=== PATIENT | female | born 1955 | race Caucasian/White ===

== ENCOUNTER 2020-05-19 09:10 | Outpatient (REF) | payer MEDICARE, MEDICAID, SELFPAY ==
[2020-05-19 10:25] LABS: MANUAL DIFF FLAG NO
[2020-05-19 10:46] LABS: Basophils Percent Auto 0.7 % (0-2); Eosinophils Absolute Auto 0.2 X10*3/uL (0.0-0.4); Eosinophils Percent Auto 3.8 % (0-4); Hematocrit 39.5 % (37-47); Hemoglobin 12.9 g/dl (12.0-16.0); Imm Gran Abs Auto 0.02 X10*3/uL (0.00-0.03); Imm Gran Pct Auto 0.3 % (0.0-0.4); Lymphocytes Absolute Auto 1.8 X10*3/uL (1.2-4.9); Lymphocytes Percent Auto 31.8 % (20-40); Mean Corpuscular HGB Conc 32.7 g/dl (31.0-35.0); Mean Corpuscular Hemoglobin 29.9 pg (27.0-33.0); Mean Corpuscular Volume 91.4 fL (80-98); Mean Platelet Volume 9.3 fL (9.4-12.3); Monocytes Absolute Auto 0.3 X10*3/uL (0.1-1.2); Monocytes Percent Auto 4.3 % (2-11); Neutrophils Absolute Auto 3.4 X10*3/uL (2.0-8.3); Neutrophils Percent Auto 59.1 % (45-73); Platelet Count 319 X10*3/uL (160-400); Red Blood Count 4.32 X10*6/uL (4.20-5.50); Red Cell Distribution Width 12.5 % (11.0-16.0); White Blood Count 5.8 X10*3/uL (4.8-10.8)
[2020-05-19 11:02] LABS: Alanine Aminotransferase 25 U/L (0-31); Albumin Level 4.2 g/dL (3.5-5.0); Alkaline Phosphatase 119 U/L (39-117); Anion Gap 12 (12-20); Aspartate Amino Transferase 22 U/L (5-31); Bilirubin Total 0.3 mg/dL (0.0-1.0); Blood Urea Nitrogen 10 mg/dL (9-16); Calcium 9.2 mg/dL (8.4-10.2); Carbon Dioxide 30 mmol/L (22-29); Chloride 104 mmol/L (96-108); Cholesterol 190 mg/dL; Estimated Glomerular Filt Rate > 60; Gamma Glutamyl Transpeptidase 76 U/L (7-33); Glucose Fasting 80 mg/dL (60-99); HDL Cholesterol 41 mg/dL; LDL Cholesterol Calculated 117 mg/dl; Potassium 4.8 mmol/l (3.3-5.1); Sodium 141 mmol/L (135-145); Triglycerides 163 mg/dL
== END 2020-05-19 09:11 | disposition home or self-care (01) ==
LOC: HO.LAB 09:10
PROVIDERS: Visit Provider Internal Medicine Medical Oncology
DX: I25.10 Atherosclerotic heart disease of native coronary artery without angina pectoris (principal); I25.83 Coronary atherosclerosis due to lipid rich plaque; I10 Essential (primary) hypertension; E78.2 Mixed hyperlipidemia; R73.9 Hyperglycemia, unspecified
CPT/HCPCS: 36415; 80053; 80061; 82977; 85025

== ENCOUNTER → 2020-06-18 08:45 | Outpatient (BNVA) | payer MEDICARE, MEDICAID, SELFPAY | PROVIDERS: PCP Internal Medicine Medical Oncology; Referring Provider Internal Medicine Medical Oncology; Visit Provider Internal Medicine | DX: Z13.89 Encounter for screening for other disorder (principal) | CPT/HCPCS: Q3014 ==

== ENCOUNTER → 2020-10-08 10:08 | Outpatient (BNVA) | payer MEDICARE, MEDICAID, SELFPAY | PROVIDERS: PCP Internal Medicine Medical Oncology; Visit Provider Internal Medicine | CPT/HCPCS: Q3014 ==

== ENCOUNTER → 2020-12-03 08:00 | Outpatient (BNVA) | payer MEDICARE, MEDICAID, SELFPAY | PROVIDERS: PCP Internal Medicine Medical Oncology; Visit Provider Internal Medicine | CPT/HCPCS: Q3014 ==

== ENCOUNTER 2020-12-23 10:56 | Inpatient (IN) | payer MEDICARE, MEDICAID, SELFPAY ==
[2020-12-23] VITALS (8 sets, daily range): BP systolic 104–148; BP diastolic 51–75; PULSE 74–115; RESP 16–30; TEMP 37.5–38.3; O2SAT 93–98; BMI 27.5
--- NOTE | ~2020-12-23 | FL_ITS ---
EXAMINATION: XR FLUOROSCOPY WITH IMAGES CLINICAL INFORMATION: ERCP COMPARISON: CT abdomen and pelvis 12/23/2020. TECHNIQUE: Fluoroscopy performed by Dr. Anuj Winters,. Fluoroscopy time: 709.8 seconds DAP: 175 mGycm2 Images: 5 FINDINGS: There is at least 5 images obtained revealing multiple small filling defects in the common bile duct. The subsequent images reveal balloon catheter within the CBD. The last image reveals a common bile duct stent in place. FL/FL guidance in OR IMPRESSION: Dilated CBD with small filling defects likely radiolucent stones. Subsequent images reveals balloon insertion and removal of stones. Final image reveals a stent in place.
--- NOTE | ~2020-12-23 | CT_ITS ---
EXAMINATION: CT ABDOMEN AND PELVIS WITH CONTRAST CLINICAL INFORMATION: CBD obstruction. Now presents with jaundice. COMPARISON: CT abdomen and pelvis with IV contrast 07/13/2017 TECHNIQUE: Multidetector volumetric images were obtained from the superior aspect of the liver through the pubic symphysis following administration 85 mL of Omnipaque 350 intravenous contrast. Sagittal and coronal reformatted images were obtained on the technologist's workstation. Oral contrast: No This CT examination was performed using dose optimization techniques as appropriate, variously including the following: *Automated exposure control *Adjustment of mA and/or kV according to patient size (this includes techniques or standardized protocols for targeted exams where dose is matched to indication/reason for exam; i.e. extremities or head) *Use of iterative reconstruction technique DLP: 369 mGy-cm FINDINGS: LUNG BASES: Mild atelectatic changes left lung base. There is a small hiatal hernia. LIVER, GALLBLADDER, AND BILIARY TREE: The liver is normal in size, shape, and attenuation. There is left hepatic lobe pneumobilia with mild dilated intrahepatic ducts. Also visualized is a moderate CBD dilatation measuring 1.0 cm above the pancreatic head and approximately 1 cm at the pancreatic head. There is heterogeneous soft tissue density seen in the distal CBD on axial image 30/3, measuring 60 Hounsfield units. There are several radiopaque gallstones seen. A large 1.9 cm gallstone with a dilated gallbladder but normal wall thickening is noted. PANCREAS: Unremarkable. SPLEEN: Unremarkable. ADRENAL GLANDS: Unremarkable. KIDNEYS AND URETERS: The kidneys are normal in size, shape, and attenuation. No hydronephrosis, hydroureter, or calculi seen. No perinephric stranding. Probable small left renal cyst cysts and bilateral extrarenal kidney pelvis. BLADDER: Unremarkable. GASTROINTESTINAL TRACT: There is scattered stool, diverticuli seen throughout the colon without any significant distention. The small bowel loops are normal caliber. Appendix is normal caliber. There is no inflammatory process seen in the abdomen. ABDOMINAL WALL: No significant hernia is appreciated. LYMPH NODES: Normal. VASCULAR: Is atherosclerotic calcification of abdominal aorta and both common iliac arteries. No aneurysmal dilatation seen. PELVIC VISCERA: The uterus is midline. There is no adnexal mass seen. OSSEOUS STRUCTURES: No lytic or sclerotic process seen. CT/CT abdomen pelvis w con IMPRESSION: There is intrahepatic pneumobilia and mild dilated intrahepatic ducts with a moderately dilated CBD. There is a heterogeneous soft tissue density seen in the distal CBD question mass or debris. A stricture is not excluded. Patient probably had previous intervention with ERCP. Correlate with clinical history Cholelithiasis with a large gallstone measuring 1.8 cm. Scattered colonic diverticulosis without diverticulitis. Mild constipation.
[2020-12-23 13:04] LABS: MANUAL DIFF FLAG NO
[2020-12-23 13:07] LABS: Basophils Percent Auto 0.2 % (0-2); Hematocrit 45.3 % (37-47); Hemoglobin 14.9 g/dl (12.0-16.0); Imm Gran Pct Auto 1.2 % (0.0-0.4); Lymphocytes Absolute Auto 2.1 X10*3/uL (1.2-4.9); Lymphocytes Percent Auto 12.6 % (20-40); Mean Corpuscular HGB Conc 32.9 g/dl (31.0-35.0); Mean Corpuscular Volume 91.1 fL (80-98); Mean Platelet Volume 9.5 fL (9.4-12.3); Monocytes Absolute Auto 0.8 X10*3/uL (0.1-1.2); Monocytes Percent Auto 4.8 % (2-11); Neutrophils Absolute Auto 13.5 X10*3/uL (2.0-8.3); Neutrophils Percent Auto 81.2 % (45-73); Platelet Count 377 X10*3/uL (160-400); Red Blood Count 4.97 X10*6/uL (4.20-5.50); Red Cell Distribution Width 12.7 % (11.0-16.0); White Blood Count 16.6 X10*3/uL (4.8-10.8)
[2020-12-23 15:49] LABS: Glucose Urine UA NEG (NEG); Leukocyte Esterase Urine TRACE (NEG); Nitrite Urine POS (NEG); PH 5.5 (5.0-8.0); Specific Gravity - Urine 1.025 (1.005-1.025); UACC Culture Trigger YES; Urine Blood 3+ (NEG); Urine Ketones 15 MG/DL (NEG); Urine Protein 3+ MG/DL (NEG-TRACE)
[2020-12-23 15:50] LABS: Appearance Urine HAZY
[2020-12-23 15:52] LABS: Color Urine BROWN
--- NOTE | 2020-12-23 15:53 | ECG_ITS ---
Test Reason : WEAKNESS Blood Pressure : / mmHG Vent. Rate : 092 BPM Atrial Rate : 092 BPM P-R Int : 146 ms QRS Dur : 076 ms QT Int : 366 ms P-R-T Axes : 056 053 061 degrees QTc Int : 452 ms Normal sinus rhythm Normal ECG When compared with ECG of 10-JAN-2019 07:04, Vent. rate has increased BY 34 BPM Referred By: Jana Edmondson Electronically Signed By:SEB MURPHY MD
[2020-12-23 16:00] LABS: Bacteria Urine 1+ /LPF; Hyaline Casts Urine 0-2 /LPF; Mucus Urine 1+ /LPF; Squamous Epithelial Cell Urine 1+ /LPF; UACC CULT YES
[2020-12-23] MEDS: Acetaminophen 325 MG TABLET 650 MG PO (16:00)
[2020-12-23] MEDS: cefTRIAXone sodium 1 GM in 0.9 % Sodium Chloride 50 ML IV (16:05)
[2020-12-23] MEDS: SODIUM CHLORIDE 1497 ML IV (16:05)
[2020-12-23 16:15] LABS: Alanine Aminotransferase 277 U/L (0-31); Albumin Level 4.2 g/dL (3.5-5.0); Alkaline Phosphatase 343 U/L (39-117); Anion Gap 15 (12-20); Aspartate Amino Transferase 166 U/L (5-31); Bilirubin Direct 4.7 mg/dL (0.0-0.5); Bilirubin Total 6.6 mg/dL (0.0-1.0); Blood Urea Nitrogen 11 mg/dL (9-16); Calcium 9.1 mg/dL (8.4-10.2); Carbon Dioxide 22 mmol/L (22-29); Chloride 100 mmol/L (96-108); Creatinine Clr Calc Pharmacy 38.1; Estimated Glomerular Filt Rate > 60; Glucose Random 111 mg/dL (60-115); Potassium 3.9 mmol/L (3.3-5.1); Sodium 133 mmol/L (135-145); Total Protein 7.4 g/dL (6.5-8.0)
[2020-12-23 16:21] LABS: COVID-19 Test Negative (Negative); IDNOW Serial# 9DD0AD1C
--- NOTE | 2020-12-23 16:21 | PHA.MEDREC ---
Pharmacy Consult ? Medication Reconciliation Pharmacy has completed the medication reconciliation.
--- NOTE | 2020-12-23 16:23 | ED_ITS ---
HPI - Abdominal Pain General Chief Complaint: Abdominal Pain Stated Complaint: abd pain, possible gallbladder Time Seen by Provider: 12/23/20 15:45 Source: patient Mode of arrival: ambulatory Limitations: no limitations History of Present Illness HPI narrative: 65-year-old female with a past medical history of asthma, vitamin-D deficiency, osteoporosis, coronary artery disease with stent placement, calculous cholecystitis managed medically here with complaints of some abdominal discomfort yesterday but no abdominal pain today. Feeling feverish today. Urine has been dark in color. No nausea, vomiting, diarrhea or chills. Family noticed the patient has been jaundiced the last few days Related Data Home Medications Medication Instructions Recorded Confirmed amlodipine 5 mg tablet 5 mg PO DAILY 06/18/20 12/23/20 trazodone 100 mg tablet 100 mg PO BEDTIME 06/18/20 12/23/20 nitroglycerin 0.4 mg sublingual 0.4 mg SUBLINGUAL Q5M PRN tab 12/03/20 12/23/20 tablet albuterol sulfate [ProAir HFA] 2 puff INHALATION Q4H PRN 12/23/20 12/23/20 Previous Rx's Medication Instructions Recorded omeprazole 20 mg capsule,delayed 20 mg PO DAILY #90 cap 06/24/20 release Allergies Allergy/AdvReac Type Severity Reaction Status Date / Time No Known Allergies Allergy Verified 12/23/20 11:19 [No Known Allergies*] Review of Systems Review of Systems Yes all other systems are reviewed and are negative Constitutional: Reports no additional constitutional complaints, Denies body ache(s), Denies chills, Denies fever(s), Denies headache(s) and Denies weakness Eyes: Reports no additional eye complaints and Denies change in vision Reports system reviewed and no additional complaints, except as documented, Denies dizziness, Denies headache(s), Denies nasal congestion, Denies nasal discharge and Denies neck pain Cardiovascular: Reports no additional cardiovascular complaints, Denies chest pain, Denies leg edema and Denies dyspnea Respiratory: Reports no additional respiratory complaints, Denies cough and Denies dyspnea Gastrointestinal: Reports no additional gastrointestinal complaints, Reports abdominal pain, Denies diarrhea, Denies nausea and Denies vomiting Genitourinary: Reports no additional female genitourinary complaints and Denies urinary incontinence Musculoskeletal: Reports no additional musculoskeletal complaints, Denies back pain, Denies arthralgias, Denies joint swelling, Denies neck pain, Denies numbness and Denies tingling Skin/Breast: Reports system reviewed and no additional complaints, except as docu and Denies rash Reports system reviewed and no additional complaints, except as documented, Denies Abnormal speech present, Denies dizziness, Denies headache(s), Denies numbness, Denies tingling and Denies weakness Physical Exam Vital Signs: Vital Signs: Last Vital Signs Temp 99.5 F 12/23/20 16:42 Pulse 90 12/23/20 16:42 Resp 20 12/23/20 16:42 BP 109/51 L 12/23/20 16:42 Pulse Ox 98 12/23/20 16:42 Body Mass Index 27.5 Const: General: cooperative, healthy appearing, comfortable and no acute d istress Orientation/consciousness: patient oriented x3 Limitations: no limitations HENMT: Head: Yes normal to inspection Ears: hearing grossly normal bilaterally General nose exam: Normal external nose present Face and sinus: Yes normal facial exam Mouth: Normal oral and palatal mucosa present Throat: Yes posterior oropharynx normal Eyes: General: appearance normal, both eyes and all related structures Sclerae: scleral abnormal ( icteric ) Pupils: Equal, round and reactive pupils present Neck: Neck: Yes normal visual inspection Chest: Chest palpation & inspection: normal inspection of the chest Resp: Effort & Inspection: normal respiratory effort Auscultation: clear to auscultation bilaterally Cardio: Rate: regular rate Rhythm: regular rhythm Peripheral pulses: Peripheral pulses 2+ throughout GI: Inspection: Yes normal to inspection Palpation (GI): Soft to palpation and nontender Auscultation: normal bowel sounds Back/Spine/Pelvis: Thoracic/Lumbar Spine: thoracic and lumbar spine normal to inspection Skin: General skin exam: no rashes or lesions noted and jaundice Neuro: General: patient oriented x3, no focal motor deficits and normal sensation to monofilament Cranial nerves: Yes Equal, round and reactive pupils present Cognition (Neuro): normal cognition Speech: No Abnormal speech present Gait exam (Neuro): Normal gait present Motor exam (neuro): 5/5 motor strength present throughout Extrem: General: Yes normal to inspection, Yes no pedal edema and Yes no calf tenderness Course Course Course Narrative: 1545- 65-year-old female here with complaints of episode of abdominal pain yesterday but none today with concern from the family that today she has fever dawson jaundiced appearing. On my exam the patient is not complaining of any abdominal pain. She does have jaundice and scleral icterus. on arrival she has a fever of 100.9 and a heart rate of 110. at this time infection is suspected. Blood cultures and lactic acid ordered. Antibiotics, normal saline bolus and Tylenol ordered. Due to history of calculous cholecystitis managed medically will obtain imaging to r/o CBD obstruction. 1650-Sign out to [employer]NAGER pending above. MDM - Abdominal Pain MDM Narrative Medical decision making narrative: liver disease, CBD obstruction, cholecystitis, pancreatic Medical Records Attestation: I reviewed the patient's medical records. Lab Data Attestation: I reviewed the patient's lab results. Result diagrams: 12/23/20 12:53 12/23/20 15:36 Labs: Lab Results 12/23/20 12/23/20 12/23/20 Range/Units 12:53 15:36 15:36 WBC 16.6 H (4.8-10.8) X10*3/uL RBC 4.97 (4.20-5.50) X10*6/uL Hgb 14.9 (12.0-16.0) g/dl Hct 45.3 (37-47) % MCV 91.1 (80-98) fL MCH 30.0 (27.0-33.0) pg MCHC 32.9 (31.0-35.0) g/dl RDW 12.7 (11.0-16.0) % Plt Count 377 (160-400) X10*3/uL MPV 9.5 (9.4-12.3) fL Immature Gran % (Auto) 1.2 H (0.0-0.4) % Neut % (Auto) 81.2 H (45-73) % Lymph % (Auto) 12.6 L (20-40) % [place] % (Auto) 4.8 (2-11) % Eos % (Auto) 0.0 (0-4) % Baso % (Auto) 0.2 (0-2) % Lymph # (Auto) 2.1 (1.2-4.9) X10*3/uL [place] # (Auto) 0.8 (0.1-1.2) X10*3/uL Eos # (Auto) 0.0 (0.0-0.4) X10*3/uL Baso # (Auto) 0.0 (0.0-0.2) X10*3/uL Abs Immat Gran (auto) 0.20 H (0.00-0.03) X10*3/uL Absolute Neuts (auto) 13.5 H (2.0-8.3) X10*3/uL Absolute Nucleated RBC 0.000 (0.0-0.012) X10*3/uL Nucleated RBC % (auto) 0.0 (0.0-0.2) /100WBC Sodium 133 L (135-145) mmol/L Potassium 3.9 (3.3-5.1) mmol/L Chloride 100 (96-108) mmol/L Carbon Dioxide 22 (22-29) mmol/L Anion Gap 15 (12-20) BUN 11 (9-16) mg/dL Creatinine 0.85 (0.5-1.4) mg/dL Estim Creat Clear Calc 38.1 Estimated GFR > 60 Random Glucose 111 (60-115) mg/dL Lactic Acid (0.5-2.0) mmol/L Calcium 9.1 (8.4-10.2) mg/dL Total Bilirubin 6.6 H (0.0-1.0) mg/dL Direct Bilirubin 4.7 H (0.0-0.5) mg/dL AST 166 H (5-31) U/L ALT 277 H (0-31) U/L Alkaline Phosphatase 343 H D (39-117) U/L Total Protein 7.4 (6.5-8.0) g/dL Albumin 4.2 (3.5-5.0) g/dL Lipase 10 (8-78) U/L Urine Color BROWN Urine Appearance HAZY Urine pH 5.5 (5.0-8.0) Ur Specific [place] 1.025 (1.005-1.025) Urine Protein 3+ H (NEG-TRACE) MG/DL Urine Glucose (UA) NEG (NEG) MG/DL Urine Ketones 15 (NEG) MG/DL Urine Blood 3+ H (NEG) Urine Nitrite POS H (NEG) Ur Leukocyte Esterase TRACE H (NEG) Urine RBC 15-29 H (0) /HPF Urine WBC 1-4 (0-4) /HPF Ur Squamous Epith Cells 1+ /LPF Urine Bacteria 1+ /LPF Hyaline Casts 0-2 /LPF Urine Mucus 1+ /LPF COVID-19 ([facility]) (Negative) COVID-19 Clin Com 12/23/20 12/23/20 Range/Units 15:58 15:59 WBC (4.8-10.8) X10*3/uL RBC (4.20-5.50) X10*6/uL Hgb (12.0-16.0) g/dl Hct (37-47) % MCV (80-98) fL MCH (27.0-33.0) pg MCHC (31.0-35.0) g/dl RDW (11.0-16.0) % Plt Count (160-400) X10*3/uL MPV (9.4-12.3) fL Immature Gran % (Auto) (0.0-0.4) % Neut % (Auto) (45-73) % Lymph % (Auto) (20-40) % [place] % (Auto) (2-11) % Eos % (Auto) (0-4) % Baso % (Auto) (0-2) % Lymph # (Auto) (1.2-4.9) X10*3/uL [place] # (Auto) (0.1-1.2) X10*3/uL Eos # (Auto) (0.0-0.4) X10*3/uL Baso # (Auto) (0.0-0.2) X10*3/uL Abs Immat Gran (auto) (0.00-0.03) X10*3/uL Absolute Neuts (auto) (2.0-8.3) X10*3/uL Absolute Nucleated RBC (0.0-0.012) X10*3/uL Nucleated RBC % (auto) (0.0-0.2) /100WBC Sodium (135-145) mmol/L Potassium (3.3-5.1) mmol/L Chloride (96-108) mmol/L Carbon Dioxide (22-29) mmol/L Anion Gap (12-20) BUN (9-16) mg/dL Creatinine (0.5-1.4) mg/dL Estim Creat Clear Calc Estimated GFR Random Glucose (60-115) mg/dL Lactic Acid 0.9 (0.5-2.0) mmol/L Calcium (8.4-10.2) mg/dL Total Bilirubin (0.0-1.0) mg/dL Direct Bilirubin (0.0-0.5) mg/dL AST (5-31) U/L ALT (0-31) U/L Alkaline Phosphatase (39-117) U/L Total Protein (6.5-8.0) g/dL Albumin (3.5-5.0) g/dL Lipase (8-78) U/L Urine Color Urine Appearance Urine pH (5.0-8.0) Ur Specific [place] (1.005-1.025) Urine Protein (NEG-TRACE) MG/DL Urine Glucose (UA) (NEG) MG/DL Urine Ketones (NEG) MG/DL Urine Blood (NEG) Urine Nitrite (NEG) Ur Leukocyte Esterase (NEG) Urine RBC (0) /HPF Urine WBC (0-4) /HPF Ur Squamous Epith Cells /LPF Urine Bacteria /LPF Hyaline Casts /LPF Urine Mucus /LPF COVID-19 ([facility]) Negative (Negative) COVID-19 Clin Com See Note ECG Data Attestation: I personally reviewed and interpreted this ECG as follows: ECG interpretation date: 12/23/20 ECG interpretation time: 16:12 Interpretation: normal sinus rhythm with a rate of 92, normal WI, normal QRS, normal QT Discharge Plan Discharge Prescriptions: No Action omeprazole 20 mg capsule,delayed release(DR/EC) 20 mg PO DAILY Qty: 90 RF: 1 albuterol sulfate [ProAir HFA] 90 mcg/actuation HFA aerosol inhaler 2 puff inhalation Q4H PRN (Reason: Shortness Of Breath) RF: 0 trazodone 100 mg tablet 100 mg PO BEDTIME RF: 0 amlodipine 5 mg tablet 5 mg PO DAILY RF: 0 nitroglycerin 0.4 mg tablet, sublingual 0.4 mg sublingual Q5M PRN (Reason: Chest Pain) RF: 0 PMFSH Past Medical History Attestation statement: The following information was validated with the patient. Source: old records reviewed and nursing notes reviewed Medical History GERD (gastroesophageal reflux disease) Osteoporosis Vitamin D deficiency Surgical History H/O heart artery stent Hx of section Hx of tubal ligation Family History Family History Father Diabetes Social History Social History Alcohol intake: never Patient Tobacco Use Status: Former Tobacco user Smoked in Last 30 Days: No Use of substances other than those prescribed or required for medical reasons: No Advance Directives: No Advance Directives Information Provided: No
[2020-12-23 16:35] LABS: Lactic Acid 0.9 mmol/L (0.5-2.0)
[2020-12-23 16:47] LABS: Lipase 10 U/L (8-78)
[2020-12-23] MEDS: iohexoL 350 MG/ML 100 ML INFUS..BTL IV (17:23)
--- NOTE | 2020-12-23 19:00 | PC.NURSE ---
1L NS HUNG PER VERBAL ORDER.
[2020-12-23] MEDS: metroNIDAZOLE/NS 500 MG/100 ML PIGGYBACK 100 MG IV (21:51)
[2020-12-23] MEDS: 0.9 % Sodium Chloride 1,000 ML 100 ML IVCONT (21:53)
--- NOTE | 2020-12-23 22:22 | PM.IMHP ---
History of Present Illness Date of Service: 12/23/20 Chief Complaint: abd pain 65-year-old female with past medical history of coronary artery disease status post stent, GERD, depression, who presents the hospital with complaints of abdominal pain. Patient is Malay-speaking only, history is obtained with the help of her son at bedside and her daughter over the phone. According to the son patient started complaining of right upper quadrant abdominal pain about 2 days ago, the pain is intermittent, ranging from 7-10 out of 10, nonradiating, associated with nausea and 1 episode of vomiting, no fever or chills, she apparently had issues with her gallbladder few years ago but refused surgery. She denies any chest pain, no shortness of breath, no cough, no urinary symptoms even though I asked her multiple times about frequency urgency or dysuria she denied, no lower extremity edema. On arrival to the ED patient's vitals are significant for a temp of a 100.9?, heart rate of 104, respiratory rate of 16, blood pressure 125/68, satting 97% on room air Labs are significant WBC count of 16.6, sodium of 133, total bili of 6.6 when he was normal in the past, direct bili of 4.7, AST of 167, ALT of 277, alk-phos of 343, UA that is positive for nitrites, leukocyte Estrace a small amount of WBC. Abdominal CT shows intrahepatic pneumobilia and mild dilated intrahepatic ducts with a moderately dilated CBD. There is a heterogeneous soft tissue density seen in the distal CBD questions of mass versus degrees, has stricture is not excluded. Cholelithiasis with a large gallstone measuring 1.8 cm. Surgical consult was placed by ED, recommended admitted in to medical team with consult to GI for possible ERCP review of system negative otherwise, past medical history as below Review of Systems Review of Systems: Yes all other systems are reviewed and are negative [facility] Medical History (Updated 12/24/20 @ 05:32 by Angelina Cruz MD) Depression GERD (gastroesophageal reflux disease) History of coronary artery disease Osteoporosis Vitamin D deficiency Family History Father Diabetes Surgical History H/O heart artery stent Hx of section Hx of tubal ligation Social History Alcohol intake: never Patient Tobacco Use Status: Former Tobacco user Smoked in Last 30 Days: No Use of substances other than those prescribed or required for medical reasons: No Advance Directives: No Advance Directives Information Provided: No service: No Current occupational status: disabled Meds Allergies Allergy/AdvReac Type Severity Reaction Status Date / Time No Known Allergies Allergy Verified 12/23/20 11:19 [No Known Allergies*] Active Medications: Current Medications Generic Name Dose Route Start Last Admin Trade Name Freq PRN Reason Stop Dose Admin Acetaminophen 650 mg 12/23/20 20:55 Acetaminophen 325 Mg Tablet PO Q6H PRN Pain, Mild (Pain Scale 1-3) Albuterol Sulfate 2 puff 12/23/20 20:55 Albuterol Sulfate 90 Mcg 8 Gm Inhaler INHALE Q4H PRN Shortness Of Breath Amlodipine Besylate 5 mg 12/24/20 09:00 Amlodipine Besylate 5 Mg Tablet PO DAILY [facility] Protocol Docusate Sodium 100 mg 12/23/20 20:55 Docusate Sodium 100 Mg Capsule PO DAILY PRN Constipation Ceftriaxone Sodium 1 gm/ 50 mls @ 100 mls/hr 12/24/20 16:00 Sodium Chloride IV Q24H IRINA Metronidazole 500 mg in 100 mls @ 100 mls/hr 12/23/20 21:00 12/23/20 21:51 Flagyl IV 100 mls/hr Q8H IRINA Administration Sodium Chloride 1,000 mls @ 100 mls/hr 12/23/20 21:00 12/23/20 21:53 Ns IVCONT 100 mls/hr .Q10H IRINA Administration Nitroglycerin 0.4 mg 12/23/20 20:55 Nitroglycerin 0.4 Mg Tab.Subl SUBLINGUAL Q5M PRN Chest Pain Omeprazole 20 mg 12/24/20 06:30 Omeprazole 20 Mg Capsule.Dr PO DAILY@30 IRINA Ondansetron HCl 4 mg 12/23/20 20:55 Ondansetron Hcl 4 Mg/2 Ml Vial IVPUSH Q8H PRN Nausea and Vomiting Oxycodone HCl 5 mg 12/23/20 20:55 Oxycodone Hcl Immed Release 5 Mg Tablet PO Q6H PRN Pain, Severe (Pain Scale 7-10) Pharmacy Consult 1 each 12/23/20 15:53 Consult Rx Perform Med Rec MISCELLANE ONCE PRN Consult order Sodium Chloride 3 ml 12/24/20 00:00 0.9 % Sodium Chloride Flush 3 Ml Syringe IVFLUSH QSHIFT [facility] Trazodone HCl 100 mg 12/23/20 21:00 12/23/20 22:03 Trazodone Hcl 100 Mg Tablet PO Not Given BEDTIME [facility] Home Medications Medication Instructions Recorded Confirmed Last Taken Type amlodipine 5 mg tablet 5 mg PO DAILY 06/18/20 12/23/20 Unknown History trazodone 100 mg tablet 100 mg PO BEDTIME 06/18/20 12/23/20 Unknown History nitroglycerin 0.4 mg sublingual 0.4 mg SUBLINGUAL Q5M PRN tab 12/03/20 12/23/20 Unknown History tablet albuterol sulfate [ProAir HFA] 2 puff INHALATION Q4H PRN 12/23/20 12/23/20 Unknown History Physical Exam Vital Signs and Narrative: Vital Signs: Last Vital Signs Temp 99.5 F 12/23/20 16:42 Pulse 74 12/23/20 20:42 Resp 17 12/23/20 20:42 BP 134/59 L 12/23/20 20:42 Pulse Ox 97 12/23/20 20:42 Body Mass Index 27.5 Const: General: cooperative and no acute distress Orientation/consciousness: patient oriented x3 Eyes: General: appearance normal, both eyes and all related structures Resp: Effort & Inspection: normal respiratory effort and able to speak in complete sentences Cardio: Rate: regular rate Rhythm: regular rhythm GI: Other: right upper quadrant abdominal tenderness, no rebound, no guarding Palpation (GI): Soft to palpation Auscultation: normal bowel sounds Skin: General skin exam: no rashes or lesions noted Neuro: General: patient oriented x3 Cognition (Neuro): normal cognition Extrem: General: Yes normal to inspection and Yes no pedal edema Results Labs CBC and Chem 7: 12/23/20 12:53 12/23/20 15:36 Labs: Laboratory Results - last 24 hr 12/23/20 12/23/20 12/23/20 12:53 15:36 15:36 MCV 91.1 MCH 30.0 MCHC 32.9 RDW 12.7 Plt Count 377 MPV 9.5 Immature Gran % (Auto) 1.2 H Neut % (Auto) 81.2 H Lymph % (Auto) 12.6 L [place] % (Auto) 4.8 Eos % (Auto) 0.0 Baso % (Auto) 0.2 Lymph # (Auto) 2.1 [place] # (Auto) 0.8 Eos # (Auto) 0.0 Baso # (Auto) 0.0 Abs Immat Gran (auto) 0.20 H Absolute Neuts (auto) 13.5 H Absolute Nucleated RBC 0.000 Nucleated RBC % (auto) 0.0 Anion Gap 15 Estim Creat Clear Calc 38.1 Estimated GFR > 60 Random Glucose 111 Lactic Acid Calcium 9.1 Total Bilirubin 6.6 H Direct Bilirubin 4.7 H AST 166 H ALT 277 H Alkaline Phosphatase 343 H D Total Protein 7.4 Albumin 4.2 Lipase 10 Urine Color BROWN Urine Appearance HAZY Urine pH 5.5 Ur Specific [place] 1.025 Urine Protein 3+ H Urine Glucose (UA) NEG Urine Ketones 15 Urine Blood 3+ H Urine Nitrite POS H Ur Leukocyte Esterase TRACE H Urine RBC 15-29 H Urine WBC 1-4 Ur Squamous Epith Cells 1+ Urine Bacteria 1+ Hyaline Casts 0-2 Urine Mucus 1+ COVID-19 ([facility]) COVID-19 Clin Com 12/23/20 12/23/20 15:58 15:59 MCV MCH MCHC RDW Plt Count MPV Immature Gran % (Auto) Neut % (Auto) Lymph % (Auto) [place] % (Auto) Eos % (Auto) Baso % (Auto) Lymph # (Auto) [place] # (Auto) Eos # (Auto) Baso # (Auto) Abs Immat Gran (auto) Absolute Neuts (auto) Absolute Nucleated RBC Nucleated RBC % (auto) Anion Gap Estim Creat Clear Calc Estimated GFR Random Glucose Lactic Acid 0.9 Calcium Total Bilirubin Direct Bilirubin AST ALT Alkaline Phosphatase Total Protein Albumin Lipase Urine Color Urine Appearance Urine pH Ur Specific [place] Urine Protein Urine Glucose (UA) Urine Ketones Urine Blood Urine Nitrite Ur Leukocyte Esterase Urine RBC Urine WBC Ur Squamous Epith Cells Urine Bacteria Hyaline Casts Urine Mucus COVID-19 ([facility]) Negative COVID-19 Clin Com See Note Imaging Radiologist's Impressions: Impressions Abdomen/Pelvis CT 12/23/20 15:53 IMPRESSION: There is intrahepatic pneumobilia and mild dilated intrahepatic ducts with a moderately dilated CBD. There is a heterogeneous soft tissue density seen in the distal CBD question mass or debris. A stricture is not excluded. Patient probably had previous intervention with ERCP. Correlate with clinical history Cholelithiasis with a large gallstone measuring 1.8 cm. Scattered colonic diverticulosis without diverticulitis. Mild constipation. Assessment and Plan (1) Cholangitis: Status: Acute (2) Cholelithiasis: Qualifiers: Biliary obstruction: with biliary obstruction Cholecystitis acuity: acute and chronic Cholecystitis presence: with cholecystitis Cholelithiasis location: bile duct Qualified Code(s): K80.47 - Calculus of bile duct with acute and chronic cholecystitis with obstruction Status: Acute (3) Acute UTI: Status: Acute this is a 65-year-old female with past medical history of depression, GERD, CAD who presents to the hospital with abdominal pain found to have cholelithiasis # cholelithiasis with cholangitis - febrile, jaundice, abdominal pain - evidence of large 1.8 cm stone - has CBD dilatation - will start with IV antibiotics - GI consult - surgery team consulted - follow-up blood cultures # UTI - asymptomatic - patient will be on antibiotics for above reason - follow cultures # CAD - no chest pain - monitor # hypertension - continue amlodipine # GERD - continue omeprazole DVT prophylaxis: SCDs for potential surgical intervention Quality Stroke Does the patient have a stroke diagnosis?: No VTE Prior VTE?: No VTE Risk Level:: Medical - moderate - high VTE Device Contraindication: N/A - Device Ordered VTE Drug Contraindication: Treatment Not Indicated
--- NOTE | 2020-12-23 22:50 | MHC.CM.PN ---
CM met with pt using the medical delivery technician, Pt is Angolan speaking only. Reviewed IMM per protocol with help of flight test data acquisition technician 12/23/20@0415. Pt signed with X. Copy given and placed in chart. Pt lives alone. Has help from family. No HCP on file. Education provided, declined at this time. Contact is Ag Dorado-[phone]). Expect d/c home without services. May need VNA pending hospital course. Pt agreeable to home services if needed. Transportation home by son.
[2020-12-24] VITALS (12 sets, daily range): BP systolic 97–140; BP diastolic 46–60; PULSE 63–100; RESP 12–18; TEMP 35.8–37.8; O2SAT 94–100
--- NOTE | 2020-12-24 03:38 | PC.NURSE ---
REPORT FROM KENDALL OQUENDO AT 03:00
[2020-12-24] MEDS: metroNIDAZOLE/NS 500 MG/100 ML PIGGYBACK 100 MG IV ×3 (05:00→20:58)
[2020-12-24 06:13] LABS: MANUAL DIFF FLAG NO
[2020-12-24 06:18] LABS: Basophils Percent Auto 0.1 % (0-2); Hematocrit 31.7 % (37-47); Hemoglobin 10.4 g/dl (12.0-16.0); Imm Gran Pct Auto 1.2 % (0.0-0.4); Lymphocytes Absolute Auto 1.5 X10*3/uL (1.2-4.9); Mean Corpuscular HGB Conc 32.8 g/dl (31.0-35.0); Mean Corpuscular Hemoglobin 30.3 pg (27.0-33.0); Mean Corpuscular Volume 92.4 fL (80-98); Mean Platelet Volume 9.2 fL (9.4-12.3); Monocytes Absolute Auto 0.7 X10*3/uL (0.1-1.2); Monocytes Percent Auto 4.2 % (2-11); Neutrophils Percent Auto 85.5 % (45-73); Platelet Count 298 X10*3/uL (160-400); Red Blood Count 3.43 X10*6/uL (4.20-5.50); Red Cell Distribution Width 12.7 % (11.0-16.0); White Blood Count 16.4 X10*3/uL (4.8-10.8)
--- NOTE | 2020-12-24 06:19 | PC.NURSE ---
pt's 0.9 ns infusion not complete at 05:55. still had 300cc remaining.
[2020-12-24] MEDS: Omeprazole 20 MG CAPSULE.DR PO (06:41)
[2020-12-24 06:45] LABS: Anion Gap 11 (12-20); Blood Urea Nitrogen 8 mg/dL (9-16); Calcium 7.8 mg/dL (8.4-10.2); Carbon Dioxide 23 mmol/L (22-29); Chloride 111 mmol/L (96-108); Estimated Glomerular Filt Rate > 60; Glucose Random 88 mg/dL (60-115); Potassium 3.4 mmol/L (3.3-5.1); Sodium 142 mmol/L (135-145)
[2020-12-24] MEDS: 0.9 % Sodium Chloride 1,000 ML 100 ML IVCONT (08:45)
[2020-12-24] MEDS: amLODIPine Besylate 5 MG TABLET PO (08:45)
--- NOTE | 2020-12-24 10:54 | HO.PM.IMPN ---
Subjective Subjective Date of Service: 12/24/20 Interval History: Seen in f/ur for abdominal pain, cholecystitis, cholangitis. Presently no fever or no confusion, pain is controlled. Review of Systems Gen: no fever Resp: no sob, no cough CV: no chest, no GREEN, no leg edema GI: abdominal pain Neuro: No confusion Physical Exam Vital Signs: Vital Signs: Last Vital Signs Temp 99.0 F 12/24/20 07:02 Pulse 82 12/24/20 08:45 Resp 14 12/24/20 07:02 BP 131/60 12/24/20 08:45 Pulse Ox 97 12/24/20 07:02 Body Mass Index 27.5 Const: Other: General: AO X 3, no acute distress Resp: CTA bilateral CVS: S1,S2,RRR GI: +BS, NT, no distention Skin: No rash Neuro: motor grossly intact Psych: appropriate affect Objective Data Current Medications Generic Name Dose Route Start Last Admin Trade Name Freq PRN Reason Stop Dose Admin Acetaminophen 650 mg 12/23/20 20:55 Acetaminophen 325 Mg Tablet PO Q6H PRN Pain, Mild (Pain Scale 1-3) Albuterol Sulfate 2 puff 12/23/20 20:55 Albuterol Sulfate 90 Mcg 8 Gm Inhaler INHALE Q4H PRN Shortness Of Breath Amlodipine Besylate 5 mg 12/24/20 09:00 12/24/20 08:45 Amlodipine Besylate 5 Mg Tablet PO 5 mg DAILY IRINA Administration Protocol Docusate Sodium 100 mg 12/23/20 20:55 Docusate Sodium 100 Mg Capsule PO DAILY PRN Constipation Ceftriaxone Sodium 1 gm/ 50 mls @ 100 mls/hr 12/24/20 16:00 Sodium Chloride IV Q24H IRINA Metronidazole 500 mg in 100 mls @ 100 mls/hr 12/23/20 21:00 12/24/20 05:55 Flagyl IV Infused Q8H IRINA Infusion Sodium Chloride 1,000 mls @ 100 mls/hr 12/23/20 21:00 12/24/20 08:45 Ns IVCONT 100 mls/hr .Q10H IRINA Administration Nitroglycerin 0.4 mg 12/23/20 20:55 Nitroglycerin 0.4 Mg Tab.Subl SUBLINGUAL Q5M PRN Chest Pain Omeprazole 20 mg 12/24/20 06:30 12/24/20 06:41 Omeprazole 20 Mg Capsule. PO 20 mg DAILY@0630 [facility] Administration Ondansetron HCl 4 mg 12/23/20 20:55 Ondansetron Hcl 4 Mg/2 Ml Vial IVPUSH Q8H PRN Nausea and Vomiting Oxycodone HCl 5 mg 12/23/20 20:55 Oxycodone Hcl Immed Release 5 Mg Tablet PO Q6H PRN Pain, Severe (Pain Scale 7-10) Pharmacy Consult 1 each 12/23/20 15:53 Consult Rx Perform Med Rec MISCELLANE ONCE PRN Consult order Sodium Chloride 3 ml 12/24/20 00:00 12/24/20 07:02 0.9 % Sodium Chloride Flush 3 Ml Syringe IVFLUSH Not Given QSHIFT [facility] Trazodone HCl 100 mg 12/23/20 21:00 12/23/20 22:03 Trazodone Hcl 100 Mg Tablet PO Not Given BEDTIME [facility] Labs CBC & Chem 7: 12/24/20 06:07 12/24/20 06:07 Labs: Laboratory Results - last 24 hr 12/23/20 12/23/20 12/23/20 12:53 15:36 15:36 WBC 16.6 H RBC 4.97 Hgb 14.9 Hct 45.3 MCV 91.1 MCH 30.0 MCHC 32.9 RDW 12.7 Plt Count 377 MPV 9.5 Immature Gran % (Auto) 1.2 H Neut % (Auto) 81.2 H Lymph % (Auto) 12.6 L [place] % (Auto) 4.8 Eos % (Auto) 0.0 Baso % (Auto) 0.2 Lymph # (Auto) 2.1 [place] # (Auto) 0.8 Eos # (Auto) 0.0 Baso # (Auto) 0.0 Abs Immat Gran (auto) 0.20 H Absolute Neuts (auto) 13.5 H Absolute Nucleated RBC 0.000 Nucleated RBC % (auto) 0.0 Sodium 133 L Potassium 3.9 Chloride 100 Carbon Dioxide 22 Anion Gap 15 BUN 11 Creatinine 0.85 Estim Creat Clear Calc 38.1 Estimated GFR > 60 Random Glucose 111 Lactic Acid Calcium 9.1 Total Bilirubin 6.6 H Direct Bilirubin 4.7 H AST 166 H ALT 277 H Alkaline Phosphatase 343 H D Total Protein 7.4 Albumin 4.2 Lipase 10 Urine Color BROWN Urine Appearance HAZY Urine pH 5.5 Ur Specific [place] 1.025 Urine Protein 3+ H Urine Glucose (UA) NEG Urine Ketones 15 Urine Blood 3+ H Urine Nitrite POS H Ur Leukocyte Esterase TRACE H Urine RBC 15-29 H Urine WBC 1-4 Ur Squamous Epith Cells 1+ Urine Bacteria 1+ Hyaline Casts 0-2 Urine Mucus 1+ COVID-19 (ADINA) COVID-19 Clin Com 12/23/20 12/23/20 12/24/20 15:58 15:59 06:07 WBC 16.4 H RBC 3.43 L D Hgb 10.4 L D Hct 31.7 L D MCV 92.4 MCH 30.3 MCHC 32.8 RDW 12.7 Plt Count 298 MPV 9.2 L Immature Gran % (Auto) 1.2 H Neut % (Auto) 85.5 H Lymph % (Auto) 9.0 L [place] % (Auto) 4.2 Eos % (Auto) 0.0 Baso % (Auto) 0.1 Lymph # (Auto) 1.5 [place] # (Auto) 0.7 Eos # (Auto) 0.0 Baso # (Auto) 0.0 Abs Immat Gran (auto) 0.20 H Absolute Neuts (auto) 14.0 H Absolute Nucleated RBC 0.000 Nucleated RBC % (auto) 0.0 Sodium Potassium Chloride Carbon Dioxide Anion Gap BUN Creatinine Estim Creat Clear Calc Estimated GFR Random Glucose Lactic Acid 0.9 Calcium Total Bilirubin Direct Bilirubin AST ALT Alkaline Phosphatase Total Protein Albumin Lipase Urine Color Urine Appearance Urine pH Ur Specific [place] Urine Protein Urine Glucose (UA) Urine Ketones Urine Blood Urine Nitrite Ur Leukocyte Esterase Urine RBC Urine WBC Ur Squamous Epith Cells Urine Bacteria Hyaline Casts Urine Mucus COVID-19 ([facility]) Negative COVID-19 Clin Com See Note 12/24/20 06:07 WBC RBC Hgb Hct MCV MCH MCHC RDW Plt Count MPV Immature Gran % (Auto) Neut % (Auto) Lymph % (Auto) [place] % (Auto) Eos % (Auto) Baso % (Auto) Lymph # (Auto) [place] # (Auto) Eos # (Auto) Baso # (Auto) Abs Immat Gran (auto) Absolute Neuts (auto) Absolute Nucleated RBC Nucleated RBC % (auto) Sodium 142 Potassium 3.4 Chloride 111 H Carbon Dioxide 23 Anion Gap 11 L BUN 8 L Creatinine 0.66 Estim Creat Clear Calc 49.0 Estimated GFR > 60 Random Glucose 88 Lactic Acid Calcium 7.8 L D Total Bilirubin Direct Bilirubin AST ALT Alkaline Phosphatase Total Protein Albumin Lipase Urine Color Urine Appearance Urine pH Ur Specific [place] Urine Protein Urine Glucose (UA) Urine Ketones Urine Blood Urine Nitrite Ur Leukocyte Esterase Urine RBC Urine WBC Ur Squamous Epith Cells Urine Bacteria Hyaline Casts Urine Mucus COVID-19 ([facility]) COVID-19 Clin Com Microbiology Microbiology Results: Microbiology 12/23/20 15:59 Blood Culture - Preliminary Blood - Venous 12/23/20 15:35 Urine Culture - Final Urine clean catch - Clean Catch Midstream No growth. 12/23/20 15:58 Blood Culture - Preliminary Blood - Venous Quality Stroke Does the patient have a stroke diagnosis?: No VTE Prior VTE?: No VTE Risk Level:: Medical - moderate - high VTE Device Contraindication: N/A - Device Ordered VTE Drug Contraindication: Treatment Not Indicated Assessment and Plan (1) Cholangitis: Status: Acute (2) Cholelithiasis: Status: Acute (3) Acute UTI: Status: Acute Assessment and Plan: 65-year-old female with past medical history of depression, GERD, CAD who presents to the hospital with abdominal pain found to have cholelithiasis # cholelithiasis with cholangitis - febrile, jaundice, abdominal pain - evidence of large 1.8 cm stone - has CBD dilatation - will start with IV antibiotics -I have communicated directly with surgery and GI (Dr. Shankar and Anuj) and will make sure someone will see her - follow-up blood cultures -Continue IV Ceftriaxone and Flagyl -recheck LFTs # UTI - asymptomatic - patient will be on antibiotics for above reason - follow cultures # CAD - no chest pain - monitor # hypertension - continue amlodipine # GERD - continue omeprazole DVT prophylaxis: SCDs for potential surgical intervention
--- NOTE | 2020-12-24 11:31 | PC.NURSE ---
CONSULT TO GI/SURGERY CALLED @ [id number]
--- NOTE | 2020-12-24 12:35 | PM.EVENT ---
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 Imp: Recurrent choledocholithiasis with component of cholangitis. Presently stable. She is s/p previous ERCP in 2018, but then never had her CCY. Rec: ERCP with me or Dr. Leslie. Full consent obtained from the patient and her daughter, Shannan([phone]) including risks of bleeding, perforation, cholangitis, and pancreatitis. Continue NPO and IV antibiotics. Check PT/INR. Surgery consult to arrange for CCY. They were comfortable with this plan. Thanks
[2020-12-24 13:05] LABS: INTERNATIONAL NORM RATIO 1.3 (0.9-1.1); Prothrombin Time 15.6 SEC (10.8-13.0)
[2020-12-24 13:23] LABS: Alanine Aminotransferase 166 U/L (0-31); Albumin Level 3.2 g/dL (3.5-5.0); Alkaline Phosphatase 224 U/L (39-117); Aspartate Amino Transferase 75 U/L (5-31); Bilirubin Direct 1.8 mg/dL (0.0-0.5); Bilirubin Total 2.3 mg/dL (0.0-1.0); Total Protein 5.4 g/dL (6.5-8.0)
--- NOTE | 2020-12-24 13:36 | P.CONGS_ITS ---
History of Present Illness Consult details Consult date: 12/24/20 Reason for consult: gallstones Requesting physician: Daniel Barron Narrative: This is a 65-year-old female who was feeling well until about 10:00 o'clock yesterday morning when she had acute onset of moderately severe right upper quadrant pain associated with fever and chills. She did not have nausea, vomiting or diarrhea. She noticed that her urine appeared darker. She presented to the emergency room for further evaluation. She has a known history of gallstones and of choledocholithiasis. She presented with similar symptoms in June 2017. At that time, she was recently status post placement of a drug-eluting coronary stent and was on Brilinta. She underwent ERCP with sphincterotomy and extraction of common duct stone. She was noted to have a stricture. Brushings were done and were benign. She was asymptomatic following ERCP. Because of the recent stent placement and resolution of her acute symptoms, cholecystectomy was deferred. She returned with plans to undergo cholecystectomy electively in December of 2018, but had an episode of chest pain the night prior to surgery. Cardiac workup was recommended and surgery again was deferred. She reports that she has been asymptomatic since that time. In the emergency department, white blood count was found to be elevated at 16.6. Liver function studies were elevated, total bilirubin 6.6, AST 166, ALT 277, alkaline phosphatase 343. CT scan of the abdomen and pelvis was done and demonstrated: IMPRESSION: There is intrahepatic pneumobilia and mild dilated intrahepatic ducts with a moderately dilated CBD. There is a heterogeneous soft tissue density seen in the distal CBD question mass or debris. A stricture is not excluded. Patient probably had previous intervention with ERCP. Correlate with clinical history Cholelithiasis with a large gallstone measuring 1.8 cm. Scattered colonic diverticulosis without diverticulitis. Mild constipation. Dictated By:RADHA EDWARDS MDSigned By:<Electronically signed by RADHA EDWARDS MD in OV>12/23/20 2928 Currently, she has no complaints of abdominal pain. She has been evaluated by Dr. Wray and plans for ERCP are in progress. Review of Systems Constitutional: Constitutional: Denies body ache(s), Reports chills and Reports fever(s) Eyes: Eyes: Reports requires corrective lenses ( for distance) ENT: Denies dizziness Cardiovascular: Cardiovascular: Denies chest pain, Denies irregular heart rhythm and Denies dyspnea Respiratory: Respiratory: Denies cough and Denies dyspnea Gastrointestinal: Gastrointestinal: Reports as per HPI Genitourinary: Genitourinary: Denies hematuria and Denies dysuria Comments: dark yellow color Musculoskeletal: Musculoskeletal: Reports no additional musculoskeletal comp laints Neurologic: Denies dizziness Hematologic/Lymphatic: Hematologic/Lymphatic: Reports no additional hematologic/lymphatic complaints [facility] Past Medical History Medical History (Updated 12/24/20 @ 13:51 by Jennifer Shankar MD) Asthma Depression GERD (gastroesophageal reflux disease) History of coronary artery disease Osteoporosis Vitamin D deficiency Family History Family History Father Diabetes Surgical History Surgical History (Updated 12/24/20 @ 13:50 by Jennifer Shankar MD) H/O heart artery stent History of ERCP Hx of section Hx of tubal ligation Social History Social History Alcohol intake: never Patient Tobacco Use Status: Former Tobacco user Smoked in Last 30 Days: No Use of substances other than those prescribed or required for medical reasons: No Advance Directives: No Advance Directives Information Provided: No service: No Current occupational status: disabled Meds Allergies Allergy/AdvReac Type Severity Reaction Status Date / Time No Known Allergies Allergy Verified 12/23/20 11:19 [No Known Allergies*] Active Medications: Current Medications Generic Name Dose Route Start Last Admin Trade Name Freq PRN Reason Stop Dose Admin Acetaminophen 650 mg 12/23/20 20:55 Acetaminophen 325 Mg Tablet PO Q6H PRN Pain, Mild (Pain Scale 1-3) Albuterol Sulfate 2 puff 12/23/20 20:55 Albuterol Sulfate 90 Mcg 8 Gm Inhaler INHALE Q4H PRN Shortness Of Breath Amlodipine Besylate 5 mg 12/24/20 09:00 12/24/20 08:45 Amlodipine Besylate 5 Mg Tablet PO 5 mg DAILY IRINA Administration Protocol Docusate Sodium 100 mg 12/23/20 20:55 Docusate Sodium 100 Mg Capsule PO DAILY PRN Constipation Ceftriaxone Sodium 1 gm/ 50 mls @ 100 mls/hr 12/24/20 16:00 Sodium Chloride IV Q24H IRINA Metronidazole 500 mg in 100 mls @ 100 mls/hr 12/23/20 21:00 12/24/20 12:31 Flagyl IV 100 mls/hr Q8H IRINA Administration Sodium Chloride 1,000 mls @ 100 mls/hr 12/23/20 21:00 12/24/20 08:45 Ns IVCONT 100 mls/hr .Q10H IRINA Administration Nitroglycerin 0.4 mg 12/23/20 20:55 Nitroglycerin 0.4 Mg Tab.Subl SUBLINGUAL Q5M PRN Chest Pain Omeprazole 20 mg 12/24/20 06:30 12/24/20 06:41 Omeprazole 20 Mg Capsule. PO 20 mg DAILY@0630 IRINA Administration Ondansetron HCl 4 mg 12/23/20 20:55 Ondansetron Hcl 4 Mg/2 Ml Vial IVPUSH Q8H PRN Nausea and Vomiting Oxycodone HCl 5 mg 12/23/20 20:55 Oxycodone Hcl Immed Release 5 Mg Tablet PO Q6H PRN Pain, Severe (Pain Scale 7-10) Pharmacy Consult 1 each 12/23/20 15:53 Consult Rx Perform Med Rec MISCELLANE ONCE PRN Consult order Sodium Chloride 3 ml 12/24/20 00:00 12/24/20 07:02 0.9 % Sodium Chloride Flush 3 Ml Syringe IVFLUSH Not Given QSHIFT [facility] Trazodone HCl 100 mg 12/23/20 21:00 12/23/20 22:03 Trazodone Hcl 100 Mg Tablet PO Not Given BEDTIME [facility] Home Medications Medication Instructions Recorded Confirmed Last Taken Type amlodipine 5 mg tablet 5 mg PO DAILY 06/18/20 12/23/20 Unknown History trazodone 100 mg tablet 100 mg PO BEDTIME 06/18/20 12/23/20 Unknown History nitroglycerin 0.4 mg sublingual 0.4 mg SUBLINGUAL Q5M PRN tab 12/03/20 12/23/20 Unknown History tablet albuterol sulfate [ProAir HFA] 2 puff INHALATION Q4H PRN 12/23/20 12/23/20 Unknown History Physical Exam Vital Signs: Vital Signs: Last Vital Signs Temp 99.0 F 12/24/20 07:02 Pulse 82 12/24/20 08:45 Resp 14 12/24/20 07:02 BP 131/60 12/24/20 08:45 Pulse Ox 97 12/24/20 07:02 Body Mass Index 27.5 Const: General: cooperative, no acute distress and alert HENMT: Head: Yes normocephalic and Yes atraumatic Neck: Neck: Yes trachea midline and Yes supple Resp: Effort & Inspection: normal respiratory effort Auscultation: clear to auscultation bilaterally Cardio: Rate: regular rate Rhythm: regular rhythm GI: Other: round, soft, nontender, no palpable masses or organomegaly Rectal Exam - Female: deferred Skin: Other: warm, dry General skin exam: no rashes or lesions noted Extrem: General: Yes normal to inspection Psych: Mental Status: mental status grossly normal Affect: normal affect Results Labs Result diagrams: 12/24/20 06:07 12/24/20 06:07 Labs: Abnormal lab results 12/23/20 12/23/20 12/24/20 Range/Units 15:36 15:36 06:07 WBC 16.4 H (4.8-10.8) X10*3/uL RBC 3.43 L D (4.20-5.50) X10*6/uL Hgb 10.4 L D (12.0-16.0) g/dl Hct 31.7 L D (37-47) % MPV 9.2 L (9.4-12.3) fL Immature Gran % (Auto) 1.2 H (0.0-0.4) % Neut % (Auto) 85.5 H (45-73) % Lymph % (Auto) 9.0 L (20-40) % Abs Immat Gran (auto) 0.20 H (0.00-0.03) X10*3/uL Absolute Neuts (auto) 14.0 H (2.0-8.3) X10*3/uL PT (10.8-13.0) SEC INR (0.9-1.1) Sodium 133 L (135-145) mmol/L Chloride (96-108) mmol/L Anion Gap (12-20) BUN (9-16) mg/dL Calcium (8.4-10.2) mg/dL Total Bilirubin 6.6 H (0.0-1.0) mg/dL Direct Bilirubin 4.7 H (0.0-0.5) mg/dL AST 166 H (5-31) U/L ALT 277 H (0-31) U/L Alkaline Phosphatase 343 H D (39-117) U/L Total Protein (6.5-8.0) g/dL Albumin (3.5-5.0) g/dL Urine Protein 3+ H (NEG-TRACE) MG/DL Urine Blood 3+ H (NEG) Urine Nitrite POS H (NEG) Ur Leukocyte Esterase TRACE H (NEG) Urine RBC 15-29 H (0) /HPF 12/24/20 12/24/20 Range/Units 06:07 12:46 WBC (4.8-10.8) X10*3/uL RBC (4.20-5.50) X10*6/uL Hgb (12.0-16.0) g/dl Hct (37-47) % MPV (9.4-12.3) fL Immature Gran % (Auto) (0.0-0.4) % Neut % (Auto) (45-73) % Lymph % (Auto) (20-40) % Abs Immat Gran (auto) (0.00-0.03) X10*3/uL Absolute Neuts (auto) (2.0-8.3) X10*3/uL PT 15.6 H (10.8-13.0) SEC INR 1.3 H (0.9-1.1) Sodium (135-145) mmol/L Chloride 111 H (96-108) mmol/L Anion Gap 11 L (12-20) BUN 8 L (9-16) mg/dL Calcium 7.8 L D (8.4-10.2) mg/dL Total Bilirubin 2.3 H (0.0-1.0) mg/dL Direct Bilirubin 1.8 H (0.0-0.5) mg/dL AST 75 H (5-31) U/L ALT 166 H (0-31) U/L Alkaline Phosphatase 224 H D (39-117) U/L Total Protein 5.4 L D (6.5-8.0) g/dL Albumin 3.2 L D (3.5-5.0) g/dL Urine Protein (NEG-TRACE) MG/DL Urine Blood (NEG) Urine Nitrite (NEG) Ur Leukocyte Esterase (NEG) Urine RBC (0) /HPF Short CBC 12/24/20 Range/Units 06:07 WBC 16.4 H (4.8-10.8) X10*3/uL Hgb 10.4 L D (12.0-16.0) g/dl Hct 31.7 L D (37-47) % Plt Count 298 (160-400) X10*3/uL BMP 12/23/20 12/24/20 15:36 06:07 Sodium 133 L 142 Potassium 3.9 3.4 Chloride 100 111 H Carbon Dioxide 22 23 BUN 11 8 L Creatinine 0.85 0.66 Calcium 9.1 7.8 L D Liver Function 12/23/20 12/24/20 Range/Units 15:36 06:07 Total Bilirubin 6.6 H 2.3 H (0.0-1.0) mg/dL Direct Bilirubin 4.7 H 1.8 H (0.0-0.5) mg/dL AST 166 H 75 H (5-31) U/L ALT 277 H 166 H (0-31) U/L Alkaline Phosphatase 343 H D 224 H D (39-117) U/L Albumin 4.2 3.2 L D (3.5-5.0) g/dL Urine 12/23/20 Range/Units 15:36 Urine Color BROWN Urine Appearance HAZY Urine pH 5.5 (5.0-8.0) Ur Specific [place] 1.025 (1.005-1.025) Urine Protein 3+ H (NEG-TRACE) MG/DL Urine Glucose (UA) NEG (NEG) MG/DL All other labs normal. Assessment and Plan (1) Cholangitis: Status: Acute (2) Cholelithiasis: Qualifiers: Biliary obstruction: with biliary obstruction Cholecystitis acuity: acute and chronic Cholecystitis presence: with cholecystitis Cholelithiasis location: bile duct Qualified Code(s): K80.47 - Calculus of bile duct with acute and chronic cholecystitis with obstruction Status: Acute (3) Jaundice: Status: Acute 65-year-old female with cholelithiasis, dilated bile ducts with probable choledocholithiasis, history of bile duct stricture, elevated white blood count, fever and elevated liver function studies - picture consistent with cholangitis. She has been seen by Dr. Wray and will be scheduled for ERCP. We discussed proceeding with cholecystectomy once the current episode of cholangitis has resolved. Cholecystectomy can be performed later during this admission or in the future depending upon her recovery and findings at the time of ERCP and on patient preference. General surgery will follow along. Procedures Date of Service Date of Service: 12/24/20
--- NOTE | 2020-12-24 14:57 | HO.ANESPROP2 ---
HPI - Anesthesia Eval Consult details Narrative: Abdominal Pain PMFSH Active Problems Active Problems: All Active Problems (Updated 12/24/20 @ 13:51 by Jennifer Shankar MD) Cholangitis (Acute) Cholelithiasis (Acute) Acute UTI (Acute) Jaundice (Acute) Vitamin D deficiency (Acute) Osteoporosis (Acute) Past Medical History Medical History (Updated 12/24/20 @ 13:51 by Jennifer Shankar MD) Asthma Depression GERD (gastroesophageal reflux disease) History of coronary artery disease Osteoporosis Vitamin D deficiency Family History Family History Father Diabetes Surgical History Surgical History (Updated 12/24/20 @ 13:50 by Jennifer Shankar MD) H/O heart artery stent History of ERCP Hx of section Hx of tubal ligation Social History Social History Alcohol intake: never Patient Tobacco Use Status: Former Tobacco user service: No Current occupational status: disabled [employer] Allergies Allergy/AdvReac Type Severity Reaction Status Date / Time No Known Allergies Allergy Verified 12/23/20 11:19 [No Known Allergies*] Active Medications: Current Medications Generic Name Dose Route Start Last Admin Trade Name Freq PRN Reason Stop Dose Admin Acetaminophen 650 mg 12/23/20 20:55 Acetaminophen 325 Mg Tablet PO Q6H PRN Pain, Mild (Pain Scale 1-3) Albuterol Sulfate 2 puff 12/23/20 20:55 Albuterol Sulfate 90 Mcg 8 Gm Inhaler INHALE Q4H PRN Shortness Of Breath Amlodipine Besylate 5 mg 12/24/20 09:00 12/24/20 08:45 Amlodipine Besylate 5 Mg Tablet PO 5 mg DAILY IRINA Administration Protocol Docusate Sodium 100 mg 12/23/20 20:55 Docusate Sodium 100 Mg Capsule PO DAILY PRN Constipation Ceftriaxone Sodium 1 gm/ 50 mls @ 100 mls/hr 12/24/20 16:00 Sodium Chloride IV Q24H IRINA Metronidazole 500 mg in 100 mls @ 100 mls/hr 12/23/20 21:00 12/24/20 13:39 Flagyl IV Infused Q8H IRINA Infusion Sodium Chloride 1,000 mls @ 100 mls/hr 12/23/20 21:00 12/24/20 08:45 Ns IVCONT 100 mls/hr .Q10H IRINA Administration Lactated Ringer's 1,000 mls @ 50 mls/hr 12/24/20 15:00 Lr IVCONT .Q20H IRINA Nitroglycerin 0.4 mg 12/23/20 20:55 Nitroglycerin 0.4 Mg Tab.Subl SUBLINGUAL Q5M PRN Chest Pain Omeprazole 20 mg 12/24/20 06:30 12/24/20 06:41 Omeprazole 20 Mg Capsule.Dr PO 20 mg DAILY@0630 IRINA Administration Ondansetron HCl 4 mg 12/23/20 20:55 Ondansetron Hcl 4 Mg/2 Ml Vial IVPUSH Q8H PRN Nausea and Vomiting Oxycodone HCl 5 mg 12/23/20 20:55 Oxycodone Hcl Immed Release 5 Mg Tablet PO Q6H PRN Pain, Severe (Pain Scale 7-10) Pharmacy Consult 1 each 12/23/20 15:53 Consult Rx Perform Med Rec MISCELLANE ONCE PRN Consult order Sodium Chloride 3 ml 12/24/20 00:00 12/24/20 07:02 0.9 % Sodium Chloride Flush 3 Ml Syringe IVFLUSH Not Given QSHIFT [facility] Trazodone HCl 100 mg 12/23/20 21:00 12/23/20 22:03 Trazodone Hcl 100 Mg Tablet PO Not Given BEDTIME [facility] Home Medications Medication Instructions Recorded Confirmed Last Taken Type amlodipine 5 mg tablet 5 mg PO DAILY 06/18/20 12/23/20 Unknown History trazodone 100 mg tablet 100 mg PO BEDTIME 06/18/20 12/23/20 Unknown History nitroglycerin 0.4 mg sublingual 0.4 mg SUBLINGUAL Q5M PRN tab 12/03/20 12/23/20 Unknown History tablet albuterol sulfate [ProAir HFA] 2 puff INHALATION Q4H PRN 12/23/20 12/23/20 Unknown History Exam Exam Date and Time: December 24, 2020 1457 Height,Weight and Vital Signs: Height 4 ft 5 in Weight 49.9 kg Last Vital Signs Temp 100.1 F 12/24/20 14:48 Pulse 95 12/24/20 14:48 Resp 18 12/24/20 14:48 BP 140/60 H 12/24/20 14:48 Pulse Ox 96 12/24/20 14:48 Pertinent Lab Results Pertinent Lab Results: Laboratory Tests 12/23/20 12/23/20 12/23/20 12:53 15:36 15:36 WBC 16.6 H RBC 4.97 Hgb 14.9 Hct 45.3 MCV 91.1 MCH 30.0 MCHC 32.9 RDW 12.7 Plt Count 377 MPV 9.5 Immature Gran % (Auto) 1.2 H Neut % (Auto) 81.2 H Lymph % (Auto) 12.6 L [place] % (Auto) 4.8 Eos % (Auto) 0.0 Baso % (Auto) 0.2 Lymph # (Auto) 2.1 [place] # (Auto) 0.8 Eos # (Auto) 0.0 Baso # (Auto) 0.0 Abs Immat Gran (auto) 0.20 H Absolute Neuts (auto) 13.5 H Absolute Nucleated RBC 0.000 Nucleated RBC % (auto) 0.0 PT INR Sodium 133 L Potassium 3.9 Chloride 100 Carbon Dioxide 22 Anion Gap 15 BUN 11 Creatinine 0.85 Estim Creat Clear Calc 38.1 Estimated GFR > 60 Random Glucose 111 Lactic Acid Calcium 9.1 Total Bilirubin 6.6 H Direct Bilirubin 4.7 H AST 166 H ALT 277 H Alkaline Phosphatase 343 H D Total Protein 7.4 Albumin 4.2 Lipase 10 Urine Color BROWN Urine Appearance HAZY Urine pH 5.5 Ur Specific [place] 1.025 Urine Protein 3+ H Urine Glucose (UA) NEG Urine Ketones 15 Urine Blood 3+ H Urine Nitrite POS H Ur Leukocyte Esterase TRACE H Urine RBC 15-29 H Urine WBC 1-4 Ur Squamous Epith Cells 1+ Urine Bacteria 1+ Hyaline Casts 0-2 Urine Mucus 1+ COVID-19 ([facility]) COVID-19 Clin Com 12/23/20 12/23/20 12/24/20 15:58 15:59 06:07 WBC 16.4 H RBC 3.43 L D Hgb 10.4 L D Hct 31.7 L D MCV 92.4 MCH 30.3 MCHC 32.8 RDW 12.7 Plt Count 298 MPV 9.2 L Immature Gran % (Auto) 1.2 H Neut % (Auto) 85.5 H Lymph % (Auto) 9.0 L [place] % (Auto) 4.2 Eos % (Auto) 0.0 Baso % (Auto) 0.1 Lymph # (Auto) 1.5 [place] # (Auto) 0.7 Eos # (Auto) 0.0 Baso # (Auto) 0.0 Abs Immat Gran (auto) 0.20 H Absolute Neuts (auto) 14.0 H Absolute Nucleated RBC 0.000 Nucleated RBC % (auto) 0.0 PT INR Sodium Potassium Chloride Carbon Dioxide Anion Gap BUN Creatinine Estim Creat Clear Calc Estimated GFR Random Glucose Lactic Acid 0.9 Calcium Total Bilirubin Direct Bilirubin AST ALT Alkaline Phosphatase Total Protein Albumin Lipase Urine Color Urine Appearance Urine pH Ur Specific [place] Urine Protein Urine Glucose (UA) Urine Ketones Urine Blood Urine Nitrite Ur Leukocyte Esterase Urine RBC Urine WBC Ur Squamous Epith Cells Urine Bacteria Hyaline Casts Urine Mucus COVID-19 ([facility]) Negative COVID-19 Clin Com See Note 12/24/20 12/24/20 06:07 12:46 WBC RBC Hgb Hct MCV MCH MCHC RDW Plt Count MPV Immature Gran % (Auto) Neut % (Auto) Lymph % (Auto) [place] % (Auto) Eos % (Auto) Baso % (Auto) Lymph # (Auto) [place] # (Auto) Eos # (Auto) Baso # (Auto) Abs Immat Gran (auto) Absolute Neuts (auto) Absolute Nucleated RBC Nucleated RBC % (auto) PT 15.6 H INR 1.3 H Sodium 142 Potassium 3.4 Chloride 111 H Carbon Dioxide 23 Anion Gap 11 L BUN 8 L Creatinine 0.66 Estim Creat Clear Calc 49.0 Estimated GFR > 60 Random Glucose 88 Lactic Acid Calcium 7.8 L D Total Bilirubin 2.3 H Direct Bilirubin 1.8 H AST 75 H ALT 166 H Alkaline Phosphatase 224 H D Total Protein 5.4 L D Albumin 3.2 L D Lipase Urine Color Urine Appearance Urine pH Ur Specific [place] Urine Protein Urine Glucose (UA) Urine Ketones Urine Blood Urine Nitrite Ur Leukocyte Esterase Urine RBC Urine WBC Ur Squamous Epith Cells Urine Bacteria Hyaline Casts Urine Mucus COVID-19 ([facility]) COVID-19 Clin Com Airway Mallampati Class: II TM Dist: >3cm Neck ROM: Full Denture: Upper and Lower Heart: [id number] Lungs: cta b/l Assessment and Plan Assessment Anesthesia Assessment: Anesthesia Plan Discussed, PAT Visit and Chart Reviewed Final Anesthetic Review NPO: Yes ASA Class: III Final Preanesthetic Review: No Changes in Pt Med Stat, Meds/Allgs Chart Reviewed, Consent Obtained/Reviewed and Anes Risks/Benef Reviewed Patient Risk: Intermediate Procedure Risk: Low Assessment/Block/Sedation in SS: Assess/Block/Sedation-SS Anesthetic Plan Anesthetic Plan: GA and Agree w/ Assess. and Plan Disposition: Standard PACU
--- NOTE | 2020-12-24 15:10 | MHC.SHP ---
Pre-Procedural Eval Section A Date of Service: 12/24/20 The patient is an INPATIENT: Yes Changes since office visit: No Cold of Flu in the past 2 weeks, No New Medical Problems, No Changes in Medication and No Patient answered all questions The History & Physical has been completed within 30 days and I have reviewed it.: Yes Section B Chief Complaint: abd pain, possible gallbladder Allergies: Allergies Allergy/AdvReac Type Severity Reaction Status Date / Time No Known Allergies Allergy Verified 12/23/20 11:19 [No Known Allergies*] Plan I have reviewed the history and physical and performed a pertinent physical examination on my patient. No changes have occurred unless specified.
--- NOTE | 2020-12-24 17:42 | P.BOP_ITS ---
Brief Operative Note Date of Service: 12/24/20 Pre-op diagnosis: cbd stone Procedure: ERCP Surgeon: Singh Leslie Anesthesia: GETA Was an Continuous Wave Operator used for this Procedure?: No Estimated blood loss (mL): 5 Pathology: none sent Condition: stable Disposition: PACU
--- NOTE | 2020-12-24 17:43 | PM.EVENT ---
Event Note Date of Service: 12/24/20 Event Note: ERCP note dictated removed multiple pieces of sludge/stone fragments but unable to completely clear last stone with baskets and balloons. 10F 5 cm plastic biliary stent placed with good drainage of clear yellow bile rec advance diet, cont abx, follow lfts cholecystectomy per gen surg discretion my office will make referral for eventual outpatient stone extraction with possible electrohydraulic lithotripsy
[2020-12-24] MEDS: ondansetron HCL 4 MG/2 ML VIAL IVPUSH (17:56)
[2020-12-24] MEDS: cefTRIAXone sodium 1 GM in 0.9 % Sodium Chloride 50 ML IV (18:53)
[2020-12-24] MEDS: 0.9 % Sodium Chloride Flush 3 ML SYRINGE IVFLUSH (18:54)
[2020-12-24] MEDS: Lactated Ringers 1,000 ML 50 ML IVCONT (19:46)
--- NOTE | 2020-12-24 20:35 | CONS_ITS ---
DATE OF SERVICE: 12/24/2020 REASON FOR CONSULTATION: Obstructive jaundice, choledocholithiasis, and cholangitis. HISTORY OF PRESENT ILLNESS: This has been obtained from the patient with a medical territory manager, as well as from her daughter, and the medical record. The patient is a 65-year-old female who presents with approximately 24 hours of right upper quadrant pain and feeling feverish. She had a similar episode about 2 weeks ago, but that spontaneously resolved. When the pain started yesterday, she did have some nausea but no vomiting. She did not notice any definite jaundice. The pain was localized to the right upper quadrant without any real radiation. She did not notice any melena nor hematochezia. She came to the ER for evaluation. Overnight and today, she has been feeling better while still in the ER. She denies any ongoing abdominal pain and feels well. Her past history is notable for choledocholithiasis, removed via ERCP and sphincterotomy in 2018. She was to have had a cholecystectomy for gallstones after that, but the procedure was canceled due to her having some chest pain and was then never rescheduled. MEDICATIONS: At home include albuterol, amlodipine, omeprazole, and trazodone. Medications here in the hospital include IV Flagyl, IV ceftriaxone, albuterol inhaler p.r.n., amlodipine, omeprazole, Zofran p.r.n., oxycodone p.r.n., trazodone. PAST MEDICAL HISTORY: Choledocholithiasis as above. section. COPD. Hypertension. Coronary artery disease with previous stent placement. She denies a history of diabetes or stroke. SOCIAL HISTORY: She denies tobacco nor alcohol. PHYSICAL EXAMINATION: GENERAL: The patient is a pleasant, alert, comfortable-appearing female, in no distress. SKIN: Warm and dry. HEENT: Anicteric sclerae. NECK: Supple. CHEST: Clear. CARDIAC: Normal S1 and S2. ABDOMEN: Soft, nondistended. Normal bowel sounds. Nontender without palpable mass. EXTREMITIES: Without edema. LABORATORY DATA: White blood cell count 16.6, hemoglobin 14.9, and repeat white blood cell count today of 16.4. Differential shows a left shift on the white blood cell count. Normal electrolytes. BUN 8, creatinine 0.7. Total bilirubin was 6.6 yesterday on admission and was 2.3 today. Direct bilirubin 1.8 today. AST 166 yesterday and 75 today. ALT 277 yesterday and 166 today. Alkaline phosphatase 343 yesterday and 224 today. Albumin 3.2. Lipase 10. She had a CAT scan of the abdomen and pelvis yesterday describing evidence of probable choledocholithiasis with a dilated bile duct and pneumobilia. Gallstones were noted as well in the gallbladder. There is no cholecystitis. The pancreas appeared unremarkable. IMPRESSION: Given the patient's presentation and workup, this seems quite consistent with recurrent choledocholithiasis and a component of cholangitis. However, at the present time, she appears very stable and asymptomatic. Given these findings, I would recommend endoscopic retrograde cholangiopancreatography for further diagnosis and treatment. We did review that procedure in detail with the medical territory manager, including risks of bleeding, perforation, cholangitis, and pancreatitis. Consent has been obtained from the patient and her daughter. I advised them this would be done either by myself or Dr. Leslie. In the meantime, I would recommend continuing her antibiotics, checking a PT with INR, and continuing her to be n.p.o. I would also recommend surgical consultation to arrange for cholecystectomy once we have cleared the common bile duct. This has all been discussed with the patient and her daughter in detail, and they are both comfortable with this plan. Thank you for this consultation. MD JOSE Bolivar/YOLANDE / [phone]
[2020-12-24] MEDS: traZODone HCL 100 MG TABLET PO (20:58)
--- NOTE | 2020-12-24 23:20 | OP_ITS ---
SURGEON: Singh Leslie MD INDICATIONS: Cholangitis and common duct stones on CT imaging. PROCEDURE PERFORMED: ERCP with stone extraction and stent placement. MEDICATIONS: General anesthesia. DESCRIPTION OF PROCEDURE: History and physical performed. The risks and benefits of the procedure were explained to the patient. Informed consent was obtained. The patient was placed in the prone position with a wedge under the right shoulder. A duodenoscope was introduced into the esophagus, stomach, and duodenum. See details of the procedure below. Examination was performed and the scope was removed. She tolerated the procedure well and was taken to recovery area in stable condition. FINDINGS: ENDOSCOPY: Limited examination of the esophagus, stomach, and duodenum were within normal limits. The major papilla appeared normal. Sphincterotomy had been previously performed and there was clear yellow bile draining into the duodenum. Cholangiography with a guidewire and sphincterotome showed multiple filling defects in the distal common bile duct consistent with the imaging findings. The sphincterotomy easily allowed withdrawal of a 12 mm balloon and fully curled sphincter tome, so it was not extended. Multiple fragments of stone and sludge were removed using a 12 mm balloon; however, there appeared to be a filling defect that could not be removed with the balloon. A basket was used to remove some pieces, but the stone could not be completely cleared. There are also technical problems with the initial scope that was used and this required removal and reinsertion of the endoscope several times. Stent placement was attempted with the original scope, but could not be successfully done. Finally, 10-Vincentian 5 cm plastic biliary stent was placed. Using the [employer] disposable scope, the stent was in good position, draining clear yellow bile at the termination of the procedure. No pancreatogram was attempted or obtained. IMPRESSION: 1. Common bile duct stones. 2. Biliary stent placement. RECOMMENDATIONS: 1. The patient will be observed. Diet will be advanced. She will be referred for stone removal with electrohydraulic lithotripsy if necessary. 2. Proceed with elective cholecystectomy at the patient's convenience. MD PATRICIA Núñez/YOLANDE / [id number] [facility]
[2020-12-25 03:45] VITALS: BP 104/56; PULSE 58; RESP 18; TEMP 36.9; O2SAT 94
[2020-12-25] MEDS: Omeprazole 20 MG CAPSULE.DR PO (05:39)
[2020-12-25] MEDS: metroNIDAZOLE/NS 500 MG/100 ML PIGGYBACK 100 MG IV (05:39)
[2020-12-25 07:05] LABS: Hematocrit 32.7 % (37-47); Hemoglobin 10.7 g/dl (12.0-16.0); Mean Corpuscular HGB Conc 32.7 g/dl (31.0-35.0); Mean Corpuscular Hemoglobin 29.8 pg (27.0-33.0); Mean Corpuscular Volume 91.1 fL (80-98); Mean Platelet Volume 9.5 fL (9.4-12.3); Platelet Count 316 X10*3/uL (160-400); Red Blood Count 3.59 X10*6/uL (4.20-5.50); Red Cell Distribution Width 12.7 % (11.0-16.0); White Blood Count 8.9 X10*3/uL (4.8-10.8)
--- NOTE | 2020-12-25 07:15 | PM.PNGS ---
Subjective Subjective Date of Service: 12/25/20 Interval history: Patient denies abdominal pain this morning; denies nausea or vomiting. Physical Exam Vital Signs: Vital Signs: Last Vital Signs Temp 98.4 F 12/25/20 03:45 Pulse 58 12/25/20 03:45 Resp 18 12/25/20 03:45 BP 104/56 L 12/25/20 03:45 Pulse Ox 94 12/25/20 03:45 Body Mass Index 27.5 Const: General: comfortable and no acute distress Nutritional Appearance: well nourished Resp: Effort & Inspection: normal respiratory effort, no audible wheezes, no cough and not labored GI: Palpation (GI): Soft to palpation, nontender, no guarding, not rigid, No hepatosplenomegaly present and No Rebound tenderness present Skin: General skin exam: no rashes or lesions noted Extrem: General: Yes no pedal edema Progress Note: A&P Assessment and plan (1) Cholangitis: Status: Acute Assessment and Plan: s/p ERCP with stone extraction and stent placement. Residual stone unable to be removed; plan for elective lithotripsy at [facility]. Patient feels much improved today with no abdominal pain. WBC is normal; LFT's pending. Patient started on diet yesterday; can be followed up as an outpatient in the office and arrangements made for an elective laparoscopic cholecystectomy. (2) Cholelithiasis: Status: Acute (3) Jaundice: Status: Acute Assessment and Plan: LFTs pending Fall Risk Details Current Medications: Current Medications Generic Name Dose Route Start Last Admin Trade Name Freq PRN Reason Stop Dose Admin Acetaminophen 650 mg 12/23/20 20:55 Acetaminophen 325 Mg Tablet PO Q6H PRN Pain, Mild (Pain Scale 1-3) Albuterol Sulfate 2 puff 12/23/20 20:55 Albuterol Sulfate 90 Mcg 8 Gm Inhaler INHALE Q4H PRN Shortness Of Breath Amlodipine Besylate 5 mg 12/24/20 09:00 12/24/20 08:45 Amlodipine Besylate 5 Mg Tablet PO 5 mg DAILY IRINA Administration Protocol Docusate Sodium 100 mg 12/23/20 20:55 Docusate Sodium 100 Mg Capsule PO DAILY PRN Constipation Fentanyl 50 mcg 12/24/20 14:55 Fentanyl Citrate/Pf 100 Mcg/2 Ml Vial IVPUSH Q5M PRN Pain, Moderate (Pain Scale 4-6 Hydromorphone HCl 0.5 mg 12/24/20 14:55 Hydromorphone Hcl 0.5 Mg/0.5 Ml Syringe IVPUSH Q5M PRN Pain, Severe (Pain Scale 7-10) Ceftriaxone Sodium 1 gm/ 50 mls @ 100 mls/hr 12/24/20 16:00 12/24/20 19:27 Sodium Chloride IV Infused Q24H IRINA Infusion Metronidazole 500 mg in 100 mls @ 100 mls/hr 12/23/20 21:00 12/25/20 06:39 Flagyl IV Infused Q8H IRINA Infusion Lactated Ringer's 1,000 mls @ 50 mls/hr 12/24/20 15:00 12/24/20 19:46 Lr IVCONT 50 mls/hr .Q20H IRINA Administration Promethazine HCl 12.5 mg/ 50.5 mls @ 202 mls/hr 12/24/20 14:55 Sodium Chloride IV ONCE PRN Nausea and Vomiting Nitroglycerin 0.4 mg 12/23/20 20:55 Nitroglycerin 0.4 Mg Tab.Subl SUBLINGUAL Q5M PRN Chest Pain Omeprazole 20 mg 12/24/20 06:30 12/25/20 05:39 Omeprazole 20 Mg Capsule.Dr PO 20 mg DAILY@0630 IRINA Administration Ondansetron HCl 4 mg 12/23/20 20:55 Ondansetron Hcl 4 Mg/2 Ml Vial IVPUSH Q8H PRN Nausea and Vomiting Ondansetron HCl 4 mg 12/24/20 14:55 12/24/20 17:56 Ondansetron Hcl 4 Mg/2 Ml Vial IVPUSH 4 mg ONCE PRN Administration Nausea and Vomiting Oxycodone HCl 5 mg 12/23/20 20:55 Oxycodone Hcl Immed Release 5 Mg Tablet PO Q6H PRN Pain, Severe (Pain Scale 7-10) Oxycodone HCl 10 mg 12/24/20 14:55 Oxycodone Hcl Immed Release 5 Mg Tablet PO ONCE PRN Pain, Severe (Pain Scale 7-10) Pharmacy Consult 1 each 12/23/20 15:53 Consult Rx Perform Med Rec MISCELLANE ONCE PRN Consult order Sodium Chloride 3 ml 12/24/20 00:00 07/01/21 00:16 0.9 % Sodium Chloride Flush 3 Ml Syringe IVFLUSH Not Given QSHIFT IRINA Trazodone HCl 100 mg 12/23/20 21:00 12/24/20 20:58 Trazodone Hcl 100 Mg Tablet PO 100 mg BEDTIME IRINA Administration Time Spent With Patient Time: Total time spent is greater than 50% in coordination of care (as documented) at patient's floor/unit and/or counseling patient: Time with patient: 15 - 24 minutes Procedures Date of Service Date of Service: 12/25/20 Quality Stroke Does the patient have a stroke diagnosis?: No VTE Prior VTE?: No VTE Risk Level:: Medical - moderate - high VTE Device Contraindication: N/A - Device Ordered VTE Drug Contraindication: Treatment Not Indicated
[2020-12-25 07:42] VITALS: BP 120/55; PULSE 62; RESP 18; TEMP 36; O2SAT 96
[2020-12-25 07:55] LABS: Alanine Aminotransferase 121 U/L (0-31); Albumin Level 3.3 g/dL (3.5-5.0); Alkaline Phosphatase 201 U/L (39-117); Aspartate Amino Transferase 38 U/L (5-31); Bilirubin Direct 0.8 mg/dL (0.0-0.5); Bilirubin Total 1.1 mg/dL (0.0-1.0); Total Protein 5.8 g/dL (6.5-8.0)
[2020-12-25 11:20] VITALS: BP 101/44; PULSE 63; RESP 18; TEMP 36.1; O2SAT 97
--- NOTE | 2020-12-25 12:07 | MHC.CM.PN ---
MECHANICAL PRODUCT ENGINEER NOTE ELECTRONIC MEDICAL RECORD REVIEWED ALONG WITH CASE DISCUSSED WITH STAFF NURSE AND ON MULTIPLE DISCIPLINARY ROUNDS PER DOCUMENTATION PATIENT WITH DIAGNOSIS OF CHOLANGITIS, JAUNDICE S/P ERCP WITH STONE EXTRACTIOMN AND STENT PLACEMENT. RESIDUALMET WITH PATIENT ARE OF POSSIBLE DISCHARGE TODAY DISCHARGE PLAN HOME NO SERVICES PCP DR GUAJARDO PATIENT TO CALL FOR APPOINTMENT TO BE SEEN POST HOSPITAL DISCHARGE .
--- NOTE | 2020-12-25 12:54 | HO.POSTANES ---
Post Anesthesia Evaluation Post Anesthesia Evaluation Vital Signs: Vital Signs Temp Pulse Resp BP Pulse Ox 12/25/20 11:20 96.9 F 63 18 101/44 L 97 12/25/20 07:42 96.8 F 62 18 120/55 L 96 12/25/20 03:45 98.4 F 58 18 104/56 L 94 Anesthesia: General Endotracheal-GETA Mental Status: Awake Pain Control: Satisfactory Nausea/Vomiting: None Hydration: Adequate Anesthesia-Related Issues: No Anes. Related Issues
[2020-12-25] MEDS: metroNIDAZOLE 500 MG TABLET PO (14:00)
[2020-12-25] MEDS: cefTRIAXone sodium 1 GM in 0.9 % Sodium Chloride 50 ML IV (14:39)
--- NOTE | 2020-12-25 15:31 | P.PNIM_ITS ---
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 General no headache, no dizziness, no fever chills. CVS no chest pain, no palpitation. Respiratory no cough, no sob. Gastrointestinal no nausea no vomiting, no abdominal pain Physical Exam Vital Signs: Vital Signs: Last Vital Signs Temp 96.9 F 12/25/20 11:20 Pulse 63 12/25/20 11:20 Resp 18 12/25/20 11:20 BP 101/44 L 12/25/20 11:20 Pulse Ox 97 12/25/20 11:20 Body Mass Index 27.5 General: AO X 3, no acute distress Anicteric sclera Neck is supple, no JVD Resp: CTA bilateral CVS: S1,S2,RRR GI: +BS, No right upper quadrant tenderness, no distention Skin: No rash, warm and dry, no jaundice Neuro: motor grossly intact Psych: appropriate affect Objective Data Current Medications Generic Name Dose Route Start Last Admin Trade Name Gilbertoq PRN Reason Stop Dose Admin Acetaminophen 650 mg 12/23/20 20:55 Acetaminophen 325 Mg Tablet PO Q6H PRN Pain, Mild (Pain Scale 1-3) Albuterol Sulfate 2 puff 12/23/20 20:55 Albuterol Sulfate 90 Mcg 8 Gm Inhaler INHALE Q4H PRN Shortness Of Breath Docusate Sodium 100 mg 12/23/20 20:55 Docusate Sodium 100 Mg Capsule PO DAILY PRN Constipation Fentanyl 50 mcg 12/24/20 14:55 Fentanyl Citrate/Pf 100 Mcg/2 Ml Vial IVPUSH Q5M PRN Pain, Moderate (Pain Scale 4-6 Promethazine HCl 12.5 mg/ 50.5 mls @ 202 mls/hr 12/24/20 14:55 Sodium Chloride IV ONCE PRN Nausea and Vomiting Ceftriaxone Sodium 1 gm/ 50 mls @ 100 mls/hr 12/25/20 14:00 12/25/20 15:10 Sodium Chloride IV Infused Q24H IRINA Infusion Metronidazole 500 mg 12/25/20 13:00 12/25/20 14:00 Metronidazole 500 Mg Tablet PO 500 mg Q12H IRINA Administration Nitroglycerin 0.4 mg 12/23/20 20:55 Nitroglycerin 0.4 Mg Tab.Subl SUBLINGUAL Q5M PRN Chest Pain Omeprazole 20 mg 12/24/20 06:30 12/25/20 05:39 Omeprazole 20 Mg Capsule.Dr PO 20 mg DAILY@0630 IRINA Administration Ondansetron HCl 4 mg 12/23/20 20:55 Ondansetron Hcl 4 Mg/2 Ml Vial IVPUSH Q8H PRN Nausea and Vomiting Ondansetron HCl 4 mg 12/24/20 14:55 12/24/20 17:56 Ondansetron Hcl 4 Mg/2 Ml Vial IVPUSH 4 mg ONCE PRN Administration Nausea and Vomiting Oxycodone HCl 5 mg 12/23/20 20:55 Oxycodone Hcl Immed Release 5 Mg Tablet PO Q6H PRN Pain, Severe (Pain Scale 7-10) Oxycodone HCl 10 mg 12/24/20 14:55 Oxycodone Hcl Immed Release 5 Mg Tablet PO ONCE PRN Pain, Severe (Pain Scale 7-10) Pharmacy Consult 1 each 12/23/20 15:53 Consult Rx Perform Med Rec MISCELLANE ONCE PRN Consult order Sodium Chloride 3 ml 12/24/20 00:00 12/25/20 15:10 0.9 % Sodium Chloride Flush 3 Ml Syringe IVFLUSH Not Given QSHIFT [facility] Trazodone HCl 100 mg 12/23/20 21:00 12/24/20 20:58 Trazodone Hcl 100 Mg Tablet PO 100 mg BEDTIME IRINA Administration Labs CBC & Chem 7: 12/25/20 06:06 12/24/20 06:07 Labs: Laboratory Results - last 24 hr 12/25/20 12/25/20 06:06 06:06 WBC 8.9 RBC 3.59 L Hgb 10.7 L Hct 32.7 L MCV 91.1 MCH 29.8 MCHC 32.7 RDW 12.7 Plt Count 316 MPV 9.5 Absolute Nucleated RBC 0.000 Nucleated RBC % (auto) 0.0 Total Bilirubin 1.1 H Direct Bilirubin 0.8 H AST 38 H D ALT 121 H Alkaline Phosphatase 201 H Total Protein 5.8 L Albumin 3.3 L Microbiology Microbiology Results: Microbiology 12/23/20 15:58 Blood Culture - Preliminary Blood - Venous Gram negative zayra 12/23/20 15:59 Blood Culture - Preliminary Blood - Venous Gram negative zayra Quality Stroke Does the patient have a stroke diagnosis?: No VTE Prior VTE?: No VTE Risk Level:: Medical - moderate - high VTE Device Contraindication: N/A - Device Ordered VTE Drug Contraindication: Treatment Not Indicated Assessment and Plan (1) Cholangitis: Status: Acute (2) Cholelithiasis: Status: Acute (3) Vitamin D deficiency: Status: Acute (4) Jaundice: Status: Acute (5) Acute UTI: Status: Acute Assessment and Plan: 65-year-old female with past medical history of depression, GERD, CAD who pr esents to the hospital with abdominal pain found to have cholelithiasis # acute cholangitis and colelithiasis all symptoms of fever abdominal pain resolved, underwent ERCP on 12/[address] Leslie multiple pieces of sludge/stone fragments were removed but last stone was not completely removed with baskets and balloons,10F 5 cm plastic biliary stent placed with good drainage of clear yellow bile, GI will made referral for eventual outpatient stone extraction with possible electrohydraulic lithotripsy patient seen by Dr. Sims he recommend outpatient laparoscopic cholecyste ctomy since patient is tolerating diet, LFTs trending down, will DC IV fluid, transition to by mouth antibiotic ceftriaxone and Flagyl follow blood cultures currently growing Gram-negative rods # UTI initially felt to have UTI due to positive urinalysis, patient asymptomatic, urine culture showed no growth # CAD no chest pain # hypertension soft BP hold amlodipine # GERD continue omeprazole DVT prophylaxis: SCDs / encourage ambulation
[2020-12-25 15:51] VITALS: BP 107/54; PULSE 68; RESP 16; TEMP 36.8; O2SAT 97
[2020-12-25 19:07] VITALS: BP 105/53; PULSE 70; RESP 16; TEMP 36.6; O2SAT 99
[2020-12-25] MEDS: traZODone HCL 100 MG TABLET PO (21:17)
[2020-12-25] MEDS: Acetaminophen 325 MG TABLET 650 MG PO (21:19)
[2020-12-25] MEDS: 0.9 % Sodium Chloride Flush 3 ML SYRINGE IVFLUSH (21:20)
[2020-12-25 23:19] VITALS: BP 102/53; PULSE 63; RESP 14; TEMP 36; O2SAT 95
[2020-12-26] MEDS: metroNIDAZOLE 500 MG TABLET PO ×2 (00:33→13:44)
[2020-12-26 03:58] VITALS: BP 108/52; PULSE 64; RESP 14; TEMP 36.2; O2SAT 96
[2020-12-26] MEDS: Omeprazole 20 MG CAPSULE.DR PO (05:35)
[2020-12-26 08:00] VITALS: BP 131/55; PULSE 80; RESP 18; TEMP 36.1; O2SAT 96
[2020-12-26] MEDS: 0.9 % Sodium Chloride Flush 3 ML SYRINGE IVFLUSH ×2 (08:16→17:33)
[2020-12-26] MEDS: Acetaminophen 325 MG TABLET 650 MG PO (09:01)
[2020-12-26 11:36] VITALS: BP 128/54; PULSE 87; RESP 18; TEMP 36.1; O2SAT 96
--- NOTE | 2020-12-26 11:53 | HO.PM.IMPN ---
Subjective Subjective Date of Service: 12/26/20 Interval History: patient complaining of mild abdominal discomfort today, tolerating diet with no worsening pain after eating, no fever chills, no nausea vomiting. ROS General no headache, no dizziness, no fever chills. CVS no chest pain, no palpitation. Respiratory no cough, no sob. Gastrointestinal no nausea, no vomiting, abdominal pain. Physical Exam Vital Signs: Vital Signs: Last Vital Signs Temp 97.0 F 12/26/20 11:36 Pulse 87 12/26/20 11:36 Resp 18 12/26/20 11:36 BP 128/54 L 12/26/20 11:36 Pulse Ox 96 12/26/20 11:36 Body Mass Index 27.5 General: Ax O X 3, no acute distress Anicteric sclera Neck is supple, no JVD Resp: CTA bilateral CVS: S1,S2,RRR GI: +BS, No right upper quadrant tenderness, no distention Skin: No rash, warm and dry, no jaundice Neuro: motor grossly intact Psych: appropriate affect Objective Data Current Medications Generic Name Dose Route Start Last Admin Trade Name Freq PRN Reason Stop Dose Admin Acetaminophen 650 mg 12/23/20 20:55 12/26/20 09:01 Acetaminophen 325 Mg Tablet PO 650 mg Q6H PRN Administration Pain, Mild (Pain Scale 1-3) Albuterol Sulfate 2 puff 12/23/20 20:55 Albuterol Sulfate 90 Mcg 8 Gm Inhaler INHALE Q4H PRN Shortness Of Breath Docusate Sodium 100 mg 12/23/20 20:55 Docusate Sodium 100 Mg Capsule PO DAILY PRN Constipation Fentanyl 50 mcg 12/24/20 14:55 Fentanyl Citrate/Pf 100 Mcg/2 Ml Vial IVPUSH Q5M PRN Pain, Moderate (Pain Scale 4-6 Promethazine HCl 12.5 mg/ 50.5 mls @ 202 mls/hr 12/24/20 14:55 Sodium Chloride IV ONCE PRN Nausea and Vomiting Ceftriaxone Sodium 1 gm/ 50 mls @ 100 mls/hr 12/25/20 14:00 12/25/20 15:10 Sodium Chloride IV Infused Q24H IRINA Infusion Metronidazole 500 mg 12/25/20 13:00 12/26/20 00:33 Metronidazole 500 Mg Tablet PO 500 mg Q12H IRINA Administration Nitroglycerin 0.4 mg 12/23/20 20:55 Nitroglycerin 0.4 Mg Tab.Subl SUBLINGUAL Q5M PRN Chest Pain Omeprazole 20 mg 12/24/20 06:30 12/26/20 05:35 Omeprazole 20 Mg Capsule.Dr PO 20 mg DAILY@0630 IRINA Administration Ondansetron HCl 4 mg 12/23/20 20:55 Ondansetron Hcl 4 Mg/2 Ml Vial IVPUSH Q8H PRN Nausea and Vomiting Ondansetron HCl 4 mg 12/24/20 14:55 12/24/20 17:56 Ondansetron Hcl 4 Mg/2 Ml Vial IVPUSH 4 mg ONCE PRN Administration Nausea and Vomiting Oxycodone HCl 5 mg 12/23/20 20:55 Oxycodone Hcl Immed Release 5 Mg Tablet PO Q6H PRN Pain, Severe (Pain Scale 7-10) Oxycodone HCl 10 mg 12/24/20 14:55 Oxycodone Hcl Immed Release 5 Mg Tablet PO ONCE PRN Pain, Severe (Pain Scale 7-10) Pharmacy Consult 1 each 12/23/20 15:53 Consult Rx Perform Med Rec MISCELLANE ONCE PRN Consult order Sodium Chloride 3 ml 12/24/20 00:00 12/26/20 08:16 0.9 % Sodium Chloride Flush 3 Ml Syringe IVFLUSH 3 ml QSHIFT IRINA Administration Trazodone HCl 100 mg 12/23/20 21:00 12/25/20 21:17 Trazodone Hcl 100 Mg Tablet PO 100 mg BEDTIME IRINA Administration Labs CBC & Chem 7: 12/25/20 06:06 12/24/20 06:07 Microbiology Microbiology Results: Microbiology 12/23/20 15:58 Blood Culture - Preliminary Blood - Venous Gram negative zayra Gram negative zayra#2 12/23/20 15:59 Blood Culture - Preliminary Blood - Venous Escherichia coli Gram negative zayra Quality Stroke Does the patient have a stroke diagnosis?: No VTE Prior VTE?: No VTE Risk Level:: Medical - moderate - high VTE Device Contraindication: N/A - Device Ordered VTE Drug Contraindication: Treatment Not Indicated Assessment and Plan (1) Cholangitis: Status: Acute (2) Cholelithiasis: Status: Acute (3) Acute UTI: Status: Acute (4) Jaundice: Status: Acute (5) Vitamin D deficiency: Status: Acute (6) Osteoporosis: Status: Acute Assessment and Plan: 65-year-old female with past medical history of depression, GERD, CAD who presents to the hospital with abdominal pain found to have cholelithiasis # acute cholangitis and colelithiasis no nausea no vomiting, no fever, complaining of mild abdominal pain this a.m. not worse after eating underwent ERCP on 12/[address] Leslie multiple pieces of sludge/stone fragments were removed but last stone was not completely removed with baskets and balloons,10F 5 cm plastic biliary stent placed with good drainage of clear yellow bile, GI will made referral for eventual outpatient stone extraction with possible electrohydraulic lithotripsy patient seen by Dr. Sims he recommend outpatient laparoscopic cholecystectomy since patient is tolerating diet, and LFTs trending down, Will change diet to low-fat , DC IV fluid, blood cultures x2 remain pending, to gram-negative rods growing 1 is E coli, continue iv ceftriaxone and Flagyl follow blood cultures report # UTI initially felt to have UTI due to positive urinalysis, patient asymptomatic, urine culture showed no growth. # CAD no chest pain # hypertension soft BP hold amlodipine # GERD continue omeprazole DVT prophylaxis: SCDs / encourage ambulation
[2020-12-26] MEDS: cefTRIAXone sodium 1 GM in 0.9 % Sodium Chloride 50 ML IV (13:44)
--- NOTE | 2020-12-26 15:18 | MHC.CM.PN ---
NURSE PER DIEM NOTE ELECTRONIC MEDICAL RECORD REVIEWED ALONG WITH CASE DISCUSSED WITH STAFF NURSE, PER DOCUMENTATION PATIENT WAS ADMITTED WITH ACUTE CHOLANGITIS AND CHOLELITHIASIS UNDERWENT ERCP ON 12/[address] CASTILLO ONE STONE REMAINED WAS NOT ABLE TO COMPLETELY REMOVE WITH BASKET AND BALLOONS A STENT WAS PLACED WITH GOOD DRAINAGE PATIENT TO HAVE FOLLOW UP WITH GI OUTPATIENT. DISCHARGE PLAN- LIVES ALONE AND IS INDEPENDENT NO SERVICES PCP DR ALVA GUAJARDO -PATIENT TO CALL FOR POST HOSPITAL DISCHARGE FOLLOW UP TRANSPORTATION-FAMILY
[2020-12-26 15:22] VITALS: BP 128/65; PULSE 65; RESP 14; TEMP 36.2; O2SAT 96
[2020-12-26 19:41] VITALS: BP 148/61; PULSE 62; RESP 15; TEMP 36.4; O2SAT 97
[2020-12-26] MEDS: traZODone HCL 100 MG TABLET PO (20:49)
[2020-12-26 23:29] VITALS: BP 145/65; PULSE 77; RESP 16; TEMP 36.8; O2SAT 97
[2020-12-27] MEDS: metroNIDAZOLE 500 MG TABLET PO (00:43)
[2020-12-27] MEDS: 0.9 % Sodium Chloride Flush 3 ML SYRINGE IVFLUSH ×2 (00:43→09:30)
[2020-12-27 03:51] VITALS: BP 149/74; PULSE 72; RESP 18; O2SAT 96
[2020-12-27] MEDS: Omeprazole 20 MG CAPSULE.DR PO (06:26)
[2020-12-27 07:20] LABS: Alanine Aminotransferase 72 U/L (0-31); Albumin Level 3.2 g/dL (3.5-5.0); Alkaline Phosphatase 157 U/L (39-117); Aspartate Amino Transferase 33 U/L (5-31); Bilirubin Direct 0.6 mg/dL (0.0-0.5); Bilirubin Total 0.7 mg/dL (0.0-1.0); Total Protein 5.7 g/dL (6.5-8.0)
[2020-12-27 07:27] VITALS: BP 149/75; PULSE 68; RESP 18; TEMP 35.8; O2SAT 97
--- NOTE | 2020-12-27 09:19 | P.DS_ITS ---
DS: Providers Provider Date of Service: 12/27/20 Date of admission: 12/23/20 20:43 Primary care physician: Sai Holguin MD Consults: 12/23/20 20:55 Consult to Gastroenterology Routine Consulting Provider: Mat Swain Reason for consultation: obstructing bile stone Has provider been notified: No 12/24/20 05:33 Consult to General Surgery Routine Consulting Provider: Singh Leslie Reason for consultation: cholelithiasis Has provider been notified: Yes 12/24/20 10:53 Consult to General Surgery Routine Consulting Provider: Jennifer Shankar Reason for consultation: cholelethiasis 12/24/20 12:41 Consult to General Surgery Routine Consulting Provider: Ronal Ansari Reason for consultation: Gallstones, CBD stone, cholangitis Has provider been notified: No 12/27/20 09:11 Consult to Infectious Diseases Routine Consulting Provider: Jazmin Cartagena Reason for consultation: bacteremia DS: Diagnosis Discharge Diagnosis (1) Cholangitis: Status: Acute (2) Cholelithiasis: Status: Acute (3) Acute UTI: Status: Acute (4) Jaundice: Status: Acute (5) Vitamin D deficiency: Status: Acute (6) Osteoporosis: Status: Acute DS: Medications Discharge Medications Home Medications: Home Medications Medication Instructions Recorded Confirmed amlodipine 5 mg tablet 5 mg PO DAILY 06/18/20 12/23/20 trazodone 100 mg tablet 100 mg PO BEDTIME 06/18/20 12/23/20 nitroglycerin 0.4 mg sublingual 0.4 mg SUBLINGUAL Q5M PRN tab 12/03/20 12/23/20 tablet albuterol sulfate [ProAir HFA] 2 puff INHALATION Q4H PRN 12/23/20 12/23/20 Previous Rx's Medication Instructions Recorded omeprazole 20 mg capsule,delayed 20 mg PO DAILY #90 cap 06/24/20 release DS: Summary Hospital Course Hospital Course: Chief Complaint: abd pain 65-year-old female with past medical history of coronary artery disease status post stent, GERD, depression, who presents the hospital with complaints of abdominal pain. Patient is Icelandic-speaking only, history is obtained with the help of her son at bedside and her daughter over the phone. According to the son patient started complaining of right upper quadrant abdominal pain about 2 days ago, the pain is intermittent, ranging from 7-10 out of 10, nonradiating, associated with nausea and 1 episode of vomiting, no fever or chills, she apparently had issues with her gallbladder few years ago but refused surgery. She denies any chest pain, no shortness of breath, no cough, n o urinary symptoms even though I asked her multiple times about frequency urgency or dysuria she denied, no lower extremity edema. On arrival to the ED patient's vitals are significant for a temp of a 100.9?, heart rate of 104, respiratory rate of 16, blood pressure 125/68, satting 97% on room air Labs are significant WBC count of 16.6, sodium of 133, total bili of 6.6 when he was normal in the past, direct bili of 4.7, AST of 167, ALT of 277, alk-phos of 343, UA that is positive for nitrites, leukocyte Estrace a small amount of WBC. Abdominal CT shows intrahepatic pneumobilia and mild dilated intrahepatic ducts with a moderately dilated CBD. There is a heterogeneous soft tissue density seen in the distal CBD questions of mass versus degrees, has stricture is not excluded. Cholelithiasis with a large gallstone measuring 1.8 cm. Surgical consult was placed by ED, recommended admitted in to medical team with consult to GI for possible ERCP Hospital course: This patient with known history of gallstones presented with RUQ pain, fever and and found have acute cholangitis on CT of abdomen and pelvis. She was seen by Gastrointerlogitst Dr. Wray and ultimatey underwent ERCP on 12/[address] Leslie and noted to have multiple pieces of sludge/stone fragments were removed but last stone was not completely removed with baskets and balloons,10F 5 cm plastic biliary stent placed with good drainage of clear yellow bile, GI will made referral for eventual outpatient stone extraction with possible electrohydraulic lithotripsy. Surgeon Dr. Sims evaluated and recommends outpatient laparoscopic cholecystectomy. Patient was treated with Ceftriaxone and Flagyl for sepsis with resolution of fever and leukocytosis. Blood grew Klebsiela and E.coli both sensitive to Levequin and presumably Ceftrixone. She is currently afebrile and WBC have normalized. She has no abdominal pain and tolerating regular diet. Antibiotics will be changed to oral Ceftin and Flagyl for 10 days per ID recommendation. # UTI--culture negative, treated with above antibiotics. # CAD no chest pain # hypertension--Blood pressure is controlled and is to continue Norvasc. soft BP hold amlodipine # GERD--continue Omeprazole Final Diagnosis: Sepsis due to acute cholangitis Acute cholangitis Choledocholithiasis UTI Secondary diagnosis: HTN GERD Time Spent with Patient Time attestation: Total time spent providing and/or coordinating discharge services: Discharge coordination time: Greater than 30 minutes Quality: Stroke Does the patient have a stroke diagnosis?: No Physical Exam Vital Signs: Vital Signs: Last Vital Signs Temp 96.5 F L 12/27/20 07:27 Pulse 68 12/27/20 07:27 Resp 18 12/27/20 07:27 BP 149/75 H 12/27/20 07:27 Pulse Ox 97 12/27/20 07:27 Body Mass Index 27.5 DS: Data Data Completed and Pending Labs on day of discharge: Laboratory Results - last 24 hr 12/27/20 06:03 Total Bilirubin 0.7 Direct Bilirubin 0.6 H AST 33 H ALT 72 H Alkaline Phosphatase 157 H D Total Protein 5.7 L Albumin 3.2 L Discharge Plan Discharge Anticipated Discharge Date/Time: 12/27/20 13:40 Patient Disposition: Home, Self-Care Discharge Diagnosis: acute cholangitis choledocholithiasis UTI Referrals: Singh Leslie [Physician] - 1 Week Ronal Ansari MD [Physician] - 1 Week Sai Holguin MD [Primary Care Provider] - 1 Week Discharge Medications: New metronidazole 500 mg Tablet 500 mg PO Q12H Qty: 24 RF: 0 cefuroxime axetil 500 mg tablet 500 mg PO Q12H Qty: 24 RF: 0 cefuroxime axetil 500 mg tablet 500 mg PO BID 10 Days Qty: 20 RF: 0 metronidazole [Flagyl] 500 mg tablet 500 mg PO Q12H 10 Days Qty: 20 RF: 0 Continued omeprazole 20 mg capsule,delayed release(DR/EC) 20 mg PO DAILY Qty: 90 RF: 1 albuterol sulfate [ProAir HFA] 90 mcg/actuation HFA aerosol inhaler 2 puff inhalation Q4H PRN (Reason: Shortness Of Breath) RF: 0 trazodone 100 mg tablet 100 mg PO BEDTIME Qty: 10 RF: 0 nitroglycerin 0.4 mg tablet, sublingual 0.4 mg sublingual Q5M PRN (Reason: Chest Pain) RF: 0 Discontinued amlodipine 5 mg tablet 5 mg PO DAILY RF: 0 Discharge Orders: Discharge Order (Routine); Ordered 12/27/20 Ordered By: Daniel Barron Diet: advance to usual diet Activity on Discharge: As tolerated Stand Alone Forms: Patient Portal Discharge page Care Plan Goals: Ultimately outpatient gallstone removal and gallbladder removal Health Concerns: Gallstones and bacteremia Plan of Treatment: Take Ceftin and Flagyl as recommended and follow up with your Doctor in a week, follow up with Dr. Wray and Dr. Dunlap Assessment: As above Discharge Date/Time: 12/27/20 14:30
[2020-12-27] MEDS: levoFLOXacin 500 MG TABLET PO (09:30)
--- NOTE | 2020-12-27 09:36 | P.PNIM_ITS ---
Subjective Subjective Date of Service: 12/27/20 Interval History: Seen in f/ur for abdominal pain, cholecystitis, cholangitis. Presently no fever or no confusion, pain is controlled. Review of Systems Gen: no fever Resp: no sob, no cough CV: no chest, no GREEN, no leg edema GI: abdominal pain Neuro: No confusion Physical Exam Vital Signs: Vital Signs: Last Vital Signs Temp 96.5 F L 12/27/20 07:27 Pulse 68 12/27/20 07:27 Resp 18 12/27/20 07:27 BP 149/75 H 12/27/20 07:27 Pulse Ox 97 12/27/20 07:27 Body Mass Index 27.5 Const: Other: General: AO X 3, no acute distress Resp: CTA bilateral CVS: S1,S2,RRR GI: +BS, NT, no distention Skin: No rash Neuro: motor grossly intact Psych: appropriate affect Objective Data Current Medications Generic Name Dose Route Start Last Admin Trade Name Freq PRN Reason Stop Dose Admin Acetaminophen 650 mg 12/23/20 20:55 12/26/20 09:01 Acetaminophen 325 Mg Tablet PO 650 mg Q6H PRN Administration Pain, Mild (Pain Scale 1-3) Albuterol Sulfate 2 puff 12/23/20 20:55 Albuterol Sulfate 90 Mcg 8 Gm Inhaler INHALE Q4H PRN Shortness Of Breath Docusate Sodium 100 mg 12/23/20 20:55 Docusate Sodium 100 Mg Capsule PO DAILY PRN Constipation Fentanyl 50 mcg 12/24/20 14:55 Fentanyl Citrate/Pf 100 Mcg/2 Ml Vial IVPUSH Q5M PRN Pain, Moderate (Pain Scale 4-6 Promethazine HCl 12.5 mg/ 50.5 mls @ 202 mls/hr 12/24/20 14:55 Sodium Chloride IV ONCE PRN Nausea and Vomiting Levofloxacin 500 mg 12/27/20 10:00 12/27/20 09:30 Levofloxacin 500 Mg Tablet PO 500 mg Q24H IRINA Administration Nitroglycerin 0.4 mg 12/23/20 20:55 Nitroglycerin 0.4 Mg Tab.Subl SUBLINGUAL Q5M PRN Chest Pain Omeprazole 20 mg 12/24/20 06:30 12/27/20 06:26 Omeprazole 20 Mg Capsule.Dr PO 20 mg DAILY@0630 IRINA Administration Ondansetron HCl 4 mg 12/23/20 20:55 Ondansetron Hcl 4 Mg/2 Ml Vial IVPUSH Q8H PRN Nausea and Vomiting Ondansetron HCl 4 mg 12/24/20 14:55 12/24/20 17:56 Ondansetron Hcl 4 Mg/2 Ml Vial IVPUSH 4 mg ONCE PRN Administration Nausea and Vomiting Oxycodone HCl 5 mg 12/23/20 20:55 Oxycodone Hcl Immed Release 5 Mg Tablet PO Q6H PRN Pain, Severe (Pain Scale 7-10) Oxycodone HCl 10 mg 12/24/20 14:55 Oxycodone Hcl Immed Release 5 Mg Tablet PO ONCE PRN Pain, Severe (Pain Scale 7-10) Pharmacy Consult 1 each 12/23/20 15:53 Consult Rx Perform Med Rec MISCELLANE ONCE PRN Consult order Sodium Chloride 3 ml 12/24/20 00:00 12/27/20 09:30 0.9 % Sodium Chloride Flush 3 Ml Syringe IVFLUSH 3 ml QSHIFT IRINA Administration Trazodone HCl 100 mg 12/23/20 21:00 12/26/20 20:49 Trazodone Hcl 100 Mg Tablet PO 100 mg BEDTIME IRINA Administration Labs CBC & Chem 7: 12/25/20 06:06 12/24/20 06:07 Labs: Laboratory Results - last 24 hr 12/27/20 06:03 Total Bilirubin 0.7 Direct Bilirubin 0.6 H AST 33 H ALT 72 H Alkaline Phosphatase 157 H D Total Protein 5.7 L Albumin 3.2 L Microbiology Microbiology Results: Microbiology 12/23/20 15:58 Blood Culture - Final Blood - Venous Escherichia coli Klebsiella pneumoniae 12/23/20 15:59 Blood Culture - Final Blood - Venous Escherichia coli Klebsiella pneumoniae Quality Stroke Does the patient have a stroke diagnosis?: No VTE Prior VTE?: No VTE Risk Level:: Medical - moderate - high VTE Device Contraindication: N/A - Device Ordered VTE Drug Contraindication: Treatment Not Indicated Assessment and Plan (1) Sepsis: Status: Acute (2) Cholangitis: Status: Acute (3) Acute UTI: Status: Acute Assessment and Plan: This patient with known history of gallstones presented with RUQ pain, fever and and found have acute cholangitis on CT of abdomen and pelvis. She was seen by Gastrointerlogitst Dr. Wray and ultimatey underwent ERCP on 12/[address] Leslie and noted to have multiple pieces of sludge/stone fragments were removed but last stone was not completely removed with baskets and balloons,10F 5 cm plastic biliary stent placed with good drainage of clear yellow bile, GI will made referral for eventual outpatient stone extraction with possible el ectrohydraulic lithotripsy. Surgeon Dr. Sims evaluated and recommends outpatient laparoscopic cholecystectomy. Patient was treated with Ceftriaxone and Flagyl for sepsis with resolution of fever and leukocytosis. Blood grew Klebsiela and E.coli both sensitive to Levequin and presumably Ceftrixone. She is currently afebrile and WBC have normalized. She has no abdominal pain and tolerating regular diet. Antibiotics will be changed to oral Levaquin and will get ID consultation for duration of therapy. Repeat blood cultures today # UTI--culture negative, treated with above antibiotics. # CAD no chest pain # hypertension--Blood pressure is controlled and is to continue Norvasc. soft BP hold amlodipine # GERD--continue Omeprazole Probably home later today with oral Abx
[2020-12-27 12:00] VITALS: BP 133/68; PULSE 73; RESP 18; TEMP 36; O2SAT 97
--- NOTE | 2020-12-27 14:00 | MHC.CM.PN ---
IMM 12/27/20 Female 65 DX AB Pain S/P ERCP. Patient is discharged home today will family support and transportation. No home care services ordered or needed.
--- NOTE | 2020-12-27 14:10 | W.PM.IDCN ---
History of Present Illness Data of Consult Service Date: 12/27/20 Requesting physician: Daniel Barron Primary Care Provider: Sai Holguin MD HPI Reason for consult: bacteremia,jaundice She was brought in by family for jaundice for 3-5 days and abdominal discomfort,generalized last day She has no nausea or vomiting or diarrhea No one else was ill She had known cholecystitis and was supposed to get cholecystectomy 2018 but had ACS and was not done She has been well in between Review of Systems Review of Systems: Yes all other systems are reviewed and are negative [facility] Past Medical History Medical History Asthma Depression GERD (gastroesophageal reflux disease) History of coronary artery disease Osteoporosis Vitamin D deficiency Family History Family History Father Diabetes Family history: reviewed and not pertinent Surgical History Surgical History H/O heart artery stent History of ERCP Hx of section Hx of tubal ligation Social History Social History Household Members: None Housing: Apartment Do you presently have visiting nurse or other home services: No Alcohol intake: never Patient Tobacco Use Status: Former Tobacco user service: No Current occupational status: disabled Meds Allergies Allergy/AdvReac Type Severity Reaction Status Date / Time No Known Allergies Allergy Verified 12/23/20 11:19 [No Known Allergies*] Active Medications: Current Medications Generic Name Dose Route Start Last Admin Trade Name Freq PRN Reason Stop Dose Admin Acetaminophen 650 mg 12/23/20 20:55 12/26/20 09:01 Acetaminophen 325 Mg Tablet PO 650 mg Q6H PRN Administration Pain, Mild (Pain Scale 1-3) Albuterol Sulfate 2 puff 12/23/20 20:55 Albuterol Sulfate 90 Mcg 8 Gm Inhaler INHALE Q4H PRN Shortness Of Breath Docusate Sodium 100 mg 12/23/20 20:55 Docusate Sodium 100 Mg Capsule PO DAILY PRN Constipation Fentanyl 50 mcg 12/24/20 14:55 Fentanyl Citrate/Pf 100 Mcg/2 Ml Vial IVPUSH Q5M PRN Pain, Moderate (Pain Scale 4-6 Promethazine HCl 12.5 mg/ 50.5 mls @ 202 mls/hr 12/24/20 14:55 Sodium Chloride IV ONCE PRN Nausea and Vomiting Levofloxacin 500 mg 12/27/20 10:00 12/27/20 09:30 Levofloxacin 500 Mg Tablet PO 500 mg Q24H IRINA Administration Nitroglycerin 0.4 mg 12/23/20 20:55 Nitroglycerin 0.4 Mg Tab.Subl SUBLINGUAL Q5M PRN Chest Pain Omeprazole 20 mg 12/24/20 06:30 12/27/20 06:26 Omeprazole 20 Mg Capsule.Dr PO 20 mg DAILY@0630 IRINA Administration Ondansetron HCl 4 mg 12/23/20 20:55 Ondansetron Hcl 4 Mg/2 Ml Vial IVPUSH Q8H PRN Nausea and Vomiting Ondansetron HCl 4 mg 12/24/20 14:55 12/24/20 17:56 Ondansetron Hcl 4 Mg/2 Ml Vial IVPUSH 4 mg ONCE PRN Administration Nausea and Vomiting Oxycodone HCl 5 mg 12/23/20 20:55 Oxycodone Hcl Immed Release 5 Mg Tablet PO Q6H PRN Pain, Severe (Pain Scale 7-10) Oxycodone HCl 10 mg 12/24/20 14:55 Oxycodone Hcl Immed Release 5 Mg Tablet PO ONCE PRN Pain, Severe (Pain Scale 7-10) Pharmacy Consult 1 each 12/23/20 15:53 Consult Rx Perform Med Rec MISCELLANE ONCE PRN Consult order Sodium Chloride 3 ml 12/24/20 00:00 12/27/20 09:30 0.9 % Sodium Chloride Flush 3 Ml Syringe IVFLUSH 3 ml QSHIFT IRINA Administration Trazodone HCl 100 mg 12/23/20 21:00 12/26/20 20:49 Trazodone Hcl 100 Mg Tablet PO 100 mg BEDTIME IRINA Administration Home Medications Medication Instructions Recorded Confirmed Last Taken Type trazodone 100 mg tablet 100 mg PO BEDTIME 06/18/20 12/23/20 Unknown History nitroglycerin 0.4 mg sublingual 0.4 mg SUBLINGUAL Q5M PRN tab 12/03/20 12/23/20 Unknown History tablet albuterol sulfate [ProAir HFA] 2 puff INHALATION Q4H PRN 12/23/20 12/23/20 Unknown History Physical Exam Vital Signs: Vital Signs: Last Vital Signs Temp 96.8 F 12/27/20 12:00 Pulse 73 12/27/20 12:00 Resp 18 12/27/20 12:00 BP 133/68 12/27/20 12:00 Pulse Ox 97 12/27/20 12:00 Body Mass Index 27.5 Const: General: cooperative Orientation/consciousness: patient oriented x3 HENMT: Ears: hearing grossly normal bilaterally Mouth: Normal oral and palatal mucosa present Eyes: General: appearance normal, both eyes and all related structures Sclerae: sclerae normal Resp: Effort & Inspection: normal respiratory effort Cardio: Rate: regular rate Rhythm: regular rhythm GI: Palpation (GI): Soft to palpation and nontender Skin: General skin exam: no rashes or lesions noted Neuro: General: patient oriented x3 and moves all extremities Extrem: General: Yes normal to inspection Results Labs CBC & Chem 7: 12/25/20 06:06 12/24/20 06:07 Labs: Liver Function 12/27/20 Range/Units 06:03 Total Bilirubin 0.7 (0.0-1.0) mg/dL Direct Bilirubin 0.6 H (0.0-0.5) mg/dL AST 33 H (5-31) U/L ALT 72 H (0-31) U/L Alkaline Phosphatase 157 H D (39-117) U/L Albumin 3.2 L (3.5-5.0) g/dL Microbiology Microbiology Results: Microbiology 12/23/20 15:58 Blood - Venous Blood Culture - Final Escherichia coli Klebsiella pneumoniae 12/23/20 15:59 Blood - Venous Blood Culture - Final Escherichia coli Klebsiella pneumoniae 12/23/20 15:35 Urine clean catch - Clean Catch Midstream Urine Culture - Final No growth. Assessment and Plan (1) Sepsis: Status: Acute She has E coli,Klebsiella There is gallbladder source She has impacted stone and is going to have removed [facility] Suggest Ceftin and Flagyl (has somewhat long QT interval and is on trazodone so no Levaquin) for 10 days Follow GI and Surgery (2) Cholangitis: Status: Acute
== END 2020-12-27 14:30 | disposition home or self-care (01) | DRG 872 ==
LOC: HO.ED 15:58 → HO.EDOVER 21:46 → HO.S3 12-24 13:38
PROVIDERS: Hospitalist; Internal Medicine; Internal Medicine Gastroenterology; Nurse Practitioner Family; Admitting Provider Internal Medicine; Emergency Provider Emergency Medicine Emergency Medical Services; PCP Internal Medicine Medical Oncology; Visit Provider Internal Medicine
PROC: 0F798DZ Dilation of Common Bile Duct with Intraluminal Device, Via Natural or Artificial Opening Endoscopic (ICD-10-PCS; CPT 43260; principal; 2020-12-24 15:30)
DX: A41.51 Sepsis due to Escherichia coli [E. coli] (principal); K80.30 Calculus of bile duct with cholangitis, unspecified, without obstruction; N39.0 Urinary tract infection, site not specified; A41.4 Sepsis due to anaerobes; I25.10 Atherosclerotic heart disease of native coronary artery without angina pectoris; I10 Essential (primary) hypertension; J45.909 Unspecified asthma, uncomplicated; E55.9 Vitamin D deficiency, unspecified; M10.9 Gout, unspecified; K21.9 Gastro-esophageal reflux disease without esophagitis; F32.9 Major depressive disorder, single episode, unspecified; Z20.822 Contact with and (suspected) exposure to COVID-19; Z87.891 Personal history of nicotine dependence; Z79.899 Other long term (current) drug therapy
CPT/HCPCS: 36415; 74177; 80048; 80076; 81001; 83605; 83690; 85025; 85027; 85610; 87040; 87077; 87086; 87186; 87205; 87635; 93005; 99285; C1769; C2617; J0330; J0696; J1100; J1610; J2405; J3010; Q9967

== ENCOUNTER 2021-01-20 07:46 | Outpatient (REF) | payer MEDICARE, MEDICAID, SELFPAY ==
[2021-01-20 08:12] LABS: MANUAL DIFF FLAG NO
[2021-01-20 08:17] LABS: Basophils Percent Auto 0.7 % (0-2); Eosinophils Absolute Auto 0.3 X10*3/uL (0.0-0.4); Eosinophils Percent Auto 4.2 % (0-4); Hematocrit 38.5 % (37-47); Hemoglobin 12.5 g/dl (12.0-16.0); Imm Gran Abs Auto 0.01 X10*3/uL (0.00-0.03); Imm Gran Pct Auto 0.2 % (0.0-0.4); Lymphocytes Absolute Auto 2.4 X10*3/uL (1.2-4.9); Lymphocytes Percent Auto 39.6 % (20-40); Mean Corpuscular HGB Conc 32.5 g/dl (31.0-35.0); Mean Corpuscular Hemoglobin 29.9 pg (27.0-33.0); Mean Corpuscular Volume 92.1 fL (80-98); Mean Platelet Volume 8.8 fL (9.4-12.3); Monocytes Absolute Auto 0.4 X10*3/uL (0.1-1.2); Monocytes Percent Auto 6.6 % (2-11); Neutrophils Absolute Auto 2.9 X10*3/uL (2.0-8.3); Neutrophils Percent Auto 48.7 % (45-73); Platelet Count 280 X10*3/uL (160-400); Red Blood Count 4.18 X10*6/uL (4.20-5.50); White Blood Count 5.9 X10*3/uL (4.8-10.8)
[2021-01-20 08:25] LABS: Estimated Average Glucose 100 mg/dL; Hemoglobin A1c % 5.1 %
[2021-01-20 08:36] LABS: Alanine Aminotransferase 22 U/L (0-31); Albumin Level 4.3 g/dL (3.5-5.0); Alkaline Phosphatase 122 U/L (39-117); Anion Gap 12 (12-20); Aspartate Amino Transferase 21 U/L (5-31); Bilirubin Total 0.2 mg/dL (0.0-1.0); Blood Urea Nitrogen 12 mg/dL (9-16); Calcium 9.7 mg/dL (8.4-10.2); Carbon Dioxide 28 mmol/L (22-29); Chloride 107 mmol/L (96-108); Cholesterol 197 mg/dL; Estimated Glomerular Filt Rate > 60; Glucose Fasting 95 mg/dL (60-99); HDL Cholesterol 45 mg/dL; LDL Cholesterol Calculated 116 mg/dl; Potassium 4.5 mmol/L (3.3-5.1); Sodium 142 mmol/L (135-145); Total Protein 7.2 g/dL (6.5-8.0); Triglycerides 184 mg/dL
== END 2021-01-20 07:47 | disposition home or self-care (01) ==
LOC: HO.LAB 07:46
PROVIDERS: Referring Provider Internal Medicine Medical Oncology; Visit Provider Internal Medicine
DX: I10 Essential (primary) hypertension (principal); E78.2 Mixed hyperlipidemia; R73.9 Hyperglycemia, unspecified
CPT/HCPCS: 36415; 80053; 80061; 83036; 85025

== ENCOUNTER → 2021-01-27 15:00 | Outpatient (BNVA) | payer MEDICARE, MEDICAID, SELFPAY | PROVIDERS: PCP Internal Medicine Medical Oncology; Visit Provider Surgery | DX: K80.47 Calculus of bile duct with acute and chronic cholecystitis with obstruction (principal); K83.09 Other cholangitis; R17 Unspecified jaundice | CPT/HCPCS: 99212 ==

== ENCOUNTER → 2021-02-11 12:32 | Outpatient (BNVA) | payer MEDICARE, MEDICAID, SELFPAY | PROVIDERS: PCP Internal Medicine Medical Oncology; Visit Provider Internal Medicine | DX: Z01.810 Encounter for preprocedural cardiovascular examination (principal); I25.10 Atherosclerotic heart disease of native coronary artery without angina pectoris | CPT/HCPCS: 93005; 99212 ==

== ENCOUNTER → 2021-02-12 08:17 | Outpatient (REF) | payer MEDICARE, MEDICAID, SELFPAY ==
--- NOTE | ~2021-02-12 | NM_ITS ---
Myocardial perfusion study Indication: Preoperative cardiovascular examination Technique: The patient was brought in for a Lexiscan perfusion study on 02/13/2021. Patient performed low-level exercise and was injected 0.4 mg of Lexiscan intravenously. Within a minute of injection, 25 mCi of sestamibi was given intravenously. Images were obtained using the SPECT gamma camera interlaced with the gating device. Images were obtained in supine position. Resting perfusion study was performed on 02/12/2021. Patient was administered 25 mCi of sestamibi intravenously at rest. Images were then obtained in supine position. Images obtained with and without CT attenuation. Total DLP 71 mGy-cm. Images were processed with the software and compared side to side in short axis, horizontal long axis and vertical long axis views. Findings: The stress perfusion study showed nonattenuated images show minimal thinning in the distal anterior wall of the LV myocardium. Attenuation corrected images show mildly reduced uptake in the septum, moderately reduced uptake in the distal anterior and apex of the LV myocardium.. The gated study shows normal LV systolic function with calculated LVEF of 69%. LV cavity is normal in size. The gated study shows normal systolic wall thickening and contraction of segments. Resting study shows nonattenuated images show no change in perfusion pattern compared to stress perfusion study. Attenuation corrected images show mildly reduced uptake in the distal anterior and apex of the LV myocardium.. Gating at rest reveals normal systolic wall motion with ejection fraction at 64%. The findings are consistent with likely normal myocardial perfusion. NM/NM cardiolite stress test Impression: 1. Myocardial perfusion imaging study shows normal myocardial perfusion 2. Gated LVEF is 69% 3. Transient ischemic dilatation not present EKG is nondiagnostic for ischemia
--- NOTE | 2021-02-12 08:25 | CA_ITS ---
Transthoracic Echocardiogram Patient (Last, First, Middle): Shannan Navarro M Gender: Female Date of : 1955 Age: 66 Procedure Date: 02/12/2021 Procedure Type: Transthoracic Echocardiogram Location: OP Height: 149.86 cm Weight: 50.35 kg BSA: 1.44 m2 Heart Rate: bpm BP: 115 / 60 mmHg Hospital Security Officer: STACEY Altamirano MD: Manuel Morrell MD Chemical Dependency Therapist: Kiran Garzon MD Symptoms: Z01.810 - Encounter for preprocedural cardiovascular exam... Study Quality: Fair ECG Rhythm: Sinus Conclusions: - 1. Normal LV systolic function with grade 1 diastolic dysfunction 2. Normal cardiac valvular Doppler 3. No gross pericardial effusion Findings Left Ventricle Normal left ventricular size, thickness, and systolic function. The visually estimated ejection fraction is between 60-65%. Spectral Doppler is indicative of an impaired relaxation filling pattern. E/E prime ratio is <8, consistent with normal filling pressures. Evidence suggests grade I (mild) diastolic dysfunction. Right Ventricle Normal right ventricular cavity size and systolic function. Atria Both atria are normal in size. There is no evidence of interatrial shunt. Aortic Valve Normal aortic valve structure and function. There is no aortic valve stenosis. There is no aortic valve regurgitation. Mitral Valve Normal mitral valve structure and function. There is trace mitral valve regurgitation. There is no mitral valve stenosis. Pulmonic Valve The pulmonic valve was not well visualized. Tricuspid Valve Normal tricuspid valve structure. Tricuspid regurgitation envelope is inadequate for calculation of right ventricular systolic pressure. Great Vessels All visible segments of the aorta are normal in size. The pulmonary artery was not well visualized. Venous The inferior vena cava is normal in size. Pericardium/Pleural There is no evidence of pericardial effusion. Prior Study Comparison No significant change compared to prior study dated: 05/04/2017. Measurements 2D Linear Measurements IVSd: 0.70 0.6-0.9/0.6-1.0 cm LVIDd: 3.45 3.9-5.3/4.2-5.9 cm LVIDd Index: 2.40 2.4-3.2/2.2-3.1 cm/m2 LVIDs: 2.15 2.0-3.6 cm LVPWd: 0.63 0.7-1.1 cm Ao Root: 2.80 2.1-3.5 cm LA Diam: 2.60 2.7-3.8/3.0-4.0 cm LAIDs Index: 1.81 1.5-2.3 cm/m2 LV Mass: 70.74 67-162/88-224 g LV Mass Index: 49.12 43-95/49-115 g/m2 LVOT Diam: 2.00 3.0+(-)1.3 cm 2D Systolic Function EF 4C: 60.90 >55% EF 2C: 58.60 >55% EF BiP: 59.40 >55% Mitral Valve MV Pk E: 0.73 MV PK A: 1.03 MV Decel Time: 199.00 E/A: 0.70 E'Lateral: 9.46 E'Medial: 6.96 E/E' Med: 10.50 E/E' Lat: 7.70 PHT: 58.00 MVA PHT: 3.79 Decel [place]: 3.66 Aortic Valve AoV Pk Ankush: 1.35 AoV Mn Ankush: 0.86 AoV VTI: 0.26 AoV Pk Grad: 7.00 Aov Mn Grad: 3.00 JOHN Cont.VTI: 2.11 LVOT LVOT Pk Ankush: 0.88 LVOT Mn Ankush: 0.50 LVOT VTI: 0.18 LVOT Pk Grad: 3.00 LVOT Mn Grad: 1.00 LVOT Diam: 2.00 LVOT Area: 3.14 Diastolic Function MV Pk E: 0.73 MV Pk A: 1.03 E/A: 0.70 E'Medial: 6.96 E/E' Med: 10.50 E' Laterial: 9.46 E/E' Lat: 7.70 Right Ventricle TAPSE (mm): 1.75 TVS' Ankush: 10.20 Great Vessels Aorta Ao Root-2D: 2.80 2.0-3.7 cm Ao Asc: 3.00 2.1-3.4 cm Ao Arch: 2.30 Updated in Other Vendor System with Status of Final Kiran Garzon MD electronically signed on 02/13/2021 3:42:57 PM with status of Final
--- NOTE | 2021-02-13 11:00 | CA_ITS ---
Acquisition Time: 2021-02-13 08:34:22 Total Exercise Time: 00:02:00 Test Indications: PREOP Medications: SEE CHART Protocol: LEXISCAN Max HR: 110 BPM 72% of Pred: 152 BPM Max BP: 118/008 mmHG Max Work Load: 1.0 METS Pharmacological stress test using Lexiscan while sitting and kicking her feet. Pt tolerated well, denies any anginal sx. Normotensive response to test. Nuclear images pending. EKG without any arrhythmias, non-diagnostic for ischemia. Test reviewed with Dr. Garzon. Referred By: Manuel Morrell Overread By: Ruby Thomas NP
== END ==
LOC: HO.CARD 08:17
PROVIDERS: PCP Internal Medicine Medical Oncology; Visit Provider Internal Medicine
DX: Z01.810 Encounter for preprocedural cardiovascular examination (principal)
CPT/HCPCS: 78452; 93017; 93306; A9500

== ENCOUNTER 2021-02-18 08:52 | Day surgery (SDC) | payer MEDICARE, MEDICAID, SELFPAY ==
[2021-02-11 10:47] VITALS: BP 115/58; PULSE 78; RESP 20; O2SAT 99; BMI 22.5
--- NOTE | 2021-02-11 11:05 | HO.ANESPROP2 ---
Documented by User: Lilian Spivey NP 02/16/21 10:21 HPI - Anesthesia Eval Consult details Narrative: 66yo F for Cholecystectomy Laparoscopic, Poss Open s/p ERCP 12/24/20 with GA-ETT 7.5 Cardiac cleared @ low to intermed PMFSH Active Problems Active Problems: All Active Problems (Updated 02/11/21 @ 11:03 by Nydia Lou RN) Cholelithiasis (Acute) Jaundice (Acute) Past Medical History Medical History (Updated 02/11/21 @ 13:20 by Manuel Morrell MD) Asthma Chest pain COVID-19 vaccine series completed Depression GERD (gastroesophageal reflux disease) History of coronary artery disease Osteoporosis Vitamin D deficiency Family History Family History Father Diabetes Family history of problems with anesthesia: No Surgical History Surgical History H/O colonoscopy H/O heart artery stent History of ERCP History of esophagogastroduodenoscopy (EGD) Hx of section Hx of tubal ligation History of Problems with Anesthesia: No Social History Social History Household Members: None Housing: Apartment Are you a primary nurse healthcare manager to a significant other at home: No Do you presently have visiting nurse or other home services: No Alcohol intake: never Patient Tobacco Use Status: Former Tobacco user Quit Date: 2014 Tobacco use type: Cigarette Years Smoked: 44 Use of substances other than those prescribed or required for medical reasons: No Have you been hit, kicked, punched, or otherwise hurt by someone within the past year? If so, by whom?: No Are you DNR?: No Advance Directives Information Provided: Yes Advance Directives on File: No Recently lost weight without trying: No Eating poorly because of decreased appetite: No Nutrition Risks: No Nutritional Risk Poor oral hygiene: No (upper full denture/does not wear lower denture) service: No Current occupational status: disabled Narrative Narrative: No recent illness Stable angina - last used NGT 02/10/21 with resolution of CP No SOB Able to do housework. Limited by fatigue. Meds Allergies Allergy/AdvReac Type Severity Reaction Status Date / Time No Known Allergies Allergy Verified 02/11/21 12:41 [No Known Allergies*] Home Medications Medication Instructions Recorded Confirmed Last Taken Type nitroglycerin 0.4 mg sublingual 0.4 mg SUBLINGUAL Q5M PRN tab 12/03/20 02/11/21 Unknown History tablet albuterol sulfate 90 mcg/actuation 2 puff INHALATION Q4H PRN 12/23/20 02/11/21 Unknown History aerosol inhaler (ProAir HFA) amlodipine 5 mg tablet 1 tab PO DAILY 02/11/21 02/11/21 02/18/21 History aspirin 81 mg tablet,delayed 81 mg PO DAILY 02/11/21 02/11/21 Unknown History release atorvastatin 80 mg tablet 80 mg PO BEDTIME 02/11/21 02/11/21 Unknown History calcium carbonate 600 mg (1,500 1 tab PO DAILY 02/11/21 02/11/21 Unknown History mg)-vitamin D3 200 unit tablet metoprolol succinate 25 mg 1 tab PO DAILY 02/11/21 02/11/21 02/18/21 History tablet,extended release 24 hr Exam Exam Date and Time: February 11, 2021 1105 Pertinent Lab Results Pertinent Lab Results: Laboratory Tests 01/20/21 01/20/21 08:00 08:00 WBC 5.9 Hgb 12.5 Hct 38.5 Plt Count 280 Sodium 142 Potassium 4.5 D Chloride 107 Carbon Dioxide 28 BUN 12 Creatinine 0.73 Narrative Narrative: EKG 11/2020 Vent. Rate : 092 BPM ? ? Atrial Rate : 092 BPM ?? P-R Int : 146 ms? QRS Dur : 076 ms ? ? QT Int : 366 ms ? ? ? P-R-T Axes : 056 053 061 degrees ?? QTc Int : 452 ms ? Normal sinus rhythm Normal ECG When compared with ECG of 10-JAN-2019 07:04, Vent. rate has increased BY? 34 BPM ECHO 01/2021 Conclusions: - 1. Normal LV systolic function with grade 1 diastolic? dysfunction? 2. Normal cardiac valvular Doppler ? 3. No gross pericardial effusion ?? NM cardiolite stress test 01/2021 Impression: ? 1.? Myocardial perfusion imaging study shows normal myocardial perfusion 2.? Gated LVEF is 69% 3. Transient ischemic dilatation not present ? EKG is nondiagnostic for ischemia Airway Mallampati Class: II TM Dist: >3cm Neck ROM: Full Denture: Upper and Lower (Doesn't wear d/t poor fit) Heart: RRR Lungs: CTAB Assessment and Plan Assessment Anesthesia Assessment: Anesthesia Plan Discussed and PAT Visit Final Anesthetic Review Family History of Problems with Anesthesia: No History of Problems with Anesthesia: No Documented by User: Venu Bentley MD 02/18/21 12:29 PMFSH Past Medical History Medical History (Updated 02/11/21 @ 13:20 by Manuel Morrell MD) Asthma Chest pain COVID-19 vaccine series completed Depression GERD (gastroesophageal reflux disease) History of coronary artery disease Osteoporosis Vitamin D deficiency Family History Family History Father Diabetes Surgical History Surgical History H/O colonoscopy H/O heart artery stent History of ERCP History of esophagogastroduodenoscopy (EGD) Hx of section Hx of tubal ligation Social History Social History Household Members: None Housing: Apartment Are you a primary nurse healthcare manager to a significant other at home: No Do you presently have visiting nurse or other home services: No Alcohol intake: never Patient Tobacco Use Status: Former Tobacco user Quit Date: 2014 Tobacco use type: Cigarette Years Smoked: 44 Use of substances other than those prescribed or required for medical reasons: No Have you been hit, kicked, punched, or otherwise hurt by someone within the past year? If so, by whom?: No Are you DNR?: No Advance Directives Information Provided: Yes Advance Directives on File: No Recently lost weight without trying: No Eating poorly because of decreased appetite: No Nutrition Risks: No Nutritional Risk Poor oral hygiene: No (upper full denture/does not wear lower denture) service: No Current occupational status: disabled Meds Allergies Allergy/AdvReac Type Severity Reaction Status Date / Time No Known Allergies Allergy Verified 02/11/21 12:41 [No Known Allergies*] Home Medications Medication Instructions Recorded Confirmed Last Taken Type nitroglycerin 0.4 mg sublingual 0.4 mg SUBLINGUAL Q5M PRN tab 12/03/20 02/11/21 Unknown History tablet albuterol sulfate 90 mcg/actuation 2 puff INHALATION Q4H PRN 12/23/20 02/11/21 Unknown History aerosol inhaler (ProAir HFA) amlodipine 5 mg tablet 1 tab PO DAILY 02/11/21 02/11/21 02/18/21 History aspirin 81 mg tablet,delayed 81 mg PO DAILY 02/11/21 02/11/21 Unknown History release atorvastatin 80 mg tablet 80 mg PO BEDTIME 02/11/21 02/11/21 Unknown History calcium carbonate 600 mg (1,500 1 tab PO DAILY 02/11/21 02/11/21 Unknown History mg)-vitamin D3 200 unit tablet metoprolol succinate 25 mg 1 tab PO DAILY 02/11/21 02/11/21 02/18/21 History tablet,extended release 24 hr Assessment and Plan Final Anesthetic Review NPO: Yes ASA Class: IV Final Preanesthetic Review: No Changes in Pt Med Stat, Meds/Allgs Chart Reviewed, Consent Obtained/Reviewed and Anes Risks/Benef Reviewed Patient Risk: High Procedure Risk: Intermediate Anesthetic Plan Anesthetic Plan: GA and Agree w/ Assess. and Plan Disposition: Standard PACU
[2021-02-18] VITALS (9 sets, daily range): BP systolic 128–148; BP diastolic 50–66; PULSE 62–77; RESP 16–18; TEMP 36.1–36.7; O2SAT 92–97
[2021-02-18] MEDS: Lactated Ringers 1,000 ML 100 ML IVCONT (09:25)
[2021-02-18] MEDS: ondansetron HCL 4 MG/2 ML VIAL IVPUSH (14:12)
[2021-02-18] MEDS: oxyCODONE HCl Immed Release 5 MG TABLET PO (14:17)
--- NOTE | 2021-02-18 14:17 | P.OP_ITS ---
Operative Note Operative Note Date of Service: 02/18/21 Narrative: Preoperative diagnosis: Choleducholithiasis, cholelithiasis Postoperative diagnosis: Same Procedure: Laparoscopic cholecystectomy Surgeon: Anil Sims MD Nursing Secretary: ROSITA Colvin Anesthesia: General endotracheal Indications for procedure:66 year old female patient with a prior history of choleducholithiasis and previous ERCP with stent placement, now presenting for laparoscopic cholecystectomy Operative findings: Multiple gallstones within the gallbladder Specimen:gallbladder Estimated blood loss:5 ml Complications: none Procedure details: Patient was brought to the OR and placed in a supine position. After administering general anesthesia the patient's abdomen was prepped with ChloraPrep and draped in a sterile fashion. Local anesthesia consisting of 0.25% Sensorcaine with epinephrine was infiltrated in a periumbilical region. A 5 mm incision was made above the umbilicus in a transverse fashion. The Veress needle was then inserted while elevating abdominal cavity with towel clips. After positive drop test the abdomen was insufflated to a pressure of 15 mm of mercury. The Veress needle was then removed and a 5 mm trocar inserted. The camera was inserted in the abdomen explored. A 12 mm trocar was then placed in the epigastrium and two 5 mm trocars placed in the right upper quadrant. The patient was placed in reverse Trendelenburg positioning and rotated to the left. The gallbladder was grasped with the fundus and retracted cephalad. The infundibulum was then grasped and retracted away from the liver bed. The Dolphin dissected was then used to dissect the peritoneum off the infundibulum to reveal the junction with the cystic duct. Cystic artery was noted slightly medial and posterior to the cystic duct. After obtaining a critical view the cystic duct was doubly clipped and divided. The cystic artery was then doubly clipped and divided. The gallbladder was then dissected off the liver bed using electrocautery with an L hook. Hemostasis was assured all times using the electrocautery. When the gallbladder is completely dissected off the liver bed was placed in an Endo-Catch bag and brought out through the epigastric incision. The gallbladder was sent to pathology for further examination. The abdomen was then re-examined. The liver bed was irrigated and suctioned dry. No bleeding or bile leak could be identified. CO2 was then evacuated and all trocars removed. Fascia was closed at the epigastric incision using a [id number] 0 Polysorb suture. Skin was closed in all incisions using a subcuticular 4 0 Polysorb suture. Sterile dressings consisting of Steri-Strips, 2 x 2 gauze, and Tegaderm were then applied. The patient tolerated the procedure well. Sponge instrument and needle counts reported as correct. The patient was transferred to PACU in stable condition.
[2021-02-18] MEDS: fentaNYL citrate/PF 100 MCG/2 ML VIAL 25 MCG IVPUSH ×2 (14:31→14:37)
== END 2021-02-18 15:30 | disposition home or self-care (01) ==
PROVIDERS: PCP Internal Medicine Medical Oncology; Visit Provider Surgery
PROC: 0FT44ZZ Resection of Gallbladder, Percutaneous Endoscopic Approach (ICD-10-PCS; CPT 47562; principal; 2021-02-18 11:20)
DX: K80.12 Calculus of gallbladder with acute and chronic cholecystitis without obstruction (principal); K21.9 Gastro-esophageal reflux disease without esophagitis; J45.909 Unspecified asthma, uncomplicated; I25.10 Atherosclerotic heart disease of native coronary artery without angina pectoris; Z98.61 Coronary angioplasty status; E78.2 Mixed hyperlipidemia; I10 Essential (primary) hypertension; Z90.49 Acquired absence of other specified parts of digestive tract; Z79.82 Long term (current) use of aspirin; Z79.899 Other long term (current) drug therapy; Z87.891 Personal history of nicotine dependence
CPT/HCPCS: 47562; 88304; J0131; J2250; J2405; J3010

== ENCOUNTER → 2021-02-26 14:01 | Outpatient (BNVA) | payer MEDICARE, MEDICAID, SELFPAY | PROVIDERS: PCP Internal Medicine Medical Oncology; Visit Provider Surgery | DX: Z48.815 Encounter for surgical aftercare following surgery on the digestive system (principal); Z87.19 Personal history of other diseases of the digestive system | CPT/HCPCS: 99212 ==

== ENCOUNTER → 2021-03-04 09:34 | Outpatient (BNVA) | payer MEDICARE, MEDICAID, SELFPAY | PROVIDERS: PCP Internal Medicine Medical Oncology; Visit Provider Internal Medicine | DX: Z13.89 Encounter for screening for other disorder (principal) | CPT/HCPCS: Q3014 ==

== ENCOUNTER → 2021-03-13 11:44 | Outpatient (BNVA) | payer MEDICARE, MEDICAID, SELFPAY | PROVIDERS: PCP Internal Medicine Medical Oncology; Visit Provider Surgery | DX: Z48.815 Encounter for surgical aftercare following surgery on the digestive system (principal); Z87.19 Personal history of other diseases of the digestive system | CPT/HCPCS: 99212 ==

== ENCOUNTER 2021-04-09 08:36 | Outpatient (REF) | payer MEDICARE, MEDICAID, SELFPAY ==
--- NOTE | ~2021-04-09 | MM_ITS ---
EXAMINATION: MM SCREENING DIGITAL BREAST TOMOSYNTHESIS, BILATERAL CLINICAL INFORMATION: Screening. Asymptomatic. The lifetime risk of breast cancer based on the Tyrer-Cuzick Model is 3%. COMPARISON: Mammography: 03/10/2020, 03/07/2019, 03/01/2018 TECHNIQUE: Digital breast tomosynthesis is performed in both the craniocaudal and mediolateral oblique views along with computer-aided detection (CAD). Synthesized 2D images are generated from the tomosynthesis. FINDINGS: There are scattered areas of fibroglandular density (ACR BI-RADS breast composition Category b). There are no significant masses, abnormal calcifications, or other abnormalities. Parenchymal pattern is similar to prior studies. There is biopsy clip marker mid 9:00 left breast again noted. MM/MM tomosynthesis screening BI IMPRESSION: No mammographic evidence of malignancy. ASSESSMENT: BI-RADS 1: Negative RECOMMENDATION: Routine annual mammography screening. This patient's information was entered into a reminder system with a target due date for their next mammogram.
== END 2021-04-09 08:37 | disposition home or self-care (01) ==
LOC: HO.MAMMO 08:36
PROVIDERS: Visit Provider Internal Medicine Medical Oncology
DX: Z12.31 Encounter for screening mammogram for malignant neoplasm of breast (principal)
CPT/HCPCS: 77063; 77067

== ENCOUNTER 2021-04-17 18:37 | Emergency (ER) | payer MEDICARE, MEDICAID, SELFPAY ==
--- NOTE | ~2021-04-17 | XR_ITS ---
EXAMINATION: XR CHEST CLINICAL INFORMATION: Fever COMPARISON: Chest x-ray on 08/13/2017 TECHNIQUE: Frontal view of the chest was obtained. FINDINGS: No significant abnormality is noted involving the heart, lungs, mediastinum, bony thorax or soft tissues. XR/XR chest 1V IMPRESSION: Unremarkable examination.
--- NOTE | ~2021-04-17 | CT_ITS ---
EXAMINATION: CT CHEST, ABDOMEN AND PELVIS WITH CONTRAST CLINICAL INFORMATION: Fever. Cholangitis. Elevated LFTs. COMPARISON: CTA chest dated 12/16/2016. Chest radiograph done earlier the same day. CT abdomen/pelvis dated 12/23/2020. TECHNIQUE: Contiguous axial thin section helical images of the chest, abdomen and pelvis were performed following the administration of oral contrast and 85 mL of intravenous Omnipaque 350. The data set was reformatted in the coronal and sagittal planes and reviewed on an independent workstation. This CT examination was performed using dose optimization techniques as appropriate, variously including the following: *Automated exposure control *Adjustment of mA and/or kV according to patient size (this includes techniques or standardized protocols for targeted exams where dose is matched to indication/reason for exam; i.e. extremities or head) *Use of iterative reconstruction technique DLP: 504 mGy-cm. FINDINGS: LUNGS: Mild chronic interstitial prominence, unchanged. Bilateral dependent atelectasis. Stable 0.4 cm subpleural nodule along the right minor fissure, unchanged when compared to the CT from 2017. No new pulmonary nodule, mass, or airspace consolidation. PLEURA: No pleural effusion or pneumothorax. No pleural mass or thickening. MEDIASTINUM: No cardiomegaly. No significant pericardial effusion. No thoracic aortic dilatation or dissection. No significant mediastinal or hilar lymphadenopathy. CHEST WALL/AXILLA: No lymphadenopathy. THYROID: Partially visualized and unremarkable. LIVER, GALLBLADDER, AND BILIARY TREE: Normal hepatic size, shape, and contour. No focal hepatic parenchymal lesion. Mild prominence of the central hepatic biliary ducts with pneumobilia. Status post cholecystectomy. Pneumobilia can be seen following cholecystectomy. PANCREAS: Unremarkable. SPLEEN: Unremarkable. ADRENAL GLANDS: Unremarkable. KIDNEYS AND URETERS: Normal size, shape, and attenuation. No hydronephrosis, hydroureter, or calculi. No perinephric stranding. BLADDER: Unremarkable. GASTROINTESTINAL TRACT: Small, sliding hiatal hernia. Circumferential wall thickening of the rectum, which may be due to underdistention. No associated inflammatory change. There are a few scattered diverticula without evidence of acute diverticulitis. No small or large bowel obstruction. Unremarkable appendix. PERITONEAL CAVITY: No intra-abdominal free air or free fluid. No intra-abdominal mass or organized fluid collection/abscess formation. ABDOMINAL WALL: No significant abdominal wall hernia. LYMPH NODES: No significant lymphadenopathy. VASCULAR: Contrast opacifies the abdominal aorta and its branch vessels. No abdominal aortic dilatation or dissection. Scattered atherosclerotic calcifications. The IVC is unremarkable. PELVIC VISCERA: Unremarkable OSSEOUS STRUCTURES: No acute osseous abnormality. No lytic or blastic osseous lesion. CT/CT abdomen pelvis w con IMPRESSION: 1. Small, sliding hiatal hernia. Circumferential wall thickening of the rectum, which may be due to underdistention. Very early colitis could be considered in the appropriate clinical setting. No associated inflammatory change. Diverticulosis without evidence of acute diverticulitis. No small or large bowel obstruction. Unremarkable appendix. 2. No intra-abdominal mass, lymphadenopathy, or ascites. 3. Status post cholecystectomy with mild central hepatic biliary ductal dilatation and pneumobilia, which can be seen following cholecystectomy. 4. Chronic interstitial prominence within the lungs with bilateral dependent atelectasis. No new pulmonary nodule, mass, or airspace consolidation.
--- NOTE | 2021-04-17 18:52 | ECG_ITS ---
Test Reason : SEPSIS Blood Pressure : / mmHG Vent. Rate : 110 BPM Atrial Rate : 110 BPM P-R Int : 118 ms QRS Dur : 074 ms QT Int : 314 ms P-R-T Axes : -19 044 041 degrees QTc Int : 424 ms Sinus tachycardia Otherwise normal ECG When compared with ECG of 23-DEC-2020 16:12, No significant change was found Heart rate has increased Referred By: Marta Rush Electronically Signed By:CEDRICK AGUILERA MD
--- NOTE | 2021-04-17 18:54 | ED.FEVER ---
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 Mode of arrival: EMS Limitations: no limitations History of Present Illness MD elicited complaint: fever Onset (ago): day(s) (2) Context: other (hx of UTI and kleb pneumonia bacteremia in the past this December) Exacerbating factors: nothing Relieving factors: acetaminophen Associated symptoms: denies other symptoms Treatments prior to arrival fever: acetaminophen (sometime earlier this afternoon) Related Data Home Medications Medication Instructions Recorded Confirmed nitroglycerin 0.4 mg sublingual 0.4 mg SUBLINGUAL Q5M PRN tab 12/03/20 04/17/21 tablet albuterol sulfate 90 mcg/actuation 2 puff INHALATION Q4H PRN 12/23/20 04/17/21 aerosol inhaler (ProAir HFA) amlodipine 5 mg tablet 1 tab PO DAILY 02/11/21 04/17/21 aspirin 81 mg tablet,delayed 81 mg PO DAILY 02/11/21 04/17/21 release calcium carbonate 600 mg (1,500 1 tab PO DAILY 02/11/21 04/17/21 mg)-vitamin D3 200 unit tablet Previous Rx's Medication Instructions Recorded omeprazole 20 mg capsule,delayed 20 mg PO DAILY #90 cap 06/24/20 release trazodone 100 mg tablet 100 mg PO BEDTIME #10 tab 12/27/20 cefuroxime axetil 500 mg tablet 500 mg PO BID 7 Days #14 tab 04/17/21 Allergies Allergy/AdvReac Type Severity Reaction Status Date / Time No Known Allergies Allergy Verified 03/13/21 11:47 [No Known Allergies*] Review of Systems Review of Systems: Constitutional : No Weight loss, pos Fever, No Chills, No Fatigue, No Malaise ENT/Mouth : No sore throat, No Rhinorrhea Eyes: No Eye Pain, No Swelling, No Redness Cardiovascular : No Chest Pain, No SOB, No Dyspnea on Exertion, No Orthopnea, No Edema, No Palpitations Respiratory : No Cough, No Sputum, No Wheezing Gastrointestinal : No Nausea, No Vomiting, No Diarrhea, No Constipation, No abdominal Pain, No Hematochezia, No Melena Genitourinary : No Dysuria, No Urinary Frequency, No Hematuria, Musculoskeletal : No joint pain, No Myalgias, No Joint Swelling Skin : No Skin Lesions, No rash Neuro : No Weakness, No Numbness, No Dizziness, No Headache Psych : No Anxiety/Panic, No Depression Heme/Lymph: No Bruising, No Bleeding,No Lymphadenopathy All other systems reviewed and are negative [facility] [place] Past Medical History Attestation statement: The following information was validated with the patient. Medical History Asthma Chest pain COVID-19 vaccine series completed Depression GERD (gastroesophageal reflux disease) History of coronary artery disease Osteoporosis Vitamin D deficiency Surgical History H/O colonoscopy H/O heart artery stent History of ERCP History of esophagogastroduodenoscopy (EGD) Hx of section Hx of lithotripsy Hx of tubal ligation Family History Family History Father Diabetes Mother Healthy adult Social History Social History Household Members: None Housing: Apartment Are you a primary child care centre manager to a significant other at home: No Do you presently have visiting nurse or other home services: No Alcohol intake: never Patient Tobacco Use Status: Former Tobacco user Quit Date: 2014 Tobacco use type: Cigarette Years Smoked: 44 Advance Directives: No Advance Directives Information Provided: No service: No Current occupational status: disabled Physical Exam Vital Signs: Vital Signs: Last Vital Signs Temp 103.8 F H 04/17/21 18:55 Pulse 90 04/17/21 20:16 Resp 16 04/17/21 20:16 BP 117/47 L 04/17/21 20:16 Pulse Ox 96 04/17/21 20:16 Body Mass Index 22.0 Appearance: Alert. Oriented X3. No acute distress. Eyes: Pupils equal, round and reactive to light. ENT: Pharynx normal. Neck: Normal inspection. Neck supple. no meningeal signs CVS: tachycardic heart rate and rhythm. Pulses normal. Respiratory: No respiratory distress. Breath sounds normal. Abdomen: Soft and non-tender. Skin: Skin warm and dry. Normal skin color. Normal skin turgor. Extremities: No lower extremity edema. No calf ttp Neuro: Oriented X 3. No motor deficit. No sensory deficit. Course Course Course Narrative: no source of fever at this time given her history CT scan of chest and abdomen to look for infection ordered no source at this time UA, CT scans negative, neg lactic acid, WBC only 11.7 - given her hx will DC home with ceftin MDM - Fever MDM Narrative Medical decision making narrative: 66 yo female hx of UTI, CAD, asthma hx of kleb pneumonia UTI causing bacteremia S to cephalosporins. Also underwent lap justin a couple of months ago had been treated for cholangitis over the summer. She comes in today with c/o fevers but no other symptoms with /GI/URI. She has had both COVID vaccines. She has no abdominal pain, no signs of meningitis. Will obtain basic labs, UA, cultures, lactic acid, IVF, empiric Cefepime. Dispo per results and findings. Lab Data Result diagrams: 04/17/21 19:09 04/17/21 19:09 Labs: Lab Results 04/17/21 04/17/21 04/17/21 Range/Units 19:09 19:09 19:09 WBC 11.7 H (4.8-10.8) X10*3/uL RBC 3.85 L (4.20-5.50) X10*6/uL Hgb 11.8 L (12.0-16.0) g/dl Hct 34.1 L (37-47) % MCV 88.6 (80-98) fL MCH 30.6 (27.0-33.0) pg MCHC 34.6 (31.0-35.0) g/dl RDW 12.4 (11.0-16.0) % Plt Count 155 L D (160-400) X10*3/uL MPV 8.8 L (9.4-12.3) fL Immature Gran % (Auto) 0.5 H (0.0-0.4) % Neut % (Auto) 89.4 H (45-73) % Lymph % (Auto) 6.2 L (20-40) % Grainger % (Auto) 3.7 (2-11) % Eos % (Auto) 0.0 (0-4) % Baso % (Auto) 0.2 (0-2) % Lymph # (Auto) 0.7 L (1.2-4.9) X10*3/uL Grainger # (Auto) 0.4 (0.1-1.2) X10*3/uL Eos # (Auto) 0.0 (0.0-0.4) X10*3/uL Baso # (Auto) 0.0 (0.0-0.2) X10*3/uL Abs Immat Gran (auto) 0.06 H (0.00-0.03) X10*3/uL Absolute Neuts (auto) 10.5 H (2.0-8.3) X10*3/uL Absolute Nucleated RBC 0.000 (0.0-0.012) X10*3/uL Nucleated RBC % (auto) 0.0 (0.0-0.2) /100WBC Sodium 134 L (135-145) mmol/L Potassium 3.2 L D (3.3-5.1) mmol/L Chloride 101 (96-108) mmol/L Carbon Dioxide 23 (22-29) mmol/L Anion Gap 13 (12-20) BUN 13 (9-16) mg/dL Creatinine 0.77 (0.5-1.4) mg/dL Estim Creat Clear Calc 50.2 Estimated GFR > 60 Random Glucose 106 (60-115) mg/dL Lactic Acid 0.9 (0.5-2.0) mmol/L Calcium 8.3 L D (8.4-10.2) mg/dL Magnesium 1.6 (1.6-2.6) mg/dL Total Bilirubin 1.8 H (0.0-1.0) mg/dL Direct Bilirubin 1.0 H (0.0-0.5) mg/dL AST 60 H (5-31) U/L ALT 104 H (0-31) U/L Alkaline Phosphatase 167 H D (39-117) U/L Total Protein 6.4 L (6.5-8.0) g/dL Albumin 3.7 (3.5-5.0) g/dL Lipase 11 (8-78) U/L Urine Color Urine Appearance Urine pH (5.0-8.0) Ur Specific Barton (1.005-1.025) Urine Protein (NEG-TRACE) MG/DL Urine Glucose (UA) (NEG) MG/DL Urine Ketones (NEG) MG/DL Urine Blood (NEG) Urine Nitrite (NEG) Ur Leukocyte Esterase (NEG) Urine RBC (0) /HPF Urine WBC (0-4) /HPF Ur Squamous Epith Cells /LPF Amorphous Sediment /LPF Urine Bacteria /LPF Urine Mucus /LPF Coronavirus (PCR) (Negative) Influenza Type A (PCR) (Negative) Influenza Type B (PCR) (Negative) RSV RNA Qual (PCR) (Negative) 04/17/21 04/17/21 Range/Units 19:09 20:14 WBC (4.8-10.8) X10*3/uL RBC (4.20-5.50) X10*6/uL Hgb (12.0-16.0) g/dl Hct (37-47) % MCV (80-98) fL MCH (27.0-33.0) pg MCHC (31.0-35.0) g/dl RDW (11.0-16.0) % Plt Count (160-400) X10*3/uL MPV (9.4-12.3) fL Immature Gran % (Auto) (0.0-0.4) % Neut % (Auto) (45-73) % Lymph % (Auto) (20-40) % Grainger % (Auto) (2-11) % Eos % (Auto) (0-4) % Baso % (Auto) (0-2) % Lymph # (Auto) (1.2-4.9) X10*3/uL Grainger # (Auto) (0.1-1.2) X10*3/uL Eos # (Auto) (0.0-0.4) X10*3/uL Baso # (Auto) (0.0-0.2) X10*3/uL Abs Immat Gran (auto) (0.00-0.03) X10*3/uL Absolute Neuts (auto) (2.0-8.3) X10*3/uL Absolute Nucleated RBC (0.0-0.012) X10*3/uL Nucleated RBC % (auto) (0.0-0.2) /100WBC Sodium (135-145) mmol/L Potassium (3.3-5.1) mmol/L Chloride (96-108) mmol/L Carbon Dioxide (22-29) mmol/L Anion Gap (12-20) BUN (9-16) mg/dL Creatinine (0.5-1.4) mg/dL Estim Creat Clear Calc Estimated GFR Random Glucose (60-115) mg/dL Lactic Acid (0.5-2.0) mmol/L Calcium (8.4-10.2) mg/dL Magnesium (1.6-2.6) mg/dL Total Bilirubin (0.0-1.0) mg/dL Direct Bilirubin (0.0-0.5) mg/dL AST (5-31) U/L ALT (0-31) U/L Alkaline Phosphatase (39-117) U/L Total Protein (6.5-8.0) g/dL Albumin (3.5-5.0) g/dL Lipase (8-78) U/L Urine Color DK YELLOW Urine Appearance CLEAR Urine pH 6.0 (5.0-8.0) Ur Specific Barton 1.025 (1.005-1.025) Urine Protein 2+ H (NEG-TRACE) MG/DL Urine Glucose (UA) NEG (NEG) MG/DL Urine Ketones 40 (NEG) MG/DL Urine Blood 3+ H (NEG) Urine Nitrite NEG (NEG) Ur Leukocyte Esterase NEG (NEG) Urine RBC 5-9 H (0) /HPF Urine WBC 1-4 (0-4) /HPF Ur Squamous Epith Cells 2+ /LPF Amorphous Sediment TRACE /LPF Urine Bacteria TRACE /LPF Urine Mucus TRACE /LPF Coronavirus (PCR) NEGATIVE (Negative) Influenza Type A (PCR) NEGATIVE (Negative) Influenza Type B (PCR) NEGATIVE (Negative) RSV RNA Qual (PCR) NEGATIVE (Negative) ECG Data ECG #1: Attestation: I personally reviewed and interpreted this ECG as follows: ECG interpretation date: 04/17/21 ECG interpretation time: 18:55 Interpretation: Rate: 110 Rhythm: sinus tachycardia [place]: normal Normal P waves. Normal LEIGHANN. Normal QRS complex. ST T wave : normal no NILA qTC: normal prior studies: no acute ischemia The study has been interpreted contemporaneously by me. . Discharge Plan Discharge Clinical Impression: Fever Qualifiers: Fever type: unspecified Qualified Code(s): R50.9 - Fever, unspecified Patient Disposition: Home, Self-Care Instructions: Fever in Adults (ED) Additional Instructions: return to ED for any worsening symptoms or concerns urine negative, CT scans of chest and abdomen negative for infection given history will start on antibiotics, blood cultures pending Prescriptions: New cefuroxime axetil 500 mg tablet 500 mg PO BID 7 Days Qty: 14 RF: 0 No Action omeprazole 20 mg capsule,delayed release(DR/EC) 20 mg PO DAILY Qty: 90 RF: 1 albuterol sulfate [ProAir HFA] 90 mcg/actuation HFA aerosol inhaler 2 puff inhalation Q4H PRN (Reason: Shortness Of Breath) RF: 0 trazodone 100 mg tablet 100 mg PO BEDTIME Qty: 10 RF: 0 amlodipine 5 mg tablet 1 tab PO DAILY RF: 0 calcium carbonate-vitamin D3 600 mg(1,500mg) -200 unit Tablet 1 tab PO DAILY RF: 0 aspirin 81 mg Tablet,Delayed Release (Dr/Ec) 81 mg PO DAILY RF: 0 nitroglycerin 0.4 mg tablet, sublingual 0.4 mg sublingual Q5M PRN (Reason: Chest Pain) RF: 0 Referrals: Physician,Unknown J [Primary Care Provider] - 3 days (if not better)
[2021-04-17 18:55] VITALS: BP 144/70; PULSE 111; RESP 18; TEMP 39.9; O2SAT 94; BMI 22.0
--- NOTE | 2021-04-17 19:05 | PC.NURSE ---
PT TO ROOM VIA EMS WITH C/O FEVERISH AND POSSIBLE SEPSIS SINCE PROCEDURE ON . PT ARRIVES WITH #18G TO LEFT WRIST. LABS DRAWN TO LAB, PT MEDICATED PER EMAR. NS UP AND RUNNING W/O PER PROTOCOL. DAUGHTER AT BEDSIDE WITH PT. PT ALERT AND WELSH SPEAKING, RESPIRATIONS EASY, N/L. DENIES PAIN AT THIS TIME. SKIN W/D. VITAL SIGNS OBTAINED. PT AWAITING FOR FURTHER ORDERS.
[2021-04-17] MEDS: 0.9 % Sodium Chloride 1,000 ML 999 ML IVCONT (19:15)
[2021-04-17] MEDS: Acetaminophen 325 MG TABLET 650 MG PO (19:17)
[2021-04-17] MEDS: cefEPime HCl 2 GM in 0.9 % Sodium Chloride 50 ML IV (19:17)
[2021-04-17 19:18] LABS: MANUAL DIFF FLAG NO
[2021-04-17 19:20] LABS: Basophils Percent Auto 0.2 % (0-2); Hematocrit 34.1 % (37-47); Hemoglobin 11.8 g/dl (12.0-16.0); Imm Gran Abs Auto 0.06 X10*3/uL (0.00-0.03); Imm Gran Pct Auto 0.5 % (0.0-0.4); Lymphocytes Absolute Auto 0.7 X10*3/uL (1.2-4.9); Lymphocytes Percent Auto 6.2 % (20-40); Mean Corpuscular HGB Conc 34.6 g/dl (31.0-35.0); Mean Corpuscular Hemoglobin 30.6 pg (27.0-33.0); Mean Corpuscular Volume 88.6 fL (80-98); Mean Platelet Volume 8.8 fL (9.4-12.3); Monocytes Absolute Auto 0.4 X10*3/uL (0.1-1.2); Monocytes Percent Auto 3.7 % (2-11); Neutrophils Absolute Auto 10.5 X10*3/uL (2.0-8.3); Neutrophils Percent Auto 89.4 % (45-73); Platelet Count 155 X10*3/uL (160-400); Red Blood Count 3.85 X10*6/uL (4.20-5.50); Red Cell Distribution Width 12.4 % (11.0-16.0); White Blood Count 11.7 X10*3/uL (4.8-10.8)
--- NOTE | 2021-04-17 19:27 | PHA.MEDREC ---
Pharmacy Consult ? Medication Reconciliation Pharmacy has completed the medication reconciliation. Spoke to the patients daughter who stated her mother hadn't taken any medications on 04/17/21 because she wasn't feeling well. She also states that her mother had been off aspirin for a few days due to having a recent procedure. Patient is compliant otherwise due to having blister packs from [facility]. Mirian Helms, PharmD [phone]
[2021-04-17 19:32] LABS: Lactic Acid 0.9 mmol/L (0.5-2.0)
[2021-04-17 19:38] LABS: Alanine Aminotransferase 104 U/L (0-31); Albumin Level 3.7 g/dL (3.5-5.0); Alkaline Phosphatase 167 U/L (39-117); Anion Gap 13 (12-20); Aspartate Amino Transferase 60 U/L (5-31); Bilirubin Total 1.8 mg/dL (0.0-1.0); Blood Urea Nitrogen 13 mg/dL (9-16); Calcium 8.3 mg/dL (8.4-10.2); Carbon Dioxide 23 mmol/L (22-29); Chloride 101 mmol/L (96-108); Creatinine Clr Calc Pharmacy 50.2; Estimated Glomerular Filt Rate > 60; Glucose Random 106 mg/dL (60-115); Lipase 11 U/L (8-78); Magnesium 1.6 mg/dL (1.6-2.6); Potassium 3.2 mmol/L (3.3-5.1); Sodium 134 mmol/L (135-145); Total Protein 6.4 g/dL (6.5-8.0)
[2021-04-17 19:57] LABS: Influenza A PCR NEGATIVE (Negative); Influenza B PCR NEGATIVE (Negative); Resp Syncy Virus RNA Qual PCR NEGATIVE (Negative); SARS COV2 PCR INHOUSE NEGATIVE (Negative)
[2021-04-17 20:02] VITALS: BP 116/50; PULSE 95; RESP 18; O2SAT 96
[2021-04-17 20:16] VITALS: BP 117/47; PULSE 90; RESP 16; O2SAT 96
[2021-04-17 20:24] LABS: Appearance Urine CLEAR; Color Urine DK YELLOW; Glucose Urine UA NEG (NEG); Leukocyte Esterase Urine NEG (NEG); Nitrite Urine NEG (NEG); Specific Gravity - Urine 1.025 (1.005-1.025); UACC Culture Trigger NO; Urine Blood 3+ (NEG); Urine Ketones 40 MG/DL (NEG); Urine Protein 2+ MG/DL (NEG-TRACE)
[2021-04-17 20:39] LABS: Amorphous Sediment Urine TRACE /LPF; Bacteria Urine TRACE /LPF; Mucus Urine TRACE /LPF; Squamous Epithelial Cell Urine 2+ /LPF
--- NOTE | 2021-04-17 21:06 | PC.NURSE ---
pt to ct in stretcher.
[2021-04-17] MEDS: iohexoL 350 MG/ML 100 ML INFUS..BTL IV (21:27)
== END 2021-04-17 23:00 | disposition home or self-care (01) ==
PROVIDERS: Emergency Provider Emergency Medicine
DX: R50.9 Fever, unspecified (principal); Z20.822 Contact with and (suspected) exposure to COVID-19; Z79.899 Other long term (current) drug therapy
CPT/HCPCS: 0241U; 36415; 71045; 71260; 74177; 80048; 80076; 81001; 83605; 83690; 83735; 85025; 87040; 87077; 87186; 87205; 93005; 96361; 96374; 99283; 99284; J0692; Q9967

== ENCOUNTER 2021-04-19 09:52 | Inpatient (IN) | payer MEDICARE, MEDICAID, SELFPAY ==
[2021-04-19 09:59] VITALS: BP 116/62; PULSE 88; RESP 16; TEMP 37.2; O2SAT 98; BMI 21.8
--- NOTE | 2021-04-19 10:14 | ED_ITS ---
HPI - Recheck/Abnormal Lab/Rx General Chief Complaint: Recheck/Abnormal Lab/Rx Stated Complaint: abnormal labs Time Seen by Provider: 04/19/21 10:06 Source: patient Mode of arrival: ambulatory Limitations: no limitations History of Present Illness HPI narrative: Patient was seen in the emergency 2 days ago April 17 because of fever as high as 105 he underwent an extensive workup which included a UA CT chest abdomen workup was negative she was discharged home on p.o. antibiotic after receiving 1 dose of IV cefepime. To be noted that she had a in ERCP 2 days prior to that on April 15 [facility]. Patient blood culture returned positive for Gram-negative rods, therefore she was colder to return to the emergency department. She reports no fever no chills she states that she feels good she is taking the cefuroxime a that was prescribed to her on the . Patient is here with the daughter. Initial visit (ago): day(s) (Two days ago) Returns today for: called because of abnormal lab/test Symptoms since prior visit: improved Context: called for positive culture result Associated symptoms: none Treatments prior to arrival: given antibiotics on (04/17) Related Data Home Medications Medication Instructions Recorded Confirmed nitroglycerin 0.4 mg sublingual 0.4 mg SUBLINGUAL Q5M PRN tab 12/03/20 04/19/21 tablet albuterol sulfate 90 mcg/actuation 2 puff INHALATION Q4H PRN 12/23/20 04/19/21 aerosol inhaler (ProAir HFA) amlodipine 5 mg tablet 1 tab PO DAILY 02/11/21 04/19/21 aspirin 81 mg tablet,delayed 81 mg PO DAILY 02/11/21 04/19/21 release calcium carbonate 600 mg (1,500 1 tab PO DAILY 02/11/21 04/19/21 mg)-vitamin D3 200 unit tablet Previous Rx's Medication Instructions Recorded omeprazole 20 mg capsule,delayed 20 mg PO DAILY #90 cap 06/24/20 release trazodone 100 mg tablet 100 mg PO BEDTIME #10 tab 12/27/20 Allergies Allergy/AdvReac Type Severity Reaction Status Date / Time No Known Allergies Allergy Verified 03/13/21 11:47 [No Known Allergies*] Review of Systems Review of Systems: Yes all other systems are reviewed and are negative Constitutional: Constitutional: Denies anorexia, Denies body ache(s), Denies chills, Denies excessive sweating, Denies fatigue, Denies fever(s) and Denies weakness ENT: Reports system reviewed and no additional complaints, except as documented and Denies dizziness Cardiovascular: Cardiovascular: Reports no additional cardiovascular complaints Respiratory: Respiratory: Reports no additional respiratory complaints Neurologic: Denies confusion, Denies dizziness and Denies weakness Psychiatric: Psychiatric: Denies confusion Endocrine: Endocrine: Denies excessive sweating and Denies fatigue [facility] Past Medical History Attestation statement: The following information was validated with the patient. Medical History (Updated 04/19/21 @ 12:37 by DMITRI Low) Asthma Atherosclerotic cardiovascular disease Chest pain Cholangitis Choledocholithiasis Cholelithiasis COVID-19 vaccine series completed Depression GERD (gastroesophageal reflux disease) History of coronary artery disease Osteoporosis Vitamin D deficiency Surgical History H/O colonoscopy H/O heart artery stent History of ERCP History of esophagogastroduodenoscopy (EGD) Hx of section Hx of cholecystectomy Hx of lithotripsy Hx of tubal ligation Family History Family History Father Diabetes Mother Healthy adult Social History Social History (Updated 04/19/21 @ 12:35 by DMITRI Low) Household Members: None Housing: Apartment Are you a primary tree care foreman to a significant other at home: No Do you presently have visiting nurse or other home services: No Alcohol intake: former Patient Tobacco Use Status: Former Tobacco user Quit Date: 2014 Tobacco use type: Cigarette Years Smoked: 44 Use of substances other than those prescribed or required for medical reasons: No Advance Directives: No service: No Current occupational status: disabled Physical Exam Vital Signs: Vital Signs: Last Vital Signs Temp 99.2 F 04/19/21 10:55 Pulse 78 04/19/21 10:55 Resp 16 04/19/21 10:55 BP 111/56 L 04/19/21 10:55 Pulse Ox 97 04/19/21 10:55 Body Mass Index 21.8 Const: General: cooperative and comfortable; No confusion Orientation/consciousness: No confusion HENMT: Head: Yes normal to inspection Face and sinus: Yes normal facial exam Throat: Yes posterior oropharynx normal Neck: Neck: Yes normal visual inspection and Yes full ROM Chest: Chest palpation & inspection: normal inspection of the chest Resp: Effort & Inspection: normal respiratory effort Auscultation: clear to auscultation bilaterally Cardio: Jugular venous distension: no JVD Rhythm: regular rhythm GI: Inspection: Yes normal to inspection Palpation (GI): Soft to palpation, not firm, nontender and no guarding Auscultation: normal bowel sounds Neuro: General: No confusion Course Course Course Narrative: I discussed the case with ID Dr Pattie Ambriz she reccomend admission for IV AB,spoke with Hospitalist dr Bowman who accept the pt MDM - Recheck/Abnormal Lab/Rx Lab Data Result diagrams: 04/19/21 10:20 04/19/21 10:20 Labs: Lab Results 04/19/21 04/19/21 04/19/21 Range/Units 10:20 10:20 10:20 WBC 5.1 (4.8-10.8) X10*3/uL RBC 3.94 L (4.20-5.50) X10*6/uL Hgb 12.0 (12.0-16.0) g/dl Hct 35.2 L (37-47) % MCV 89.3 (80-98) fL MCH 30.5 (27.0-33.0) pg MCHC 34.1 (31.0-35.0) g/dl RDW 12.5 (11.0-16.0) % Plt Count 179 (160-400) X10*3/uL MPV 9.5 (9.4-12.3) fL Immature Gran % (Auto) 0.6 H (0.0-0.4) % Neut % (Auto) 61.0 (45-73) % Lymph % (Auto) 26.3 (20-40) % Howell % (Auto) 10.3 (2-11) % Eos % (Auto) 1.2 (0-4) % Baso % (Auto) 0.6 (0-2) % Lymph # (Auto) 1.3 (1.2-4.9) X10*3/uL Howell # (Auto) 0.5 (0.1-1.2) X10*3/uL Eos # (Auto) 0.1 (0.0-0.4) X10*3/uL Baso # (Auto) 0.0 (0.0-0.2) X10*3/uL Abs Immat Gran (auto) 0.03 (0.00-0.03) X10*3/uL Absolute Neuts (auto) 3.1 (2.0-8.3) X10*3/uL Absolute Nucleated RBC 0.000 (0.0-0.012) X10*3/uL Nucleated RBC % (auto) 0.0 (0.0-0.2) /100WBC Sodium 139 (135-145) mmol/L Potassium 2.9 L (3.3-5.1) mmol/L Chloride 103 (96-108) mmol/L Carbon Dioxide 26 (22-29) mmol/L Anion Gap 13 (12-20) BUN 11 (9-16) mg/dL Creatinine 0.78 (0.5-1.4) mg/dL Estim Creat Clear Calc 49.6 Estimated GFR > 60 Random Glucose 138 H (60-115) mg/dL Lactic Acid 1.3 (0.5-2.0) mmol/L Calcium 8.7 (8.4-10.2) mg/dL Total Bilirubin 0.6 (0.0-1.0) mg/dL AST 47 H (5-31) U/L ALT 77 H (0-31) U/L Alkaline Phosphatase 139 H (39-117) U/L C-Reactive Protein 13.83 H (< or = 0.50) mg/dL Total Protein 6.6 (6.5-8.0) g/dL Albumin 3.9 (3.5-5.0) g/dL Procalcitonin ng/mL 04/19/21 Range/Units 10:20 WBC (4.8-10.8) X10*3/uL RBC (4.20-5.50) X10*6/uL Hgb (12.0-16.0) g/dl Hct (37-47) % MCV (80-98) fL MCH (27.0-33.0) pg MCHC (31.0-35.0) g/dl RDW (11.0-16.0) % Plt Count (160-400) X10*3/uL MPV (9.4-12.3) fL Immature Gran % (Auto) (0.0-0.4) % Neut % (Auto) (45-73) % Lymph % (Auto) (20-40) % [place]ell % (Auto) (2-11) % Eos % (Auto) (0-4) % Baso % (Auto) (0-2) % Lymph # (Auto) (1.2-4.9) X10*3/uL [place]ell # (Auto) (0.1-1.2) X10*3/uL Eos # (Auto) (0.0-0.4) X10*3/uL Baso # (Auto) (0.0-0.2) X10*3/uL Abs Immat Gran (auto) (0.00-0.03) X10*3/uL Absolute Neuts (auto) (2.0-8.3) X10*3/uL Absolute Nucleated RBC (0.0-0.012) X10*3/uL Nucleated RBC % (auto) (0.0-0.2) /100WBC Sodium (135-145) mmol/L Potassium (3.3-5.1) mmol/L Chloride (96-108) mmol/L Carbon Dioxide (22-29) mmol/L Anion Gap (12-20) BUN (9-16) mg/dL Creatinine (0.5-1.4) mg/dL Estim Creat Clear Calc Estimated GFR Random Glucose (60-115) mg/dL Lactic Acid (0.5-2.0) mmol/L Calcium (8.4-10.2) mg/dL Total Bilirubin (0.0-1.0) mg/dL AST (5-31) U/L ALT (0-31) U/L Alkaline Phosphatase (39-117) U/L C-Reactive Protein (< or = 0.50) mg/dL Total Protein (6.5-8.0) g/dL Albumin (3.5-5.0) g/dL Procalcitonin 1.65 ng/mL Discharge Plan Discharge Clinical Impression: Gram-negative bacteremia Patient Disposition: Admitted As Inpatient
[2021-04-19 10:27] LABS: Basophils Percent Auto 0.6 % (0-2); Eosinophils Absolute Auto 0.1 X10*3/uL (0.0-0.4); Eosinophils Percent Auto 1.2 % (0-4); Hematocrit 35.2 % (37-47); Imm Gran Abs Auto 0.03 X10*3/uL (0.00-0.03); Imm Gran Pct Auto 0.6 % (0.0-0.4); Lymphocytes Absolute Auto 1.3 X10*3/uL (1.2-4.9); Lymphocytes Percent Auto 26.3 % (20-40); MANUAL DIFF FLAG NO; Mean Corpuscular HGB Conc 34.1 g/dl (31.0-35.0); Mean Corpuscular Hemoglobin 30.5 pg (27.0-33.0); Mean Corpuscular Volume 89.3 fL (80-98); Mean Platelet Volume 9.5 fL (9.4-12.3); Monocytes Absolute Auto 0.5 X10*3/uL (0.1-1.2); Monocytes Percent Auto 10.3 % (2-11); Neutrophils Absolute Auto 3.1 X10*3/uL (2.0-8.3); Platelet Count 179 X10*3/uL (160-400); Red Blood Count 3.94 X10*6/uL (4.20-5.50); Red Cell Distribution Width 12.5 % (11.0-16.0); White Blood Count 5.1 X10*3/uL (4.8-10.8)
--- NOTE | 2021-04-19 10:30 | PC.NURSE ---
pt called in for abnormal lab test and lab recheck related to her previous ed visit on 04/17 for fever of 105.5. pt was given one dose of IV Cefepime here in the ed and was d/c'd home on p.o. antibiotics. Pt reports that she was seen at [facility] 04/15 and had a ERCP done. She denies fever/chills/n/v/d. no abdominal pain. her vital signs stable. no sob/headache/dizziness. no apparent distress noted. pt alert and oriented x4. Pt's daughter is at her bedside.
[2021-04-19 10:47] LABS: Lactic Acid 1.3 mmol/L (0.5-2.0)
[2021-04-19] MEDS: cefEPime HCl 2 GM in 0.9 % Sodium Chloride 50 ML IV (10:51)
[2021-04-19 10:55] VITALS: BP 111/56; PULSE 78; RESP 16; TEMP 37.3; O2SAT 97
[2021-04-19 11:05] LABS: Alanine Aminotransferase 77 U/L (0-31); Albumin Level 3.9 g/dL (3.5-5.0); Alkaline Phosphatase 139 U/L (39-117); Aspartate Amino Transferase 47 U/L (5-31); Bilirubin Total 0.6 mg/dL (0.0-1.0); Blood Urea Nitrogen 11 mg/dL (9-16); C Reactive Protein 13.83 mg/dL (< or = 0.50); Calcium 8.7 mg/dL (8.4-10.2); Creatinine Clr Calc Pharmacy 49.6; Estimated Glomerular Filt Rate > 60; Glucose Random 138 mg/dL (60-115); Total Protein 6.6 g/dL (6.5-8.0)
[2021-04-19 11:14] LABS: Anion Gap 13 (12-20); Carbon Dioxide 26 mmol/L (22-29); Chloride 103 mmol/L (96-108); Potassium 2.9 mmol/L (3.3-5.1); Sodium 139 mmol/L (135-145)
--- NOTE | 2021-04-19 11:30 | PC.NURSE ---
pt's labs drawn, IV established, IV antibiotic hung and infusing without difficulty. pt's daughter remains at bedside.
[2021-04-19 11:58] LABS: Procalcitonin 1.65 ng/mL
[2021-04-19 12:15] VITALS: BP 125/64; PULSE 77; RESP 16; O2SAT 98
--- NOTE | 2021-04-19 12:21 | P.EN_ITS ---
Event Note Date of Service: 04/19/21 Event Note: Admission was called for Gram-negative bacteremia. Patient was in [facility] for ERCP procedure 3-4 days ago and subsequently was having fever came to the ED and that time blood culture was sent which came out to be preliminary for Gram-negative bacteria. ED physician discussed the case with the id Dr. hogue and plan is to admit the patient for IV antibiotic. Patient currently declines any abdominal pain or nausea or vomiting or fever or chills cough or phlegm. Physical exam: Appearance: Alert.? Oriented x3,? not in distress.? Eyes: Pupils equal, round and reactive to light.? Sclera nonicteric.? ENT: Pharynx normal.? Moist mucous membranes. cvs: rrr, [id number] , no murmur res: clear to auscultation ,no rhonchii or wheezing abd: no rebound or guarding ,nt, bs present. ext pulses present , no cyanosis . neuro: axo3 , nonfocal. Assessment plan in APCs note Agree with the plan in addition Lab imaging reviewed personally and interpreted She had CT of abdomen and CT of chest to 3 days back so will avoid repeating because she has asymptomatic 04/17:CT abdomen showed question of early colitis but patient is asymptomatic CT chest shows some atelectasis. ua -mild pyuria, urine cultures added No leukocytosis, no fever no tachycardia. Has mild hypokalemia Id recommended IV meropenem, we will also replete potassium.
--- NOTE | 2021-04-19 12:22 | P.HPHOSP_ITS ---
History of Present Illness Date of Service: 04/19/21 Attending physician on admission: Saleem Bowman Chief Complaint: Gram negative bacteremia This is a 66-year-old Burundian-speaking, female treated for cholangitis s/p ERCP and biliary stent placement in December, cholecystectomy in January and scheduled ERCP with stent removal noted to have CBD stone at [facility] on 04/15 who presented to the ED on 04/17 with complaints of fever. At that time she was noted to have fever of 103.8. CT abdomen and chest were done at that time which showed possible very early colitis and otherwise was unremarkable. Urinalysis was unremarkable. Other than fever she was asymptomatic and thus was discharged home with cefuroxime for 7 days. Her blood cultures returned positive for gram negative rods and she was called to return to the emergency department. Today she reports improvement in her fever. She denies any abdominal pain, nausea, vomiting, dysuria. And were significant only for hypokalemia with a potassium of 2.9. She received a dose of oral potassium replacement she was given a dose of IV cefepime. The emergency department discussed her case with Infectious Diseases who recommended admission to the hospital for IV meropenem as final sensitivities for blood cultures from 04/17 are pending at this time. Repeat blood cultures were obtained and are also pending. Repeat urinalysis was ordered and is pending at this time. Review of Systems Review of Systems: Yes all other systems are reviewed and are negative Constitutional: Constitutional: Denies chills and Denies fever(s) Cardiovascular: Cardiovascular: Denies chest pain Respiratory: Respiratory: Denies cough Gastrointestinal: Gastrointestinal: Denies abdominal pain, Denies diarrhea, Denies nausea and Denies vomiting Genitourinary: Genitourinary: Denies dysuria [facility] Medical History (Updated 04/19/21 @ 12:37 by DMITRI Low) Asthma Atherosclerotic cardiovascular disease Chest pain Cholangitis Choledocholithiasis Cholelithiasis COVID-19 vaccine series completed Depression GERD (gastroesophageal reflux disease) History of coronary artery disease Osteoporosis Vitamin D deficiency Functional capacity: independent ambulation Family History Father Diabetes Mother Healthy adult Pertinent family history: No known history of CAD, stroke in mother or father Surgical History H/O colonoscopy H/O heart artery stent History of ERCP History of esophagogastroduodenoscopy (EGD) Hx of section Hx of cholecystectomy Hx of lithotripsy Hx of tubal ligation Social History (Updated 04/19/21 @ 12:35 by DMITRI Low) Household Members: None Housing: Apartment Are you a primary day care worker to a significant other at home: No Do you presently have visiting nurse or other home services: No Alcohol intake: former Patient Tobacco Use Status: Former Tobacco user Quit Date: 2014 Tobacco use type: Cigarette Years Smoked: 44 Use of substances other than those prescribed or required for medical reasons: No Advance Directives: No service: No Current occupational status: disabled [employer] Allergies Allergy/AdvReac Type Severity Reaction Status Date / Time No Known Allergies Allergy Verified 03/13/21 11:47 [No Known Allergies*] Active Medications: Current Medications Acetaminophen (Acetaminophen 325 Mg Tablet) 650 mg PO Q6H PRN PRN Reason: Pain, Mild (Pain Scale 1-3) Docusate Sodium (Docusate Sodium 100 Mg Capsule) 100 mg PO DAILY PRN PRN Reason: Constipation Heparin Sodium (Porcine) (Heparin Sodium,Porcine 5,000 Unit/Ml Vial) 5,000 unit SUBCUT Q12H [facility] Meropenem 1 gm/ Sodium (Chloride) 100 mls @ 100 mls/hr IV Q8H [facility] Ondansetron HCl (Ondansetron Hcl 4 Mg/2 Ml Vial) 4 mg IVPUSH Q8H PRN PRN Reason: Nausea and Vomiting Sodium Chloride (0.9 % Sodium Chloride Flush 3 Ml Syringe) 3 ml IVFLUSH QSHIFT IRINA Home Medications Medication Instructions Recorded Confirmed Last Taken Type nitroglycerin 0.4 mg sublingual 0.4 mg SUBLINGUAL Q5M PRN tab 12/03/20 04/19/21 Unknown History tablet albuterol sulfate 90 mcg/actuation 2 puff INHALATION Q4H PRN 12/23/20 04/19/21 Unknown History aerosol inhaler (ProAir HFA) amlodipine 5 mg tablet 1 tab PO DAILY 02/11/21 04/19/21 04/16/21 History aspirin 81 mg tablet,delayed 81 mg PO DAILY 02/11/21 04/19/21 04/13/21 History release calcium carbonate 600 mg (1,500 1 tab PO DAILY 02/11/21 04/19/21 04/16/21 History mg)-vitamin D3 200 unit tablet Physical Exam Vital Signs and Narrative: Vital Signs: Last Vital Signs Temp 99.2 F 04/19/21 10:55 Pulse 78 04/19/21 10:55 Resp 16 04/19/21 10:55 BP 111/56 L 04/19/21 10:55 Pulse Ox 97 04/19/21 10:55 Body Mass Index 21.8 Const: Other: non-toxic appearing General: alert and awake Nutritional Appearance: well nourished Orientation/consciousness: patient oriented x3 HENMT: Head: Yes normocephalic and Yes atraumatic Eyes: Sclerae: sclerae normal Pupils: Equal, round and reactive pupils present Resp: Effort & Inspection: normal respiratory effort and no respiratory distress Cardio: Rate: regular rate Rhythm: regular rhythm GI: Inspection: No distended Palpation (GI): Soft to palpation and nontender Neuro: General: patient oriented x3 Cranial nerves: Yes CN's II-XII intact bilaterally, Yes Equal, round and reactive pupils present and Yes Bilaterally intact EOM present Results Labs CBC and Chem 7: 04/19/21 10:20 04/19/21 10:20 Labs: Laboratory Results - last 24 hr 04/19/21 04/19/21 04/19/21 10:20 10:20 10:20 MCV 89.3 MCH 30.5 MCHC 34.1 RDW 12.5 Plt Count 179 MPV 9.5 Immature Gran % (Auto) 0.6 H Neut % (Auto) 61.0 Lymph % (Auto) 26.3 [place] % (Auto) 10.3 Eos % (Auto) 1.2 Baso % (Auto) 0.6 Lymph # (Auto) 1.3 [place] # (Auto) 0.5 Eos # (Auto) 0.1 Baso # (Auto) 0.0 Abs Immat Gran (auto) 0.03 Absolute Neuts (auto) 3.1 Absolute Nucleated RBC 0.000 Nucleated RBC % (auto) 0.0 Anion Gap 13 Estim Creat Clear Calc 49.6 Estimated GFR > 60 Random Glucose 138 H Lactic Acid 1.3 Calcium 8.7 Total Bilirubin 0.6 AST 47 H ALT 77 H Alkaline Phosphatase 139 H C-Reactive Protein 13.83 H Total Protein 6.6 Albumin 3.9 Procalcitonin 04/19/21 10:20 MCV MCH MCHC RDW Plt Count MPV Immature Gran % (Auto) Neut % (Auto) Lymph % (Auto) [place] % (Auto) Eos % (Auto) Baso % (Auto) Lymph # (Auto) [place] # (Auto) Eos # (Auto) Baso # (Auto) Abs Immat Gran (auto) Absolute Neuts (auto) Absolute Nucleated RBC Nucleated RBC % (auto) Anion Gap Estim Creat Clear Calc Estimated GFR Random Glucose Lactic Acid Calcium Total Bilirubin AST ALT Alkaline Phosphatase C-Reactive Protein Total Protein Albumin Procalcitonin 1.65 Assessment and Plan (1) Gram-negative bacteremia: Status: Acute This is a 66-year-old Burundian-speaking, female treated for cholangitis s/p ERCP and biliary stent placement in December, cholecystectomy in January and scheduled ERCP with stent removal noted to have CBD stone at [facility] on 04/15 who presented to the ED on 04/17 with complaints of fever now called to return to ED due to Blood cultures growing GNR. Gram-negative zayra bacteremia Likely GI source given recent ERCP/biliary stent removal (04/15) CT abdomen from 04/17 unremarkable, will hold off on repeat imaging at this time Repeat urinalysis pending Blood cultures from 04/17 preliminary- 07/29 growing Gram-negative rods Repeat blood cultures from today pending -ID consult -IV meropenem -follow results of above blood cultures Hypokalemia Potassium 2.9 Oral replacement given in the ED -Follow BMP HTN BP on lower side -will hold Norvasc, resume as bp allows gerd -continue omeprazole DVt pp - heparin Code status - full code Patient's daughter Shannan Dorado requested that any updates be relayed to her - [phone] Quality Stroke Does the patient have a stroke diagnosis?: No VTE Prior VTE?: No VTE Risk Level:: Medical - moderate - high VTE Device Contraindication: Treatment Not Indicated VTE Drug Contraindication: N/A - Med Ordered
[2021-04-19] MEDS: Potassium Chloride Packet 20 MEQ PACKET 40 MEQ PO (12:28)
[2021-04-19 12:42] LABS: Appearance Urine CLEAR; Color Urine YELLOW; Glucose Urine UA NEG (NEG); Leukocyte Esterase Urine NEG (NEG); Nitrite Urine NEG (NEG); UACC Culture Trigger NO; Urine Blood 1+ (NEG); Urine Ketones NEG (NEG); Urine Protein TRACE MG/DL (NEG-TRACE)
[2021-04-19 12:49] LABS: Bacteria Urine TRACE /LPF; Mucus Urine TRACE /LPF; Squamous Epithelial Cell Urine TRACE /LPF
[2021-04-19 12:58] LABS: COVID-19 Test Negative (Negative)
--- NOTE | 2021-04-19 13:36 | PC.NURSE ---
Pt seen by DMITRI Sanon and Dr. Bowman. Pt admitted to [facility]. Awaiting bed assignment. pt alert and oriented, vss. pt's daughter at bedside.
[2021-04-19] MEDS: Heparin Sodium,Porcine 5,000 UNIT/ML VIAL 5000 UNIT SUBCUT (13:51)
[2021-04-19 15:49] VITALS: BP 103/44; PULSE 73; RESP 17; TEMP 37.3; O2SAT 96
[2021-04-19] MEDS: 0.9 % Sodium Chloride Flush 3 ML SYRINGE IVFLUSH ×2 (16:48→20:41)
--- NOTE | 2021-04-19 17:18 | PC.NURSE ---
report given to JERE Welch. Pt will be transported to room 369 by dredge mechanic. pt alert and oriented, vss.
[2021-04-19] MEDS: traZODone HCL 100 MG TABLET PO (20:35)
[2021-04-19 23:08] VITALS: BP 108/51; PULSE 67; RESP 18; TEMP 36.6; O2SAT 96
[2021-04-20] MEDS: Heparin Sodium,Porcine 5,000 UNIT/ML VIAL 5000 UNIT SUBCUT ×2 (00:02→13:38)
[2021-04-20] MEDS: 0.9 % Sodium Chloride Flush 3 ML SYRINGE IVFLUSH ×3 (00:05→21:06)
[2021-04-20] MEDS: Omeprazole 20 MG CAPSULE.DR PO (05:08)
[2021-04-20 05:47] LABS: MANUAL DIFF FLAG NO
[2021-04-20 05:53] LABS: Basophils Percent Auto 0.6 % (0-2); Eosinophils Absolute Auto 0.1 X10*3/uL (0.0-0.4); Eosinophils Percent Auto 1.9 % (0-4); Hematocrit 30.4 % (37-47); Hemoglobin 10.4 g/dl (12.0-16.0); Imm Gran Abs Auto 0.01 X10*3/uL (0.00-0.03); Imm Gran Pct Auto 0.2 % (0.0-0.4); Lymphocytes Absolute Auto 1.4 X10*3/uL (1.2-4.9); Lymphocytes Percent Auto 30.9 % (20-40); Mean Corpuscular HGB Conc 34.2 g/dl (31.0-35.0); Mean Corpuscular Volume 87.6 fL (80-98); Mean Platelet Volume 9.7 fL (9.4-12.3); Monocytes Absolute Auto 0.4 X10*3/uL (0.1-1.2); Monocytes Percent Auto 8.8 % (2-11); Neutrophils Absolute Auto 2.7 X10*3/uL (2.0-8.3); Neutrophils Percent Auto 57.6 % (45-73); Platelet Count 181 X10*3/uL (160-400); Red Blood Count 3.47 X10*6/uL (4.20-5.50); Red Cell Distribution Width 12.6 % (11.0-16.0); White Blood Count 4.7 X10*3/uL (4.8-10.8)
[2021-04-20 06:11] LABS: Anion Gap 11 (12-20); Blood Urea Nitrogen 8 mg/dL (9-16); Calcium 8.3 mg/dL (8.4-10.2); Carbon Dioxide 27 mmol/L (22-29); Chloride 108 mmol/L (96-108); Creatinine Clr Calc Pharmacy 59.5; Estimated Glomerular Filt Rate > 60; Glucose Random 90 mg/dL (60-115); Potassium 3.5 mmol/L (3.3-5.1); Sodium 142 mmol/L (135-145)
[2021-04-20 07:47] VITALS: BP 110/53; PULSE 67; RESP 17; TEMP 36.4; O2SAT 96
[2021-04-20] MEDS: Aspirin Enteric Coated 81 MG TABLET.DR PO (07:54)
--- NOTE | 2021-04-20 07:58 | HO.PM.IMPN ---
Subjective Subjective Date of Service: 04/20/21 Interval History: Gram-negative bacteremia Review of Systems Denies any new complaint of chest pain or shortness of breath or abdominal pain or fever or chills or nausea or vomiting Denies any cough Denies any weakness or numbness. Physical Exam Vital Signs: Vital Signs: Last Vital Signs Temp 97.5 F 04/20/21 07:47 Pulse 67 04/20/21 07:47 Resp 17 04/20/21 07:47 BP 110/53 L 04/20/21 07:47 Pulse Ox 96 04/20/21 07:47 Body Mass Index 21.8 Physical exam: Appearance: Alert.? Oriented X3.? not in distress.? Eyes: Pupils equal, round and reactive to light.? Sclera nonicteric.? ENT: Pharynx normal.? Moist mucous membranes. cvs: rrr, [id number] , no murmur res: clear to auscultation ,no rhonchii or wheezing abd: no rebound or guarding ,nt, bs present. ext pulses present , no cyanosis ,Gait well balanced well coordinated. neuro: axo3 , nonfocal. Objective Data Active Medications Acetaminophen (Acetaminophen 325 Mg Tablet) 650 mg PO Q6H PRN PRN Reason: Pain, Mild (Pain Scale 1-3) Albuterol Sulfate (Albuterol Sulfate 90 Mcg 8 Gm Inhaler) 2 puff INHALE Q4H PRN PRN Reason: Shortness Of Breath Aspirin (Aspirin Enteric Coated 81 Mg Tablet.) 81 mg PO DAILY [facility] Last Admin: 04/20/21 07:54 Dose: 81 mg Documented by: GONZALEZ Docusate Sodium (Docusate Sodium 100 Mg Capsule) 100 mg PO DAILY PRN PRN Reason: Constipation Heparin Sodium (Porcine) (Heparin Sodium,Porcine 5,000 Unit/Ml Vial) 5,000 unit SUBCUT Q12H [facility] Last Admin: 04/20/21 00:02 Dose: 5,000 unit Documented by: MITA Meropenem 1 gm/ Sodium (Chloride) 100 mls @ 100 mls/hr IV Q8H [facility] Last Infusion: 04/20/21 06:15 Dose: 0 mls/hr Documented by: MITA Omeprazole (Omeprazole 20 Mg Capsule.) 20 mg PO DAILY@0630 [facility] Last Admin: 04/20/21 05:08 Dose: 20 mg Documented by: MITA Ondansetron HCl (Ondansetron Hcl 4 Mg/2 Ml Vial) 4 mg IVPUSH Q8H PRN PRN Reason: Nausea and Vomiting Sodium Chloride (0.9 % Sodium Chloride Flush 3 Ml Syringe) 3 ml IVFLUSH QSHIFT [facility] Last Admin: 04/20/21 00:05 Dose: 3 ml Documented by: MITA Trazodone HCl (Trazodone Hcl 100 Mg Tablet) 100 mg PO BEDTIME [facility] Last Admin: 04/19/21 20:35 Dose: 100 mg Documented by: GELAILVirginia Labs CBC & Chem 7: 04/20/21 05:36 04/20/21 05:36 Labs: Laboratory Results - last 24 hr 04/19/21 04/19/21 04/19/21 10:20 10:20 10:20 MCV 89.3 MCH 30.5 MCHC 34.1 RDW 12.5 Plt Count 179 MPV 9.5 Immature Gran % (Auto) 0.6 H Neut % (Auto) 61.0 Lymph % (Auto) 26.3 [place] % (Auto) 10.3 Eos % (Auto) 1.2 Baso % (Auto) 0.6 Lymph # (Auto) 1.3 [place] # (Auto) 0.5 Eos # (Auto) 0.1 Baso # (Auto) 0.0 Abs Immat Gran (auto) 0.03 Absolute Neuts (auto) 3.1 Absolute Nucleated RBC 0.000 Nucleated RBC % (auto) 0.0 Anion Gap 13 Estim Creat Clear Calc 49.6 Estimated GFR > 60 Random Glucose 138 H Lactic Acid 1.3 Calcium 8.7 Total Bilirubin 0.6 AST 47 H ALT 77 H Alkaline Phosphatase 139 H C-Reactive Protein 13.83 H Total Protein 6.6 Albumin 3.9 Procalcitonin Urine Color Urine Appearance Urine pH Ur Specific [place] Urine Protein Urine Glucose (UA) Urine Ketones Urine Blood Urine Nitrite Ur Leukocyte Esterase Urine RBC Urine WBC Ur Squamous Epith Cells Urine Bacteria Urine Mucus COVID-19 ([facility]) COVID-19 Clin Com 04/19/21 04/19/21 04/19/21 10:20 12:33 12:33 MCV MCH MCHC RDW Plt Count MPV Immature Gran % (Auto) Neut % (Auto) Lymph % (Auto) [place] % (Auto) Eos % (Auto) Baso % (Auto) Lymph # (Auto) [place] # (Auto) Eos # (Auto) Baso # (Auto) Abs Immat Gran (auto) Absolute Neuts (auto) Absolute Nucleated RBC Nucleated RBC % (auto) Anion Gap Estim Creat Clear Calc Estimated GFR Random Glucose Lactic Acid Calcium Total Bilirubin AST ALT Alkaline Phosphatase C-Reactive Protein Total Protein Albumin Procalcitonin 1.65 Urine Color YELLOW Urine Appearance CLEAR Urine pH 6.0 Ur Specific [place] 1.010 Urine Protein TRACE Urine Glucose (UA) NEG Urine Ketones NEG Urine Blood 1+ H Urine Nitrite NEG Ur Leukocyte Esterase NEG Urine RBC 1-4 Urine WBC 1-4 Ur Squamous Epith Cells TRACE Urine Bacteria TRACE Urine Mucus TRACE COVID-19 ([facility]) Negative COVID-19 Clin Com See Note 04/20/21 04/20/21 05:36 05:36 MCV 87.6 MCH 30.0 MCHC 34.2 RDW 12.6 Plt Count 181 MPV 9.7 Immature Gran % (Auto) 0.2 Neut % (Auto) 57.6 Lymph % (Auto) 30.9 [place] % (Auto) 8.8 Eos % (Auto) 1.9 Baso % (Auto) 0.6 Lymph # (Auto) 1.4 [place] # (Auto) 0.4 Eos # (Auto) 0.1 Baso # (Auto) 0.0 Abs Immat Gran (auto) 0.01 Absolute Neuts (auto) 2.7 Absolute Nucleated RBC 0.000 Nucleated RBC % (auto) 0.0 Anion Gap 11 L Estim Creat Clear Calc 59.5 Estimated GFR > 60 Random Glucose 90 Lactic Acid Calcium 8.3 L Total Bilirubin AST ALT Alkaline Phosphatase C-Reactive Protein Total Protein Albumin Procalcitonin Urine Color Urine Appearance Urine pH Ur Specific [place] Urine Protein Urine Glucose (UA) Urine Ketones Urine Blood Urine Nitrite Ur Leukocyte Esterase Urine RBC Urine WBC Ur Squamous Epith Cells Urine Bacteria Urine Mucus COVID-19 ([facility]) COVID-19 Clin Com Assessment and Plan (1) Gram-negative bacteremia: Status: Acute (2) Hypokalemia: Status: Acute Assessment and Plan: 66-year-old Greek-speaking, female treated for cholangitis s/p ERCP and biliary stent placement in December, cholecystectomy in January and scheduled ERCP with stent removal noted to have CBD stone at [facility] [place] 04[place] who presented to the ED on 04/17 with complaints of fever now called to return to ED due to Blood cultures growing GNR. 1.Gram-negative zayra bacteremia Likely GI source given recent ERCP/biliary stent removal (04/15) CT abdomen from 04/17 unremarkable, will hold off on repeat imaging at this time Repeat urinalysis pending Blood cultures from 04/17 preliminary- 07/29 growing Gram-negative rods Repeat blood cultures from today pending -ID consult -IV meropenem -follow results of above blood cultures 2.Hypokalemia Potassium 2.9, epleted an d resolved. Oral replacement given in the ED -Follow BMP 3.HTN BP on lower side -will hold Norvasc, resume as bp allows 4.gerd -continue omeprazole 5.DVt pp - heparin Code status - full code Patient's daughter Shannan Dorado requested that any updates be relayed to her - [phone] Quality Stroke Does the patient have a stroke diagnosis?: No VTE Prior VTE?: No VTE Risk Level:: Medical - moderate - high VTE Device Contraindication: Treatment Not Indicated VTE Drug Contraindication: N/A - Med Ordered
--- NOTE | 2021-04-20 11:49 | MHC.CM.PN ---
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 D/C PLAN: HOME NO SERVICES, PT TO ARRANGE TRANSPORTATION
--- NOTE | 2021-04-20 13:05 | W.PM.IDCN ---
History of Present Illness Data of Consult Service Date: 04/20/21 Requesting physician: Saleem Bowman Primary Care Provider: Sai Holguin MD HPI Reason for consult: bacteremia She presents with fever and tachycardia. She had ERCP four days ago at [facility]. She has no oxygen needs Review of Systems Review of Systems: Yes all other systems are reviewed and are negative [facility] Past Medical History Medical History Asthma Atherosclerotic cardiovascular disease Chest pain Cholangitis Choledocholithiasis Cholelithiasis COVID-19 vaccine series completed Depression GERD (gastroesophageal reflux disease) History of coronary artery disease Osteoporosis Vitamin D deficiency Functional capacity: independent ambulation Family History Family History Father Diabetes Mother Healthy adult Family history: reviewed and not pertinent Surgical History Surgical History H/O colonoscopy H/O heart artery stent History of ERCP History of esophagogastroduodenoscopy (EGD) Hx of section Hx of cholecystectomy Hx of lithotripsy Hx of tubal ligation Social History Social History Household Members: None Housing: Apartment Are you a primary auto care center manager to a significant other at home: No Do you presently have visiting nurse or other home services: No Alcohol intake: former Patient Tobacco Use Status: Former Tobacco user Quit Date: 2014 Tobacco use type: Cigarette Years Smoked: 44 e-Cigarette/Vaping Use: Never Used service: No Current occupational status: disabled Meds Allergies Allergy/AdvReac Type Severity Reaction Status Date / Time No Known Allergies Allergy Verified 03/13/21 11:47 [No Known Allergies*] Active Medications: Current Medications Acetaminophen (Acetaminophen 325 Mg Tablet) 650 mg PO Q6H PRN PRN Reason: Pain, Mild (Pain Scale 1-3) Albuterol Sulfate (Albuterol Sulfate 90 Mcg 8 Gm Inhaler) 2 puff INHALE Q4H PRN PRN Reason: Shortness Of Breath Aspirin (Aspirin Enteric Coated 81 Mg Tablet.) 81 mg PO DAILY [facility] Last Admin: 04/20/21 07:54 Dose: 81 mg Documented by: Docusate Sodium (Docusate Sodium 100 Mg Capsule) 100 mg PO DAILY PRN PRN Reason: Constipation Heparin Sodium (Porcine) (Heparin Sodium,Porcine 5,000 Unit/Ml Vial) 5,000 unit SUBCUT Q12H [facility] Last Admin: 04/20/21 00:02 Dose: 5,000 unit Documented by: Meropenem 1 gm/ Sodium (Chloride) 100 mls @ 100 mls/hr IV Q8H [facility] Last Infusion: 04/20/21 06:15 Dose: Infused Documented by: Omeprazole (Omeprazole 20 Mg Capsule.Dr) 20 mg PO DAILY@0630 [facility] Last Admin: 04/20/21 05:08 Dose: 20 mg Documented by: Ondansetron HCl (Ondansetron Hcl 4 Mg/2 Ml Vial) 4 mg IVPUSH Q8H PRN PRN Reason: Nausea and Vomiting Sodium Chloride (0.9 % Sodium Chloride Flush 3 Ml Syringe) 3 ml IVFLUSH QSHIFT [facility] Last Admin: 04/20/21 00:05 Dose: 3 ml Documented by: Trazodone HCl (Trazodone Hcl 100 Mg Tablet) 100 mg PO BEDTIME [facility] Last Admin: 04/19/21 20:35 Dose: 100 mg Documented by: Home Medications Medication Instructions Recorded Confirmed Last Taken Type nitroglycerin 0.4 mg sublingual 0.4 mg SUBLINGUAL Q5M PRN tab 12/03/20 04/19/21 Unknown History tablet albuterol sulfate 90 mcg/actuation 2 puff INHALATION Q4H PRN 12/23/20 04/19/21 Unknown History aerosol inhaler (ProAir HFA) amlodipine 5 mg tablet 1 tab PO DAILY 02/11/21 04/19/21 04/16/21 History calcium carbonate 600 mg (1,500 1 tab PO DAILY 02/11/21 04/19/21 04/16/21 History mg)-vitamin D3 200 unit tablet Physical Exam Vital Signs: Vital Signs: Last Vital Signs Temp 97.5 F 04/20/21 07:47 Pulse 67 04/20/21 07:47 Resp 17 04/20/21 07:47 BP 110/53 L 04/20/21 07:47 Pulse Ox 96 04/20/21 07:47 Body Mass Index 21.8 Const: General: cooperative HENMT: Head: Yes normal to inspection Mouth: Normal oral and palatal mucosa present Eyes: General: appearance normal, both eyes and all related structures Resp: Effort & Inspection: normal respiratory effort Cardio: Rate: regular rate Rhythm: regular rhythm GI: Palpation (GI): Soft to palpation and nontender Skin: General skin exam: no rashes or lesions noted Results Labs CBC & Chem 7: 04/20/21 05:36 04/21/21 05:48 Labs: Short CBC 04/20/21 Range/Units 05:36 WBC 4.7 L (4.8-10.8) X10*3/uL Hgb 10.4 L (12.0-16.0) g/dl Hct 30.4 L (37-47) % Plt Count 181 (160-400) X10*3/uL BMP 04/20/21 05:36 Sodium 142 Potassium 3.5 D Chloride 108 Carbon Dioxide 27 BUN 8 L Creatinine 0.65 Calcium 8.3 L Microbiology Microbiology Results: Microbiology 04/19/21 10:30 Blood - Venous Blood Culture - Preliminary No growth after 24 hours. 04/19/21 10:18 Blood - Venous Blood Culture - Preliminary No growth after 24 hours. Assessment and Plan (1) Gram-negative bacteremia: Status: Resolved There is concern over gram negative zayra bacteremia She is post ERCP. Possible Klebsiella/Ecoli There is question obstruction,retained stones or stricture Merem as await final cultures as may have resistant bacteria. Would have GI see patient evaluate any further studies/procedures Duration of antibiotics 14 days likely switch to po with final cultures.
[2021-04-20 15:16] VITALS: BP 109/55; PULSE 73; RESP 18; TEMP 36.3; O2SAT 97
--- NOTE | 2021-04-20 15:47 | P.EN_ITS ---
Event Note Date of Service: 04/20/21 Event Note: GI Consult-Full note dictated-Hx via certified medical technician. Imp: GNR bacteremia related to instrumentation of biliary system with ERCP with CBD stone removal on 04/15/2021 at [facility]. The ERCP was uneventful and the CBD appeared clear after the procedure. She has been very stable since admission here. She has been afebrile, stable VS, and no GI nor other systemic symptoms. Her abdominal exam is benign. Imaging studies of biliary tree are unremarkable and there is no evidence of biliary obstruction. There is pneumobilia noted on her CT scan. Rec: Antibiotics as per ID consult. I don't think she needs any further investigation of her biliary system at this time given her excellent clinical appearance along with results of her labs and imaging studies. I did review the [facility] ERCP with her in detail. Please contact me if I can be of any further assistance . Thanks
--- NOTE | 2021-04-20 19:23 | CONS_ITS ---
DATE OF SERVICE: 04/20/2021 REASON FOR CONSULTATION: Gram-negative zayra bacteremia and elevated LFTs. HISTORY OF PRESENT ILLNESS: The patient is a 66-year-old female, well known to me with a previous history of choledocholithiasis. I initially met her in November of this year when she came to the hospital with obstructive jaundice and common duct stones. She also had a past history of that back in 2017, for which she underwent ERCP and sphincterotomy, but then never underwent a cholecystectomy for gallstones. This year, after her admission on December 24 with common duct stones, she underwent ERCP with sphincterotomy, removal of stones, and placement of a biliary stent with Dr. Leslie. A larger stone was unable to be removed at that time and hence the placement of the biliary stent. She underwent a cholecystectomy with Dr. Sims later in the summer. She was seen at [facility] on April 15, just several days ago, for completion of clearance of the common bile duct. The ERCP on April [address] José Miguel Blakely. He successfully removed the common duct stone with a basket and no further stones were seen on followup cholangiograms. There was good drainage of the bile duct noted at that time. The patient describes that she went home after the ERCP, but the following day had a fever of over 103. She came to the ER, where she was evaluated and then sent home on oral antibiotics. However, laboratories done in the ER included blood cultures on April 17 and these are positive for gram negative rods. During this entire time, she never had any abdominal pain, nausea, vomiting, diarrhea, coughing, nor vomiting. She did feel feverish and did have chills. Since admission here, she has been feeling better with antibiotics. She is eating comfortably and again denies any localizing GI symptoms nor any other systemic symptoms. CURRENT MEDICATIONS: Include acetaminophen p.r.n., albuterol inhaler p.r.n., aspirin 81 mg, Colace, subcu heparin, meropenem, omeprazole, Zofran, trazodone. PAST MEDICAL HISTORY: Choledocholithiasis with ERCPs and cholecystectomy as mentioned above. Asthma. section. COPD. Hypertension. Coronary artery disease with previous stent placement. She denies any history of diabetes or stroke. SOCIAL HISTORY: She does not smoke nor use any significant amounts of alcohol. FAMILY HISTORY: Noncontributory. REVIEW OF SYSTEMS: CONSTITUTIONAL: Prior to the ERCP on April 15, she had been feeling well without any fevers or abdominal pain. SKIN: No rash. No pruritus. CARDIAC: No chest pain. PULMONARY: No coughing or hemoptysis. GASTROINTESTINAL: As above. URINARY: No dysuria. No hematuria. PHYSICAL EXAMINATION: GENERAL: The patient is currently pleasant, alert, well-appearing female, in no distress. SKIN: Warm and dry. Nonjaundiced. Anicteric sclerae. NECK: Supple. CARDIAC: Normal S1 and S2. ABDOMEN: Soft, nondistended, nontender without organomegaly or mass. EXTREMITIES: Without edema. LABORATORY DATA: Blood cultures as above. White blood cell count is 4.7, hemoglobin 10.4, platelets 181,000. Normal electrolytes. BUN 8, creatinine 0.65, AST 47, ALT 77, alkaline phosphatase 139, total bilirubin 0.6. She did have a CAT scan of the abdomen and pelvis, which showed evidence of pneumobilia, but no evidence of any choledocholithiasis. The liver appeared normal. There was no sign of any lymphadenopathy nor ascites within the abdomen. IMPRESSION: Given the patient's clinical history, I suspect her gram-negative zayra bacteremia was in relation to the ERCP and instrumentation of the biliary tree that she had the day before. While the ERCP itself was uneventful and the stone was successfully removed, it appears that just the injection of dye and manipulation of the biliary tree with instruments created the gram-negative zayra septicemia. At this point, she appears very stable. Based on the ERCP findings and her CT scan findings, I do not think she has any residual common duct stones at this time contributing to the problem. At this point, I would simply continue supportive care with IV antibiotics and follow up laboratories. At this point, her abdominal exam is completely benign and she is tolerating her diet. I do not think she would need any further evaluation from a biliary standpoint on my part. I would continue the antibiotics intravenously and then switch her to oral antibiotics as per the Infectious Disease consult. I did review the patient's ERCP at [facility] from April 15 with her in detail and the role that played in regard to the gram-negative zayra bacteremia. At this point, I do not think any other intervention on my part is required and she appears very well at this time. Thank you for the consultation. MD JOSE Bolivar/YOLANDE / [phone] MTDAlex
[2021-04-20] MEDS: traZODone HCL 100 MG TABLET PO (21:06)
[2021-04-20 23:46] VITALS: BP 109/58; PULSE 73; RESP 17; TEMP 36; O2SAT 95
[2021-04-21] MEDS: Heparin Sodium,Porcine 5,000 UNIT/ML VIAL 5000 UNIT SUBCUT ×2 (01:09→12:25)
[2021-04-21] MEDS: Omeprazole 20 MG CAPSULE.DR PO (05:51)
[2021-04-21 07:27] LABS: Alanine Aminotransferase 48 U/L (0-31); Albumin Level 3.4 g/dL (3.5-5.0); Alkaline Phosphatase 125 U/L (39-117); Anion Gap 12 (12-20); Aspartate Amino Transferase 25 U/L (5-31); Bilirubin Direct 0.2 mg/dL (0.0-0.5); Bilirubin Total 0.4 mg/dL (0.0-1.0); Blood Urea Nitrogen 8 mg/dL (9-16); Calcium 8.6 mg/dL (8.4-10.2); Carbon Dioxide 27 mmol/L (22-29); Chloride 108 mmol/L (96-108); Estimated Glomerular Filt Rate > 60; Glucose Random 91 mg/dL (60-115); Potassium 4.3 mmol/L (3.3-5.1); Sodium 143 mmol/L (135-145); Total Protein 5.9 g/dL (6.5-8.0)
[2021-04-21] MEDS: 0.9 % Sodium Chloride Flush 3 ML SYRINGE IVFLUSH (07:49)
[2021-04-21] MEDS: Aspirin Enteric Coated 81 MG TABLET.DR PO (07:49)
[2021-04-21 07:53] VITALS: BP 110/57; PULSE 63; RESP 18; TEMP 36.3; O2SAT 98
--- NOTE | 2021-04-21 12:11 | MHC.CM.PN ---
PT DISCHARGING HOME SELF-CARE AND ORAL ABX, PT WILL ARRANGE TRANSPORT.
--- NOTE | 2021-04-21 13:07 | P.DS_ITS ---
DS: Providers Provider Date of Service: 04/21/21 Date of admission: 04/19/21 12:15 Primary care physician: Sai Holguin MD Consults: 04/19/21 12:15 Consult to Infectious Diseases Routine Consulting Provider: Jazmin Cartagena Reason for consultation: GNR bacteremia Has provider been notified: No 04/20/21 11:46 Consult to Gastroenterology Routine Consulting Provider: Sai Wray Reason for consultation: Gram-negative bacteremia after ERCP in [facility] Has provider been notified: No DS: Diagnosis Discharge Diagnosis (1) Gram-negative bacteremia: Status: Acute DS: Summary Hospital Course Hospital Course: History of presenting illness Chief Complaint: Gram negative bacteremia This is a 66-year-old Frisian-speaking, female treated for cholangitis s/p ERCP and biliary stent placement in December, cholecystectomy in January and scheduled ERCP with stent removal noted to have CBD stone at [facility] on 04/15 who presented to the ED on 04/17 with complaints of fever.? At that time she was no colten to have fever of 103.8.? CT abdomen and chest were done at that time which showed possible very early colitis and otherwise was unremarkable.? Urinalysis was unremarkable.? Other than fever she was asymptomatic and thus was discharged home with cefuroxime for 7 days. Her blood cultures returned positive for gram negative rods and she was called to return to the emergency department.? Today she reports improvement in her fever.? She denies any abdominal pain, nausea, vomiting, dysuria.? And were significant only for hypokalemia with a potassium of 2.9.? She received a dose of oral potassium replacement she was given a dose of IV cefepime.? The emergency department discussed her case with Infectious Diseases who recommended admission to the hospital for IV meropenem as final sensitivities for blood cultures from 04/17 are pending at this time.? Repeat blood cultures were obtained and are also pending.? Repeat urinalysis was ordered and is pending at this time. Hospital course 66-year-old Frisian female admitted to [facility] with a diagnosis of Gram-negative bacteremia, blood cultures grew Klebsiella and E coli, repeat blood cultures are negative, bacteremia likely related to instrumentation of biliary system with ERCP with common bile duct stone removal on 04/15/2021 at [facility], ERCP was uneventful and common bile duct appeared clear after the procedure, patient treated with IV meropenem she remains hemodynamically stable, afebrile currently tolerating diet, therefore she is being discharged home now on by mouth antibiotic Levaquin for total 2 weeks of antibiotics. Time Spent with Patient Time attestation: Total time spent providing and/or coordinating discharge services: Discharge coordination time: Greater than 30 minutes Quality: Stroke Does the patient have a stroke diagnosis?: No Physical Exam Vital Signs: Vital Signs: Last Vital Signs Temp 97.4 F 04/21/21 07:53 Pulse 63 04/21/21 07:53 Resp 18 04/21/21 07:53 BP 110/57 L 04/21/21 07:53 Pulse Ox 98 04/21/21 07:53 Body Mass Index 21.8 General alert oriented x3,no acute distress. Neck supple no JVD. CVS regular rate rhythm, Respiratory lungs clear to auscultation, no respiratory distress, no wheeze, no rhonchi. Gastrointestinal abdomen soft, nontender, bowel sounds audible, no guarding , no rigidity. Extremities no clubbing cyanosis or edema. Neuro nonfocal , speech clear. Skin no rash Psych appropriate affect DS: Data Data Completed and Pending Completed studies during hospitalization [Text1]: Procedures Dilation of Common Bile Duct with Intraluminal Device, Via Natural or Artificial Opening Endoscopic (12/23/20) Labs on day of discharge: Laboratory Results - last 24 hr 04/21/21 04/21/21 05:48 05:48 Sodium 143 Potassium 4.3 D Chloride 108 Carbon Dioxide 27 Anion Gap 12 BUN 8 L Creatinine 0.56 Estim Creat Clear Calc 69.0 Estimated GFR > 60 Random Glucose 91 Calcium 8.6 Total Bilirubin 0.4 Direct Bilirubin 0.2 AST 25 D ALT 48 H Alkaline Phosphatase 125 H Total Protein 5.9 L Albumin 3.4 L Preliminary micro results at discharge 04/19/21 10:30 Blood Culture - Preliminary Blood - Venous No growth after 48 hours. 04/19/21 10:18 Blood Culture - Preliminary Blood - Venous No growth after 48 hours. Discharge Plan Discharge Patient Disposition: Home, Self-Care Discharge Diagnosis: Gram-negative bacteremia with E coli and Klebsiella Hypokalemia Referrals: Sai Holguin MD [Primary Care Provider] - 1 Week Discharge Medications: New levofloxacin 500 mg tablet 500 mg PO DAILY 14 Days Qty: 14 RF: 0 Continued omeprazole 20 mg capsule,delayed release(DR/EC) 20 mg PO DAILY Qty: 90 RF: 1 albuterol sulfate [ProAir HFA] 90 mcg/actuation HFA aerosol inhaler 2 puff inhalation Q4H PRN (Reason: Shortness Of Breath) RF: 0 trazodone 100 mg tablet 100 mg PO BEDTIME Qty: 10 RF: 0 amlodipine 5 mg tablet 1 tab PO DAILY RF: 0 calcium carbonate-vitamin D3 600 mg(1,500mg) -200 unit Tablet 1 tab PO DAILY RF: 0 aspirin 81 mg Tablet,Delayed Release (Dr/Ec) 81 mg PO DAILY RF: 0 nitroglycerin 0.4 mg tablet, sublingual 0.4 mg sublingual Q5M PRN (Reason: Chest Pain) RF: 0 Discharge Orders: Discharge Order (Routine); Ordered 04/21/21 Ordered By: Deepak Ambrosio Diet: regular diet Activity on Discharge: As tolerated Stand Alone Forms: Patient Portal Discharge page Care Plan Goals: Take by mouth antibiotic as prescribed Health Concerns: Bacteremia now resolved, take antibiotics as prescribed and continue all home medication Plan of Treatment: Outpatient follow-up with primary care physician in next 7-10 days Assessment: As tolerated
== END 2021-04-21 14:26 | disposition home or self-care (01) | DRG 863 ==
LOC: HO.ED 10:02 → HO.EDOVER 12:25 → HO.S3 16:41
PROVIDERS: Internal Medicine; Admitting Provider Physician Assistant Medical; Emergency Provider Emergency Medicine; PCP Internal Medicine Medical Oncology; Visit Provider Hospitalist
DX: T81.40XA Infection following a procedure, unspecified, initial encounter (principal); R78.81 Bacteremia; E87.6 Hypokalemia; B96.20 Unspecified Escherichia coli [E. coli] as the cause of diseases classified elsewhere; B96.1 Klebsiella pneumoniae [K. pneumoniae] as the cause of diseases classified elsewhere; K21.9 Gastro-esophageal reflux disease without esophagitis; Z20.822 Contact with and (suspected) exposure to COVID-19; Z87.891 Personal history of nicotine dependence; Z79.82 Long term (current) use of aspirin; Z79.899 Other long term (current) drug therapy
CPT/HCPCS: 0241U; 36415; 71045; 71260; 74177; 80048; 80053; 80076; 81001; 83605; 83690; 83735; 84145; 85025; 86140; 87040; 87077; 87186; 87205; 87635; 93005; 99283; 99285; J0692; J2185; Q9967

== ENCOUNTER 2021-11-25 08:42 | Outpatient (REF) | payer MEDICARE, MEDICAID, SELFPAY ==
[2021-11-25 09:38] LABS: MANUAL DIFF FLAG NO
[2021-11-25 10:09] LABS: Basophils Absolute Auto 0.1 X10*3/uL (0.0-0.2); Basophils Percent Auto 0.8 % (0-2); Eosinophils Absolute Auto 0.2 X10*3/uL (0.0-0.4); Eosinophils Percent Auto 2.3 % (0-4); Hematocrit 39.2 % (37.0-47.0); Hemoglobin 12.9 g/dl (12.0-16.0); Imm Gran Abs Auto 0.02 X10*3/uL (0.00-0.03); Imm Gran Pct Auto 0.3 % (0.0-0.4); Lymphocytes Absolute Auto 1.8 X10*3/uL (1.2-4.9); Lymphocytes Percent Auto 27.3 % (20-40); Mean Corpuscular HGB Conc 32.9 g/dl (31.0-35.0); Mean Corpuscular Hemoglobin 29.7 pg (27.0-33.0); Mean Corpuscular Volume 90.1 fL (80.0-98.0); Mean Platelet Volume 9.2 fL (9.4-12.3); Monocytes Absolute Auto 0.3 X10*3/uL (0.1-1.2); Monocytes Percent Auto 4.5 % (2-11); Neutrophils Absolute Auto 4.2 x10*3/uL (2.0-8.3); Neutrophils Percent Auto 64.8 % (45-73); Platelet Count 296 X10*3/uL (160-400); Red Blood Count 4.35 X10*6/uL (4.20-5.50); Red Cell Distribution Width 12.5 % (11.0-16.0); White Blood Count 6.5 X10*3/uL (4.8-10.8)
[2021-11-25 10:59] LABS: Alanine Aminotransferase 30 U/L (0-31); Alkaline Phosphatase 117 U/L (39-117); Anion Gap 14 (12-20); Aspartate Amino Transferase 27 U/L (5-31); Blood Urea Nitrogen 10 mg/dL (9-16); Calcium 9.4 mg/dL (8.4-10.2); Carbon Dioxide 22 mmol/L (22-29); Chloride 109 mmol/L (96-108); Cholesterol 179 mg/dL; Estimated Glomerular Filt Rate > 60; Glucose Fasting 91 mg/dL (60-99); HDL Cholesterol 45 mg/dL; LDL Cholesterol Calculated 109 mg/dl; Potassium 4.4 mmol/L (3.3-5.1); Sodium 141 mmol/L (135-145); Total Protein 6.9 g/dL (6.5-8.0); Triglycerides 128 mg/dL
[2021-11-25 11:19] LABS: Bilirubin Total < 0.2 mg/dL (0.0-1.0)
== END 2021-11-25 08:43 | disposition home or self-care (01) ==
LOC: HO.LAB 08:42
PROVIDERS: PCP Internal Medicine Medical Oncology; Visit Provider Internal Medicine Medical Oncology
DX: I10 Essential (primary) hypertension (principal); K21.9 Gastro-esophageal reflux disease without esophagitis; E78.2 Mixed hyperlipidemia
CPT/HCPCS: 36415; 80053; 80061; 85025

== ENCOUNTER 2022-04-12 08:07 | Outpatient (REF) | payer MEDICARE, MEDICAID, SELFPAY ==
--- NOTE | ~2022-04-12 | MM_ITS ---
EXAMINATION: MM SCREENING DIGITAL BREAST TOMOSYNTHESIS, BILATERAL CLINICAL INFORMATION: Screening. Asymptomatic. The lifetime risk of breast cancer based on the Tyrer-Cuzick Model is 3%. COMPARISON: Mammography: 04/09/2021, 03/10/2020, 03/07/2019 TECHNIQUE: Digital breast tomosynthesis is performed in both the craniocaudal and mediolateral oblique views along with computer-aided detection (CAD). Synthesized 2D images are generated from the tomosynthesis. Additional exaggerated right CC view is provided. FINDINGS: There are scattered areas of fibroglandular density (ACR BI-RADS breast composition Category b). There are no significant masses, abnormal calcifications, or other abnormalities. Parenchymal pattern is similar to prior studies. There is no developing density or architectural abnormality. There is biopsy clip marker again noted 9:00 left breast. The axilla and skin contours are unremarkable. No significant changes. MM/MM tomosynthesis screening BI IMPRESSION: No mammographic evidence of malignancy. ASSESSMENT: BI-RADS 1: Negative RECOMMENDATION: Routine annual mammography screening. This patient's information was entered into a reminder system with a target due date for their next mammogram.
[2022-04-12 08:59] LABS: MANUAL DIFF FLAG NO
[2022-04-12 10:13] LABS: Basophils Absolute Auto 0.1 X10*3/uL (0.0-0.2); Basophils Percent Auto 0.7 % (0-2); Eosinophils Absolute Auto 0.2 X10*3/uL (0.0-0.4); Eosinophils Percent Auto 1.8 % (0-4); Hematocrit 41.2 % (37.0-47.0); Hemoglobin 13.6 g/dl (12.0-16.0); Imm Gran Abs Auto 0.02 X10*3/uL (0.00-0.03); Imm Gran Pct Auto 0.2 % (0.0-0.4); Lymphocytes Absolute Auto 2.9 X10*3/uL (1.2-4.9); Lymphocytes Percent Auto 34.7 % (20-40); Mean Corpuscular Hemoglobin 29.1 pg (27.0-33.0); Mean Corpuscular Volume 88.2 fL (80.0-98.0); Mean Platelet Volume 9.1 fL (9.4-12.3); Monocytes Absolute Auto 0.4 X10*3/uL (0.1-1.2); Monocytes Percent Auto 5.2 % (2-11); Neutrophils Absolute Auto 4.8 x10*3/uL (2.0-8.3); Neutrophils Percent Auto 57.4 % (45-73); Platelet Count 285 X10*3/uL (160-400); Red Blood Count 4.67 X10*6/uL (4.20-5.50); Red Cell Distribution Width 12.8 % (11.0-16.0); White Blood Count 8.3 X10*3/uL (4.8-10.8)
[2022-04-12 10:41] LABS: Alanine Aminotransferase 16 U/L (0-31); Albumin Level 4.6 g/dL (3.5-5.0); Alkaline Phosphatase 107 U/L (39-117); Anion Gap 18 (12-20); Aspartate Amino Transferase 19 U/L (5-31); Bilirubin Total 0.4 mg/dL (0.0-1.0); Blood Urea Nitrogen 16 mg/dL (9-16); Calcium 9.9 mg/dL (8.4-10.2); Carbon Dioxide 27 mmol/L (22-29); Chloride 103 mmol/L (96-108); Cholesterol 177 mg/dL; Estimated Glomerular Filt Rate > 60; Glucose Fasting 87 mg/dL (60-99); HDL Cholesterol 48 mg/dL; LDL Cholesterol Calculated 109 mg/dl; Potassium 4.8 mmol/L (3.3-5.1); Sodium 143 mmol/L (135-145); Total Protein 7.8 g/dL (6.5-8.0); Triglycerides 100 mg/dL
== END 2022-04-12 08:08 | disposition home or self-care (01) ==
LOC: HO.MAMMO 08:07
PROVIDERS: PCP Internal Medicine Medical Oncology; Visit Provider Internal Medicine Medical Oncology
DX: Z12.31 Encounter for screening mammogram for malignant neoplasm of breast (principal); I10 Essential (primary) hypertension; E78.2 Mixed hyperlipidemia; R63.6 Underweight
CPT/HCPCS: 36415; 77063; 77067; 80053; 80061; 85025

== ENCOUNTER 2022-08-12 08:38 | Outpatient (REF) | payer MEDICARE, MEDICAID, SELFPAY ==
[2022-08-12 08:46] LABS: MANUAL DIFF FLAG NO
[2022-08-12 09:25] LABS: Basophils Absolute Auto 0.1 X10*3/uL (0.0-0.2); Basophils Percent Auto 0.6 % (0-2); Eosinophils Absolute Auto 0.2 X10*3/uL (0.0-0.4); Eosinophils Percent Auto 1.9 % (0-4); Hematocrit 39.1 % (37.0-47.0); Hemoglobin 12.9 g/dl (12.0-16.0); Imm Gran Abs Auto 0.04 X10*3/uL (0.00-0.03); Imm Gran Pct Auto 0.5 % (0.0-0.4); Lymphocytes Absolute Auto 2.9 X10*3/uL (1.2-4.9); Lymphocytes Percent Auto 33.6 % (20-40); Mean Corpuscular Hemoglobin 30.4 pg (27.0-33.0); Mean Corpuscular Volume 92.2 fL (80.0-98.0); Mean Platelet Volume 9.3 fL (9.4-12.3); Monocytes Absolute Auto 0.4 X10*3/uL (0.1-1.2); Monocytes Percent Auto 4.6 % (2-11); Neutrophils Percent Auto 58.8 % (45-73); Platelet Count 300 X10*3/uL (160-400); Red Blood Count 4.24 X10*6/uL (4.20-5.50); Red Cell Distribution Width 12.6 % (11.0-16.0); White Blood Count 8.5 X10*3/uL (4.8-10.8)
[2022-08-12 09:59] LABS: Alanine Aminotransferase 16 U/L (0-31); Albumin Level 4.3 g/dL (3.5-5.0); Alkaline Phosphatase 100 U/L (39-117); Anion Gap 15 (12-20); Aspartate Amino Transferase 19 U/L (5-31); Bilirubin Total 0.3 mg/dL (0.0-1.0); Blood Urea Nitrogen 15 mg/dL (9-16); Calcium 9.6 mg/dL (8.4-10.2); Carbon Dioxide 28 mmol/L (22-29); Chloride 106 mmol/L (96-108); Cholesterol 179 mg/dL; Estimated Glomerular Filt Rate > 60; Glucose Fasting 89 mg/dL (60-99); HDL Cholesterol 44 mg/dL; LDL Cholesterol Calculated 112 mg/dl; Potassium 4.8 mmol/L (3.3-5.1); Sodium 144 mmol/L (135-145); Total Protein 7.1 g/dL (6.5-8.0); Triglycerides 115 mg/dL
[2022-08-12 10:16] LABS: Vitamin D 25-OH Total 27.8 ng/mL (>30)
== END 2022-08-12 08:39 | disposition home or self-care (01) ==
LOC: HO.LAB 08:38
PROVIDERS: PCP Internal Medicine Medical Oncology; Visit Provider Internal Medicine Medical Oncology
DX: Z00.00 Encounter for general adult medical examination without abnormal findings (principal); I10 Essential (primary) hypertension
CPT/HCPCS: 36415; 80053; 80061; 82306; 85025

== ENCOUNTER 2022-12-07 08:45 | Outpatient (REF) | payer MEDICARE, MEDICAID, SELFPAY ==
[2022-12-07 08:57] LABS: MANUAL DIFF FLAG NO
[2022-12-07 09:29] LABS: Basophils Absolute Auto 0.1 X10*3/uL (0.0-0.2); Basophils Percent Auto 0.7 % (0-2); Eosinophils Absolute Auto 0.1 X10*3/uL (0.0-0.4); Eosinophils Percent Auto 1.6 % (0-4); Hematocrit 39.5 % (37.0-47.0); Hemoglobin 13.1 g/dl (12.0-16.0); Imm Gran Abs Auto 0.02 X10*3/uL (0.00-0.03); Imm Gran Pct Auto 0.3 % (0.0-0.4); Lymphocytes Absolute Auto 2.1 X10*3/uL (1.2-4.9); Lymphocytes Percent Auto 29.8 % (20-40); Mean Corpuscular HGB Conc 33.2 g/dl (31.0-35.0); Mean Corpuscular Hemoglobin 30.3 pg (27.0-33.0); Mean Corpuscular Volume 91.2 fL (80.0-98.0); Mean Platelet Volume 9.2 fL (9.4-12.3); Monocytes Absolute Auto 0.4 X10*3/uL (0.1-1.2); Monocytes Percent Auto 6.2 % (2-11); Neutrophils Absolute Auto 4.4 x10*3/uL (2.0-8.3); Neutrophils Percent Auto 61.4 % (45-73); Platelet Count 288 X10*3/uL (160-400); Red Blood Count 4.33 X10*6/uL (4.20-5.50); Red Cell Distribution Width 12.5 % (11.0-16.0); White Blood Count 7.1 X10*3/uL (4.8-10.8)
[2022-12-07 10:17] LABS: Alanine Aminotransferase 16 U/L (0-31); Albumin Level 4.2 g/dL (3.5-5.0); Alkaline Phosphatase 93 U/L (39-117); Anion Gap 13 (12-20); Aspartate Amino Transferase 19 U/L (5-31); Bilirubin Total 0.7 mg/dL (0.0-1.0); Blood Urea Nitrogen 10 mg/dL (9-16); Calcium 9.9 mg/dL (8.4-10.2); Carbon Dioxide 28 mmol/L (22-29); Chloride 107 mmol/L (96-108); Cholesterol 164 mg/dL; Estimated Glomerular Filt Rate > 60; Glucose Fasting 89 mg/dL (60-99); HDL Cholesterol 40 mg/dL; LDL Cholesterol Calculated 103 mg/dl; Sodium 144 mmol/L (135-145); Total Protein 7.6 g/dL (6.5-8.0); Triglycerides 107 mg/dL
[2022-12-07 10:35] LABS: Vitamin D 25-OH Total 40.5 ng/mL (>30)
== END 2022-12-07 08:46 | disposition home or self-care (01) ==
LOC: HO.LAB 08:45
PROVIDERS: PCP Internal Medicine Medical Oncology; Visit Provider Internal Medicine Medical Oncology
DX: M19.90 Unspecified osteoarthritis, unspecified site (principal); E78.2 Mixed hyperlipidemia; E55.9 Vitamin D deficiency, unspecified; M81.0 Age-related osteoporosis without current pathological fracture
CPT/HCPCS: 36415; 80053; 80061; 82306; 85025

== ENCOUNTER 2023-04-13 08:18 | Outpatient (REF) | payer MEDICARE, MEDICAID, SELFPAY ==
[2023-04-13 08:43] LABS: MANUAL DIFF FLAG NO
[2023-04-13 09:15] LABS: Basophils Absolute Auto 0.1 X10*3/uL (0.0-0.2); Basophils Percent Auto 0.9 % (0-2); Eosinophils Absolute Auto 0.2 X10*3/uL (0.0-0.4); Eosinophils Percent Auto 2.7 % (0-4); Hematocrit 39.6 % (37.0-47.0); Hemoglobin 13.3 g/dl (12.0-16.0); Imm Gran Abs Auto 0.02 X10*3/uL (0.00-0.03); Imm Gran Pct Auto 0.3 % (0.0-0.4); Lymphocytes Percent Auto 29.6 % (20-40); Mean Corpuscular HGB Conc 33.6 g/dl (31.0-35.0); Mean Corpuscular Hemoglobin 30.5 pg (27.0-33.0); Mean Corpuscular Volume 90.8 fL (80.0-98.0); Mean Platelet Volume 9.2 fL (9.4-12.3); Monocytes Absolute Auto 0.3 X10*3/uL (0.1-1.2); Monocytes Percent Auto 4.2 % (2-11); Neutrophils Absolute Auto 4.1 x10*3/uL (2.0-8.3); Neutrophils Percent Auto 62.3 % (45-73); Platelet Count 280 X10*3/uL (160-400); Red Blood Count 4.36 X10*6/uL (4.20-5.50); Red Cell Distribution Width 12.5 % (11.0-16.0); White Blood Count 6.6 X10*3/uL (4.8-10.8)
[2023-04-13 09:53] LABS: Alanine Aminotransferase 16 U/L (0-31); Albumin Level 4.3 g/dL (3.5-5.0); Alkaline Phosphatase 96 U/L (39-117); Anion Gap 13 (12-20); Aspartate Amino Transferase 18 U/L (5-31); Bilirubin Total 0.2 mg/dL (0.0-1.0); Blood Urea Nitrogen 10 mg/dL (9-16); Calcium 9.8 mg/dL (8.4-10.2); Carbon Dioxide 28 mmol/L (22-29); Chloride 106 mmol/L (96-108); Cholesterol 154 mg/dL (<200); Estimated Glomerular Filt Rate > 60; Glucose Fasting 94 mg/dL (60-99); HDL Cholesterol 47 mg/dL (>40); LDL Cholesterol Calculated 86 mg/dL (<100); Potassium 4.3 mmol/L (3.3-5.1); Sodium 143 mmol/L (135-145); Total Protein 7.6 g/dL (6.5-8.0); Triglycerides 106 mg/dL (<150)
== END 2023-04-13 08:19 | disposition home or self-care (01) ==
LOC: HO.LAB 08:18
PROVIDERS: PCP Internal Medicine Medical Oncology; Visit Provider Internal Medicine Medical Oncology
DX: I10 Essential (primary) hypertension (principal); E78.2 Mixed hyperlipidemia; R73.9 Hyperglycemia, unspecified
CPT/HCPCS: 36415; 80053; 80061; 85025

== ENCOUNTER 2023-04-21 09:03 | Outpatient (REF) | payer MEDICARE, MEDICAID, SELFPAY ==
--- NOTE | ~2023-04-21 | MM_ITS ---
EXAMINATION: MM SCREENING DIGITAL BREAST TOMOSYNTHESIS, BILATERAL CLINICAL INFORMATION: Screening. Asymptomatic. COMPARISON: Mammography: This study is compared with prior exams dating back to 2018. TECHNIQUE: Digital breast tomosynthesis is performed in both the craniocaudal and mediolateral oblique views along with computer-aided detection (CAD). Synthesized 2D images are generated from the tomosynthesis. FINDINGS: There are scattered areas of fibroglandular density (ACR BI-RADS breast composition Category b). There are no significant masses, abnormal calcifications, or other abnormalities. There is a tissue marker present in the left breast from prior benign percutaneous biopsy. MM/MM tomosynthesis screening BI IMPRESSION: No mammographic evidence of malignancy. ASSESSMENT: BI-RADS BI-RADS 2 - Benign Findings RECOMMENDATION: Routine annual mammography screening. 1 year F/U This examination should not preclude the clinical evaluation of a suspicious palpable abnormality. This patient's information was entered into a reminder system with a target due date for their next mammogram.
== END 2023-04-21 09:04 | disposition home or self-care (01) ==
LOC: HO.MAMMO 09:03
PROVIDERS: PCP Internal Medicine Medical Oncology; Visit Provider Internal Medicine Medical Oncology
DX: Z12.31 Encounter for screening mammogram for malignant neoplasm of breast (principal)
CPT/HCPCS: 77063; 77067

== ENCOUNTER → 2023-04-21 09:45 | Outpatient (BNV) | payer MEDICARE, MEDICAID, SELFPAY | PROVIDERS: PCP Internal Medicine Medical Oncology; Visit Provider Radiology Diagnostic Radiology | DX: Z12.31 Encounter for screening mammogram for malignant neoplasm of breast (principal) | CPT/HCPCS: 77063; 77067 ==

== ENCOUNTER 2023-07-11 07:58 | Outpatient (AMB) | payer MEDICARE, MEDICAID, SELFPAY ==
[2023-07-11 08:16] VITALS: BP 100/57; PULSE 73; BMI 21.7
--- NOTE | 2023-07-11 08:16 | MHC.OFFVIS ---
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 Allergies No Known Allergies [No Known Allergies*] Allergy (Verified 07/11/23 08:19) Medication List - Last Reconciled 07/11/23 by Elizabeth Cisneros NP-C albuterol sulfate 90 mcg/actuation (ProAir HFA) 2 puffs inhalation Q4H PRN amlodipine 1 tab PO DAILY aspirin 81 mg PO DAILY calcium carbonate-vitamin D3 600 mg-5 mcg (200 unit) 1 tab PO DAILY levofloxacin 500 mg PO DAILY 14 days nitroglycerin 0.4 mg sublingual Q5M PRN omeprazole 20 mg PO DAILY trazodone 100 mg PO BEDTIME HPI overdue follow up HPI Details Shannan is a 68-year-old female past medical history of hyperlipidemia, CAD, NSTEMI 2016, RCA stent, residual LAD and left circumflex stenosis who presents for follow-up. Last prior visit to our office was 02/11/2021. Today she reports that she has been doing well with no concerning symptoms. She denies chest discomfort at rest or with activity. No shortness of breath, palpitations, lightheadedness, presyncope, syncope, PND, orthopnea or edema. She is taking her meds as directed. She tolerates normal ADLs without difficulty. Her son is present and assisting with translation at their request. Permit signed. [facility] Medical History Cholangitis Choledocholithiasis Atherosclerotic cardiovascular disease Chest pain COVID-19 vaccine series completed Asthma Depression History of coronary artery disease Cholelithiasis GERD (gastroesophageal reflux disease) Vitamin D deficiency Osteoporosis Surgical History Hx of cholecystectomy Hx of lithotripsy History of esophagogastroduodenoscopy (EGD) H/O colonoscopy History of ERCP H/O heart artery stent Hx of tubal ligation Hx of section Family History Father Diabetes Mother Healthy adult Social History Household Members: None Housing: Apartment Are you a primary critical care specialist to a significant other at home: No Do you presently have visiting nurse or other home services: No Alcohol intake: former Patient Tobacco Use Status: Former Tobacco user Quit Date: 2014 Tobacco use type: Cigarette Years Smoked: 44 e-Cigarette/Vaping Use: Never Used service: No Current occupational status: disabled Review of Systems Const All systems reviewed & are unremarkable except as noted in HPI and below ENT Denies dizziness Card Denies chest pain, Denies chest pain at rest, Denies chest pain with activity, Denies rapid heart rate, Denies pedal edema, Denies edema, Denies leg edema, Denies lightheadedness, Denies palpitations, Denies dyspnea, Denies dyspnea on exertion and Denies orthopnea Resp Denies cough, Denies dyspnea and Denies dyspnea on exertion GI Denies hematochezia and Denies change in stool character Musc Denies abnormal gait, Denies limited range of motion, Denies muscle cramps, Denies muscle weakness, Denies numbness, Denies radiating pain into limb and Denies tingling Neuro Denies abnormal gait, Denies dizziness, Denies numbness and Denies tingling Endo Denies palpitations Physical Exam Vital Signs: Last Vital Signs Pulse 73 07/11/23 08:16 BP 100/57 L 07/11/23 08:16 BMI result Body Mass Index 21.7 Const General: cooperative, healthy appearing, comfortable and no acute distress Orientation/consciousness: patient oriented x3 Neck Neck: Yes normal visual inspection and Yes no JVD Resp Effort & Inspection: normal respiratory effort Auscultation: clear to auscultation bilaterally, no crackles, no rales, no rhonchi and no wheezes Cardio Jugular venous distension: no JVD Rate: regular rate Rhythm: regular rhythm Heart sounds: S1 normal heart sound present, S2 normal heart sound present, no murmurs and no rubs Neuro General: patient oriented x3 Extrem General: Yes normal to inspection, No no pedal edema and No calf tenderness Psych Appearance: grossly normal Mental Status: mental status grossly normal Speech and movement: Normal speech and movement present Office Procedures EKG Details: Today read by me, sinus rhythm with PVCs and PACs, rate 73, QTC 427 milliseconds [id number], Complete Assessment & Plan Assessment & Plan (1) CAD (coronary artery disease): Code(s): I25.10 - Atherosclerotic heart disease of [place] coronary artery without angina pectoris Plan: History of NSTEMI 2017. Cardiac catheterization at that time showed RCA 90% stenosis, RCA dominant system, stent placed, lad mild stenosis, left circumflex moderate diffuse stenosis. Last echocardiogram done 02/12/2021 showed normal EF, grade 1 diastolic dysfunction, normal valves. Nuclear stress test done 02/12/2021 showed normal myocardial perfusion imaging, normal EF. Was not seen in cardiology between 02/11/2021 and today. She currently denies any concerning symptoms. EKG shows sinus rhythm with PAC and PVCs, no acute ST or T-wave abnormalities, rate 73. She continues on aspirin indefinitely. She is not on statin for unclear reason. Labs done 04/13/2023 showed LDL 86, normal LFTs. Will start on atorvastatin 20 mg daily. Reason for medication and potential side effects reviewed. Lipid profile and CMP to be done in 2 months. Signs and symptoms of angina reviewed. Cardiology follow-up in 1 year, sooner if needed. (2) Hyperlipidemia: Code(s): E78.5 - Hyperlipidemia, unspecified Plan: As above (3) H/O heart artery stent: Comment: RCA stent placed 2016 Code(s): Z95.5 - Presence of coronary angioplasty implant and graft Plan: As above Plan Time spent on chart review, documentation, interview and assessment Orders: Orders Lipid Panel 2 Months E78.5 - Hyperlipidemia, unspecified Comprehensive Met. Panel 2 Months E78.5 - Hyperlipidemia, unspecified, I25.10 - Atherosclerotic heart disease of [place] coronary artery without angina pectoris Medications: New atorvastatin 20 mg PO BEDTIME 30 tabs 5RF 30 days Coding Level of Care Code Est Pt Level 4 (66047) Diagnoses CAD (coronary artery disease) I25.10 Hyperlipidemia E78.5 H/O heart artery stent Z95.5 CPT Codes EKG - CPT: [id number], Complete ([id number]) Time Spent (min) 28
== END 2023-07-11 08:42 | disposition home or self-care (01) ==
PROVIDERS: PCP Internal Medicine Medical Oncology; Visit Provider Nurse Practitioner Family
DX: I25.10 Atherosclerotic heart disease of native coronary artery without angina pectoris (principal); E78.5 Hyperlipidemia, unspecified; Z95.5 Presence of coronary angioplasty implant and graft
CPT/HCPCS: 93010; 99214

== ENCOUNTER → 2023-07-11 07:58 | Outpatient (BNVA) | payer MEDICARE, MEDICAID, SELFPAY | PROVIDERS: PCP Internal Medicine Medical Oncology; Visit Provider Nurse Practitioner Family | DX: I25.10 Atherosclerotic heart disease of native coronary artery without angina pectoris (principal); E78.5 Hyperlipidemia, unspecified; Z95.5 Presence of coronary angioplasty implant and graft | CPT/HCPCS: 93005; 99212 ==

== ENCOUNTER 2024-04-26 09:03 | Outpatient (REF) | payer MEDICARE, MEDICAID, SELFPAY ==
--- NOTE | ~2024-04-26 | MM_ITS ---
EXAMINATION: MM SCREENING DIGITAL BREAST TOMOSYNTHESIS, BILATERAL CLINICAL INFORMATION: Screening. Asymptomatic. COMPARISON: Mammography: Comparison is made with available priors TECHNIQUE: Digital breast mammography with tomosynthesis is performed in both the craniocaudal and mediolateral oblique views along with computer-aided detection (CAD). FINDINGS: There are scattered areas of fibroglandular density (ACR BI-RADS breast composition Category b). There are no significant masses, abnormal calcifications, or other abnormalities. MM/MM tomosynthesis screening BI IMPRESSION: No mammographic evidence of malignancy. ASSESSMENT: BI-RADS BI-RADS 1 - Negative RECOMMENDATION: Routine annual mammography screening. 1 year F/U This examination should not preclude the clinical evaluation of a suspicious palpable abnormality. This patient's information was entered into a reminder system with a target due date for their next mammogram. Electronically signed by: Mayi Hilliard DO 05/04/2024 10:16 AM [facility]
--- NOTE | ~2024-04-26 | MM_ITS ---
EXAMINATION: BONE DENSITOMETRY CLINICAL INDICATION: Osteoporosis. COMPARISON: Baseline BD dated 03/07/2019. TECHNIQUE: Using a [employer] DXA System (software version: 13.1) manufactured by [employer], dual-energy x-ray absorptiometry was performed of the lumbar spine and left hip. The images are of good technical quality. Summary results are attached. FINDINGS: LEFT FEMUR, NECK: Current: BMD 0.785 g/cm2, Z-score 0.3, T-score -1.8, osteopenia. Baseline: BMD 0.745 g/cm2. LEFT FEMUR, TOTAL: Current: BMD 0.827 g/cm2, Z-score 0.5, T-score -1.4, osteopenia, 4.3% increase from baseline (<5% change is not significant). Baseline: BMD 0.793 g/cm2. AP SPINE L1-L4: Current: BMD 0.779 g/cm2, Z-score -1.0, T-score -3.3, osteoporosis, 1.2% increase from baseline (<5% change is not significant). Baseline: BMD 0.770 g/cm2. IDENTIFIED RISK FACTORS: Menopause, height loss, osteoporosis. HISTORY OF FRACTURE: None listed. MEDICATIONS: Calcium. MM/XR DEXA axial skeleton IMPRESSION: 1. DIAGNOSIS: Osteoporosis based on the lowest T-score value of -3.3 in the lumbar spine applying World Health Organization criteria. 2. 10-YEAR FRACTURE RISK PREDICTION, FRAX: According to the guidelines, FRAX calculation should only be performed on patients in the osteopenia bone density category. Therefore, FRAX was not performed on this patient. 3. Treatment Recommendations: NOF guidelines recommend consideration for treatment in postmenopausal women and men age 50 and older presenting with the following: -A hip or vertebral (clinical or morphometric) fracture. -T-score less than or equal to -2.5 at the femoral neck or spine after appropriate evaluation to exclude secondary causes. -Low bone mass at the hip or spine and a 10-year fracture probability by FRAX of greater than or equal to 3% for hip fracture or greater than or equal to 20% for major osteoporotic fracture based on the [place] adapted WHO algorithm. 4. Other Recommendations: All treatment decisions require clinical judgment and consideration of individual patient factors, including patient preferences, comorbidities, previous drug use, risk factors not captured in the FRAX model (e.g. frailty, falls, vitamin D deficiency, increased bone turnover, interval significant decline in bone density) and possible under or overestimation of fracture risk by FRAX. Additional medical evaluation for secondary cause of low bone mineral density may be appropriate. FUTURE SCAN RECOMMENDATION: People with diagnosed cases of osteoporosis or at high risk for fracture should have regular bone mineral density tests. For patients eligible for Medicare, routine testing is allowed once every 2 years. The testing frequency can be increased to one year for patients who have rapidly progressing disease, those who are receiving or discontinuing medical therapy to restore bone mass, or have additional risk factors. Electronically signed by: Juancho Araiza MD 04/27/2024 12:17 PM EDT
== END 2024-04-26 09:04 | disposition home or self-care (01) ==
LOC: HO.MAMMO 09:03
PROVIDERS: PCP Internal Medicine Medical Oncology; Visit Provider Internal Medicine Medical Oncology
DX: Z12.31 Encounter for screening mammogram for malignant neoplasm of breast (principal); M81.0 Age-related osteoporosis without current pathological fracture; E78.2 Mixed hyperlipidemia; R63.4 Abnormal weight loss; E55.9 Vitamin D deficiency, unspecified
CPT/HCPCS: 36415; 77063; 77067; 77080; 85025

== ENCOUNTER → 2024-04-26 09:15 | Outpatient (BNV) | payer MEDICARE, MEDICAID, SELFPAY | PROVIDERS: PCP Internal Medicine Medical Oncology; Visit Provider Internal Medicine | DX: Z12.31 Encounter for screening mammogram for malignant neoplasm of breast (principal) | CPT/HCPCS: 77063; 77067 ==

== ENCOUNTER 2024-04-26 09:56 | Outpatient (REF) | payer MEDICARE, MEDICAID, SELFPAY ==
[2024-04-26 10:21] LABS: MANUAL DIFF FLAG NO
[2024-04-26 10:41] LABS: Basophils Percent Auto 0.6 % (0-2); Eosinophils Absolute Auto 0.2 X10*3/uL (0.0-0.4); Eosinophils Percent Auto 2.9 % (0-4); Hematocrit 36.4 % (37.0-47.0); Hemoglobin 12.3 g/dl (12.0-16.0); Imm Gran Abs Auto 0.02 X10*3/uL (0.00-0.03); Imm Gran Pct Auto 0.3 % (0.0-0.4); Lymphocytes Absolute Auto 1.9 X10*3/uL (1.2-4.9); Mean Corpuscular HGB Conc 33.8 g/dl (31.0-35.0); Mean Corpuscular Hemoglobin 30.6 pg (27.0-33.0); Mean Corpuscular Volume 90.5 fL (80.0-98.0); Mean Platelet Volume 9.1 fL (9.4-12.3); Monocytes Absolute Auto 0.3 X10*3/uL (0.1-1.2); Monocytes Percent Auto 5.2 % (2-11); Platelet Count 266 X10*3/uL (160-400); Red Blood Count 4.02 X10*6/uL (4.20-5.50); Red Cell Distribution Width 12.5 % (11.0-16.0); White Blood Count 6.5 X10*3/uL (4.8-10.8)
== END 2024-04-26 09:57 | disposition home or self-care (01) ==
LOC: HO.LAB 09:56
PROVIDERS: PCP Internal Medicine Medical Oncology; Visit Provider Internal Medicine Medical Oncology
DX: Z13.89 Encounter for screening for other disorder (principal)
CPT/HCPCS: 36415; 85025

== ENCOUNTER 2024-08-10 08:52 | Outpatient (AMB) | payer MEDICARE, MEDICAID, SELFPAY ==
--- NOTE | 2024-08-10 08:57 | MHC.OFFVIS ---
Vital Signs 08/10/24 08:58 Height 5 ft Weight 111 lb 8.862 oz BMI 21.8 BP 100/52 L Blood Pressure Location Lt brachial Position Sitting Pulse 69 Pulse Source Monitor Intake Visit Reasons: 1 year f/up rs from 07/09/24 Epic Kaleidoscope Analyst Required: No Cross Cut Sawyer: Cross Cut Sawyer Present Allergies No Known Allergies [No Known Allergies*] Allergy (Verified 08/10/24 09:01) Medication List - Last Reconciled 08/10/24 by Elizabeth Cisneros NP-C albuterol sulfate 90 mcg/actuation (ProAir HFA) 2 puffs inhalation Q4H PRN amlodipine 1 tab PO DAILY aspirin 81 mg PO DAILY atorvastatin 20 mg PO BEDTIME 30 days calcium carbonate-vitamin D3 600 mg-5 mcg (200 unit) 1 tab PO DAILY nitroglycerin 0.4 mg sublingual Q5M PRN omeprazole 20 mg PO DAILY trazodone 100 mg PO BEDTIME HPI HPI 1 year f/up rs from 07/09/24: Details: Shannan is a 69-year-old female past medical history of hyperlipidemia, CAD, NSTEMI 2017, RCA stent, residual LAD and left circumflex stenosis who presents for follow-up. Her last visit was 07/11/2023. Today she reports that she has been doing well with no concerning symptoms. She denies chest discomfort at rest or with activity. No shortness of breath, palpitations, lightheadedness, presyncope, syncope, PND, orthopnea or edema. She is taking her meds as directed. She tolerates normal ADLs without difficulty. Her son is present and assisting with Guatemalan translation at their request. FORMERLY [facility], [facility] Medical History Cholangitis Choledocholithiasis Atherosclerotic cardiovascular disease Chest pain COVID-19 vaccine series completed Asthma Depression History of coronary artery disease Cholelithiasis GERD (gastroesophageal reflux disease) Vitamin D deficiency Osteoporosis Surgical History Hx of cholecystectomy Hx of lithotripsy History of esophagogastroduodenoscopy (EGD) H/O colonoscopy History of ERCP H/O heart artery stent Hx of tubal ligation Hx of section Family History Father Diabetes Mother Healthy adult Social History Household Members: None Housing: Apartment Are you a primary career development director to a significant other at home: No Do you presently have visiting nurse or other home services: No Alcohol intake: former Patient Tobacco Use Status: Former Tobacco user Tobacco use type: Cigarette Years Smoked: 44 e-Cigarette/Vaping Use: Never Used service: No Current occupational status: disabled Review of Systems Const All systems reviewed & are unremarkable except as noted in HPI and below ENT Denies dizziness Card Denies chest pain, Denies chest pain at rest, Denies chest pain with activity, Denies rapid heart rate, Denies pedal edema, Denies edema, Denies leg edema, Denies lightheadedness, Denies palpitations, Denies dyspnea, Denies dyspnea on exertion and Denies orthopnea Resp Denies cough, Denies dyspnea and Denies dyspnea on exertion GI Denies hematochezia and Denies change in stool character Musc Denies abnormal gait, Denies limited range of motion, Denies muscle cramps, Denies muscle weakness, Denies numbness, Denies radiating pain into limb, Denies stiffness and Denies tingling Neuro Denies abnormal gait, Denies dizziness, Denies numbness and Denies tingling Endo Denies palpitations Physical Exam Vital Signs: Last Vital Signs Pulse 69 08/10/24 08:58 BP 100/52 L 08/10/24 08:58 BMI result Body Mass Index 21.8 Const General: cooperative, healthy appearing, comfortable and no acute distress Orientation/consciousness: patient oriented x3 Neck Neck: Yes normal visual inspection Resp Effort & Inspection: normal respiratory effort Auscultation: clear to auscultation bilaterally, no crackles, no rales, no rhonchi and no wheezes Cardio Jugular venous distension: no JVD Rate: regular rate Rhythm: regular rhythm Heart sounds: S1 normal heart sound present, S2 normal heart sound present, no murmurs and no rubs Neuro General: patient oriented x3 Extrem General: Yes normal to inspection, No no pedal edema and No calf tenderness Psych Appearance: grossly normal Mental Status: mental status grossly normal Speech and movement: Normal speech and movement present Office Procedures EKG Details: Today, read by me, Normal Sinus rhythm, septal q, rate 69, Qtc 417ms [id number], Complete Assessment & Plan Assessment & Plan (1) CAD (coronary artery disease): Code(s): I25.10 - Atherosclerotic heart disease of [place] coronary artery without angina pectoris Category: Medical Plan: History of NSTEMI 2017. Cardiac catheterization at that time showed RCA 90% stenosis, RCA dominant system, stent placed, lad mild stenosis, left circumflex moderate diffuse stenosis. Last echocardiogram done 02/12/2021 showed normal EF, grade 1 diastolic dysfunction, normal valves. Nuclear stress test done 02/12/2021 showed normal myocardial perfusion imaging, normal EF. Was not seen in cardiology between 02/11/2021 and 07/11/2023. On return to our office she reported doing well with no concerning symptoms. She follows up again a year later and tells me she continues to do well. She denies having chest discomfort or shortness of breath. EKG today shows normal sinus rhythm , septal Q which is unchanged from prior EKG, rate 69. She continues on aspirin indefinitely. Continue atorvastatin and amlodipine. Labs entered in system and pt informed. Signs and symptoms of angina reviewed. Cardiology follow-up in 1 year, sooner if needed. (2) Hyperlipidemia: Code(s): E78.5 - Hyperlipidemia, unspecified Category: Medical Plan: [place] LDL goal less than 70. She is on atorvastatin at 20 mg daily. Fasting lipid profile and LFTs are due, entered. (3) H/O heart artery stent: Comment: RCA stent placed 2016 Code(s): Z95.5 - Presence of coronary angioplasty implant and graft Category: Surgical Plan: As above Plan Time spent on chart review, documentation, interview and assessment Orders: Orders Comprehensive Met. Panel Today I25.10 - Atherosclerotic heart disease of [place] coronary artery without angina pectoris Lipid Panel Today I25.10 - Atherosclerotic heart disease of [place] coronary artery without angina pectoris Coding Level of Care Code Est Pt Level 4 (34526) Complex EM visit Add On G2211 Diagnoses CAD (coronary artery disease) I25.10 Hyperlipidemia E78.5 H/O heart artery stent Z95.5 CPT Codes EKG - CPT: 50553-Dpdqxvfqzfwqcqrmj, Complete ([id number]) Time Spent (min) 28
[2024-08-10 08:58] VITALS: BP 100/52; PULSE 69; BMI 21.8
== END 2024-08-10 09:36 | disposition home or self-care (01) ==
PROVIDERS: PCP Internal Medicine Medical Oncology; Visit Provider Nurse Practitioner Family
DX: I25.10 Atherosclerotic heart disease of native coronary artery without angina pectoris (principal); E78.5 Hyperlipidemia, unspecified; Z95.5 Presence of coronary angioplasty implant and graft
CPT/HCPCS: 93010; 99214; G2211

== ENCOUNTER → 2024-08-10 08:52 | Outpatient (BNVA) | payer MEDICARE, MEDICAID, SELFPAY | PROVIDERS: PCP Internal Medicine Medical Oncology; Visit Provider Nurse Practitioner Family | DX: I25.10 Atherosclerotic heart disease of native coronary artery without angina pectoris (principal); I25.2 Old myocardial infarction; E78.5 Hyperlipidemia, unspecified; Z95.5 Presence of coronary angioplasty implant and graft | CPT/HCPCS: 93005; 99212 ==

== ENCOUNTER 2025-04-09 09:27 | Outpatient (REF) | payer MEDICARE, MEDICAID, SELFPAY ==
--- OUTSIDE RECORDS SUMMARY | 2024-04-20 05:00 | XMS_ITS ---
Author Organization Sai Holguin III, MD Address [address] [place] [address] Care Team Providers Care Senior Business Analyst Name Role Phone Dr. Sai Holguin III [...] day Active Atorvastatin Calcium 80 MG (Prior Auth#:[id number]) Oral Active Aspirin 81 81 MG 1 tablet Orally Once a day Active Metoprolol Succinate ER 25 MG (Prior Auth#:[id number]) Oral Active Cimetidine 300 MG (Prior Auth#:[id number]) Oral Active traZODone HCl 100 mg TAKE 1 TABLET BY [facility] AT BEDTIME Active Omeprazole 20 mg TAKE [...] Date Provider Diagnosis Sai Holguin III, MD [address] [place] [address] [place] [address] 04/20/2024 Sai Holguin Mixed hyperlipidemia E78.2 ; Atherosclerotic heart disease of [place] coronary artery without angina pectoris I25.10 ; [...] ordered. 04/20/2024 Atherosclerotic hear t disease of [place] coronary artery without angina pectoris (ICD-10 - [...] day Atorvastatin Calcium 80 MG (Prior Auth#: [id number]) Oral Aspirin 81 81 MG 1 tablet Orally Once a day Metoprolol Succinate ER 25 MG (Prior Aut h#:[id number]) Oral Cimetidine 300 MG (Prior Auth#:[id number]) Oral traZODone HCl 100 mg TAKE 1 [...] Months, Reason: OV Provider Name:Sai Holguin , 04/23/2025 09:00:00 AM, [address] [place] [address], [place] [address], [place], [address], Progress Notes * Shannan WAGNER MDOB: 3 (69 yo F)Acc No.[id number]:04/20/2024 Progress Notes Patient: Moy TOMShannan Provider: Nisha Holguin MD :1955 A ge:69 Y S ex:Female Date:04/20/2024 Address:[address] [place] [address], [facility], [id number] Subjective: * Chief Complaints: * A nnual [...] common bile duct stone, ERCP with sphincterotomy, [facility], Dr. Sai Wray 06/2017 * Hospitalization/Major Diagno [...] MG Tablet Extended Release 24 Hour (Prior Auth#:[id number]) Oral Cimetidine 300 MG Tablet (Prior Auth#:[id number]) Oral Atorvastatin Calcium 80 MG Tablet (Prior Auth#:[id number]) Oral Aspirin 81 81 MG Tablet Delayed [...] MG Tablet Extended Release 24 Hour (Prior Auth#:[id number]) Oral Taking Cimetidine 300 MG Tablet (Prior Auth#:[id number]) Oral Taking Atorvastatin Calcium 80 MG Tablet (Prior Auth#:[id number]) Oral Taking Aspirin 81 81 MG Tablet [...] Assessment: 1. A therosclerotic heart disease of [place] coronary artery without angina pectoris - I25.10 [...] Extended Release 24 Hour, 25 MG, (Prior Auth#:[id number]), Oral; C ontinue Cimetidine Tablet, 300 MG, (Prior Auth#:[id number]), Oral; C ontinue Atorvastatin Calcium Tablet, 80 MG, (Prior Auth#:[id number]), Oral; C ontinue Aspirin 81 Tablet Delayed [...] MD Date: Generated for Kanwal tyson/Yusra/eTransmitting on: 10:26 AM EDT History and Physical Notes * HPI (History [...]
--- OUTSIDE RECORDS SUMMARY | 2024-08-03 06:00 | XMS_ITS ---
Author Organization Sai Holguin III, MD Address [address] [place] [address] Care Team Providers Care Turner Splitter Machine Operator Name Role Phone Dr. Sai Holguin III Primary Care Provider [phone] Allergies Allergen (clinical drug ingredient) Drug/Non Drug [...] 100 mg TAKE 1 TABLET BY [facility] AT BEDTIME Active Metoprolol Succinate ER 25 MG (Prior Auth#:[id number]) Oral Active Cimetidine 300 MG (Prior Auth#:[id number]) Oral Active Atorvastatin Calcium 80 MG (Prior Auth#:[id number]) Oral Active Aspirin 81 81 MG 1 [...] Date Provider Diagnosis Sai Holguin III, MD [address] [place] [address] [place] [address] 08/03/2024 Sai Holguin Essential hypertensi on I10 ; Osteoarthritis, unspecified osteoarthritis type, unspecified site M19.90 ; Atherosclerotic heart disease of [place] coronary artery without angina pectoris I25.10 ; [...] regimen. 08/03/2024 Atherosclerotic hear t disease of [place] coronary artery without angina pectoris (ICD-10 - [...] bile duct. Her reflexes well controlled with jowh-qjz-txhczup medication. 08/03/2024 Former smoker (ICD-1 0 - Z87.891) We reviewed her plan to remain abstinent times of stress and illness. Plan Of Treatment Medication Medication Name Sig Start Date Stop Date Notes traZODone HCl 100 mg TAKE 1 TABLET BY [facility] AT BEDTIME Metoprolol Succinate ER 25 MG (Prior Aut h#:[id number]) Oral Cimetidine 300 MG (Prior Auth#:[id number]) Oral Atorvastatin Calcium 80 MG (Prior Auth#: [id number]) Oral Aspirin 81 81 MG 1 tablet [...] 20 mg TAKE 1 CAPSULE BY [facility] DAILY Cefuroxime Axetil 500 MG 1 tablet [...] Provider Name:Sai Holguin , 04/23/2025 09:00:00 AM, [address] [place] [address] [address], [address], [place], [phone], Progress Notes * Shannan WAGNER MDOB: 3 (69 yo F)Acc No.[id number]:08/03/2024 Progress Notes Patient: Shannan LYN Provider: Nisha Holguin MD :1955 A ge:69 Y S ex:Female Date:08/03/2024 Address:[address] [place] [address], [place], [id number] Subjective: * Chief Complaints: * R osito [...] common bile duct stone, ERCP with sphincterotomy, [facility], Dr. Sai Wray 06/2017 * Hospitalization/Major [...] MG Tablet Extended Release 24 Hour (Prior Auth#:[id number]) Oral Atorvastatin Calcium 80 MG Tablet (Prior Auth#:[id number]) Oral Aspirin 81 81 MG Tablet Delayed [...] MG Tablet Extended Release 24 Hour (Prior Auth#:[id number]) Oral Taking Atorvastatin Calcium 80 MG Tablet (Prior Auth#:[id number]) Oral Taking Aspirin 81 81 MG Tablet [...] EVERY MORNING DiscontinuedCimetidine 300 MG Tablet (Prior Auth#:[id number]) Oral Cefuroxime Axetil 500 MG Tablet 1 tablet Orally every 12 hrs metroNIDAZOLE 500 MG Tablet 1 tablet Orally Three times a day Omeprazole 20 mg Capsule Delayed Release TAKE 1 CAPSULE BY MOUTH DAILY Medication List reviewed and reconciled with the patientDiscontinued Cimetidine 300 MG Tablet (Prior Auth#:[id number]) Oral Discontinued Cefuroxime Axetil 500 MG Tablet [...] 3 . A therosclerotic heart disease of [place] coronary artery without angina pectoris - I25.10 [...] bile duct. Her reflexes well controlled with kqvy-cud-ehdwgbi medication. 9 . F ormer smoker - [...] MD Date: 0 08/03/2024 Generated for Kanwal tyson/Yusra/eTransmitting on: 1 10:26 AM EDT History and Physical Notes [...]
--- OUTSIDE RECORDS SUMMARY | 2024-08-21 13:00 | XMS_ITS ---
Author Organization Sai Holguin III, MD Address [address] [place] [address] [place] [phone] Care Team Providers Care Teamcenter Consultant Name Role Phone Dr. Sai Holguin III Primary Care Provider REASON FOR VISIT Follow up Social History Sex Assigned At : Social History Observation Description Sex Assigned At Female Encounters Encounter Location Date Provider Diagnosis Sai Holguin III, MD [address] [place] [address] [place] [phone] 08/21/2024 Sai Holguin Plan Of Treatment Next Appt Details Provider Name:Sai Holguin , 04/23/2025 09:00:00 AM, [address] [place] [address] [address], [place], [phone], Progress Notes * Shannan WAGNER MDOB: 3 (70 yo F)Acc No.[id number]:08/21/2024 Progress Notes Patient: Shannan LYN Provider: Nisha Holguin MD :1955 A ge:69 Y S ex:Female Date:08/21/2024 Address:[address] [id number] Subjective: * Chief Complaints: * 1 . [...] 08/21/2024 Generated for Kanwal tyson/Yusra/Jennifer on: 1 10:25 AM EDT
--- OUTSIDE RECORDS SUMMARY | 2024-09-24 09:57 | XMS_ITS ---
Author Organization Sai Holguin III, MD Address [address] [place] [address] [place] [address] Care Team Providers Care Survival Specialist Name Role Phone Dr. Sai Holguin III Primary Care Provider REASON FOR VISIT ? rx Social History Sex Assigned At : Social History Observation Description Sex Assigned At Female Encounters Encounter Location Date Provider Diagnosis Sai Holguin III, MD [address] [place] [address] [place] [address] 09/24/2024 Sai Holguin Plan Of Treatment Next Appt Details Provider Name:Sai Holguin , 04/23/2025 09:00:00 AM, [address] [place] [address] [address], [place], [address], Progress Notes * Shannan WAGNER MDOB: (69 yo F)Acc No.[id number]:09/24/2024 Patient: Moy Shannan SANTOS :1955 A ge:69 Y S ex:Female Address:[facility] [address], [place], [address] * true * Date: Generated for Printi ng/Faxing/eTransmitting on: 10:25 AM EDT
--- OUTSIDE RECORDS SUMMARY | 2024-11-02 05:00 | XMS_ITS ---
Author Organization Sai Holguin III, MD Address [address] [place] [address] Care Team Providers Care Bag Checker Name Role Phone Dr. Sai Holguin III Primary Care Provider [phone] Allergies Allergen (clinical drug ingredient) Drug/Non Drug [...] day Active Atorvastatin Calcium 80 MG (Prior Auth#:[id number]) Oral Active Aspirin 81 81 MG 1 tablet Orally Once a day Active Metoprolol Succinate ER 25 MG (Prior Auth#:[id number]) Oral Active Cimetidine 300 MG (Prior Auth#:[id number]) Oral Active traZODone HCl 100 mg TAKE [...] Date Provider Diagnosis Sai Holguin III, MD [address] [place] [address] [place] [address] 11/02/2024 Sai Holguin Mixed hyperlipidemia E78.2 ; Essential hypertension I10 ; Vitamin D deficiency, unspecified E55.9 ; Osteoarthritis, unspecified osteoarthritis type, unspecified site M19.90 ; Atherosclerotic heart disease of [place] coronary artery without angina pectoris I25.10 ; [...] regimen. 11/02/2024 Atherosclerotic hear t disease of pechanga coronary artery without angina pectoris (ICD-10 - [...] bile duct. Her reflexes well controlled with luhk-gpy-znbnfpa medication. Plan Of Treatment Medication Medication Name [...] day Atorvastatin Calcium 80 MG (Prior Auth#: [id number]) Oral Aspirin 81 81 MG 1 tablet Orally Once a day Metoprolol Succinate ER 25 MG (Prior Aut h#:[id number]) Oral Cimetidine 300 MG (Prior Auth#:[id number]) Oral traZODone HCl 100 mg TAKE 1 TABLET BY [facility] AT BEDTIME amLODIPine Besylate 5 mg TAKE 1 TABLET BY MOUTH DAILY Omeprazole 20 mg TAKE 1 CAPSULE BY [facility] DAILY Vitamin D3 25 MCG (1000 UT) TAKE 1 TABLET BY MOUTH DAILY Calcium Carb-Cholecalciferol 600-5 MG-MCG TAKE 1 TABLET BY MOUTH EVERY MORNING Pending Test Test Name Order Date PROFILE, FASTING (COMPREHENSIVE METABOLI C) 11/02/2024 CBC w DIFF 11/02/2024 Lipid Panel 11/02/2024 Vitamin D 25-OH Total 11/02/2024 Next Appt Details Follow Up: As Scheduled, [place] son: OV Provider Name:Sai Holguin , 04/23/2025 09:00:00 AM, [address], [place], [address], Progress Notes * Shannan WAGNER MDOB: 3 (69 yo F)Acc No.[id number]:11/02/2024 Progress Notes Patient: Shannan LYN Provider: Nisha Holguin MD :1955 A ge:69 Y S ex:Female Date:11/02/2024 Address:[facility] [address], [place], [id number] Subjective: * Chief Complaints: * H ypertensionCoronary [...] common bile duct stone, ERCP with sphincterotomy, [facility], Dr. Sai Wray 06/2017 * Hospitalization/Major [...] MG Tablet Extended Release 24 Hour (Prior Auth#:[id number]) Oral Cimetidine 300 MG Tablet (Prior Auth#:[id number]) Oral Atorvastatin Calcium 80 MG Tablet (Prior Auth#:[id number]) Oral Aspirin 81 81 MG Tablet Delayed [...] MG Tablet Extended Release 24 Hour (Prior Auth#:[id number]) Oral Taking Cimetidine 300 MG Tablet (Prior Auth#:[id number]) Oral Taking Atorvastatin Calcium 80 MG Tablet (Prior Auth#:[id number]) Oral Taking Aspirin 81 81 MG Tablet [...] 5 . A therosclerotic heart disease of pechanga coronary artery without angina pectoris - I25.10 [...] bile duct. Her reflexes well controlled with lwyg-lbt-kxtigre medication. Plan: * Treatment: 2. M ixed [...] Extended Release 24 Hour, 25 MG, (Prior Auth#:[id number]), Oral; C ontinue Cimetidine Tablet, 300 MG, (Prior Auth#:[id number]), Oral; C ontinue Atorvastatin Calcium Tablet, 80 MG, (Prior Auth#:[id number]), Oral; C ontinue Aspirin 81 Tablet Delayed [...] 11/02/2024 Generated for Kanwal tyson/Yusra/Lianaitting on: 1 10:26 AM EDT History and [...]
[2025-04-09 09:36] LABS: MANUAL DIFF FLAG NO
[2025-04-09 10:08] LABS: Hematocrit 39.2 % (37.0-47.0); Hemoglobin 13.0 g/dl (12.0-16.0); Imm Gran Abs Auto 0.03 X10*3/uL (0.00-0.03); Imm Gran Pct Auto 0.4 % (0.0-0.4); Lymphocytes Absolute Auto 2.3 X10*3/uL (1.2-4.9); Mean Corpuscular HGB Conc 33.2 g/dl (31.0-35.0); Mean Corpuscular Hemoglobin 30.2 pg (27.0-33.0); Mean Corpuscular Volume 91.0 fL (80.0-98.0); NRBC Abs Auto 0.000 X10*3/uL (0.0-0.012); NRBC Pct Auto 0.0 /100WBC (0.0-0.2); Platelet Count 285 X10*3/uL (160-400); Red Blood Count 4.31 X10*6/uL (4.20-5.50); White Blood Count 7.1 X10*3/uL (4.8-10.8)
--- OUTSIDE RECORDS SUMMARY | 2025-04-09 10:25 | XMS_ITS | Patient Health Record ---
Author Organization [facility] Address [address] [place] [address] Care Team Providers Care Stapler Machine Name Role Phone Sai Holguin MD Primary Care Provider Unavailab Sai Yang Unavailable [phone] Anderson VEGA, Daniel Unavailable Unavailable Reason For Referral No Information Medications Medication SIG (Take, Route, Frequency, Duration) Notes Start Date End Date Status traZODone HCl 100 MG 1 tablet at bedtime Orally Once a day Active Dulcolax (colon prep) 5 MG take at 3:00 p.m and 7:00p.m. Orally two tablets twice a day for one day; Duration: 1 day 11/08/2018 Active Ticagrelor 90 MG 1 tablet Orally Twic e a day Not-Taking Omeprazole 20 MG 1 capsule Orally Onc e a day; Duration: 30 day(s) Active Nitroglycerin 0.4 MG 1 TABLET EVERY 5 MINUTES NEEDED CHEST PAIN/BP UNDER 100 TIMES 3 DOSES Sublingual; Duration: 8 Active Vitamin B12 100 MCG as directed Orally Active Aspir-81 81 MG 1 tablet Orally Once a day Active Albuterol prn Active MiraLax (colon prep) 8.3 ounce ((238) grams mixed with Gatorade or Crystal Light orally begin at 5:00 p.m. the day before the procedure; Duration: 1 day 11/08/2018 Active Metoprolol Succinate ER 50 MG 1 tablet Orally Once a day Active Immunizations Vaccine Route Administration Date Status Comme nts Influenza Unknown 11/07/2018 Refused Social History Tobacco Use: Social History Observation Description Date Details (start date - stop date) Former Smoker NA - NA Tobacco Use/Smoking Question Answer Notes Patient is a former smoker How long has it been since you last smoked? 1-5 years Alcohol Screen Question Answer Notes Did you have a drink containing alcohol in the p ast year? No Points 0 Interpretation Negative Section Notes: Nonsmoker approx since 2016; EtOh abuse--sober since 2011 Nonsmoker approx since 2016; EtOh abuse--sober since 2011 Problems Problem Type SNOMED Code ICD Code Onset Dates Problem Status W/U Status Risk Notes Problem Screening for malignant neoplasm of colon (367222652) Encounter for screening for malignant neoplasm of colon (Z12.11) Active confirmed Problem Elevated liver enzymes level (008836582) Elevated liver function tests (R79.89) Active confirmed Problem Elevated liver enzymes level (526484891) Elevated liver enzymes (R74.8) Active confirmed Problem Gastroesophageal reflux disease (774745141) Gastroesophageal reflux disease, esophagitis presence not specified (K21.9) Active confirmed Problem Gallstones (121444844) Gallstones (K80.20) Active confirmed Problem Disorder of biliary tract (240981824) Bile duct abnormality (K83.9) Active confirmed Problem Biliary stricture (538430611) Biliary stricture (K83.1) Active confirmed Problem Sclerosing cholangitis (778979977) Sclerosing cholangitis (K83.09) Active confirmed Plan Of Treatment Pending Test Test Name Order Date LIVER PROFILE 08/26/2017 LIVER PROFILE 07/16/2017 LIVER PROFILE 07/26/2017 LIVER PROFILE 04/04/2018 Future Test Test Name Order Date UPPER GI ENDOSCOPY 11/07/2018 COLONOSCOPY 11/07/2018 Insurance Providers Payer Name Payer Address Payer Phone Subscriber Number Group Number Insured Name Patient Relationship to Insured Coverage Start Date Coverage End Date MEDICARE OF [place] [address] [place] [address] [id number] SAIGE WAGNER Self - patient is the insured MEDICAID OF [facility] [address] [place] [address] [id number] SAIGE WAGNER Self - patient is the insured Medical (General) History Medical History History ICD Code Denies DM,CVA,renal disease Hypertension Asthma [place] 04/2017---drug-eluting stent placed a t [facility]--sees Dr. Morrell Choledocholithiasis--ERCP wi sphincterotomy and stone removal in 06/2017---? of CBD stricture but MRCP was negative and Dr. Blakely at [facility] did not think further intervention with ERCP/spyglass was warranted Gallstones--seen by Dr. Edelmira pierce--but holding off on surgery for at least 6-12 months after the [place] and stent placement Hyperlipidemia Surgical History Surgery Date(Month/Year) Tubal ligation
--- OUTSIDE RECORDS SUMMARY | 2025-04-09 10:26 | XMS_ITS | Patient Health Record ---
Author Organization Sai Holguin III, MD Address [address] [place] [address] [place] [address] Care Team Providers Care Traffic Sergeant Name Role Phone Dr. Sai Holguin III Primary Care Provider [phone] Allergies Allergen (clinical drug ingredient) Drug/Non Drug [...] 0.2 - 1.3 BLD +++ Negative - MM tomosynthesis screening B I Reviewed date:03/18/2025 12:27:02 PM Interpretation: Performing Lab: Notes/Report: [facility]'[address] [place] [address] Mammography Report Signed Patient: Shannan Navarro MR#: [id number] [birth year] : 1955 Acct:[id number] Age/Sex: 69 / F ADM Date: 04/26/24 Loc: HO.MAMMO Attending Dr: Sai Holguin MD Ordering Physician: Sai Holguin MD Results: 1Negativ e Date of Service: 04/26/24 Follow Up: 1 Year From Orig inal Mammogram Procedure(s): MM tomosynthesis screening BI Accession Number(s): [id number] cc: Sai Holguin MD EXAMINATION: MM SCREENING DIGITAL BREAST TOMOSYNTHESIS, BILATERAL CLINICAL INFORMATION: Screening. Asymptomatic. COMPARISON: Mammography: Comparison is made with available priors TECHNIQUE: Digital breast mammography with tomosynthesis is performed in both the craniocaudal and mediolateral oblique views along with computer-aided detection (CAD). FINDINGS: There are scattered areas of fibroglandular density (ACR BI-RADS breast composition Category b). There are no significant masses, abnormal calcifications, or other abnormalities. MM/MM tomosynthesis screening BI IMPRESSION: No mammographic evidence of malignancy. ASSESSMENT: BI-RADS BI-RADS 1 - Negative RECOMMENDATION: Routine annual mammography screening. 1 year F/U This examination should not preclude the clinical evaluation of a suspicious palpable abnormality. This patient's information was entered into a reminder system with a target due date for their next mammogram. Electronically signed by: Mayi Hilliard DO 05/04/2024 10:16 AM EST Dictated By: Mayi Hilliard DO Signed By: <Electronically signed by Mayi Hilliard DO in OV> 05/04/24 1016 DD/ 4 TD/TT: 04/26/24929 [employer]fuels Production Technician: [place] [facility] [address] [place] [address] Mammography Report Signed Patient: Vanessa Navarro MR#: [id number] [birth year] : 1955 Acct:[id number] Age/Sex: 69 / F ADM Date: 04/26/24 Loc: HO.MAMMO Attending Dr: Sai Holguin MD Ordering Physician: Sai Holguin MD Results: 1Negativ e Date of Service: Follow Up: 1 Year From [facility] Mammogram Procedure(s): MM александр osynthesis screening BI Accession Number(s): [id number] cc: Sai Holguin MD EXAMINATION: MM SCREENING DIGITAL BREAST TOMOSYNTHESIS, BILATERAL CLINICAL INFORMATION: Screening. Asymptomatic. COMPARISON: Mammography: Compari son is made with available priors TECHNIQUE: Digital breast mammo graphy with tomosynthesis is performed in both the craniocaudal and med iolateral oblique views along with computer-aided detection (CAD). FINDINGS: There are scattered areas of fibroglandular density (ACR BI-RADS breast composition Category b). There are no signifi cant masses, abnormal calcifications, or other abnormalities. M M/MM tomosynthesis screening BI IMPRESSION: No mammographic evid ence of malignancy. ASSESSMENT: BI-RADS BI-RADS 1 - Negative RECOMMENDATION: Routine annual mammo graphy screening. 1 year F/U This examination lexie uld not preclude the clinical evaluation of a suspicious palpable abnormality. This patient's infor mation was entered into a reminder system with a target due date for their next mammogram. Electronically fern d by: Mayi Hilliard DO 05/04/2024 10:16 AM EST Dictated By: Mayi Diaz i, DO Signed By: <Electron ically signed by Mayi Hilliard DO in OV> 05/04/24 1016 DD/ 4 TD/TT: 04/26/24929 Biofuels Production Technician: XR DEXA axial skeleton Reviewed date:03/18/2025 12:27:02 PM Interpretation: Performing Lab: [facility]Report: [facility] [address] [place] [address] Mammography Report Signed Patient: Shannan Navarro MR#: [id number] [birth year] : 1955 Acct:[id number] Age/Sex: 69 / F ADM Date: 04/26/24 Loc: HO.MAMMO Attending Dr: Sai Holguin MD Ordering Physician: Sai Holguin MD Results: Date of Service: 04/26/24 Follow Up: Procedure(s): XR DEXA axial skeleton Accession Number(s): [id number] cc: Sai Holguin MD EXAMINATION: BONE DENSITOMETRY CLINICAL INDICATION: Osteoporosis. COMPARISON: Baseline BD dated 03/07/2019. TECHNIQUE: Using a Re[employer]vant DXA System (software version: 13.1) manufactured by [employer], dual-energy x-ray absorptiometry was performed of the lumbar spine and left hip. The images are of good technical quality. Summary results are attached. FINDINGS: LEFT FEMUR, NECK: Current: BMD 0.785 g/cm2, Z-score 0.3, T-score -1.8, osteopenia. Baseline: BMD 0.745 g/cm2. LEFT FEMUR, TOTAL: Current: BMD 0.827 g/cm2, Z-score 0.5, T-score -1.4, osteopenia, 4.3% increase from baseline (<5% change is not significant). Baseline: BMD 0.793 g/cm2. AP SPINE L1-L4: Current: BMD 0.779 g/cm2, Z-score -1.0, T-score -3.3, osteoporosis, 1.2% increase from baseline (<5% change is not significant). Baseline: BMD 0.770 g/cm2. IDENTIFIED RISK FACTORS: Menopause, height loss, osteoporosis. HISTORY OF FRACTURE: None listed. MEDICATIONS: Calcium. MM/XR DEXA axial skeleton IMPRESSION: 1. DIAGNOSIS: Osteoporosis based on the lowest T-score value of -3.3 in the lumbar spine applying World Health Organization criteria. 2. 10-YEAR FRACTURE RISK PREDICTION, FRAX: According to the guidelines, FRAX calculation should only be performed on patients in the osteopenia bone density category. Therefore, FRAX was not performed on this patient. 3. Treatment Recommendations: NOF guidelines recommend consideration for treatment in postmenopausal women and men age 50 and older presenting with the following: -A hip or vertebral (clinical or morphometric) fracture. -T-score less than or equal to -2.5 at the femoral neck or spine after appropriate evaluation to exclude secondary causes. -Low bone mass at the hip or spine and a 10-year fracture probability by FRAX of greater than or equal to 3% for hip fracture or greater than or equal to 20% for major osteoporotic fracture based on the [place] adapted WHO algorithm. 4. Other Recommendations: All treatment decisions require clinical judgment and consideration of individual patient factors, including patient preferences, comorbidities, previous drug use, risk factors not captured in the FRAX model (e.g. frailty, falls, vitamin D deficiency, increased bone turnover, interval significant decline in bone density) and possible under or overestimation of fracture risk by FRAX. Additional medical evaluation for secondary cause of low bone mineral density may be appropriate. FUTURE SCAN RECOMMENDATION: People with diagnosed cases of osteoporosis or at high risk for fracture should have regular bone mineral density tests. For patients eligible for Medicare, routine testing is allowed once every 2 years. The testing frequency can be increased to one year for patients who have rapidly progressing disease, those who are receiving or discontinuing medical therapy to restore bone mass, or have additional risk factors. Electronically signed by: Juancho Araiza MD 04/27/2024 12:17 PM EDT Dictated By: Juancho Araiza MD Signed By: <Electronically signed by Juancho Araiza MD in OV> 04/27/24 1217 DD/ 1025 TD/TT: 04/26/24 1040 Biofuels Production Technician: MERRITT [place] [facility]'s [address] [place] [address] Mammography Report Signed Patient: Vanessa Navarro MR#: [id number] [birth year] : 1955 Acct:[id number] Age/Sex: 69 / F ADM Date: 04/26/24 Loc: HO.MAMMO Attending Dr: Sai Holguin MD Ordering Physician: Sai Holguin MD Results: Date of Service: Follow Up: Procedure(s): XR DEX A axial skeleton Accession Number(s): [id number] cc: Sai Holguin MD EXAMINATION: BONE DENSITOMETRY CLINICAL INDICATION: Osteoporosis. COMPARISON: Baseline BD dated 03/07/2019. TECHNIQUE: Using a [employer] Advance DXA System (software version: 13.1) manufactured b [employer], dual-energy x-ray absorptiometry was performed of the lumbar spine and left hip. The images are of good technical quality. [facility] are attached. FINDINGS: LEFT FEMUR, NECK: Current: BMD 0.785 g /cm2, Z-score 0.3, T-score -1.8, osteopenia. Baseline: BMD 0.745 g/cm2. LEFT FEMUR, TOTAL: Current: BMD 0.827 g /cm2, Z-score 0.5, T-score -1.4, osteopenia, 4.3% increase from baseli ne (<5% change is not significant). Baseline: BMD 0.793 g/cm2. AP SPINE L1-L4: Current: BMD 0.779 g /cm2, Z-score -1.0, T-score -3.3, osteoporosis, 1.2% increase from b aseline (<5% change is not significant). Baseline: BMD 0.770 g/cm2. IDENTIFIED RISK FACTORS: Menopause, height lo ss, osteoporosis. HISTORY OF FRACTURE: None listed. MEDICATIONS: Calcium. M M/XR DEXA axial skeleton IMPRESSION: 1. DIAGNOSIS: Osteop orosis based on the lowest T-score value of -3.3 in the lumbar spine dallin lying World Health Organization criteria. 2. 10-YEAR FRACTURE RISK PREDICTION, FRAX: According to the guidelines, FRAX calculation lexie uld only be performed on patients in the osteopenia bone density categor y. Therefore, FRAX was not performed on this patient. 3. Treatment Recomme ndations: NOF guidelines recommend consideration for treatment in postmenopausal women and men age 50 and older presenting with the following: -A hip or vertebral (clinical or morphometric) fracture. -T-score less than o r equal to -2.5 at the femoral neck or spine after appropriate evaluati on to exclude secondary causes. -Low bone mass at th e hip or spine and a 10-year fracture probability by FRAX of greater t [place] or equal to 3% for hip fracture or greater than or equal to 20% for major osteoporotic fracture based on the [place] adapted WHO algorithm. 4. Other Recommendat ions: All treatment decisions require clinical judgment and conside ration of individual patient factors, including patient preferences, comorbidities, previous drug use, risk factors not captured in the FRAX model (e.g. frailty, falls, vitamin D deficiency, increased bone turno thomas, interval significant decline in bone density) and possible under o r overestimation of fracture risk by FRAX. Additional medical e valuation for secondary cause of low bone mineral density may be appropriate. FUTURE SCAN RECOMMENDATION: People with diagnose d cases of osteoporosis or at high risk for fracture should have regular bone mineral density tests. For patients eligible for Medicar e, routine testing is allowed once every 2 years. The testing frequenc y can be increased to one year for patients who have rapidly progres sing disease, those who are receiving or discontinuing medica l therapy to restore bone mass, or have additional risk factors. Electronically fern d by: Juancho Araiza MD 04/27/2024 12:17 PM EDT Dictated By: Juancho Elliott MD Signed By: <Electron ically signed by Juancho Araiza MD in OV> 04/27/24 1217 DD/ 1025 TD/TT: 04/26/24 1040 Biofuels Production Technician: HS Complete Blood Count Auto Di ff (Not yet reviewed by provider) Interpretation: Performing Lab:[facility], [address] [place] [id number] Notes/Report: White Blood Count 7.1 4.8-10.8 X10*3/uL Red Blood Count 4.31 4.20-5.50 X10*6/uL Hemoglobin 13.0 12.0-16.0 g/dl Hematocrit 39.2 37.0-47.0 % Mean Corpuscular Volume 91.0 80.0-98.0 fL Mean Corpuscular Hemoglobin 30.2 27.0-33.0 pg Mean Corpuscular HGB Conc 33.2 31.0-35.0 g/dl Red Cell Distribution Width 12.5 11.0-16.0 % Platelet Count 285 160-400 X10*3/uL Mean Platelet Volume 8.9 9.4-12.3 fL Neutrophils Percent Auto 58.8 45-73 % Imm Gran Pct Auto 0.4 0.0-0.4 % Lymphocytes Percent Auto 32.7 20-40 % Monocytes Percent Auto 5.2 2-11 % Eosinophils Percent Auto 2.3 0-4 % Basophils Percent Auto 0.6 0-2 % NRBC Pct Auto 0.0 0.0-0.2 /100WBC Neutrophils Absolute Auto 4.2 2.0-8.3 x10*3/u L Imm Gran Abs Auto 0.03 0.00-0.03 X10*3/uL Lymphocytes Absolute Auto 2.3 1.2-4.9 X10*3/u L Monocytes Absolute Auto 0.4 0.1-1.2 X10*3/uL Eosinophils Absolute Auto 0.2 0.0-0.4 X10*3/u L Basophils Absolute Auto 0.0 0.0-0.2 X10*3/uL NRBC Abs Auto 0.000 0.0-0.012 X10*3/uL Reason For Referral No Information Medications Medication SIG (Take, Route, Frequency, Duration) Notes Start Date End Date Status ProAir HFA 108 (90 Base) MCG/ACT 1-2 puff as needed Inhalation every 4 hrs Active Atorvastatin Calcium 80 MG (Prior Auth#:[id number]) Oral Active Aspirin 81 81 MG 1 tablet Orally Once a day Active Metoprolol Succinate ER 25 MG (Prior Auth#:[id number]) Oral Active Cimetidine 300 MG (Prior Auth#:[id number]) Oral Active traZODone HCl 100 mg TAKE 1 TABLET BY [facility] AT BEDTIME for 28 Active amLODIPine Besylate 5 mg 1 tablet orally once a day for 28 days Active Omeprazole 20 mg TAKE 1 CAPSULE BY MO UTH DAILY Active Nitroglycerin 0.4 mg USE DIRECTED SUBLINGUAL ONCE A DAY Active Vitamin D3 25 MCG (1000 UT) TAKE 1 TABLE T BY MOUTH DAILY Active Ventolin HFA 108 (90 Base) MCG/ACT TAKE 1-2 INHALATIONS EVERY 4 HOURS NEEDED Active Cefuroxime Axetil 500 MG 1 tablet Orally every 12 hrs Active Calcium Carb-Cholecalciferol 600-5 MG-MCG TAKE 1 TABLET BY MOUTH EVERY MORNING Active metroNIDAZOLE 500 MG 1 tablet Orally Thr ee times a day Active Immunizations Vaccine Route Administration Date Status Comme nts COVID 19 Moderna Unknown 06/29/2021 Administered COVID 19 Moderna Unknown 10/21/2020 Administered COVID 19 Moderna Unknown 09/23/2020 Administered Decline: Influenza Unknown 04/18/2023 Refused Social History Tobacco Use: Social History [...] ast year? No Points 0 Interpretation Negative Problems Problem Type SNOMED Code ICD Code Onset Dates Problem Status W/U Status Risk Notes Problem 6530373 Former smoker (Z87.891) Active confirmed We reviewed her plan to remain abstinent times of stress and illness. Problem 57416878 Anxiety (F41.9) Active confirmed She will continue on current therapy. Problem Vitamin D deficiency (16745864) Vitamin D deficiency, unspecified (E55.9) Active confirmed A vitamin D level has been ordered. She was continued on current medications. Problem 020790412 Mixed hyperlipidemia (E78.2) Active confirmed No change in he r regimen was made. Comprehensive blood work was ordered. Problem 178414729 Atherosclerotic heart disease of [place] coronary artery without angina pectoris (I25.10) Active confirmed She has had no chest pain, diaphoresis, palpitations loss of consciousness or other cardiac signs. She has been compliant with all of her medication. No change in her regimen seems necessary. During her recent hospitalization she had no cardiac issues and tolerated an ERCP without angina. She is medically cleared for lithotripsy of the common bile duct. Problem 43849358 Age-related osteoporosis without current pathological fracture (M81.0) Active confirmed She will be continued on her current regimen and her bone marrow density test will be done periodically.A bone density test has been ordered. Problem 177675487 GERD without esophagitis (K21.9) Active confirmed Her recent episode of abdominal pain was due to gram-negative sepsis and obstruction of the common bile duct. Her reflexes well controlled with hdnz-eay-yokpxry medication. Problem 88123065 Essential hypertension (I10) Active confirmed Her blood pressure and vital signs were stable today. No change in her regimen was needed. Problem 622358354 Mild intermitten t asthma without complication (J45.20) Active confirmed There were a fe w inspiratory wheezes today but she was comfortable breathing room air. Problem Osteoarthritis (286220465) Osteoarthritis, unspecified osteoarthritis type, unspecified site (M19.90) Active confirmed She continues to have arthritic pain in her hips shoulders and fingers. There has been no change in the symptom. It is controlled with the current regimen. 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 She has no difficulty with food. Problem 013225585 Choledocholithia s is (K80.50) Active confirmed She remains asymptomatic with no further cholecystitis.. Vital Signs Heart Rate 67 /min 11/02/2024 Temperature 97.9 degrees Fahrenheit 11/02/2024 Respiratory Rate 14 /min 11/02/2024 Oximetry 97 % 11/02/2024 Blood pressure diastolic 54 mm Hg 11/02/2024 Height 63 in 11/02/2024 Blood pressure systolic 111 mm Hg 11/02/2024 Weight 110 lbs 11/02/2024 BMI 19.48 kg/m2 11/02/2024 Encounters Encounter Location Date Provider Diagnosis Sai Holguin III, MD [address] [place] [address] [place] [id number] 04/20/2024 Sai Holguin Mixed hyperlipidemia E78.2 ; Atherosclerotic heart disease of [place] coronary artery without angina pectoris I25.10 ; Weight loss R63.4 ; Vitamin D deficiency, unspecified E55.9 ; Essential hypertension I10 ; Osteoarthritis, unspecified osteoarthritis type, unspecified site M19.90 ; Anxiety F41.9 ; Mild intermittent asthma without complication J45.20 ; Age-related osteoporosis without current pathological fracture M81.0 and Former smoker Z87.891 Sai Holguin III, MD [address] [place] [address] [place] [phone] 08/03/2024 Sai Holguin Essential hypertensi on I10 ; Osteoarthritis, unspecified osteoarthritis type, unspecified site M19.90 ; Atherosclerotic heart disease of [place] coronary artery without angina pectoris I25.10 ; Anxiety F41.9 ; Mild intermittent asthma without complication J45.20 ; Edentulous K00.0 ; Mixed hyperlipidemia E78.2 ; GERD without esophagitis K21.9 and Former smoker Z87.891 Sai Holguin III, MD [address] [place] [address] [place] [id number] 11/02/2024 Sai Holguin Mixed hyperlipidemia E78.2 ; Essential hypertension I10 ; Vitamin D deficiency, unspecified E55.9 ; Osteoarthritis, unspecified osteoarthritis type, unspecified site M19.90 ; Atherosclerotic heart disease of [place] coronary artery without angina pectoris I25.10 ; Mild intermittent asthma without complication J45.20 ; Former smoker Z87.891 and GERD without esophagitis K21.9 Sai Holguin III, MD [address] [place] [address] [place] [phone] 09/24/2024 Sai Holguin Assessments Encounter Date Diagnosis (ICD Code) Assessment Notes T reatment Notes Treatment Clinical Notes 04/20/2024 Mixed hyperlipidemia (ICD-10 - E78.2) Current blood work is not available. A fasting lipid profile as part of comprehensive blood work has been ordered. 04/20/2024 Atherosclerotic hear t disease of [place] coronary artery without angina pectoris (ICD-10 - [...] lithotripsy of the common bile duct. 08/03/2024 Essential hypertension (ICD-10 - I10) Her [...] is controlled with the current regimen. 11/02/2024 Mixed hyperlipidemia (ICD-10 - E78.2) No change in her regimen was made. Comprehensive blood work was ordered. 11/02/2024 Essential hypertension (ICD-10 - I10) Her blood pressure and vital signs were stable today. No change in her regimen was needed. 04/20/2024 Weight loss (ICD-10 - R63.4) After losing weight for several months she is now gained 2 pounds and says she has a good appetite. She appears to be well today with good nutrition. She will be followed closely. 08/03/2024 Atherosclerotic hear t disease of [place] coronary artery without angina pectoris (ICD-10 - [...] lithotripsy of the common bile duct. 11/02/2024 Vitamin D deficiency , unspecified (ICD-10 - E55.9) A vitamin D level has been ordered. She was continued on current medications. 04/20/2024 Vitamin D deficiency , unspecified (ICD-10 - E55.9) He will continue to take her vitamin D as well as her calcium. 08/03/2024 Anxiety (ICD-10 - F41.9) She will continue on current therapy. 11/02/2024 Osteoarthritis, unspecified osteoarthritis type, unspecified site (ICD-10 - M19.90) She continues to have arthritic pain in her hips shoulders and fingers. There has been no change in the symptom. It is controlled with the current regimen. 04/20/2024 Essential hypertension (ICD-10 - I10) Her blood pressure is 115/54.. She has had no orthostatic dizziness. Her blood pressure will be watched. She was encouraged to gained several more pounds. 08/03/2024 Mild intermittent asthma without complication (ICD-10 - J45.20) There were a few inspiratory wheezes today but she was comfortable breathing room air. 11/02/2024 Atherosclerotic hear t disease of [place] coronary artery without angina pectoris (ICD-10 - [...] lithotripsy of the common bile duct. 04/20/2024 Osteoarthritis, unspecified osteoarthritis type, unspecified site (ICD-10 - M19.90) She continues to have arthritic pain in her hips shoulders and fingers. There has been no change in the symptom. It is controlled with the current regimen. 08/03/2024 Edentulous (ICD-10 - K00.0) She has dentures and says they fit well. She has no difficulty with food. 11/02/2024 Mild intermittent asthma without complication (ICD-10 - J45.20) There were a few inspiratory wheezes today but she was comfortable breathing room air. 04/20/2024 Anxiety (ICD-10 - F41.9) She will continue on current therapy. 08/03/2024 Mixed hyperlipidemia (ICD-10 - E78.2) Current blood work is not available. A fasting lipid profile as part of comprehensive blood work has been ordered. 11/02/2024 Former smoker (ICD-1 0 - Z87.891) We reviewed her plan to remain abstinent times of stress and illness. 04/20/2024 Mild intermittent asthma without complication (ICD-10 - J45.20) There were a few inspiratory wheezes today but she was comfortable breathing room air. 08/03/2024 GERD without esophagitis (ICD-10 - K21.9) Her recent episode of abdominal pain was due to gram-negative sepsis and obstruction of the common bile duct. Her reflexes well controlled with jeby-jzf-ghddeeg medication. 11/02/2024 GERD without esophagitis (ICD-10 - K21.9) Her recent episode of abdominal pain was due to gram-negative sepsis and obstruction of the common bile duct. Her reflexes well controlled with swmg-ctj-idfytjn medication. 04/20/2024 Age-related osteoporosis without current pathological fracture (ICD-10 - M81.0) She will be continued on her current regimen and her bone marrow density test will be done periodically.A bone density test has been ordered. 08/03/2024 Former smoker (ICD-1 0 - Z87.891) We reviewed her plan to remain abstinent times of stress and illness. 04/20/2024 Former smoker (ICD-1 0 - Z87.891) We reviewed her plan to remain abstinent times of stress and illness. Plan Of Treatment Pending Test Test Name Order Date PROFILE, FASTING (COMPREHENSIVE METABOLI C) 09/29/2020 PROFILE, FASTING (COMPREHENSIVE METABOLI C) 03/07/2020 PROFILE, FASTING (COMPREHENSIVE METABOLI C) 04/20/2024 PROFILE, FASTING (COMPREHENSIVE METABOLI C) 12/06/2019 PROFILE, FASTING (COMPREHENSIVE METABOLI C) 09/02/2021 PROFILE, FASTING (COMPREHENSIVE METABOLI C) 07/01/2020 PROFILE, FASTING (COMPREHENSIVE METABOLI C) 10/19/2023 PROFILE, FASTING (COMPREHENSIVE METABOLI C) 11/02/2024 PROFILE, FASTING (COMPREHENSIVE METABOLI C) 03/31/2020 PROFILE, FASTING (COMPREHENSIVE METABOLI C) 2021 PROFILE, FASTING (COMPREHENSIVE METABOLI C) 05/20/2020 PROFILE, FASTING (COMPREHENSIVE METABOLI C) 12/02/2021 PROFILE, FASTING (COMPREHENSIVE METABOLI C) 08/03/2024 PROFILE, RANDOM (COMPREHENSIVE METABOLIC ) 08/01/2019 HEMOGLOBIN A1C (GLYCOHEMOGLOBIN) 021 LIPID PANEL 05/20/2020 LIPID PANEL 08/03/2024 LIPID PANEL 03/07/2020 LIPID PANEL 08/01/2019 LIPID PANEL 09/29/2020 LIPID PANEL 12/06/2019 LIPID PANEL 09/02/2021 LIPID PANEL 07/01/2020 LIPID PANEL 03/31/2020 LIPID PANEL 2021 GGT 03/31/2020 CBC w DIFF 12/02/2021 CBC w DIFF 2021 CBC w DIFF 05/20/2020 CBC w DIFF 03/31/2020 CBC w DIFF 03/07/2020 CBC w DIFF 08/01/2019 CBC w DIFF 09/29/2020 CBC w DIFF 12/06/2019 CBC w DIFF 11/02/2024 CBC w DIFF 09/02/2021 CBC w DIFF 07/01/2020 BONE DENSITY DEXA 10/19/2023 MAMMOGRAM DIGITAL BILATERAL SCREEN 08/01 VITAMIN D 25-OH TOTAL 08/01/2019 CBC WITH AUTO DIFF 08/03/2024 CBC WITH AUTO DIFF 04/20/2024 CBC WITH AUTO DIFF 10/19/2023 Complete Blood Count Auto Diff Lipid Panel 12/02/2021 Lipid Panel 04/20/2024 Lipid Panel 10/19/2023 Lipid Panel 11/02/2024 Vitamin D 25-OH Total 11/02/2024 Vitamin D 25-OH Total 04/20/2024 Next Appt Details Provider Name:Sai Back Chelsie , 04/23/2025 09:00:00 AM, [address] [place] [address] DR, [facility] [place], [place], [address], Insurance Providers Payer Name Payer Address Payer Phone Subscriber Number Group Number Insured Name Patient Relationship to Insured Coverage Start Date Coverage End Date MEDICARE NGS [address] [place] [address] [id number] Shannan Navarro Self - patient is the insured MEDICAID [place] [address] [place], [place] [id number] Shannan Navarro Self - patient is the insured Medical (General) History Medical History History ICD Code HTN (hypertension) I10 Anxiety F41.9 Asthma J45.909 Osteoarthritis M19.90 coronary artery disease, Dr. Morrell , 2017 GERD hyperlipidemia edentulous cholelithiasis 2019 colonoscopy 2019 former smoker underweight severe OA right knee Surgical History Surgery Date(Month/Year) common bile duct stone, ERCP with sphincterotomy, [facility], Dr. Sai Wray 06/2017 full dental extractions cholecystectomy 12/2018 colonoscopy 2019 Stent placement, LAD, RCA 04/2017 Cesearean section tubal ligation Breast Biopsy, fibrocystic disease 1998
[2025-04-09 10:56] LABS: Alanine Aminotransferase 23 U/L (0-31); Albumin Level 4.3 g/dL (3.5-5.0); Alkaline Phosphatase 112 U/L (39-117); Anion Gap 11 (12-20); Aspartate Amino Transferase 26 U/L (5-31); Blood Urea Nitrogen 11 mg/dL (9-16); Calcium 9.3 mg/dL (8.4-10.2); Carbon Dioxide 28 mmol/L (22-29); Chloride 109 mmol/L (96-108); Cholesterol 126 mg/dL (<200); Estimated Glomerular Filt Rate > 60; HDL Cholesterol 43 mg/dL (>40); Potassium 4.4 mmol/L (3.3-5.1); Sodium 144 mmol/L (135-145); Total Protein 7.2 g/dL (6.5-8.0); Triglycerides 119 mg/dL (<150)
== END 2025-04-09 09:28 | disposition home or self-care (01) ==
LOC: HO.LAB 09:27
PROVIDERS: PCP Internal Medicine Medical Oncology; Visit Provider Internal Medicine Medical Oncology
DX: I10 Essential (primary) hypertension (principal); E55.9 Vitamin D deficiency, unspecified; E78.2 Mixed hyperlipidemia
CPT/HCPCS: 36415; 80053; 80061; 82306; 85025

== ENCOUNTER 2025-05-17 09:08 | Outpatient (REF) | payer MEDICARE, MEDICAID, SELFPAY ==
--- OUTSIDE RECORDS SUMMARY | 2024-04-20 04:00 | XMS_ITS ---
Author Organization Sai Holguin III, MD Address [address] [place] [address] Care Team Providers Care [place] Or City Auditor Name Role Phone Dr. Sai Holguin III Primary Care Provider [phone] Allergies Allergen (clinical drug ingredient) Drug/Non Drug [...] day Active Atorvastatin Calcium 80 MG (Prior Auth#:[id number]) Oral Active Aspirin 81 81 MG 1 tablet Orally Once a day Active Metoprolol Succinate ER 25 MG (Prior Auth#:[id number]) Oral Active Cimetidine 300 MG (Prior Auth#:[id number]) Oral Active traZODone HCl 100 mg TAKE 1 TABLET BY [facility] AT BEDTIME Active Omeprazole 20 mg TAKE [...] Date Provider Diagnosis Sai Holguin III, MD [address] [place] [address] [place] [address] 04/20/2024 Sai Holguin Mixed hyperlipidemia E78.2 ; Atherosclerotic heart disease of [place] coronary artery without angina pectoris I25.10 ; [...] ordered. 04/20/2024 Atherosclerotic hear t disease of [place] coronary artery without angina pectoris (ICD-10 - [...] day Atorvastatin Calcium 80 MG (Prior Auth#: [id number]) Oral Aspirin 81 81 MG 1 tablet Orally Once a day Metoprolol Succinate ER 25 MG (Prior Aut h#:[id number]) Oral Cimetidine 300 MG (Prior Auth#:[id number]) Oral traZODone HCl 100 mg TAKE 1 [...] Provider Name:Sai Holguin , 04/25/2026 09:00:00 AM, [address] [place] [address], [place] [address], [place], [address], Progress Notes * Shannan WAGNER MDOB: 3 (69 yo F)Acc No.[id number]:04/20/2024 Progress Notes Patient: Moy TOMShannan Provider: Nisha Holguin MD :1955 A ge:69 Y S ex:Female Date:04/20/2024 Address:[address] [place] [address], [facility] [id number] Subjective: * Chief Complaints: * A nnual [...] common bile duct stone, ERCP with sphincterotomy, [facility], Dr. Sai Wray 06/2017 * Hospitalization/Major Diagno [...] MG Tablet Extended Release 24 Hour (Prior Auth#:[id number]) Oral Cimetidine 300 MG Tablet (Prior Auth#:[id number]) Oral Atorvastatin Calcium 80 MG Tablet (Prior Auth#:[id number]) Oral Aspirin 81 81 MG Tablet Delayed [...] MG Tablet Extended Release 24 Hour (Prior Auth#:[id number]) Oral Taking Cimetidine 300 MG Tablet (Prior Auth#:[id number]) Oral Taking Atorvastatin Calcium 80 MG Tablet (Prior Auth#:[id number]) Oral Taking Aspirin 81 81 MG Tablet [...] Assessment: 1. A therosclerotic heart disease of [place] coronary artery without angina pectoris - I25.10 [...] Extended Release 24 Hour, 25 MG, (Prior Auth#:[id number]), Oral; C ontinue Cimetidine Tablet, 300 MG, (Prior Auth#:[id number]), Oral; C ontinue Atorvastatin Calcium Tablet, 80 MG, (Prior Auth#:[id number]), Oral; C ontinue Aspirin 81 Tablet Delayed [...] MD Date: Generated for Kanwal tyson/Yusra/eTransmitting on: 07/17/2024 09:32 AM EST History and Physical Notes * HPI [...]
--- OUTSIDE RECORDS SUMMARY | 2024-08-03 05:00 | XMS_ITS ---
Author Organization Sai Holguin III, MD Address [address] [place] [address] Care Team Providers Care Bee Worker Name Role Phone Dr. Sai Holguin III Primary Care Provider Allergies Allergen (clinical drug ingredient) Drug/Non Drug Allergy documented on EMR Reaction Allergy Type Onset Date Status No Known Drug Allergy Unknown Drug Allergy Active REASON FOR VISIT Rash and discoloration bilateral leg x 1 month, Appointment with Vascular on August 10, 2024 Medications Medication SIG (Take, Route, Frequency, Duration) Notes Start Date End Date Status traZODone HCl 100 mg TAKE 1 TABLET BY [facility] AT BEDTIME Active Metoprolol Succinate ER 25 MG (Prior Auth#:[id number]) Oral Active Cimetidine 300 MG (Prior Auth#:[id number]) Oral Active Atorvastatin Calcium 80 MG (Prior Auth#:[id number]) Oral Active Aspirin 81 81 MG 1 tablet Orally Once a day Active amLODIPine Besylate 5 mg TAKE 1 TABLET B Y MOUTH DAILY Active Nitroglycerin 0.4 mg USE DIRECTED SUBLINGUAL ONCE A DAY Active Ventolin HFA 108 (90 Base) MCG/ACT TAKE 1-2 INHALATIONS EVERY 4 HOURS NEEDED Active Vitamin D3 25 MCG (1000 UT) TAKE 1 TABLE T BY MOUTH DAILY Active Calcium Carb-Cholecalciferol 600-5 MG-MCG TAKE 1 TABLET BY MOUTH EVERY MORNING Active Omeprazole 20 mg TAKE 1 CAPSULE BY MO [facility] DAILY Active Cefuroxime Axetil 500 MG 1 tablet Orally every 12 hrs Active metroNIDAZOLE 500 MG [address] ee times a day Active ProAir HFA 108 (90 Base) MCG/ACT 1-2 puff as needed Inhalation every 4 hrs Active Social History Tobacco Use: Social History [...] Additional Findings: Tobacco non-user Ex-cigaret te smoker Vital Signs Temperature 97.9 degrees Fahrenheit 08/03/19 25 Blood pressure systolic 105 mm Hg 08/03/19 25 Blood pressure diastolic 57 mm Hg 025 Heart Rate 77 /min 08/03/2024 Height 63 in 08/03/2024 Weight 111 lbs 08/03/2024 BMI 19.66 kg/m2 08/03/2024 Encounters Encounter Location Date Provider Diagnosis Sai Holguin III, MD [address] [place] [address] [place] [id number] 08/03/2024 Sai Holguin Essential hypertensi on I10 ; Osteoarthritis, unspecified osteoarthritis type, unspecified site M19.90 ; Atherosclerotic heart disease of [place] coronary artery without angina pectoris I25.10 ; Anxiety F41.9 ; Mild intermittent asthma without complication J45.20 ; Edentulous K00.0 ; Mixed hyperlipidemia E78.2 ; GERD without esophagitis K21.9 and Former smoker Z87.891 Assessments Encounter Date Diagnosis (ICD Code) Assessment Notes T reatment Notes Treatment Clinical Notes 08/03/2024 Essential hypertension (ICD-10 - I10) Her blood pressure is 105/57. She has had no orthostatic dizziness. Her blood pressure will be watched. She was encouraged to gained several more pounds. 08/03/2024 Osteoarthritis, unspecified osteoarthritis type, unspecified site (ICD-10 - M19.90) She continues to have arthritic pain in her hips shoulders and fingers. There has been no change in the symptom. It is controlled with the current regimen. 08/03/2024 Atherosclerotic hear t disease of [place] coronary artery without angina pectoris (ICD-10 - [...] for lithotripsy of the common bile duct. 08/03/2024 Anxiety (ICD-10 - F41.9) She will continue on current therapy. 08/03/2024 Mild intermittent asthma without complication (ICD-10 - J45.20) There were a few inspiratory wheezes today but she was comfortable breathing room air. 08/03/2024 Edentulous (ICD-10 - K00.0) She has dentures and says they fit well. She has no difficulty with food. 08/03/2024 Mixed hyperlipidemia (ICD-10 - E78.2) Current blood work is not available. A fasting lipid profile as part of comprehensive blood work has been ordered. 08/03/2024 GERD without esophagitis (ICD-10 - K21.9) Her recent episode of abdominal pain was due to gram-negative sepsis and obstruction of the common bile duct. Her reflexes well controlled with qmai-uln-rfffakn medication. 08/03/2024 Former smoker (ICD-1 0 - Z87.891) We reviewed her plan to remain abstinent times of stress and illness. Plan Of Treatment Medication Medication Name Sig Start Date Stop Date Notes traZODone HCl 100 mg TAKE 1 TABLET BY [facility] AT BEDTIME Metoprolol Succinate ER 25 MG (Prior Aut h#:[id number]) Oral Cimetidine 300 MG (Prior Auth#:[id number]) Oral Atorvastatin Calcium 80 MG (Prior Auth#: [id number]) Oral Aspirin 81 81 MG 1 tablet Orally Once a day amLODIPine Besylate 5 mg TAKE 1 TABLET BY MOUTH DAILY Nitroglycerin 0.4 mg USE DIRECTED SUB LINGUAL ONCE A DAY Ventolin HFA 108 (90 Base) MCG/ACT TAKE 1-2 INHALATIONS EVERY 4 HOURS NEEDED Vitamin D3 25 MCG (1000 UT) TAKE 1 TABLET BY MOUTH DAILY Calcium Carb-Cholecalciferol 600-5 MG-MCG TAKE 1 TABLET BY MOUTH EVERY MORNING Omeprazole 20 mg TAKE 1 CAPSULE BY [facility] DAILY Cefuroxime Axetil 500 MG 1 tablet Orally every 12 hrs metroNIDAZOLE 500 MG [address] ee times a day ProAir HFA 108 (90 Base) MCG/ACT 1-2 puff as needed Inhalation every 4 hrs Pending Test Test Name Order Date PROFILE, FASTING (COMPREHENSIVE METABOLI C) 08/03/2024 LIPID PANEL 08/03/2024 CBC WITH AUTO DIFF 08/03/2024 Next Appt Details Follow Up: 3 Months, Reason: OV Provider Name:Sai Holguin , 04/25/2026 09:00:00 AM, [address] [place] [address] DR, [address], [place], [id number], Progress Notes * hSannan WAGNER MDOB: 3 (69 yo F)Acc No.[id number]:08/03/2024 Progress Notes Patient: Shannan LYN Provider: Nisha Holguin MD :1955 A ge:69 Y S ex:Female Date:08/03/2024 Address:[address] [place] [address], [place], [id number] Subjective: * Chief Complaints: * R osito and discoloration bilateral leg x 1 monthAppointment with Vascular on August 10, 2024 * HPI: C OVID-19 Screening: Questions H ave you had any new onset fever, chills, cough, congestion, sore throat, shortness of breath, muscle aches? N o * ROS: G eneral/Constitutional: pain o nly [...] enies. D iarrhea d enies. H eartburn d enies. N ausea d enies. R ectal bleeding [...] enies. R osito d enies. S kin lesion(s)?Discoloration of skin around ankles. N eurologic: Difficulty speaking d enies. D izziness d enies.?Headache d enies. L ow back pain d enies. P sychiatric: Depressed mood d enies. * Medical History: * Surgical History: B reast Biopsy, fibrocystic disease 1997tubal ligation Cesearean section Stent placement, LAD, RCA 04/2017colonoscopy 2018cholecystectomy 12/2018full dental extractions common bile duct stone, ERCP with sphincterotomy, [facility], Dr. Sai Wray 06/2017 * Hospitalization/Major Diagno stic Procedure: D enies Past Hospitalization * Family History: F ather: 80 yrs, Extremity gangrene with amputation, diagnosed with HTN, DM. M other: 86 yrs, Sepsis from urinary tract infection. C hildren: alive. S ibclayton: alive, diagnosed with Cancer. 3 brother(s) - [...] dditional Findings: Tobacco non-user E x-cigarette smoker S he no longer smokes tobacco or uses alcohol. She has 4 healthy children. She is not working. * Medications: T akingamLODIPine Besylate 5 mg Tablet TAKE 1 TABLET BY MOUTH DAILY traZODone HCl 100 mg Tablet TAKE 1 TABLET BY MOUTH AT BEDTIME Metoprolol Succinate ER 25 MG Tablet Extended Release 24 Hour (Prior Auth#:[id number]) Oral Atorvastatin Calcium 80 MG Tablet (Prior Auth#:[id number]) Oral Aspirin 81 81 MG Tablet Delayed Release 1 tablet Orally Once a day ProAir HFA 108 (90 Base) MCG/ACT Aerosol Solution 1-2 puff as needed Inhalation every 4 hrs Nitroglycerin 0.4 mg Tablet Sublingual USE DIRECTED SUBLINGUAL ONCE A DAY Ventolin HFA 108 (90 Base) MCG/ACT Aerosol Solution TAKE 1-2 INHALATIONS EVERY 4 HOURS NEEDED Vitamin D3 25 MCG (1000 UT) Tablet TAKE 1 TABLET BY MOUTH DAILY Calcium Carb-Cholecalciferol 600-5 MG-MCG Tablet TAKE 1 TABLET BY MOUTH EVERY MORNING Taking amLODIPine Besylate 5 mg Tablet TAKE 1 TABLET BY MOUTH DAILY Taking traZODone HCl 100 mg Tablet TAKE 1 TABLET BY MOUTH AT BEDTIME Taking Metoprolol Succinate ER 25 MG Tablet Extended Release 24 Hour (Prior Auth#:[id number]) Oral Taking Atorvastatin Calcium 80 MG Tablet (Prior Auth#:[id number]) Oral Taking Aspirin 81 81 MG Tablet Delayed Release 1 tablet Orally Once a day Taking ProAir HFA 108 (90 Base) MCG/ACT Aerosol Solution 1-2 puff as needed Inhalation every 4 hrs Taking Nitroglycerin 0.4 mg Tablet Sublingual USE DIRECTED SUBLINGUAL ONCE A DAY Taking Ventolin HFA 108 (90 Base) MCG/ACT Aerosol Solution TAKE 1-2 INHALATIONS EVERY 4 HOURS NEEDED Taking Vitamin D3 25 MCG (1000 UT) Tablet TAKE 1 TABLET BY MOUTH DAILY Taking Calcium Carb-Cholecalciferol 600- 5 MG-MCG Tablet TAKE 1 TABLET BY MOUTH EVERY MORNING DiscontinuedCimetidine 300 MG Tablet (Prior Auth#:[id number]) Oral Cefuroxime Axetil 500 MG Tablet 1 tablet Orally every 12 hrs metroNIDAZOLE 500 MG Tablet 1 tablet Orally Three times a day Omeprazole 20 mg Capsule Delayed Release TAKE 1 CAPSULE BY MOUTH DAILY Medication List reviewed and reconciled with the patientDiscontinued Cimetidine 300 MG Tablet (Prior Auth#:[id number]) Oral Discontinued Cefuroxime Axetil 500 MG Tablet 1 tablet Orally every 12 hrs Discontinued metroNIDAZOLE 500 MG Tablet 1 tablet Orally Three times a day Discontinued Omeprazole 20 mg Capsule Delayed Release TAKE 1 CAPSULE BY MOUTH DAILY Medication List reviewed and reconciled with the patient * Allergies: N o Known Drug Allergyno[Allergies Verified] Objective: * Vitals: H t: 63, Wt:111, BMI:19.66, BP:105/57, HR:77, Temp:97.9, Wt-k.35. * Examination: G eneral Examination: GENERAL APPEARANCE: p adelaida, well nourished, well developed, in no acute distress, calm and relaxed, underweight, woman. HEAD: a traumatic, normocephalic. EYES: e roxy, perrla, anicteric, conjugate. EARS: n ormal. NOSE: s eptum intact. ORAL CAVITY: n ormal, unremarkable. NECK/THYROID: n o jugular venous distention, no carotid bruit, thyroid normal. LYMPH NODES: n o enlarged lymph nodes,spleen normal. SKIN: n o suspicious lesions, anictericSeveral smooth patches of erythema and irritated skin over her ankles. HEART: n o clicks, gallops, murmurs, or rubs, regular rhythm, S1, S2 normal, no s3, or vascular bruits. LUNGS: c lear to auscultation . BREASTS: N ot examined. ABDOMEN: b owel sounds normal, no ascites, no organomegaly, no mass. RECTAL EXAM: n ot examined. MUSCULOSKELETAL: e xtremities unremarkable, no clubbing, cyanosis or edema. PERIPHERAL PULSES: n ormal. NEUROLOGIC: a lert and oriented, cranial nerves 2-12 grossly intact, deep tendon reflexes 2+ symmetrical, motor strength normal upper and lower extremities, sensory exam intact. PSYCH: a lert, oriented, thought process logical, goal directed, cognitive function intact. Assessment: * Assessment: 1. E ssential hypertension - I10 (Primary) N otes :Her blood pressure is 105/57. She has had no orthostatic dizziness. Her blood pressure will be watched. She was encouraged to gained several more pounds. 2 . O steoarthritis, unspecified osteoarthritis type, unspecified site - M19.90 N otes :She continues to have arthritic pain in her hips shoulders and fingers. There has been no change in the symptom. It is controlled with the current regimen. 3 . A therosclerotic heart disease of [place] coronary artery without angina pectoris - I25.10 N otes :She has had no chest pain, diaphoresis, palpitations loss of consciousness or other cardiac signs. She has been compliant with all of her medication. No change in her regimen seems necessary. During her recent hospitalization she had no cardiac issues and tolerated an ERCP without angina. She is medically cleared for lithotripsy of the common bile duct. 4 . A nxiety - F41.9 N otes :She will continue on current therapy. 5 . M ild intermittent asthma without complication - J45.20 N otes :There were a few inspiratory wheezes today but she was comfortable breathing room air. 6 . E dentulous - K00.0 N otes :She has dentures and says they fit well. She has no difficulty with food. 7 . M ixed hyperlipidemia - E78.2 N otes :Current blood work is not available. A fasting lipid profile as part of comprehensive blood work has been ordered. 8 . G ERD without esophagitis - K21.9 N otes :Her recent episode of abdominal pain was due to gram-negative sepsis and obstruction of the common bile duct. Her reflexes well controlled with eskv-ber-qgefypv medication. 9 . F ormer smoker - Z87.891 N otes :We reviewed her plan to remain abstinent times of stress and illness. Plan: * Treatment: * Labs: * L ab: PROFILE, FASTING (COMPREHENSIVE METABOLIC) L ab: LIPID PANEL L ab: CBC WITH AUTO DIFF * Procedure Codes: * Preventive Medicine: Counseling: C are goal follow-up plan: Counseling for abnormal BMI given Y es Below Normal BMI Follow-up D ietary education for weight gain, Dietary management education, guidance, and counseling, Feeding regime, Lifestyle education regarding diet, Nutrition / feeding management, Prescribed diet education, Special diet education, Intervention, Order not done: Medical or Other reason not done * Follow Up: 3 Months (Reason: OV) * Images: * Sign off status: Completed true * Provider: Nisha Holguin MD Date: 0 08/03/2024 Generated for Kanwal tyson/Yusra/Lianaitting on: 07/17/2024 09:31 AM EST History and Physical Notes * HPI (History of Present Illness) Category Sub-Category Detail Notes COVID-19 Screening Questions Have you had any new onset fever, chills, cough, congestion, sore throat, shortness of breath, muscle aches?: No Examination Category Sub-Category Detail Notes General Examination [...] sounds normal, no ascites, no organomegaly, no mass NEUROLOGIC: alert and oriented, cranial nerves 2-12 grossly intact, deep tendon reflexes 2+ symmetrical, motor strength normal upper and lower extremities, sensory exam intact SKIN: no suspicious lesion s, anictericSeveral smooth patches of erythema and irritated skin over her ankles PERIPHERAL PULSES: normal BREASTS: Not examined MUSCULOSKELETAL: extremities unremark able, no clubbing, cyanosis or edema LYMPH NODES: no enlarged lymph no wilberto,spleen normal RECTAL EXAM: not examined PSYCH: alert, oriented, tho ught process logical, goal directed, cognitive function intact ORAL CAVITY: normal, unremarkable
--- OUTSIDE RECORDS SUMMARY | 2024-08-21 12:00 | XMS_ITS ---
Author Organization Sai Holguin III, MD Address [address] [place] [address] [place] [address] Care Team Providers Care Air Brake Adjuster Name Role Phone Dr. Sai Holguin III Primary Care Provider REASON FOR VISIT Follow up Social History Sex Assigned At : Social History Observation Description Sex Assigned At Female Encounters Encounter Location Date Provider Diagnosis Sai Holguin III, MD [address] [place] [address] [place] [address] 08/21/2024 Sai Holguin Plan Of Treatment Next Appt Details Provider Name:Sai Holguin , 04/25/2026 09:00:00 AM, [address] [place] [address] [address], [place], [address], Progress Notes * Shannan WAGNER MDOB: 3 (70 yo F)Acc No.[id number]:08/21/2024 Progress Notes Patient: Shannan LYN Provider: Nisha Holguin MD :1955 A ge:69 Y S ex:Female Date:08/21/2024 Address:[address] [id number] Subjective: * Chief Complaints: * 1 . [...] 08/21/2024 Generated for Kanwal tyson/Yusra/Jennifer on: 1 07/17/2024 09:31 AM EST
--- OUTSIDE RECORDS SUMMARY | 2024-09-24 08:57 | XMS_ITS ---
Author Organization Sai Holguin III, MD Address [address] [place] [address] [place] [address] Care Team Providers Care Pipe Organ Mechanic Apprentice Name Role Phone Dr. Sai Holguin III Primary Care Provider [phone] REASON FOR VISIT ? rx Social History Sex Assigned At : Social History Observation Description Sex Assigned At Female Encounters Encounter Location Date Provider Diagnosis Sai Holguin III, MD [address] [place] [address] [place] [address] 09/24/2024 Sai Holguin Plan Of Treatment Next Appt Details Provider Name:Sai Holguin , 04/25/2026 09:00:00 AM, [address] [place] [address] [address], [facility] [place], [address], Progress Notes * Shannan WAGNER MDOB: (69 yo F)Acc No.[id number]:09/24/2024 Patient: Moy Shannan SANTOS :1955 A ge:69 Y S ex:Female Address:[facility] [address] [place], [address] * true * Date: Generated for Printi ng/Faxing/eTransmitting on: 07/17/2024 09:31 AM EST
--- OUTSIDE RECORDS SUMMARY | 2024-11-02 04:00 | XMS_ITS ---
Author Organization Sai Holguin III, MD Address [address] [place] [address] Care Team Providers Care Make Up Operator Helper Name Role Phone Dr. Sai Holguin III Primary Care Provider [phone] Allergies Allergen (clinical drug ingredient) Drug/Non Drug [...] day Active Atorvastatin Calcium 80 MG (Prior Auth#:[id number]) Oral Active Aspirin 81 81 MG 1 tablet Orally Once a day Active Metoprolol Succinate ER 25 MG (Prior Auth#:[id number]) Oral Active Cimetidine 300 MG (Prior Auth#:[id number]) Oral Active traZODone HCl 100 mg TAKE [...] Provider Diagnosis Sai Holguin III, MD [address] [place] [address] [place] [address] 11/02/2024 Sai Holguin Mixed hyperlipidemia E78.2 ; Essential hypertension I10 ; Vitamin D deficiency, unspecified E55.9 ; Osteoarthritis, unspecified osteoarthritis type, unspecified site M19.90 ; Atherosclerotic heart disease of ute coronary artery without angina pectoris I25.10 ; [...] regimen. 11/02/2024 Atherosclerotic hear t disease of ute coronary artery without angina pectoris (ICD-10 - [...] bile duct. Her reflexes well controlled with otpv-wrh-bxhrzvv medication. Plan Of Treatment Medication Medication Name [...] day Atorvastatin Calcium 80 MG (Prior Auth#: [id number]) Oral Aspirin 81 81 MG 1 tablet Orally Once a day Metoprolol Succinate ER 25 MG (Prior Aut h#:[id number]) Oral Cimetidine 300 MG (Prior Auth#:[id number]) Oral traZODone HCl 100 mg TAKE 1 TABLET BY [facility] AT BEDTIME amLODIPine Besylate 5 mg TAKE 1 TABLET BY MOUTH DAILY Omeprazole 20 mg TAKE 1 CAPSULE BY [facility] DAILY Vitamin D3 25 MCG (1000 UT) [...] AM, [address], [place], [address], Progress Notes * Shannan WAGNER MDOB: 3 (69 yo F)Acc No.[id number]:11/02/2024 Progress Notes Patient: Shannan LYN Provider: Nisha Holguin MD :1955 A ge:69 Y S ex:Female Date:11/02/2024 Address:[facility] [address] [place], [id number] Subjective: * Chief Complaints: * H ypertensionCoronary [...] common bile duct stone, ERCP with sphincterotomy, [facility], Dr. Sai Wray 06/2017 * Hospitalization/Major [...] MG Tablet Extended Release 24 Hour (Prior Auth#:[id number]) Oral Cimetidine 300 MG Tablet (Prior Auth#:[id number]) Oral Atorvastatin Calcium 80 MG Tablet (Prior Auth#:[id number]) Oral Aspirin 81 81 MG Tablet Delayed [...] MG Tablet Extended Release 24 Hour (Prior Auth#:[id number]) Oral Taking Cimetidine 300 MG Tablet (Prior Auth#:[id number]) Oral Taking Atorvastatin Calcium 80 MG Tablet (Prior Auth#:[id number]) Oral Taking Aspirin 81 81 MG Tablet [...] 5 . A therosclerotic heart disease of ute coronary artery without angina pectoris - I25.10 [...] bile duct. Her reflexes well controlled with itjh-fyw-pjhzqjh medication. Plan: * Treatment: 2. M ixed [...] Extended Release 24 Hour, 25 MG, (Prior Auth#:[id number]), Oral; C ontinue Cimetidine Tablet, 300 MG, (Prior Auth#:[id number]), Oral; C ontinue Atorvastatin Calcium Tablet, 80 MG, (Prior Auth#:[id number]), Oral; C ontinue Aspirin 81 Tablet Delayed [...] 0 11/02/2024 Generated for Kanwal tyson/Yusra/Lianaitting on: 1 07/17/2024 09:32 AM EST History and Physical [...]
--- OUTSIDE RECORDS SUMMARY | 2025-04-23 04:00 | XMS_ITS ---
Author Organization Sai Holguin III, MD Address [address] [place] [address] [address] EDW[place]DS DAISHA [place]IRES [address] Care Team Providers Care Community Health Worker Name Role Phone Dr. Sai Holguin III Primary Care Provider Allergies Allergen (clinical drug ingredient) Drug/Non Drug Allergy documented on EMR Reaction Allergy Type Onset Date Status No Known Drug Allergy Unknown Drug Allergy Active No Known Food Allergy Unknown Drug Allergy Active Reason For Referral Reason Evaluate and Treat Diagnosis 1 Screen for colon can cer (Z12.11) Referral Organization Sai Holguin III, MD Referring Provider First Name Sai Referring Provider Last Name Chelsie Referring Provider Speciality Internal M edicine Referred Provider Sai Wray Referred Provider Specialty Gastroentero logy Referral Priority Routine REASON FOR VISIT Annual Exam Medications Medication SIG (Take, Route, Frequency, Duration) Notes Start Date End Date Status ProAir HFA 108 (90 Base) MCG/ACT 1-2 puff as needed Inhalation every 4 hrs Active metroNIDAZOLE 500 MG 1 tablet Orally Thr ee times a day Active Cefuroxime Axetil 500 MG 1 tablet Orally every 12 hrs Active Ventolin HFA 108 (90 Base) MCG/ACT TAKE 1-2 INHALATIONS EVERY 4 HOURS NEEDED Active Nitroglycerin 0.4 mg USE DIRECTED SUBLINGUAL ONCE A DAY Active Metoprolol Succinate ER 25 MG (Prior Auth#:[id number]) Oral Active Atorvastatin Calcium 80 MG (Prior Auth#:[id number]) Oral Active Cimetidine 300 MG (Prior Auth#:[id number]) Oral Active Aspirin 81 81 MG 1 tablet Orally Once a day Active Vitamin D3 25 MCG (1000 UT) TAKE 1 TABLE T BY MOUTH DAILY Active amLODIPine Besylate 5 mg 1 tablet orally once a day Active Calcium Carb-Cholecalciferol 600-5 MG-MCG TAKE 1 TABLET BY MOUTH EVERY MORNING Active traZODone HCl 100 mg TAKE 1 TABLET BY [facility] AT BEDTIME Active Omeprazole 20 mg TAKE 1 CAPSULE BY [facility] DAILY Active Social History Tobacco Use: Social History [...] Points 0 Interpretation Negative Vital Signs Temperature 98.6 degrees Fahrenheit 04/23/20 25 Blood pressure systolic 116 mm Hg 04/23/20 25 Blood pressure diastolic 55 mm Hg 025 Heart Rate 73 /min 04/23/2025 Height 63 in 04/23/2025 Weight 115 lbs 04/23/2025 BMI 20.37 kg/m2 04/23/2025 Encounters Encounter Location Date Provider Diagnosis Sai Holguin III, MD [address] [place] [address] [place] [address] 04/23/2025 Sai Holguin Atherosclerotic hear t disease of ramona coronary artery without angina pectoris I25.10 ; Former smoker Z87.891 ; Essential hypertension I10 ; Osteoarthritis, unspecified osteoarthritis type, unspecified site M19.90 and Anxiety F41.9 Assessments Encounter Date Diagnosis (ICD Code) Assessment Notes T reatment Notes Treatment Clinical Notes 04/23/2025 Atherosclerotic hear t disease of ramona coronary artery without angina pectoris (ICD-10 - [...] for lithotripsy of the common bile duct. 04/23/2025 Former smoker (ICD-1 0 - Z87.891) We reviewed her plan to remain abstinent times of stress and illness. 04/23/2025 Essential hypertension (ICD-10 - I10) Her blood pressure and vital signs were stable today. No change in her regimen was needed. 04/23/2025 Osteoarthritis, unspecified osteoarthritis type, unspecified site (ICD-10 - M19.90) She continues to have arthritic pain in her hips shoulders and fingers. There has been no change in the symptom. It is controlled with the current regimen. 04/23/2025 Anxiety (ICD-10 - F41.9) She will continue on current therapy. Plan Of Treatment Medication Medication Name Sig Start Date Stop Date Notes ProAir HFA 108 (90 Base) MCG/ACT 1-2 puff as needed Inhalation every 4 hrs metroNIDAZOLE 500 MG 1 tablet Orally Thr ee times a day Cefuroxime Axetil 500 MG 1 tablet Orally every 12 hrs Ventolin HFA 108 (90 Base) MCG/ACT TAKE 1-2 INHALATIONS EVERY 4 HOURS NEEDED Nitroglycerin 0.4 mg USE DIRECTED SUB LINGUAL ONCE A DAY Metoprolol Succinate ER 25 MG (Prior Aut h#:[id number]) Oral Atorvastatin Calcium 80 MG (Prior Auth#: [id number]) Oral Cimetidine 300 MG (Prior Auth#:[id number]) Oral Aspirin 81 81 MG 1 tablet Orally Once a day Vitamin D3 25 MCG (1000 UT) TAKE 1 TABLET BY MOUTH DAILY amLODIPine Besylate 5 mg 1 tablet orally once a day Calcium Carb-Cholecalciferol 600-5 MG-MCG TAKE 1 TABLET BY MOUTH EVERY MORNING traZODone HCl 100 mg TAKE 1 TABLET BY [facility] AT BEDTIME Omeprazole 20 mg TAKE 1 CAPSULE BY [facility] DAILY Pending Test Test Name Order Date PROFILE, FASTING (COMPREHENSIVE METABOLI C) 04/23/2025 CBC w DIFF 04/23/2025 Lipid Panel 04/23/2025 Vitamin D 25-OH Total 04/23/2025 Referrals Referral Date Details 04/23/2025 04/23/2025, Evaluate and Treat Sai Wray Next Appt Details Follow Up: 1 Year, Reason: A nnual Exam Provider Name:Sai Holguin , 04/25/2026 09:00:00 AM, [address] [place] [address] , [place] [address], [place], [address], Progress Notes * Shannan WAGNER MDOB: 3 (70 yo F)Acc No.[id number]:04/23/2025 Progress Notes Patient: Shannan LYN Provider: Nisha Holguin MD :1955 A ge:70 Y S ex:Female Date:04/23/2025 Address:[address], [place] Subjective: * Chief Complaints: * A nnual Exam * HPI: D epression Screening: She returns to the office at the age of 70, for her annual physical. She is due for a mammogram, which has been scheduled in April 2025. She feels healthy and well. We are trying to see if she is due for a colonoscopy. She has agreed to have one is she is due. Her examination today showed no new findings. Translation was accomplished with her son who is bilingual. Her breast examination today was normal. She seems happy and healthy. Her blood work was examined with her in detail. She has gained 5 pounds and her weight is now normal with a BMI of 20. PHQ-9 L ittle interest or pleasure in doing things?Not at all F eeling down, depressed, or hopeless N ot at all T rouble falling or staying asleep, or sleeping too much N ot at all F eeling tired or having little energy N ot at all P oor appetite or overeating N ot at all F eeling bad about yourself or that [...] N ot at all T otal Score 0 Interpretation and Intervention D epression Screening Findings N egative C OVID-19 Screening: Questions H ave you had any new onset fever, chills, cough, congestion, sore throat, shortness of breath, muscle aches? N o S SANDRA Questions: SDOH Questions I n the past year have you been worried about losing your housing? N o I n the past year have you or any family members you live with been unable to get any of the following when it was really needed? Check all that apply: N one * ROS: G eneral/Constitutional: pain o nly normal aches and pains. C hills d enies.?Fatigue a dmits. F ever d enies. E NT: Decreased hearing m ild. R espiratory: Cough d enies. C ardiovascular: Chest pain with exertion d enies. D yspnea on exertion?Occasional asthma. S hortness of breath d enies. G [...] Muscle aches d enies. P ainful joints F shaneka shoulders hips knees. S ciatica d enies. W eakness d [...] common bile duct stone, ERCP with sphincterotomy, [facility], Dr. Sai Wray 06/2017 * Hospitalization/Major [...] She is not working. * Medications: T akingCalcium Carb-Cholecalciferol 600-5 MG-MCG Tablet TAKE 1 TABLET BY MOUTH EVERY MORNING Omeprazole 20 mg Capsule Delayed Release TAKE 1 CAPSULE BY MOUTH DAILY Vitamin D3 25 MCG (1000 UT) Tablet TAKE 1 TABLET BY MOUTH DAILY Metoprolol Succinate ER 25 MG Tablet Extended Release 24 Hour (Prior Auth#:[id number]) Oral Cimetidine 300 MG Tablet (Prior Auth#:[id number]) Oral Atorvastatin Calcium 80 MG Tablet (Prior Auth#:[id number]) Oral Aspirin 81 81 MG Tablet Delayed [...] TAKE 1-2 INHALATIONS EVERY 4 HOURS NEEDED traZODone HCl 100 mg Tablet TAKE 1 TABLET BY MOUTH AT BEDTIME amLODIPine Besylate 5 mg Tablet 1 tablet orally once a day Medication List reviewed and reconciled with the patientTaking Calcium Carb-Cholecalciferol 600-5 MG-MCG Tablet TAKE 1 TABLET BY MOUTH EVERY MORNING Taking Omeprazole 20 mg Capsule Delayed Release TAKE 1 CAPSULE BY MOUTH DAILY Taking Vitamin D3 25 MCG (1000 UT) Tablet TAKE 1 TABLET BY MOUTH DAILY Taking Metoprolol Succinate ER 25 MG Tablet Extended Release 24 Hour (Prior Auth#:[id number]) Oral Taking Cimetidine 300 MG Tablet (Prior Auth#:[id number]) Oral Taking Atorvastatin Calcium 80 MG Tablet (Prior Auth#:[id number]) Oral Taking Aspirin 81 81 MG Tablet [...] 1-2 INHALATIONS EVERY 4 HOURS NEEDED Taking traZODone HCl 100 mg Tablet TAKE 1 TABLET BY MOUTH AT BEDTIME Taking amLODIPine Besylate 5 mg Tablet 1 tablet orally once a day Medication List reviewed and reconciled with the patient * Allergies: N o Known Drug AllergyNo Known Food Allergyno[Allergies Verified] Objective: * Vitals: H t: 63, Wt:115, BMI:20.37, BP:116/55, HR:73, Temp:98.6, Wt-k.16. * P ast Orders: Lab:Complete Blood Count Aut o Diff * Collection Date 04/09/2025 04/13/2023 12/07/2022 Collection Time 09:35 AM 08:40 AM 08:55 AM Order Date 04/09/2025 04/13/2023 12/07/2022 White Blood Count 7.1 (Ref Range: 4.8-10.8 X10*3/uL) 6.6 (Ref Range: 4.8-10.8 X10*3/uL) 7.1 (Ref Range: 4.8-10.8 X10*3/uL) Red Blood Count 4.31 (Ref Range: 4.20-5.50 X10*6/uL) 4.36 (Ref Range: 4.20-5.50 X10*6/uL) 4.33 (Ref Range: 4.20-5.50 X10*6/uL) Hemoglobin 13.0 (Ref Range: 12.0-16.0 g/dl) 13.3 (Ref Range: 12.0-16.0 g/dl) 13.1 (Ref Range: 12.0-16.0 g/dl) Hematocrit 39.2 (Ref Range: 37.0-47.0 %) 39.6 (Ref Range: 37.0-47.0 %) 39.5 (Ref Range: 37.0-47.0 %) Mean Corpuscular Volume 91.0 (Ref Range: 80.0-98.0 fL) 90.8 (Ref Range: 80.0-98.0 fL) 91.2 (Ref Range: 80.0-98.0 fL) Mean Corpuscular Hemoglobin 30.2 (Ref Range: 27.0-33.0 pg) 30.5 (Ref Range: 27.0-33.0 pg) 30.3 (Ref Range: 27.0-33.0 pg) Mean Corpuscular HGB Conc 33.2 (Ref Range: 31.0-35.0 g/dl) 33.6 (Ref Range: 31.0-35.0 g/dl) 33.2 (Ref Range: 31.0-35.0 g/dl) Red Cell Distribution Width 12.5 (Ref Range: 11.0-16.0 %) 12.5 (Ref Range: 11.0-16.0 %) 12.5 (Ref Range: 11.0-16.0 %) Platelet Count 285 (Ref Range: 160-400 X10*3/uL) 280 (Ref Range: 160-400 X10*3/uL) 288 (Ref Range: 160-400 X10*3/uL) Mean Platelet Volume 8.9 L (Ref Range: 9.4-12.3 fL) 9.2 L (Ref Range: 9.4-12.3 fL) 9.2 L (Ref Range: 9.4-12.3 fL) Neutrophils Percent Auto 58.8 (Ref Range: 45-73 %) 62.3 (Ref Range: 45-73 %) 61.4 (Ref Range: 45-73 %) Imm Gran Pct Auto 0.4 (Ref Range: 0.0-0.4 %) 0.3 (Ref Range: 0.0-0.4 %) 0.3 (Ref Range: 0.0-0.4 %) Lymphocytes Percent Auto 32.7 (Ref Range: 20-40 %) 29.6 (Ref Range: 20-40 %) 29.8 (Ref Range: 20-40 %) Monocytes Percent Auto 5.2 (Ref Range: 2-11 %) 4.2 (Ref Range: 2-11 %) 6.2 (Ref Range: 2-11 %) Eosinophils Percent Auto 2.3 (Ref Range: 0-4 %) 2.7 (Ref Range: 0-4 %) 1.6 (Ref Range: 0-4 %) Basophils Percent Auto 0.6 (Ref Range: 0-2 %) 0.9 (Ref Range: 0-2 %) 0.7 (Ref Range: 0-2 %) NRBC Pct Auto 0.0 (Ref Range: 0.0-0.2 /100WBC) 0.0 (Ref Range: 0.0-0.2 /100WBC) 0.0 (Ref Range: 0.0-0.2 /100WBC) Neutrophils Absolute Auto 4.2 (Ref Range: 2.0-8.3 x10*3/uL) 4.1 (Ref Range: 2.0-8.3 x10*3/uL) 4.4 (Ref Range: 2.0-8.3 x10*3/uL) Imm Gran Abs Auto 0.03 (Ref Range: 0.00-0.03 X10*3/uL) 0.02 (Ref Range: 0.00-0.03 X10*3/uL) 0.02 (Ref Range: 0.00-0.03 X10*3/uL) Lymphocytes Absolute Auto 2.3 (Ref Range: 1.2-4.9 X10*3/uL) 2.0 (Ref Range: 1.2-4.9 X10*3/uL) 2.1 (Ref Range: 1.2-4.9 X10*3/uL) Monocytes Absolute Auto 0.4 (Ref Range: 0.1-1.2 X10*3/uL) 0.3 (Ref Range: 0.1-1.2 X10*3/uL) 0.4 (Ref Range: 0.1-1.2 X10*3/uL) Eosinophils Absolute Auto 0.2 (Ref Range: 0.0-0.4 X10*3/uL) 0.2 (Ref Range: 0.0-0.4 X10*3/uL) 0.1 (Ref Range: 0.0-0.4 X10*3/uL) Basophils Absolute Auto 0.0 (Ref Range: 0.0-0.2 X10*3/uL) 0.1 (Ref Range: 0.0-0.2 X10*3/uL) 0.1 (Ref Range: 0.0-0.2 X10*3/uL) NRBC Abs Auto 0.000 (Ref Range: 0.0-0.012 X10*3/uL) 0.000 (Ref Range: 0.0-0.012 X10*3/uL) 0.000 (Ref Range: 0.0-0.012 X10*3/uL) * Lab:[facility] Fast * Collection Date 04/09/2025 04/13/2023 12/07/2022 Collection Time 09:35 AM 08:40 AM 08:55 AM Order Date 04/09/2025 04/13/2023 12/07/2022 Sodium 144 (Ref Range: 135-145 mmol/L) 143 (Ref Range: 135-145 mmol/L) 144 (Ref Range: 135-145 mmol/L) Bilirubin Total 0.4 (Ref Range: 0.0-1.0 mg/dL) 0.2 (Ref Range: 0.0-1.0 mg/dL) 0.7 (Ref Range: 0.0-1.0 mg/dL) Aspartate Amino Transferase 26 (Ref Range: 5-31 U/L) 18 (Ref Range: 5-31 U/L) 19 (Ref Range: 5-31 U/L) Alanine Aminotransferase 23 (Ref Range: 0-31 U/L) 16 (Ref Range: 0-31 U/L) 16 (Ref Range: 0-31 U/L) Total Protein 7.2 (Ref Range: 6.5-8.0 g/dL) 7.6 (Ref Range: 6.5-8.0 g/dL) 7.6 (Ref Range: 6.5-8.0 g/dL) Albumin Level 4.3 (Ref Range: 3.5-5.0 g/dL) 4.3 (Ref Range: 3.5-5.0 g/dL) 4.2 (Ref Range: 3.5-5.0 g/dL) Alkaline Phosphatase 112 (Ref Range: 39-117 U/L) 96 (Ref Range: 39-117 U/L) 93 (Ref Range: 39-117 U/L) Potassium 4.4 (Ref Range: 3.3-5.1 mmol/L) 4.3 (Ref Range: 3.3-5.1 mmol/L) 4.0 (Ref Range: 3.3-5.1 mmol/L) Chloride 109 H (Ref Range: 96-108 mmol/L) 106 (Ref Range: 96-108 mmol/L) 107 (Ref Range: 96-108 mmol/L) Carbon Dioxide 28 (Ref Range: 22-29 mmol/L) 28 (Ref Range: 22-29 mmol/L) 28 (Ref Range: 22-29 mmol/L) Anion Gap 11 L (Ref Range: 12-20) 13 (Ref Range: 12-20) 13 (Ref Range: 12-20) Blood Urea Nitrogen 11 (Ref Range: 9-16 mg/dL) 10 (Ref Range: 9-16 mg/dL) 10 (Ref Range: 9-16 mg/dL) Creatinine 0.77 (Ref Range: 0.5-1.4 mg/dL) 0.78 (Ref Range: 0.5-1.4 mg/dL) 0.81 (Ref Range: 0.5-1.4 mg/dL) Estimated Glomerular Filt Rate > 60 > 60 > 60 Glucose Fasting 88 (Ref Range: 60-99 mg/dL) 94 (Ref Range: 60-99 mg/dL) 89 (Ref Range: 60-99 mg/dL) Calcium 9.3 (Ref Range: 8.4-10.2 mg/dL) 9.8 (Ref Range: 8.4-10.2 mg/dL) 9.9 (Ref Range: 8.4-10.2 mg/dL) * Lab:Lipid Panel * Collection Date 04/09/2025 04/13/2023 12/07/2022 Collection Time 09:35 AM 08:40 AM 08:55 AM Order Date 04/09/2025 04/13/2023 12/07/2022 Triglycerides 119 (Ref Range: <150 mg/dL) 106 (Ref Range: <150 mg/dL) 107 (Ref Range: mg/dL) Cholesterol 126 (Ref Range: <200 mg/dL) 154 (Ref Range: <200 mg/dL) 164 (Ref Range: mg/dL) LDL Cholesterol Calculated 60 (Ref Range: <100 mg/dL) 86 (Ref Range: <100 mg/dL) 103 (Ref Range: mg/dl) HDL Cholesterol 43 (Ref Range: >40 mg/dL) 47 (Ref Range: >40 mg/dL) 40 (Ref Range: mg/dL) * Lab:Vitamin D 25-OH Total * Collection Date 04/09/2025 12/07/2022 08/12/2022 Collection Time 09:35 AM 08:55 AM 08:44 AM Order Date 04/09/2025 12/07/2022 08/12/2022 Vitamin D 25-OH Total 34.7 (Ref Range: >30 ng/mL) 40.5 (Ref Range: >30 ng/mL) 27.8 (Ref Range: >30 ng/mL) * Examination: G eneral Examination: GENERAL APPEARANCE: p leasant, well nourished, well developed, in no acute distress, calm and relaxed: woman. HEAD: a traumatic, normocephalic. EYES: e [...] or vascular bruits. LUNGS: c lear to auscultation: no wheezes, rales, rhonchi: good air movement. BREASTS: n o masses palpable bilaterally: no dimpling: no discharge: no drainage: nontender: symmetrical. ABDOMEN: b owel sounds normal, no ascites, no organomegaly, no mass. RECTAL EXAM: n ot examined. MUSCULOSKELETAL: e xtremities unremarkable, no clubbing, cyanosis or edema. PERIPHERAL PULSES: n ormal. NEUROLOGIC: a lert and oriented, cranial nerves 2-12 grossly intact, deep tendon reflexes 2+ symmetrical, motor strength normal upper and lower extremities, sensory exam intact. PSYCH: a lert, oriented. Assessment: * Assessment: 1. A therosclerotic heart disease of ramona coronary artery without angina pectoris - I25.10 [...] of the common bile duct. 2 . F ormer smoker - Z87.891 N otes :We reviewed her plan to remain abstinent times of stress and illness. 3 . E ssential hypertension - I10 N otes :Her blood pressure and vital signs were stable today. No change in her regimen was needed. 4 . O steoarthritis, unspecified osteoarthritis type, unspecified site - M19.90 N otes :She continues to have arthritic pain in her hips shoulders and fingers. There has been no change in the symptom. It is controlled with the current regimen. 5 . A nxiety - F41.9 N otes :She will continue on current therapy. Plan: * Treatment: * Labs: * L ab: PROFILE, FASTING (COMPREHENSIVE METABOLIC) L ab: CBC w DIFF L ab: Lipid Panel L ab: Vitamin D 25-OH Total * Procedure Codes: * Preventive Medicine: Counseling: [...] urged to quit. 1 * Follow Up: 1 Year (Reason: Annual Exam) * Images: * Sign off status: Completed true * Provider: Nisha Holguin MD Date: Generated for Kanwal tyson/Yusra/Jennifer on: 07/17/2024 09:31 AM EST History and Physical Notes * HPI (History of Present Illness) Category Sub-Category Detail Notes Depression Screening PHQ-9 Little inte rest or pleasure in doing things: Not at all Feeling down, depressed, or hopeless: No t at all Trouble falling or staying asleep, or sl eeping too much: Not at all Feeling tired or having little energy: N ot at all Poor appetite or overeating: Not at all Feeling bad about yourself o r that [...] some way: Not at all Total Score: 0 Interpretation and Intervention Depression Esequiele alli Findings: Negative COVID-19 Screening Questions Have you had any new onset fever, chills, cough, congestion, sore throat, shortness of breath, muscle aches?: No SDOH Questions SDOH Questions In the past year have you been worried about losing your housing?: No In the past year have you or any family members you live with been unable to get any of the following when it was really needed? Check all that apply:: None Examination Category Sub-Category Detail Notes General Examination GENERAL APPEARANCE: pleasant , well nourished, well developed, in no acute distress, calm and relaxed: woman HEAD: atraumatic, normocep halic EYES: eomi, perrla, anicte shanthi, conjugate EARS: normal NOSE: septum intact NECK/THYROID: no jugular venous di stention, no carotid bruit, thyroid normal HEART: no clicks, gallops, murmurs, or rubs, regular rhythm, S1, S2 normal, no s3, or vascular bruits LUNGS: clear to auscultatio n: no wheezes, rales, rhonchi: good air movement ABDOMEN: bowel sounds normal, no ascites, no organomegaly, no mass NEUROLOGIC: alert and oriented, cranial nerves 2-12 grossly intact, deep tendon reflexes 2+ symmetrical, motor strength normal upper and lower extremities, sensory exam intact SKIN: no suspicious lesion s, anicteric PERIPHERAL PULSES: normal BREASTS: no masses palpable b ilaterally: no dimpling: no discharge: no drainage: nontender: symmetrical MUSCULOSKELETAL: extremities unremark able, no clubbing, cyanosis or edema LYMPH NODES: no enlarged lymph no wilberto,spleen normal RECTAL EXAM: not examined PSYCH: alert, oriented ORAL CAVITY: normal, unremarkable Consultation Request Notes Referral Date Referring Provider Referred Provider Not es 04/23/2025 Sai Holguin Robert Evaluate and Treat
--- NOTE | ~2025-05-17 | MM_ITS ---
EXAMINATION: MM SCREENING DIGITAL BREAST TOMOSYNTHESIS, BILATERAL CLINICAL INFORMATION: Screening. Asymptomatic. COMPARISON: Mammography: Comparison is made with available priors TECHNIQUE: Digital breast mammography with tomosynthesis is performed in both the craniocaudal and mediolateral oblique views along with computer-aided detection (CAD). FINDINGS: There are scattered areas of fibroglandular density. There are no significant masses, abnormal calcifications, or other abnormalities. MM/MM tomosynthesis screening BI IMPRESSION: No mammographic evidence of malignancy. ASSESSMENT: BI-RADS Category 1: Negative RECOMMENDATION: Routine annual mammography screening. 1 year F/U This examination should not preclude the clinical evaluation of a suspicious palpable abnormality. This patient's information was entered into a reminder system with a target due date for their next mammogram. Electronically signed by: Mayi Hilliard DO 05/20/2025 12:16 PM [facility] ELENA
--- OUTSIDE RECORDS SUMMARY | 2025-05-17 09:32 | XMS_ITS | Patient Health Record ---
Author Organization Sai Holguin III, MD Address [address] [place] [address] [place] [address] Care Team Providers Care Er Physician Name Role Phone Dr. Sai Holguin III Primary Care Provider Allergies Allergen (clinical drug ingredient) Drug/Non Drug Allergy documented on EMR Reaction Allergy Type Onset Date Status No Known Drug Allergy Unknown Drug Allergy Active No Known Food Allergy Unknown Drug Allergy Active Results Component Value Reference Range Notes Complete Blood Count Auto Di ff Reviewed date:04/12/2025 05:11:37 PM Interpretation: Performing Lab:[facility], [address] [place] [id number] Notes/Report: White Blood Count 7.1 4.8-10.8 X10*3/uL [...] X10*3/uL NRBC Abs Auto 0.000 0.0-0.012 X10*3/uL Comprehensive [place]. Panel Fa st Reviewed date:04/12/2025 05:11:37 PM Interpretation: Performing Lab:[address] [address] Notes/Report: Sodium 144 135-145 mmol/L Potassium 4.4 3.3-5.1 mmol/L Chloride 109 96-108 mmol/L Carbon Dioxide 28 22-29 mmol/L Anion Gap 11 12-20 Blood Urea Nitrogen 11 9-16 mg/dL Creatinine 0.77 0.5-1.4 mg/dL Estimated Glomerular Filt Rate > 60 Chronic Kidney Disease: Estimated GFR < 60 mL/min/1.73m2 Severe Kidney Disease: Estimated GFR < 15 mL/min/1.73m2 Glucose Fasting 88 60-99 mg/dL Calcium 9.3 8.4-10.2 mg/dL Bilirubin Total 0.4 0.0-1.0 mg/dL Aspartate Amino Transferase 26 5-31 U/L Alanine Aminotransferase 23 0-31 U/L Total Protein 7.2 6.5-8.0 g/dL Albumin Level 4.3 3.5-5.0 g/dL Alkaline Phosphatase 112 39-117 U/L Lipid Panel Reviewed date:04/12/2025 05:11:37 PM Interpretation: Performing Lab:[address] [phone] Notes/Report: Triglycerides 119 <150 mg/dL Desirable Triglyceride: less than 150 mg/dL Borderline High Triglyceride 150-199 mg/dL High Triglyceride: 200-499 mg/dL Very High Triglyceride: greater than or equal to 5OO mg/dL Cholesterol 126 <200 mg/dL Desirable Cholesterol: less than 200 mg/dL Borderline High Cholesterol: 200-239 mg/dL High Cholesterol: greater than 239 mg/dL LDL Cholesterol Calculated 60 <100 mg/dL Desirable LDL: less than 100 mg/dL Near Optimal/Above Optimal LDL: 110-129 mg/dL Borderline High LDL: 130-159 mg/dL High LDL: 160-189 mg/dL Very High LDL: greater than or equal to 190 mg/dL HDL Cholesterol 43 >40 mg/dL Desirable HDL: greater than 40 mg/dL Note: This HDL assay may give artificially low results in patients with liver disease. Vitamin D 25-OH Total Reviewed date:04/12/2025 05:11:37 PM Interpretation: Performing Lab:[facility], [address] [place] [id number] Notes/Report: Vitamin D 25-OH Total 34.7 >30 ng/mL Health Based Reference Values* < 20 ng/mL Deficient 20-30 ng/mL Insufficient > 30 ng/mL Sufficient *Rodney MELARA. N Engl J Med. 2007;357:266-280 There is no well-established upper level of normal vitamin D levels. Some laboratories use 50 ng/mL as an upper limit of normal. However, toxicity is patient-dependent and may occur at any level. Careful correlation with the patient's presentation is necessary and, if there is concern for vitamin D toxicity, treatment should be considered irrespective of the serum level. Care must be taken in interpreting Vitamin D results from different laboratories and methodologies. Published data demonstrated that results from patients undergoing hemodialysis may show a negative bias when tested with various automated 25-OH vitamin D assays when compared to LC-MS/MS. When testing samples from patients whose predominant form of Vitamin D is Vitamin D2, such as patients receiving Vitamin D2 supplementation, results that are subtherapeutic should be confirmed with another method such as LC-MS/MS. Reason For Referral Reason Evaluate and Treat Diagnosis 1 Screen for colon can cer (Z12.11) Referral Organization Sai Holguin III, MD Referring Provider First Name Sai Referring Provider Last Name Chelsie Referring Provider Speciality Internal M edicine Referred Provider Sai Wray Referred Provider Specialty Gastroentero logy Referral Priority Routine Medications Medication SIG (Take, Route, Frequency, Duration) Notes Start Date End Date Status Metoprolol Succinate ER 25 MG (Prior Auth#:[id number]) Oral Active Atorvastatin Calcium 80 MG (Prior Auth#:[id number]) Oral Active Cimetidine 300 MG (Prior Auth#:[id number]) Oral Active ProAir HFA 108 (90 Base) MCG/ACT 1-2 puff as needed Inhalation every 4 hrs Active Aspirin 81 81 MG 1 tablet Orally Once a day Active amLODIPine Besylate 5 mg 1 tablet orally once a day Active metroNIDAZOLE 500 MG 1 tablet Orally Thr ee times a day Active Cefuroxime Axetil 500 MG 1 tablet Orally every 12 hrs Active Calcium Carb-Cholecalciferol 600-5 MG-MCG TAKE 1 TABLET BY MOUTH EVERY MORNING Active Ventolin HFA 108 (90 Base) MCG/ACT TAKE 1-2 INHALATIONS EVERY 4 HOURS NEEDED Active traZODone HCl 100 mg TAKE 1 TABLET BY [facility] AT BEDTIME Active Nitroglycerin 0.4 mg USE DIRECTED SUBLINGUAL ONCE A DAY Active Vitamin D3 25 MCG (1000 UT) TAKE 1 TABLE T BY MOUTH DAILY Active Omeprazole 20 mg TAKE 1 CAPSULE BY [facility] DAILY Active Immunizations Vaccine Route Administration Date Status [...] Problem Status W/U Status Risk Notes Problem 9149292 Former smoker (Z87.891) Active confirmed We reviewed her plan to remain abstinent times of stress and illness. Problem 97694519 Anxiety (F41.9) Active confirmed She will continue on current therapy. Problem Vitamin D deficiency (11586823) Vitamin D deficiency, unspecified (E55.9) Active confirmed A vitamin D level has been ordered. She was continued on current medications. Problem 089426520 Mixed hyperlipidemia (E78.2) Active confirmed No change in he r regimen was made. Comprehensive blood work was ordered. Problem 459608833 Atherosclerotic heart disease of [place] coronary artery without angina pectoris (I25.10) Active [...] lithotripsy of the common bile duct. Problem 27529421 Age-related osteoporosis without current pathological fracture (M81.0) Active confirmed She will be continued on her current regimen and her bone marrow density test will be done periodically.A bone density test has been ordered. Problem 695777914 GERD without esophagitis (K21.9) Active confirmed Her recent episode of abdominal pain was due to gram-negative sepsis and obstruction of the common bile duct. Her reflexes well controlled with hnto-apg-jhyjfsv medication. Problem 89407520 Essential hypertension (I10) Active confirmed Her blood pressure and vital signs were stable today. No change in her regimen was needed. Problem 882973951 Mild intermitten t asthma without complication (J45.20) Active confirmed There were a fe w inspiratory wheezes today but she was comfortable breathing room air. Problem Osteoarthritis (216423995) Osteoarthritis, unspecified osteoarthritis type, unspecified site (M19.90) Active confirmed She continues to have arthritic pain in her hips shoulders and fingers. There has been no change in the symptom. It is controlled with the current regimen. 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 She has no difficulty with food. Problem 538418974 Choledocholithia s is (K80.50) Active confirmed She remains asymptomatic with no further cholecystitis.. Vital Signs Heart Rate 73 /min 04/23/2025 Temperature 98.6 degrees Fahrenheit 04/23/2025 Respiratory Rate 14 /min 11/02/2024 Oximetry 97 % 11/02/2024 Blood pressure diastolic 55 mm Hg 04/23/2025 Height 63 in 04/23/2025 Blood pressure systolic 116 mm Hg 04/23/2025 Weight 115 lbs 04/23/2025 BMI 20.37 kg/m2 04/23/2025 Encounters Encounter Location Date Provider Diagnosis Sai Holguin III, MD [address] [place] [address] [place] [address] 08/03/2024 Sai Holguin Essential hypertensi on I10 ; Osteoarthritis, unspecified osteoarthritis type, unspecified site M19.90 ; Atherosclerotic heart disease of [place] coronary artery without angina pectoris I25.10 ; Anxiety F41.9 ; Mild intermittent asthma without complication J45.20 ; Edentulous K00.0 ; Mixed hyperlipidemia E78.2 ; GERD without esophagitis K21.9 and Former smoker Z87.891 Sai Holguin III, MD [address] [place] [address] [place] [address] 11/02/2024 Sai Holguin Mixed hyperlipidemia E78.2 ; Essential hypertension I10 ; Vitamin D deficiency, unspecified E55.9 ; Osteoarthritis, unspecified osteoarthritis type, unspecified site M19.90 ; Atherosclerotic heart disease of [place] coronary artery without angina pectoris I25.10 ; Mild intermittent asthma without complication J45.20 ; Former smoker Z87.891 and GERD without esophagitis K21.9 Sai Holguin III, MD [address] [place] [address] [place] [address] 04/23/2025 Sai Holguin Atherosclerotic hear t disease of [place] coronary artery without angina pectoris I25.10 ; Former smoker Z87.891 ; Essential hypertension I10 ; Osteoarthritis, unspecified osteoarthritis type, unspecified site M19.90 and Anxiety F41.9 Sai Holguin III, MD [address] [place] [address] [place] [address] 09/24/2024 Sai Holguin Assessments Encounter Date Diagnosis [...] change in her regimen was needed. 04/23/2025 Former smoker (ICD-1 0 - Z87.891) We reviewed her plan to remain abstinent times of stress and illness. 04/23/2025 Atherosclerotic hear t disease of [place] coronary artery without angina pectoris (ICD-10 - [...] lithotripsy of the common bile duct. 08/03/2024 Atherosclerotic hear t disease of [place] coronary artery without angina pectoris (ICD-10 - [...] ordered. She was continued on current medications. 04/23/2025 Essential hypertension (ICD-10 - I10) Her blood pressure and vital signs were stable today. No change in her regimen was needed. 08/03/2024 Anxiety (ICD-10 - F41.9) She will continue on current therapy. 11/02/2024 Osteoarthritis, unspecified osteoarthritis type, unspecified site (ICD-10 - M19.90) She continues to have arthritic pain in her hips shoulders and fingers. There has been no change in the symptom. It is controlled with the current regimen. 04/23/2025 Osteoarthritis, unspecified osteoarthritis type, unspecified site (ICD-10 - M19.90) She continues to have arthritic pain in her hips shoulders and fingers. There has been no change in the symptom. It is controlled with the current regimen. 08/03/2024 Mild intermittent asthma without complication (ICD-10 - J45.20) There were a few inspiratory wheezes today but she was comfortable breathing room air. 11/02/2024 Atherosclerotic hear t disease of [place] coronary artery without angina pectoris (ICD-10 - [...] lithotripsy of the common bile duct. 04/23/2025 Anxiety (ICD-10 - F41.9) She will continue on current therapy. 08/03/2024 Edentulous (ICD-10 - K00.0) She has dentures and says they fit well. She has no difficulty with food. 11/02/2024 Mild intermittent asthma without complication (ICD-10 - J45.20) There were a few inspiratory wheezes today but she was comfortable breathing room air. 08/03/2024 Mixed hyperlipidemia (ICD-10 - E78.2) Current blood work is not available. A fasting lipid profile as part of comprehensive blood work has been ordered. 11/02/2024 Former smoker (ICD-1 0 - Z87.891) We reviewed her plan to remain abstinent times of stress and illness. 08/03/2024 GERD without esophagitis (ICD-10 - K21.9) Her recent episode of abdominal pain was due to gram-negative sepsis and obstruction of the common bile duct. Her reflexes well controlled with fawl-teh-wtnkccz medication. 11/02/2024 GERD without esophagitis (ICD-10 - K21.9) Her recent episode of abdominal pain was due to gram-negative sepsis and obstruction of the common bile duct. Her reflexes well controlled with uety-the-gdwrwgf medication. 08/03/2024 Former smoker (ICD-1 0 - Z87.891) We reviewed her plan to remain abstinent times of stress and illness. Plan Of Treatment Pending Test Test Name Order Date PROFILE, FASTING (COMPREHENSIVE METABOLI C) 08/03/2024 PROFILE, FASTING (COMPREHENSIVE METABOLI C) 12/06/2019 PROFILE, FASTING (COMPREHENSIVE METABOLI C) 09/29/2020 PROFILE, FASTING (COMPREHENSIVE METABOLI C) 03/07/2020 PROFILE, FASTING (COMPREHENSIVE METABOLI C) 04/20/2024 PROFILE, FASTING (COMPREHENSIVE METABOLI C) 04/23/2025 PROFILE, FASTING (COMPREHENSIVE METABOLI C) 09/02/2021 PROFILE, FASTING (COMPREHENSIVE METABOLI C) 10/19/2023 PROFILE, FASTING (COMPREHENSIVE METABOLI C) 07/01/2020 PROFILE, FASTING (COMPREHENSIVE METABOLI C) 11/02/2024 PROFILE, FASTING (COMPREHENSIVE METABOLI C) 05/20/2020 PROFILE, FASTING (COMPREHENSIVE METABOLI C) 03/31/2020 PROFILE, FASTING (COMPREHENSIVE METABOLI C) 2021 PROFILE, FASTING (COMPREHENSIVE METABOLI C) 12/02/2021 PROFILE, RANDOM (COMPREHENSIVE METABOLIC ) 08/01/2019 HEMOGLOBIN A1C (GLYCOHEMOGLOBIN) 021 LIPID PANEL 2021 LIPID PANEL 08/03/2024 LIPID PANEL 12/06/2019 LIPID PANEL 03/07/2020 LIPID PANEL 08/01/2019 LIPID PANEL 09/29/2020 LIPID PANEL 09/02/2021 LIPID PANEL 07/01/2020 LIPID PANEL 05/20/2020 LIPID PANEL 03/31/2020 GGT 03/31/2020 CBC w DIFF 05/20/2020 CBC w DIFF 12/02/2021 CBC w DIFF 2021 CBC w DIFF 03/31/2020 CBC w DIFF 12/06/2019 CBC w DIFF 04/23/2025 CBC w DIFF 03/07/2020 CBC w DIFF 08/01/2019 CBC w DIFF 09/29/2020 CBC w DIFF 09/02/2021 CBC w DIFF 11/02/2024 CBC w DIFF 07/01/2020 BONE DENSITY DEXA 10/19/2023 MAMMOGRAM DIGITAL BILATERAL SCREEN 08/01 VITAMIN D 25-OH TOTAL 08/01/2019 CBC WITH AUTO DIFF 08/03/2024 CBC WITH AUTO DIFF 04/20/2024 CBC WITH AUTO DIFF 10/19/2023 Lipid Panel 12/02/2021 Lipid Panel 04/20/2024 Lipid Panel 04/23/2025 Lipid Panel 10/19/2023 Lipid Panel 11/02/2024 Vitamin D 25-OH Total 11/02/2024 Vitamin D 25-OH Total 04/20/2024 Vitamin D 25-OH Total 04/23/2025 Next Appt Details Provider Name:Sai Nazanin Holguin , 04/25/2026 09:00:00 AM, [address] [place] [address] [address], [address], [place], [address], Insurance Providers Payer Name Payer Address Payer Phone Subscriber Number Group Number Insured Name Patient Relationship to Insured Coverage Start Date Coverage End Date MEDICARE NGS [address] [place] [address] [id number] Navarro , Ana Self - patient is the insured MEDICAID [place] [address] [place] [id number] Navarro , Ana Self - patient is the insured Medical (General) History Medical History History ICD Code HTN (hypertension) I10 Anxiety F41.9 Asthma J45.909 Osteoarthritis M19.90 coronary artery disease, Dr. Morrell , 2016 GERD hyperlipidemia edentulous cholelithiasis 2018 colonoscopy 2019 former smoker underweight severe OA right knee Surgical History Surgery Date(Month/Year) common bile duct stone, ERCP with sphincterotomy, [facility], Dr. Sai Wray 06/2017 full dental extractions cholecystectomy 12/2018 colonoscopy 2019 Stent placement, LAD, RCA 04/2017 Cesearean section tubal ligation Breast Biopsy, fibrocystic disease 1998
--- OUTSIDE RECORDS SUMMARY | 2025-05-17 09:32 | XMS_ITS | Patient Health Record ---
Author Organization [facility] Address [address] [place] [address] Care Team Providers Care Medical Operations Supervisor Name Role Phone Sai Holguin MD Primary Care Provider Unavailab Sai Yang Unavailable [phone] Anderson VEGA, Daniel Unavailable Unavailable Reason For Referral No Information Medications Medication SIG (Take, Route, Frequency, Duration) Notes Start Date End Date Status traZODone HCl 100 MG Tablet 1 tablet at bedtime Orally Once a day Active Dulcolax (colon prep) 5 MG Tablet Delayed Release take at 3:00 p.m and 7:00p.m. Orally two tablets twice a day for one day; Duration: 1 day 11/08/2018 Active Ticagrelor 90 MG Tablet 1 tablet Orally Twice a day Not-Taking/PRN Omeprazole 20 MG Capsule Delayed Release 1 capsule Orally Once a day; Duration: 30 day(s) Active Nitroglycerin 0.4 MG Tablet Sublingual 1 TABLET EVERY 5 MINUTES NEEDED CHEST PAIN/BP UNDER 100 TIMES 3 DOSES Sublingual; Duration: 8 Active Vitamin B12 100 MCG Tablet as directed Orally Active Aspir-81 81 MG Tablet Delayed Release 1 tablet Orally Once a day Active Albuterol prn Active MiraLax (colon prep) 8.3 ounce ((238) grams mixed with Gatorade or Crystal Light orally begin at 5:00 p.m. the day before the procedure; Duration: 1 day 11/08/2018 Active Metoprolol Succinate ER 50 MG Tablet Extended Release 24 Hour 1 tablet Orally Once a day Active Immunizations Vaccine Route Administration Date Status Comme nts Influenza Unknown 11/07/2018 Refused Social History Tobacco Use: Social History Observation Description Date Details (start date - stop date) Former Smoker NA - NA Social History Drugs/Alcohol: Social Info Question Answer Notes Alcohol Screen Did you have a drink containing alcohol in the past year? No Points 0 Interpretation Negative Tobacco Use: Social Info Question Answer Notes Tobacco Use/Smoking Patient is a former smoker How long has it been since you last smoked? 1-5 years Additional Details Category Social Info Options Details Miscellaneous: Marital status: Occupation: house Section Notes: Nonsmoker approx since 2016; EtOh abuse--sober since 2011 Nonsmoker approx since 2016; EtOh abuse--sober since 2011 Problems Problem Type SNOMED Code ICD Code Onset Dates Problem Status W/U Status Risk Notes Problem Screening for malignant neoplasm of colon (734147744) Encounter for screening for malignant neoplasm of colon (Z12.11) Active confirmed Problem Elevated liver enzymes level (451537282) Elevated liver function tests (R79.89) Active confirmed Problem Elevated liver enzymes level (227083880) Elevated liver enzymes (R74.8) Active confirmed Problem Gastroesophageal reflux disease (864118985) Gastroesophageal reflux disease, esophagitis presence not specified (K21.9) Active confirmed Problem Gallstones (048725647) Gallstones (K80.20) Active confirmed Problem Disorder of biliary tract (740399872) Bile duct abnormality (K83.9) Active confirmed Problem Biliary stricture (213598701) Biliary stricture (K83.1) Active confirmed Problem Sclerosing cholangitis (267676033) Sclerosing cholangitis (K83.09) Active confirmed Plan Of [...] OF [place] [address] [place] [address] [id number] SAIGE WAGNER Self - patient is the insured [facility] [address] [place] [phone] [id number] SAIGE WAGNER Self - patient is the insured Medical (General) History Medical History History ICD Code Denies DM,CVA,renal disease Hypertension Asthma AR 04/2017---drug-eluting stent placed a t [facility]--sees Dr. Morrell Choledocholithiasis--ERCP wi sphincterotomy and stone removal in 06/2017---? of CBD stricture but MRCP was negative and Dr. Blakely at [facility] did not think further intervention with ERCP/spyglass was warranted Gallstones--seen by Dr. Edelmira pierce--but holding off on surgery for at least 6-12 months after the AR and stent placement Hyperlipidemia Surgical History Surgery Date(Month/Year) Tubal ligation
== END 2025-05-17 09:09 | disposition home or self-care (01) ==
LOC: HO.MAMMO 09:08
PROVIDERS: PCP Internal Medicine Medical Oncology; Visit Provider Internal Medicine Medical Oncology
DX: Z12.31 Encounter for screening mammogram for malignant neoplasm of breast (principal)
CPT/HCPCS: 77063; 77067

== ENCOUNTER → 2025-05-17 09:30 | Outpatient (BNV) | payer MEDICARE, MEDICAID, SELFPAY | PROVIDERS: PCP Internal Medicine Medical Oncology; Visit Provider Internal Medicine | DX: Z12.31 Encounter for screening mammogram for malignant neoplasm of breast (principal) | CPT/HCPCS: 77063; 77067 ==

== ENCOUNTER 2025-05-24 12:37 | Outpatient (AMB) | payer MEDICARE, MEDICAID, SELFPAY ==
--- OUTSIDE RECORDS SUMMARY | 2024-04-20 04:00 | XMS_ITS ---
Author Organization Sai Holguin III, MD Address [address] [place] [address] Care Team Providers Care Business Continuity Global Director Name Role Phone Dr. Sai Holguin III Primary Care Provider Allergies Allergen (clinical drug ingredient) Drug/Non Drug Allergy documented on EMR Reaction Allergy Type Onset Date Status No Known Drug Allergy Unknown Drug Allergy Active Results Component Value Reference Range Notes URINE DIP STICK Reviewed date:04/20/2024 10:19:40 AM Interpretation: Performing Lab: Notes/Report: SG 1.020 1.005 - 1.025 pH 5.0 5.0 - 9.0 ARIANNE Negative Negative - NIT Negative Negative - PRO 15 Negative - Trace GLU Negative Negative - KET 5 Negative - UBG 0.2 0.1 - 1.8 JERZY 1 0.2 - 1.3 BLD +++ Negative - REASON FOR VISIT Annual Exam Medications Medication SIG (Take, Route, Frequency, Duration) Notes Start Date End Date Status ProAir HFA 108 (90 Base) MCG/ACT 1-2 puff as needed Inhalation every 4 hrs Active Nitroglycerin 0.4 mg USE DIRECTED SUBLINGUAL ONCE A DAY Active Ventolin HFA 108 (90 Base) MCG/ACT TAKE 1-2 INHALATIONS EVERY 4 HOURS NEEDED Active Cefuroxime Axetil 500 MG 1 tablet Orally every 12 hrs Active metroNIDAZOLE 500 MG 1 tablet Orally Thr ee times a day Active Atorvastatin Calcium 80 MG (Prior Auth#:[id number]) Oral Active Aspirin 81 81 MG 1 tablet Orally Once a day Active Metoprolol Succinate ER 25 MG (Prior Auth#:[id number]) Oral Active Cimetidine 300 MG (Prior Auth#:[id number]) Oral Active traZODone HCl 100 mg TAKE 1 TABLET BY [facility] AT BEDTIME Active Omeprazole 20 mg TAKE 1 CAPSULE BY MO UTH DAILY Active amLODIPine Besylate 5 mg TAKE 1 TABLET B Y MOUTH DAILY Active Vitamin D3 25 MCG (1000 UT) TAKE 1 TABLE T BY MOUTH DAILY Active Calcium Carb-Cholecalciferol 600-5 MG-MCG TAKE 1 TABLET BY MOUTH EVERY MORNING Active Social History Tobacco Use: Social History Observation Description Date Details (start date - stop date) Former Smoker NA - NA Sex Assigned At : Social History Observation Description Sex Assigned At Female Tobacco Use/Smoking Question Answer Notes Patient is a former smoker How long has it been since you last smoked? 5-10 years Additional Findings: Tobacco Non-User Ex-cigaret te smoker Tobacco Control (Standard) Question Answer Notes Tobacco use: Former smoker How long has it been since you last smoked? Grea ter than 10 years Additional Findings: Tobacco non-user Ex-cigaret te smoker AUDIT-C (Standard) Question Answer Notes Did you have a drink containing alcohol in the p ast year? No Points 0 Interpretation Negative Vital Signs Temperature 98.1 degrees Fahrenheit 04/20/20 24 Blood pressure systolic 115 mm Hg 04/20/20 24 Blood pressure diastolic 54 mm Hg 024 Heart Rate 72 /min 04/20/2024 Height 63 in 04/20/2024 Weight 110 lbs 04/20/2024 BMI 19.48 kg/m2 04/20/2024 Encounters Encounter Location Date Provider Diagnosis Sai Holguin III, MD [address] [place] [address] [place] [address] 04/20/2024 Sai Holguin Mixed hyperlipidemia E78.2 ; Atherosclerotic heart disease of [place] coronary artery without angina pectoris I25.10 ; Weight loss R63.4 ; Vitamin D deficiency, unspecified E55.9 ; Essential hypertension I10 ; Osteoarthritis, unspecified osteoarthritis type, unspecified site M19.90 ; Anxiety F41.9 ; Mild intermittent asthma without complication J45.20 ; Age-related osteoporosis without current pathological fracture M81.0 and Former smoker Z87.891 Assessments Encounter Date Diagnosis (ICD Code) Assessment Notes T reatment Notes Treatment Clinical Notes 04/20/2024 Mixed hyperlipidemia (ICD-10 - E78.2) Current blood work is not available. A fasting lipid profile as part of comprehensive blood work has been ordered. 04/20/2024 Atherosclerotic hear t disease of [place] coronary artery without angina pectoris (ICD-10 - I25.10) She has had no chest pain, diaphoresis, palpitations loss of consciousness or other cardiac signs. She has been compliant with all of her medication. No change in her regimen seems necessary. During her recent hospitalization she had no cardiac issues and tolerated an ERCP without angina. She is medically cleared for lithotripsy of the common bile duct. 04/20/2024 Weight loss (ICD-10 - R63.4) After losing weight for several months she is now gained 2 pounds and says she has a good appetite. She appears to be well today with good nutrition. She will be followed closely. 04/20/2024 Vitamin D deficiency , unspecified (ICD-10 - E55.9) He will continue to take her vitamin D as well as her calcium. 04/20/2024 Essential hypertension (ICD-10 - I10) Her blood pressure is 115/54.. She has had no orthostatic dizziness. Her blood pressure will be watched. She was encouraged to gained several more pounds. 04/20/2024 Osteoarthritis, unspecified osteoarthritis type, unspecified site (ICD-10 - M19.90) She continues to have arthritic pain in her hips shoulders and fingers. There has been no change in the symptom. It is controlled with the current regimen. 04/20/2024 Anxiety (ICD-10 - F41.9) She will continue on current therapy. 04/20/2024 Mild intermittent asthma without complication (ICD-10 - J45.20) There were a few inspiratory wheezes today but she was comfortable breathing room air. 04/20/2024 Age-related osteoporosis without current pathological fracture (ICD-10 - M81.0) She will be continued on her current regimen and her bone marrow density test will be done periodically.A bone density test has been ordered. 04/20/2024 Former smoker (ICD-1 0 - Z87.891) We reviewed her plan to remain abstinent times of stress and illness. Plan Of Treatment Medication Medication Name Sig Start Date Stop Date Notes ProAir HFA 108 (90 Base) MCG/ACT 1-2 puff as needed Inhalation every 4 hrs Nitroglycerin 0.4 mg USE DIRECTED SUB LINGUAL ONCE A DAY Ventolin HFA 108 (90 Base) MCG/ACT TAKE 1-2 INHALATIONS EVERY 4 HOURS NEEDED Cefuroxime Axetil 500 MG 1 tablet Orally every 12 hrs metroNIDAZOLE 500 MG 1 tablet Orally Thr ee times a day Atorvastatin Calcium 80 MG (Prior Auth#: [id number]) Oral Aspirin 81 81 MG 1 tablet Orally Once a day Metoprolol Succinate ER 25 MG (Prior Aut h#:[id number]) Oral Cimetidine 300 MG (Prior Auth#:[id number]) Oral traZODone HCl 100 mg TAKE 1 TABLET BY MO UT AT BEDTIME Omeprazole 20 mg TAKE 1 CAPSULE BY MO UTH DAILY amLODIPine Besylate 5 mg TAKE 1 TABLET BY MOUTH DAILY Vitamin D3 25 MCG (1000 UT) TAKE 1 TABLET BY MOUTH DAILY Calcium Carb-Cholecalciferol 600-5 MG-MCG TAKE 1 TABLET BY MOUTH EVERY MORNING Pending Test Test Name Order Date PROFILE, FASTING (COMPREHENSIVE METABOLI C) 04/20/2024 CBC WITH AUTO DIFF 04/20/2024 Lipid Panel 04/20/2024 Vitamin D 25-OH Total 04/20/2024 Next Appt Details Follow Up: 4 Months, Reason: OV Provider Name:Sai Holguin , 04/25/2026 09:00:00 AM, [address] [place] [address], [place] [address], [place], [address], Progress Notes * Shannan WAGNER MDOB: 3 (69 yo F)Acc No.[id number]:04/20/2024 Progress Notes Patient: Moy TOMShannan Provider: Nisha Holguin MD :1955 A ge:69 Y S ex:Female Date:04/20/2024 Address:[address] [place] [address], [facility] [id number] Subjective: * Chief Complaints: * A nnual Exam * HPI: D epression Screening: She returns to the office for her annual physical examination at the age of 69 accompanied by her son. She is followed here for hypertension, arthritis, ischemic heart disease, asthma, GERD, osteoporosis and vitamin D deficiency. She is known to have gallstones. She has been well since her last visit. She denies any chest pain or shortness of breath or bleeding. Comprehensive blood work is not available but was ordered. No change in her regimen was needed today. PHQ-9 L ittle interest or pleasure in doing things?Not at all F eeling down, depressed, or hopeless N ot at all T rouble falling or staying asleep, or sleeping too much S everal days F eeling tired or having little energy N ot at all P oor appetite or overeating S everal days F eeling bad about yourself or that you are a failure, or have let yourself or your family down N ot at all T rouble concentrating on things, such as reading the newspaper or watching television N ot at all M oving or speaking so slowly that other people could have noticed; or the opposite, being so fidgety or restless that you have been moving around a lot more than usual N ot at all T houghts that you would be better off or of hurting yourself in some way N ot at all T otal Score 2 I nterpretation M inimal Depression C OVID-19 Screening: Questions H ave you experienced fever, chills, cough, sore throat, shortness of breath, difficulty breathing, muscle aches, loss of taste or smell? N o H ave you been exposed to the virus within the last 10 days? N o H ave you travelled internationally in the last 10 days? N o H ave you been exposed to COVID-19 in the past? Y es F all Risk Screening: Fall History H ave you had any falls with injury in the past year? N o H ave you had two or more falls in the past year? N o F all Risk Assessment: N o falls in the past year S SANDRA Questions: SDOH Questions I n the past year have you been worried about losing your housing? N o I n the past year have you or any family members you live with been unable to get any of the following when it was really needed? Check all that apply: D ecline to answer * ROS: G eneral/Constitutional: pain o nly normal aches and pains. C hills d enies.?Fatigue a dmits. F ever d enies. E NT: Decreased hearing d enies. R espiratory: Cough d enies. C ardiovascular: Chest pain with exertion d enies. D yspnea on exertion?denies. S hortness of breath d enies. G astrointestinal: Constipation o ccasional. D ecreased appetite d enies. D iarrhea d enies. H eartburn o ccasional. N ausea d enies. R ectal bleeding d enies. V omiting d enies. H ematology: bruising d enies. p etechiae d enies. S wollen glands n one have been noted. G enitourinary: Frequent urination d enies. M usculoskeletal: Muscle aches d enies. P ainful joints d enies. S ciatica d enies. W eakness d enies. S kin: Itching d enies. R osito d enies. S kin lesion(s)?denies. N eurologic: Difficulty speaking d enies. D izziness d enies.?Headache d enies. L ow back pain d enies. P sychiatric: Depressed mood d enies. * Medical History: * Surgical History: B reast Biopsy, fibrocystic disease 1997tubal ligation Cesearean section Stent placement, LAD, RCA 04/2017colonoscopy 2019cholecystectomy 12/2018full dental extractions common bile duct stone, ERCP with sphincterotomy, [facility], Dr. Sai Wray 06/2017 * Hospitalization/Major Diagno stic Procedure: D enies Past Hospitalization * Family History: F ather: 80 yrs, Extremity gangrene with amputation, diagnosed with DM, HTN. M other: 86 yrs, Sepsis from urinary tract infection. C hildren: alive. S iblings: alive, diagnosed with Cancer. 3 brother(s) - healthy. 1 son(s) , 3 daughter(s) - healthy. . Her father's cause of is unknown. One of her brothers while young. One is on dialysis awaiting renal transplant. One has had a stroke. Her sister at the age of 6 months. An uncle has diabetes. There is no family history of breast cancer ovarian cancer prostate cancer colon cancer or pancreatic cancer. Her 4 children are healthy and well. She is not aware of any family history of mental illness. She is not aware of any family history of substance abuse or addiction. * Social History: T obacco Use: T obacco Use/Smoking P atient is a f ormer smoker H ow long has it been since you last smoked??5-10 years A dditional Findings: Tobacco Non-User E x-cigarette smoker Tobacco Control (Standard) T obacco use: F ormer smoker H ow long has it been since you last smoked??Greater than 10 years A dditional Findings: Tobacco non-user E x-cigarette smoker D rugs/Alcohol: D rugs H ave you used drugs other than those for medical reasons in the past 12 months? N o D rug/Alcohol: A MARY-C (Standard) D id you have a drink containing alcohol in the past year? N o P oints 0 I nterpretation N egative S he no longer smokes tobacco or uses alcohol. She has 4 healthy children. She is not working. * Medications: T akingMetoprolol Succinate ER 25 MG Tablet Extended Release 24 Hour (Prior Auth#:[id number]) Oral Cimetidine 300 MG Tablet (Prior Auth#:[id number]) Oral Atorvastatin Calcium 80 MG Tablet (Prior Auth#:[id number]) Oral Aspirin 81 81 MG Tablet Delayed Release 1 tablet Orally Once a day ProAir HFA 108 (90 Base) MCG/ACT Aerosol Solution 1-2 puff as needed Inhalation every 4 hrs Cefuroxime Axetil 500 MG Tablet 1 tablet Orally every 12 hrs metroNIDAZOLE 500 MG Tablet 1 tablet Orally Three times a day Nitroglycerin 0.4 mg Tablet Sublingual USE DIRECTED SUBLINGUAL ONCE A DAY Ventolin HFA 108 (90 Base) MCG/ACT Aerosol Solution TAKE 1-2 INHALATIONS EVERY 4 HOURS NEEDED Vitamin D3 25 MCG (1000 UT) Tablet TAKE 1 TABLET BY MOUTH DAILY Calcium Carb-Cholecalciferol 600-5 MG-MCG Tablet TAKE 1 TABLET BY MOUTH EVERY MORNING Omeprazole 20 mg Capsule Delayed Release TAKE 1 CAPSULE BY MOUTH DAILY traZODone HCl 100 mg Tablet TAKE 1 TABLET BY MOUTH AT BEDTIME amLODIPine Besylate 5 mg Tablet TAKE 1 TABLET BY MOUTH DAILY Medication List reviewed and reconciled with the patientTaking Metoprolol Succinate ER 25 MG Tablet Extended Release 24 Hour (Prior Auth#:[id number]) Oral Taking Cimetidine 300 MG Tablet (Prior Auth#:[id number]) Oral Taking Atorvastatin Calcium 80 MG Tablet (Prior Auth#:[id number]) Oral Taking Aspirin 81 81 MG Tablet Delayed Release 1 tablet Orally Once a day Taking ProAir HFA 108 (90 Base) MCG/ACT Aerosol Solution 1-2 puff as needed Inhalation every 4 hrs Taking Cefuroxime Axetil 500 MG Tablet 1 tablet Orally every 12 hrs Taking metroNIDAZOLE 500 MG Tablet 1 tablet Orally Three times a day Taking Nitroglycerin 0.4 mg Tablet Sublingual USE DIRECTED SUBLINGUAL ONCE A DAY Taking Ventolin HFA 108 (90 Base) MCG/ACT Aerosol Solution TAKE 1-2 INHALATIONS EVERY 4 HOURS NEEDED Taking Vitamin D3 25 MCG (1000 UT) Tablet TAKE 1 TABLET BY MOUTH DAILY Taking Calcium Carb-Cholecalciferol 600-5 MG-MCG Tablet TAKE 1 TABLET BY MOUTH EVERY MORNING Taking Omeprazole 20 mg Capsule Delayed Release TAKE 1 CAPSULE BY MOUTH DAILY Taking traZODone HCl 100 mg Tablet TAKE 1 TABLET BY MOUTH AT BEDTIME Taking amLODIPine Besylate 5 mg Tablet TAKE 1 TABLET BY MOUTH DAILY Medication List reviewed and reconciled with the patient * Allergies: N o Known Drug Allergyno[Allergies Verified] Objective: * Vitals: H t: 63, Wt:110, BMI:19.48, BP:115/54, HR:72, Temp:98.1, Wt-k.9. * P ast Orders: Lab:URINE DIP STICK * Collection Date 04/20/2024 04/18/2023 Order Date 04/20/2024 04/18/2023 SG 1.020 (Ref Range: 1.005 - 1.025) 1.030 (Ref Range: 1.005 - 1.025) pH 5.0 (Ref Range: 5.0 - 9.0) 5.0 (Ref Range: 5.0 - 9.0) ARIANNE Negative (Ref Range: Negative -) Negative (Ref Range: Negative -) NIT Negative (Ref Range: Negative -) Negative (Ref Range: Negative -) PRO 15 (Ref Range: Negative - Trace) 15 (Ref Range: Negative - Trace) GLU Negative (Ref Range: Negative -) Negative (Ref Range: Negative -) KET 5 (Ref Range: Negative -) Negative (Ref Range: Negative -) UBG 0.2 (Ref Range: 0.1 - 1.8) 0.2 (Ref Range: 0.1 - 1.8) JERZY 1 (Ref Range: 0.2 - 1.3) Negative (Ref Range: 0.2 - 1.3) BLD +++ (Ref Range: Negative -) Positive (Ref Range: Negative -) * Examination: G eneral Examination: GENERAL APPEARANCE: p leasant, well nourished, well developed, in no acute distress, calm and relaxed, underweight, woman. HEAD: a traumatic, normocephalic. EYES: e roxy, perrla, anicteric, conjugate. EARS: n ormal. NOSE: s eptum intact. ORAL CAVITY: n ormal, unremarkable, Edentulous maxilla.? NECK/THYROID: n o jugular venous distention, no carotid bruit, thyroid normal. LYMPH NODES: n o enlarged lymph nodes,spleen normal. SKIN: n o suspicious lesions, anicteric. HEART: n o clicks, gallops, murmurs, or rubs, regular rhythm, S1, S2 normal, no s3, or vascular bruits. LUNGS: c lear to auscultation . BREASTS: N ot examined At the family request. ABDOMEN: b owel sounds normal, no ascites, no organomegaly, no mass, Underweight. RECTAL EXAM: n ot examined. MUSCULOSKELETAL: e xtremities unremarkable, no clubbing, cyanosis or edema. PERIPHERAL PULSES: n ormal. NEUROLOGIC: a lert and oriented, cranial nerves 2-12 grossly intact, deep tendon reflexes 2+ symmetrical, motor strength normal upper and lower extremities, sensory exam intact. PSYCH: a lert, oriented, thought process logical, goal directed, speech clear, mood/affect full range, judgement and insight good, good eye contact, cooperative with exam, cognitive function intact. Assessment: * Assessment: 1. 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 She has been compliant with all of her medication. No change in her regimen seems necessary. During her recent hospitalization she had no cardiac issues and tolerated an ERCP without angina. She is medically cleared for lithotripsy of the common bile duct. 2 . M ixed hyperlipidemia - E78.2 N otes :Current blood work is not available. A fasting lipid profile as part of comprehensive blood work has been ordered. 3 . W eight loss - R63.4 N otes :After losing weight for several months she is now gained 2 pounds and says she has a good appetite.? She appears to be well today with good nutrition. She will be followed closely. 4 . V itamin D deficiency, unspecified - E55.9 N otes :He will continue to take her vitamin D as well as her calcium. 5 . E ssential hypertension - I10 N otes :Her blood pressure is 115/54.. She has had no orthostatic dizziness. Her blood pressure will be watched. She was encouraged to gained several more pounds. 6 . O steoarthritis, unspecified osteoarthritis type, unspecified site - M19.90 N otes :She continues to have arthritic pain in her hips shoulders and fingers. There has been no change in the symptom. It is controlled with the current regimen. 7 . A nxiety - F41.9 N otes :She will continue on current therapy. 8 . M ild intermittent asthma without complication - J45.20 N otes :There were a few inspiratory wheezes today but she was comfortable breathing room air. 9 . A ge-related osteoporosis without current pathological fracture - M81.0? Notes :She will be continued on her current regimen and her bone marrow density test will be done periodically.A bone density test has been ordered. 1 0. F ormer smoker - Z87.891 N otes :We reviewed her plan to remain abstinent times of stress and illness. Plan: * Treatment: 2. W eight loss L AB: PROFILE, FASTING (COMPREHENSIVE METABOLIC) L AB: CBC WITH AUTO DIFF L AB: Lipid Panel L AB: Vitamin D 25-OH Total 3. V itamin D deficiency, unspecified L AB: PROFILE, FASTING (COMPREHENSIVE METABOLIC) L AB: CBC WITH AUTO DIFF L AB: Lipid Panel L AB: Vitamin D 25-OH Total 4. O thers Continue amLODIPine Besylate Tablet, 5 mg, TAKE 1 TABLET BY MOUTH DAILY; C ontinue traZODone HCl Tablet, 100 mg, TAKE 1 TABLET BY MOUTH AT BEDTIME; C ontinue Metoprolol Succinate ER Tablet Extended Release 24 Hour, 25 MG, (Prior Auth#:[id number]), Oral; C ontinue Cimetidine Tablet, 300 MG, (Prior Auth#:[id number]), Oral; C ontinue Atorvastatin Calcium Tablet, 80 MG, (Prior Auth#:[id number]), Oral; C ontinue Aspirin 81 Tablet Delayed Release, 81 MG, 1 tablet, Orally, Once a day; C ontinue ProAir HFA Aerosol Solution, 108 (90 Base) MCG/ACT, 1-2 puff as needed, Inhalation, every 4 hrs; C ontinue Cefuroxime Axetil Tablet, 500 MG, 1 tablet, Orally, every 12 hrs;?Continue metroNIDAZOLE Tablet, 500 MG, 1 tablet, Orally, Three times a day; C ontinue Nitroglycerin Tablet Sublingual, 0.4 mg, USE DIRECTED SUBLINGUAL ONCE A DAY; C ontinue Ventolin HFA Aerosol Solution, 108 (90 Base) MCG/ACT, TAKE 1-2 INHALATIONS EVERY 4 HOURS NEEDED; C ontinue Vitamin D3 Tablet, 25 MCG (1000 UT), TAKE 1 TABLET BY MOUTH DAILY; C ontinue Calcium Carb-Cholecalciferol Tablet, 600-5 MG-MCG, TAKE 1 TABLET BY MOUTH EVERY MORNING; C ontinue Omeprazole Capsule Delayed Release, 20 mg, TAKE 1 CAPSULE BY MOUTH DAILY. * Labs: * L ab: URINE DIP STICK (Collection Date & Time - 04/20/2024) Value Reference Range S G 1.020 1.005 - 1.025 * p H 5.0 5.0 - 9.0 * L EU Negative Negative - * N IT Negative Negative - * P RO 15 Negative - Trace * G RAQUEL Negative Negative - * K ET 5 Negative - * U BG 0.2 0.1 - 1.8 * B IL 1 0.2 - 1.3 * B LD +++ Negative - * Procedure Codes: 8 1002 URINE-NO MICRO * Preventive Medicine: Counseling: C are goal follow-up plan: Counseling for abnormal BMI given Y es Below Normal BMI Follow-up D ietary education for weight gain, Dietary management education, guidance, and counseling, Feeding regime, Lifestyle education regarding diet, Nutrition / feeding management, Prescribed diet education, Special diet education, Intervention, Order not done: Medical or Other reason not done S moking/Tobacco Use Patient counseled on the dangers of tobacco use and urged to quit. 1 * Follow Up: 4 Months (Reason: OV) * Images: * Sign off status: Completed true * Provider: Nisha Holguin MD Date: Generated for Kanwal tyson/Yusra/eTransmitting on: 07/24/2024 12:41 PM EST History and Physical Notes * HPI (History of Present Illness) Category Sub-Category Detail Notes Depression Screening PHQ-9 Little inte rest or pleasure in doing things: Not at all Feeling down, depressed, or hopeless: No t at all Trouble falling or staying asleep, or sl eeping too much: Several days Feeling tired or having little energy: N ot at all Poor appetite or overeating: Several day s Feeling bad about yourself o r that you are a failure, or have let yourself or your family down: Not at all Trouble concentrating on thi ngs, such as reading the newspaper or watching television: Not at all Moving or speaking so slowly that other people could have noticed; or the opposite, being so fidgety or restless that you have been moving around a lot more than usual: Not at all Thoughts that you would be b jacky off or of hurting yourself in some way: Not at all Total Score: 2 Interpretation: Minimal Depression Fall Risk Screening Fall History Have you had any falls with injury in the past year?: No Have you had two or more falls in the year?: No Fall Risk Assessment:: No falls in the year COVID-19 Screening Questions Have you had any new onset fever, chills, cough, congestion, sore throat, shortness of breath, muscle aches?: No Have you been exposed to the virus withi n the last 10 days?: No Have you travelled internationally in last 10 days?: No Have you been exposed to COVID-19 in the past?: Yes SDOH Questions SDOH Questions In the past year have you been worried about losing your housing?: No In the past year have you or any family members you live with been unable to get any of the following when it was really needed? Check all that apply:: Decline to answer Examination Category Sub-Category Detail Notes General Examination GENERAL APPEARANCE: pleasant , well nourished, well developed, in no acute distress, calm and relaxed, underweight, woman HEAD: atraumatic, normocep halic EYES: eomi, perrla, anicte shanthi, conjugate EARS: normal NOSE: septum intact NECK/THYROID: no jugular venous di stention, no carotid bruit, thyroid normal HEART: no clicks, gallops, murmurs, or rubs, regular rhythm, S1, S2 normal, no s3, or vascular bruits LUNGS: clear to auscultatio n ABDOMEN: bowel sounds normal, no ascites, no organomegaly, no mass, Underweight NEUROLOGIC: alert and oriented, cranial nerves 2-12 grossly intact, deep tendon reflexes 2+ symmetrical, motor strength normal upper and lower extremities, sensory exam intact SKIN: no suspicious lesion s, anicteric PERIPHERAL PULSES: normal BREASTS: Not examined At the family request MUSCULOSKELETAL: extremities unremark able, no clubbing, cyanosis or edema LYMPH NODES: no enlarged lymph no wilberto,spleen normal RECTAL EXAM: not examined PSYCH: alert, oriented, tho ught process logical, goal directed, speech clear, mood/affect full range, judgement and insight good, good eye contact, cooperative with exam, cognitive function intact ORAL CAVITY: normal, unremarkable , Edentulous maxilla
--- OUTSIDE RECORDS SUMMARY | 2024-08-03 05:00 | XMS_ITS ---
Author Organization Sai Holguin III, MD Address [address] [place] [address] Care Team Providers Care Septic Cleaner Name Role Phone Dr. Sai Holguin III [...] 100 mg TAKE 1 TABLET BY [facility] AT BEDTIME Active Metoprolol Succinate ER 25 MG (Prior Auth#:[id number]) Oral Active Cimetidine 300 MG (Prior Auth#:[id number]) Oral Active Atorvastatin Calcium 80 MG (Prior Auth#:[id number]) Oral Active Aspirin 81 81 MG 1 [...] Date Provider Diagnosis Sai Holguin III, MD [address] [place] [address] [place] [address] 08/03/2024 Sai Holguin Essential hypertensi on I10 ; Osteoarthritis, unspecified osteoarthritis type, unspecified site M19.90 ; Atherosclerotic heart disease of [place] coronary artery without angina pectoris I25.10 ; [...] regimen. 08/03/2024 Atherosclerotic hear t disease of [place] coronary artery without angina pectoris (ICD-10 - [...] bile duct. Her reflexes well controlled with rwiu-qml-bouupmm medication. 08/03/2024 Former smoker (ICD-1 0 - Z87.891) We reviewed her plan to remain abstinent times of stress and illness. Plan Of Treatment Medication Medication Name Sig Start Date Stop Date Notes traZODone HCl 100 mg TAKE 1 TABLET BY [facility] AT BEDTIME Metoprolol Succinate ER 25 MG (Prior Aut h#:[id number]) Oral Cimetidine 300 MG (Prior Auth#:[id number]) Oral Atorvastatin Calcium 80 MG (Prior Auth#: [id number]) Oral Aspirin 81 81 MG 1 tablet [...] 20 mg TAKE 1 CAPSULE BY [facility] DAILY Cefuroxime Axetil 500 MG 1 [...] Provider Name:Sai Holguin , 04/25/2026 09:00:00 AM, [address] [place] [address] [address], [address], [place], [phone], Progress Notes * Shannan WAGNER MDOB: 3 (69 yo F)Acc No.[id number]:08/03/2024 Progress Notes Patient: Shannan LYN Provider: Nisha Holguin MD :1955 A ge:69 Y S ex:Female Date:08/03/2024 Address:[address] [place] [address], [place], [id number] Subjective: * Chief Complaints: * R osito [...] common bile duct stone, ERCP with sphincterotomy, [facility], Dr. Sai Wray 06/2017 * Hospitalization/Major [...] MG Tablet Extended Release 24 Hour (Prior Auth#:[id number]) Oral Atorvastatin Calcium 80 MG Tablet (Prior Auth#:[id number]) Oral Aspirin 81 81 MG Tablet Delayed [...] MG Tablet Extended Release 24 Hour (Prior Auth#:[id number]) Oral Taking Atorvastatin Calcium 80 MG Tablet (Prior Auth#:[id number]) Oral Taking Aspirin 81 81 MG Tablet [...] EVERY MORNING DiscontinuedCimetidine 300 MG Tablet (Prior Auth#:[id number]) Oral Cefuroxime Axetil 500 MG Tablet 1 tablet Orally every 12 hrs metroNIDAZOLE 500 MG Tablet 1 tablet Orally Three times a day Omeprazole 20 mg Capsule Delayed Release TAKE 1 CAPSULE BY MOUTH DAILY Medication List reviewed and reconciled with the patientDiscontinued Cimetidine 300 MG Tablet (Prior Auth#:[id number]) Oral Discontinued Cefuroxime Axetil 500 MG Tablet [...] 3 . A therosclerotic heart disease of [place] coronary artery without angina pectoris - I25.10 [...] bile duct. Her reflexes well controlled with ylsg-rgh-ddtkfen medication. 9 . F ormer smoker - [...] 0 08/03/2024 Generated for Kanwal tyson/Yusra/Lianaitting on: 07/24/2024 12:41 PM EST History and [...]
--- OUTSIDE RECORDS SUMMARY | 2024-08-21 12:00 | XMS_ITS ---
Author Organization Sai Holguin III, MD Address [address] [place] [address] [place] [address] Care Team Providers Care Body Shop Supervisor Name Role Phone Dr. Sai Holguin III Primary Care Provider REASON FOR VISIT Follow up Social History Sex Assigned At : Social History Observation Description Sex Assigned At Female Encounters Encounter Location Date Provider Diagnosis Sai Holguin III, MD [address] [place] [address] [place] [address] 08/21/2024 Sai Holguin Plan Of Treatment Next Appt Details Provider Name:Sai Holguin , 04/25/2026 09:00:00 AM, [address] [place] [address] [address], [place], [address], Progress Notes * Shannan WAGNER MDOB: 3 (70 yo F)Acc No.[id number]:08/21/2024 Progress Notes Patient: Shannan LYN Provider: Nisha Holguin MD :1955 A ge:69 Y S ex:Female Date:08/21/2024 Address:[address] [id number] Subjective: * Chief Complaints: * 1 . Follow up. * Medical History: Objective: * Vitals: Assessment: Plan: * Treatment: * Images: * The named appointment provid er may or may not be the originator of this progress note, and it is not deemed complete until electronically signed by the appointment provider. Sign off status: Pending * Provider: Nisha Holguin MD Date: 0 08/21/2024 Generated for Kanwal tyson/Yusra/Jennifer on: 1 07/24/2024 12:40 PM EST
--- OUTSIDE RECORDS SUMMARY | 2024-09-24 08:57 | XMS_ITS ---
Author Organization Sai Holguin III, MD Address [address] [place] [address] [place] [address] Care Team Providers Care Chief Counsel Name Role Phone Dr. Sai Holguin III Primary Care Provider REASON FOR VISIT ? rx Social History Sex Assigned At : Social History Observation Description Sex Assigned At Female Encounters Encounter Location Date Provider Diagnosis Sai Holguin III, MD [address] [place] [address] [place] [address] 09/24/2024 Sai Holguin Plan Of Treatment Next Appt Details Provider Name:Sai Holguin , 04/25/2026 09:00:00 AM, [address] [place] [address] [address], [facility], [address], Progress Notes * Shannan WAGNER MDOB: (69 yo F)Acc No.[id number]:09/24/2024 Patient: Moy Shannan SANTOS :1955 A ge:69 Y S ex:Female Address:[facility] [address] [place], [address] * true * Date: Generated for Printi ng/Faxing/eTransmitting on: 07/24/2024 12:41 PM EST
--- OUTSIDE RECORDS SUMMARY | 2024-11-02 04:00 | XMS_ITS ---
Author Organization Sai Holguin III, MD Address [address] [place] [address] Care Team Providers Care Refinery Operator Crude Unit Name Role Phone Dr. Sai Holguin III Primary Care Provider Allergies Allergen (clinical drug ingredient) Drug/Non Drug Allergy documented on EMR Reaction Allergy Type Onset Date Status No Known Drug Allergy Unknown Drug Allergy Active REASON FOR VISIT Hypertension, Coronary artery disease, Asthma, GERD, Hyperlipidemia, Osteoporosis Medications Medication SIG (Take, Route, Frequency, Duration) [...] day Active Atorvastatin Calcium 80 MG (Prior Auth#:[id number]) Oral Active Aspirin 81 81 MG 1 tablet Orally Once a day Active Metoprolol Succinate ER 25 MG (Prior Auth#:[id number]) Oral Active Cimetidine 300 MG (Prior Auth#:[id number]) Oral Active traZODone HCl 100 mg TAKE 1 TABLET BY MO UTH AT BEDTIME Active amLODIPine Besylate 5 mg TAKE 1 TABLET B Y MOUTH DAILY Active Omeprazole 20 mg TAKE 1 CAPSULE BY MO UTH DAILY Active Vitamin D3 25 MCG (1000 UT) TAKE 1 TABLE T BY MOUTH DAILY Active Calcium Carb-Cholecalciferol 600-5 MG-MCG TAKE 1 TABLET BY MOUTH EVERY MORNING Active Social History Tobacco Use: Social History Observation Description Date Details (start date - stop date) Former Smoker NA - NA Sex Assigned At : Social History Observation Description Sex Assigned At Female Tobacco Control (Standard) Question Answer Notes Tobacco use: Former smoker How long has it been since you last smoked? [address] ter than 10 years Additional Findings: Tobacco non-user Ex-cigaret te smoker Vital Signs Temperature 97.9 degrees Fahrenheit 11/03/19 25 Blood pressure systolic 111 mm Hg 11/03/19 25 Blood pressure diastolic 54 mm Hg 025 Heart Rate 67 /min 11/02/2024 Respiratory Rate 14 /min 11/02/2024 Height 63 in 11/02/2024 Weight 110 lbs 11/02/2024 BMI 19.48 kg/m2 11/02/2024 Oximetry 97 % 11/02/2024 Encounters Encounter Location Date Provider Diagnosis Sai Holguin III, MD [address] [place] [address] [place] [address] 11/02/2024 Sai Holguin Mixed hyperlipidemia E78.2 ; Essential hypertension I10 ; Vitamin D deficiency, unspecified E55.9 ; Osteoarthritis, unspecified osteoarthritis type, unspecified site M19.90 ; Atherosclerotic heart disease of [place] coronary artery without angina pectoris I25.10 ; Mild intermittent asthma without complication J45.20 ; Former smoker Z87.891 and GERD without esophagitis K21.9 Assessments Encounter Date Diagnosis (ICD Code) Assessment Notes T reatment Notes Treatment Clinical Notes 11/02/2024 Mixed hyperlipidemia (ICD-10 - E78.2) No change in her regimen was made. Comprehensive blood work was ordered. 11/02/2024 Essential hypertension (ICD-10 - I10) Her blood pressure and vital signs were stable today. No change in her regimen was needed. 11/02/2024 Vitamin D deficiency , unspecified (ICD-10 - E55.9) A vitamin D level has been ordered. She was continued on current medications. 11/02/2024 Osteoarthritis, unspecified osteoarthritis type, unspecified site (ICD-10 - M19.90) She continues to have arthritic pain in her hips shoulders and fingers. There has been no change in the symptom. It is controlled with the current regimen. 11/02/2024 Atherosclerotic hear t disease of [place] coronary artery without angina pectoris (ICD-10 - [...] for lithotripsy of the common bile duct. 11/02/2024 Mild intermittent asthma without complication (ICD-10 - J45.20) There were a few inspiratory wheezes today but she was comfortable breathing room air. 11/02/2024 Former smoker (ICD-1 0 - Z87.891) We reviewed her plan to remain abstinent times of stress and illness. 11/02/2024 GERD without esophagitis (ICD-10 - K21.9) Her recent episode of abdominal pain was due to gram-negative sepsis and obstruction of the common bile duct. Her reflexes well controlled with buwp-qmm-eqxnxyk medication. Plan Of Treatment Medication Medication Name Sig [...] day Atorvastatin Calcium 80 MG (Prior Auth#: [id number]) Oral Aspirin 81 81 MG 1 tablet Orally Once a day Metoprolol Succinate ER 25 MG (Prior Aut h#:[id number]) Oral Cimetidine 300 MG (Prior Auth#:[id number]) Oral traZODone HCl 100 mg TAKE 1 TABLET BY [facility] AT BEDTIME amLODIPine Besylate 5 mg TAKE 1 TABLET BY MOUTH DAILY Omeprazole 20 mg TAKE 1 CAPSULE BY [facility] DAILY Vitamin D3 25 MCG (1000 UT) TAKE 1 TABLET BY MOUTH DAILY Calcium Carb-Cholecalciferol 600-5 MG-MCG TAKE 1 TABLET BY MOUTH EVERY MORNING Pending Test Test Name Order Date PROFILE, FASTING (COMPREHENSIVE METABOLI C) 11/02/2024 CBC w DIFF 11/02/2024 Lipid Panel 11/02/2024 Vitamin D 25-OH Total 11/02/2024 Next Appt Details Follow Up: As Scheduled, Emi son: OV Provider Name:Sai Holguin , 04/25/2026 09:00:00 AM, [address], [place], [address], Progress Notes * Shannan WAGNER MDOB: 3 (69 yo F)Acc No.[id number]:11/02/2024 Progress Notes Patient: Shannan LYN Provider: Nisha Holguin MD :1955 A ge:69 Y S ex:Female Date:11/02/2024 Address:[facility] [address], [place], [id number] Subjective: * Chief Complaints: * H ypertensionCoronary artery diseaseAsthmaGERDHyperlipidemiaOsteoporosis * HPI: C OVID-19 Screening: She returns for a scheduled visit accompanied by her son. They report that she has been healthy and well since her last visit. She has been compliant with her medication. She has no new medication. He has no new complaints today. She denies any chest pain shortness of breath nausea vomiting diarrhea fevers chills or bleeding.No recent blood work is available. Questions H ave you had any new [...] enies. D iarrhea d enies. H eartburn c ontrolled with medications. N ausea d enies. R ectal bleeding [...] bile duct stone, ERCP with sphincterotomy, [facility], Dr. Sai Wray 06/2017 * Hospitalization/Major [...] Social History: T obacco Use: T obacco Control (Standard) T obacco use: F ormer [...] MG Tablet Extended Release 24 Hour (Prior Auth#:[id number]) Oral Cimetidine 300 MG Tablet (Prior Auth#:[id number]) Oral Atorvastatin Calcium 80 MG Tablet (Prior Auth#:[id number]) Oral Aspirin 81 81 MG Tablet Delayed [...] List reviewed and reconciled with the patientTaking amLODIPine Besylate 5 mg Tablet TAKE 1 TABLET BY MOUTH DAILY Taking traZODone HCl 100 mg Tablet TAKE 1 TABLET BY MOUTH AT BEDTIME Taking Metoprolol Succinate ER 25 MG Tablet Extended Release 24 Hour (Prior Auth#:[id number]) Oral Taking Cimetidine 300 MG Tablet (Prior Auth#:[id number]) Oral Taking Atorvastatin Calcium 80 MG Tablet (Prior Auth#:[id number]) Oral Taking Aspirin 81 81 MG Tablet [...] * Vitals: H t: 63, Wt:110, BMI:19.48, BP:111/54, HR:67, RR:14, Temp:97.9, Oxygen sat %:97, Wt-k.9. * Examination: G eneral Examination: GENERAL APPEARANCE: p leasant, well nourished, well developed, in no acute distress, calm and relaxed, underweight, woman. HEAD: a traumatic, normocephalic. EYES: e roxy, perrla, anicteric, conjugate. EARS: n ormal. NOSE: s eptum intact. ORAL CAVITY: n ormal, unremarkable, Edentulous. NECK/THYROID: n o jugular venous distention, no [...] extremities, sensory exam intact. PSYCH: a lert, oriented. Assessment: * Assessment: 1. E ssential hypertension - I10 (Primary) N otes :Her blood pressure and vital signs were stable today. No change in her regimen was needed. 2 . M ixed hyperlipidemia - E78.2 N otes :No change in her regimen was made. Comprehensive blood work was ordered. 3 . V itamin D deficiency, unspecified - E55.9 N otes :A vitamin D level has been ordered. She was continued on current medications. 4 . O steoarthritis, unspecified osteoarthritis type, unspecified site - M19.90 N otes :She continues to have arthritic pain in her hips shoulders and fingers. There has been no change in the symptom. It is controlled with the current regimen. 5 . A therosclerotic heart disease of [place] coronary artery without angina pectoris - I25.10 [...] for lithotripsy of the common bile duct. 6 . M ild intermittent asthma without complication - J45.20 N otes :There were a few inspiratory wheezes today but she was comfortable breathing room air. 7 . F ormer smoker - Z87.891 N otes :We reviewed her plan to remain abstinent times of stress and illness. 8 . G ERD without esophagitis - K21.9 N otes :Her recent episode of abdominal pain was due to gram-negative sepsis and obstruction of the common bile duct. Her reflexes well controlled with kmgx-hrf-wwawbvb medication. Plan: * Treatment: 2. M ixed hyperlipidemia L AB: PROFILE, FASTING (COMPREHENSIVE METABOLIC) L AB: CBC w DIFF L AB: Lipid Panel L AB: Vitamin D 25-OH Total 3. V itamin D deficiency, unspecified L AB: PROFILE, FASTING (COMPREHENSIVE METABOLIC) L AB: CBC w DIFF L AB: Lipid Panel L AB: Vitamin D 25-OH Total 4. O thers Continue Calcium Carb-Cholecalciferol Tablet, 600-5 MG-MCG, TAKE 1 TABLET BY MOUTH EVERY MORNING;?Continue Omeprazole Capsule Delayed Release, 20 mg, TAKE 1 CAPSULE BY MOUTH DAILY; C ontinue Vitamin D3 Tablet, 25 MCG (1000 UT), TAKE 1 TABLET BY MOUTH DAILY; C ontinue amLODIPine Besylate Tablet, 5 mg, TAKE 1 TABLET BY MOUTH DAILY; C ontinue traZODone HCl Tablet, 100 mg, TAKE 1 TABLET BY MOUTH AT BEDTIME; C ontinue Metoprolol Succinate ER Tablet Extended Release 24 Hour, 25 MG, (Prior Auth#:[id number]), Oral; C ontinue Cimetidine Tablet, 300 MG, (Prior Auth#:[id number]), Oral; C ontinue Atorvastatin Calcium Tablet, 80 MG, (Prior Auth#:[id number]), Oral; C ontinue Aspirin 81 Tablet Delayed Release, 81 MG, 1 tablet, Orally, Once a day; C ontinue ProAir HFA Aerosol Solution, 108 (90 Base) MCG/ACT, 1-2 puff as needed, Inhalation, every 4 hrs; C ontinue Cefuroxime Axetil Tablet, 500 MG, 1 tablet, Orally, every 12 hrs; C ontinue metroNIDAZOLE Tablet, 500 MG, 1 tablet, Orally, Three times a day; C ontinue Nitroglycerin Tablet Sublingual, 0.4 mg, USE DIRECTED SUBLINGUAL ONCE A DAY; C ontinue Ventolin HFA Aerosol Solution, 108 (90 Base) MCG/ACT, TAKE 1-2 INHALATIONS EVERY 4 HOURS NEEDED. * Procedure Codes: 9 4760 MEASURE BLOOD OXYGEN LEVEL * Preventive Medicine: Counseling: C are goal [...] of tobacco use and urged to quit. 0 11/02/2024 * Follow Up: A s Scheduled (Reason: OV) * Images: * Sign off status: Completed true * Provider: Nisha Holguin MD Date: 0 11/02/2024 Generated for Kanwal tyson/Yusra/Lianaitting on: 07/24/2024 12:41 [...] anicteric PERIPHERAL PULSES: normal BREASTS: Not examined MUSCULOSKELETAL: extremities unremark able, no clubbing, cyanosis or edema LYMPH NODES: no enlarged lymph no wilberto,spleen normal RECTAL EXAM: not examined PSYCH: alert, oriented ORAL CAVITY: normal, unremarkable , Edentulous
--- OUTSIDE RECORDS SUMMARY | 2025-04-23 04:00 | XMS_ITS ---
Author Organization Sai Holguin III, MD Address [address] [place] [address] [address] [place] [place]ES [address] Care Team Providers Care Medicare Nurse Name Role Phone Dr. Sai Holguin III Primary Care Provider [phone] Allergies Allergen (clinical drug ingredient) Drug/Non Drug [...] Active Metoprolol Succinate ER 25 MG (Prior Auth#:[id number]) Oral Active Atorvastatin Calcium 80 MG (Prior Auth#:[id number]) Oral Active Cimetidine 300 MG (Prior Auth#:[id number]) Oral Active Aspirin 81 81 MG 1 tablet Orally Once a day Active Vitamin D3 25 MCG (1000 UT) TAKE 1 TABLE T BY MOUTH DAILY Active amLODIPine Besylate 5 mg 1 tablet orally once a day Active Calcium Carb-Cholecalciferol 600-5 MG-MCG TAKE 1 TABLET BY MOUTH EVERY MORNING Active traZODone HCl 100 mg TAKE 1 TABLET BY [facility] AT BEDTIME Active Omeprazole 20 mg TAKE 1 CAPSULE BY [facility] DAILY Active Social History Tobacco Use: Social [...] Date Provider Diagnosis Sai Holguin III, MD [address] [place] [address] [place] [address] 04/23/2025 Sai Holguin Atherosclerotic hear t disease of cabazon coronary artery without angina pectoris I25.10 ; Former smoker Z87.891 ; Essential hypertension I10 ; Osteoarthritis, unspecified osteoarthritis type, unspecified site M19.90 and Anxiety F41.9 Assessments Encounter Date Diagnosis (ICD Code) Assessment Notes T reatment Notes Treatment Clinical Notes 04/23/2025 Atherosclerotic hear t disease of cabazon coronary artery without angina pectoris (ICD-10 - [...] Metoprolol Succinate ER 25 MG (Prior Aut h#:[id number]) Oral Atorvastatin Calcium 80 MG (Prior Auth#: [id number]) Oral Cimetidine 300 MG (Prior Auth#:[id number]) Oral Aspirin 81 81 MG 1 tablet [...] Provider Name:Sai Holguin , 04/25/2026 09:00:00 AM, [address] [place] [address] , [place] [address], [place], [address], Progress Notes * Shannan WAGNER MDOB: 3 (70 yo F)Acc No.[id number]:04/23/2025 Progress Notes Patient: Shannan LYN Provider: Nisha [...] common bile duct stone, ERCP with sphincterotomy, [facility], Dr. Sai Wray 06/2017 * Hospitalization/Major [...] MG Tablet Extended Release 24 Hour (Prior Auth#:[id number]) Oral Cimetidine 300 MG Tablet (Prior Auth#:[id number]) Oral Atorvastatin Calcium 80 MG Tablet (Prior Auth#:[id number]) Oral Aspirin 81 81 MG Tablet Delayed [...] MG Tablet Extended Release 24 Hour (Prior Auth#:[id number]) Oral Taking Cimetidine 300 MG Tablet (Prior Auth#:[id number]) Oral Taking Atorvastatin Calcium 80 MG Tablet (Prior Auth#:[id number]) Oral Taking Aspirin 81 81 MG Tablet [...] Assessment: 1. A therosclerotic heart disease of cabazon coronary artery without angina pectoris - I25.10 [...] MD Date: Generated for Kanwal tyson/Yusra/Jennifer on: 07/24/2024 12:41 PM EST History and [...] Total Score: 0 Interpretation and Intervention Depression Trent carson Findings: Negative COVID-19 Screening Questions Have you [...]
--- OUTSIDE RECORDS SUMMARY | 2025-05-24 12:41 | XMS_ITS | Patient Health Record ---
Author Organization [facility] Address [address] [place] [address] Care Team Providers Care Commodity Supervisor Name Role Phone Sai Holguin MD Primary Care Provider Unavailab Sai Yang Unavailable [phone] Andesron VEGA, Daniel Unavailable Unavailable Reason For Referral [...] Problem Screening for malignant neoplasm of colon (239642663) Encounter for screening for malignant neoplasm of colon (Z12.11) Active confirmed Problem Elevated liver enzymes level (385655706) Elevated liver function tests (R79.89) Active confirmed Problem Elevated liver enzymes level (359124665) Elevated liver enzymes (R74.8) Active confirmed Problem Gastroesophageal reflux disease (908792213) Gastroesophageal reflux disease, esophagitis presence not specified (K21.9) Active confirmed Problem Gallstones (136058956) Gallstones (K80.20) Active confirmed Problem Disorder of biliary tract (962428280) Bile duct abnormality (K83.9) Active confirmed Problem Biliary stricture (460616379) Biliary stricture (K83.1) Active confirmed Problem Sclerosing cholangitis (399461239) Sclerosing cholangitis (K83.09) Active confirmed Plan Of [...] OF [place] [address] [place] [address] [id number] SAIGE WAGNER Self - patient is the insured [facility] [address] [place] [phone] [id number] SAIGE WAGNER Self - patient is the insured Medical (General) History Medical History History ICD Code Denies DM,CVA,renal disease Hypertension Asthma CT 04/2017---drug-eluting stent placed a t [facility]--sees Dr. Morrell Choledocholithiasis--ERCP wi sphincterotomy and stone removal in 06/2017---? of CBD stricture but MRCP was negative and Dr. Blakely at [facility] did not think further intervention with ERCP/spyglass was warranted Gallstones--seen by Dr. Edelmira pierce--but holding off on surgery for at least 6-[address] and stent placement Hyperlipidemia Surgical History Surgery Date(Month/Year) Tubal ligation
--- OUTSIDE RECORDS SUMMARY | 2025-05-24 12:41 | XMS_ITS | Patient Health Record ---
Author Organization Sai Holguin III, MD Address [address] [place] [address] [place] [address] Care Team Providers Care Roll Carrier Name Role Phone Dr. Sai Holguin III Primary Care Provider Allergies Allergen (clinical drug ingredient) Drug/Non Drug Allergy documented on EMR Reaction Allergy Type Onset Date Status No Known Drug Allergy Unknown Drug Allergy Active No Known Food Allergy Unknown Drug Allergy Active Results Component Value Reference Range Notes Complete Blood Count Auto Di ff Reviewed date:04/12/2025 05:11:37 PM Interpretation: Performing Lab:[facility], [address] [place] [id number] Notes/Report: White Blood Count 7.1 4.8-10.8 X10*3/uL [...] 0.0-0.2 /100WBC Neutrophils Absolute Auto 4.2 2.0-8.3 x10*3/uL Imm Gran Abs Auto 0.03 0.00-0.03 X10*3/uL Lymphocytes Absolute Auto 2.3 1.2-4.9 X10*3/uL Monocytes Absolute Auto 0.4 0.1-1.2 X10*3/uL Eosinophils Absolute Auto 0.2 0.0-0.4 X10*3/uL Basophils Absolute Auto 0.0 0.0-0.2 X10*3/uL NRBC Abs Auto 0.000 0.0-0.012 X10*3/uL Comprehensive Cropsey. Panel Fa st Reviewed date:04/12/2025 05:11:37 PM Interpretation: Performing Lab:[address] [address] Notes/Report: Sodium 144 135-145 mmol/L Potassium 4.4 [...] Panel Reviewed date:04/12/2025 05:11:37 PM Interpretation: Performing Lab:[address] [address] Notes/Report: Triglycerides 119 <150 mg/dL Desirable Triglyceride: [...] Total Reviewed date:04/12/2025 05:11:37 PM Interpretation: Performing Lab:[facility], [address] [place] [address] [place] [address] Notes/Report: Vitamin D 25-OH Total 34.7 >30 [...] confirmed with another method such as LC-MS/MS. MM tomosynthesis screening B I (Not yet reviewed by provider) Interpretation: Performing Lab: Notes/Report: [address] [place] [address] Mammography Report Signed Patient: Shannan Navarro MR#: [id number] [birth year] : 1955 Acct:[id number] Age/Sex: 70 / F ADM Date: 05/17/25 Loc: [facility] Attending Dr: Sai Holguin MD Ordering Physician: Sai Holguin MD Results: 1Nega e Date of Service: 05/17/25 Follow Up: 1 Year From Orig inal Mammogram Procedure(s): MM tomosynthesis screening BI Accession Number(s): [id number] cc: Sai Holguin MD Reason For Exam: SCREENING EXAMINATION: MM SCREENING DIGITAL BREAST TOMOSYNTHESIS, BILATERAL CLINICAL INFORMATION: Screening. Asymptomatic. COMPARISON: Mammography: Comparison is made with available priors TECHNIQUE: Digital breast mammography with tomosynthesis is performed in both the craniocaudal and mediolateral oblique views along with computer-aided detection (CAD). FINDINGS: There are scattered areas of fibroglandular density. There are no significant masses, abnormal calcifications, or other abnormalities. MM/MM tomosynthesis screening BI IMPRESSION: No mammographic evidence of malignancy. ASSESSMENT: BI-RADS Category 1: Negative RECOMMENDATION: Routine annual mammography screening. 1 year F/U This examination should not preclude the clinical evaluation of a suspicious palpable abnormality. This patient's information was entered into a reminder system with a target due date for their next mammogram. Electronically signed by: Mayi Hilliard DO 05/20/2025 12:[address] 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 [address] Mammography Report Signed Patient: Vanessa Navarro MR#: [id number] [birth year] : 1955 Acct:[id number] Age/Sex: 70 / F ADM Date: 05/17/25 Loc: [facility] Attending Dr: Sai Holguin MD Ordering Physician: Sai Holguin MD Results: 1Negativ e Date of Service: 05/17/25 Follow Up: 1 Year From Orig inal Mammogram Procedure(s): MM tomosynthesis screening BI Accession Number(s): [id number] cc: Sai Holguin MD Reason For Exam: SCREENING EXAMINATION: MM SCREENING DIGITAL BREAST TOMOSYNTHESIS, BILATERAL CLINICAL INFORMATION: Screening. Asymptomatic. COMPARISON: Mammography: Comparison is made with available priors TECHNIQUE: Digital breast mammography with tomosynthesis is performed in both the craniocaudal and mediolateral oblique views along with computer-aided detection (CAD). FINDINGS: There are scattered areas of fibroglandular density. There are no significant masses, abnormal calcifications, or other abnormalities. MM/MM tomosynthesis screening BI IMPRESSION: No mammographic evidence of malignancy. ASSESSMENT: BI-RADS Category 1: Negative RECOMMENDATION: Routine annual mammography screening. 1 year F/U This examination should not preclude the clinical evaluation of a suspicious palpable abnormality. This patient's information was entered into a reminder system with a target due date for their next mammogram. Electronically fern d by: Myai Hilliard DO 05/20/2025 12:[address] [facility] Dictated By: Mayi Hilliard DO Signed By: <Electronically signed by Mayi Hilliard DO in OV> 05/20/25 1216 DD/ 5 TD/TT: 05/17/25923 Project Construction Assistant Manager: Reason For Referral Reason Evaluate and Treat [...] Status Metoprolol Succinate ER 25 MG (Prior Auth#:[id number]) Oral Active Atorvastatin Calcium 80 MG (Prior Auth#:[id number]) Oral Active Cimetidine 300 MG (Prior Auth#:[id number]) Oral Active ProAir HFA 108 (90 Base) [...] TABLET BY MO UTH AT BEDTIME Active Nitroglycerin 0.4 mg USE DIRECTED SUBLINGUAL ONCE A DAY Active Vitamin D3 25 MCG (1000 UT) TAKE 1 TABLE T BY MOUTH DAILY Active Omeprazole 20 mg TAKE 1 CAPSULE BY MO UTH DAILY Active Immunizations Vaccine Route Administration Date [...] Problem Status W/U Status Risk Notes Problem 3855855 Former smoker (Z87.891) Active confirmed We reviewed her plan to remain abstinent times of stress and illness. Problem 89886316 Anxiety (F41.9) Active confirmed She will continue on current therapy. Problem Vitamin D deficiency (92019160) Vitamin D deficiency, unspecified (E55.9) Active confirmed A vitamin D level has been ordered. She was continued on current medications. Problem 134920880 Mixed hyperlipidemia (E78.2) Active confirmed No change in he r regimen was made. Comprehensive blood work was ordered. Problem 404960924 Atherosclerotic heart disease of [place] coronary artery without angina pectoris (I25.10) Active [...] lithotripsy of the common bile duct. Problem 42557782 Age-related osteoporosis without current pathological fracture (M81.0) Active confirmed She will be continued on her current regimen and her bone marrow density test will be done periodically.A bone density test has been ordered. Problem 978601676 GERD without esophagitis (K21.9) Active confirmed Her recent episode of abdominal pain was due to gram-negative sepsis and obstruction of the common bile duct. Her reflexes well controlled with cyxc-vfk-[id number] medication. Problem 36840000 Essential hypertension (I10) Active confirmed Her blood pressure and vital signs were stable today. No change in her regimen was needed. Problem 871699061 Mild intermitten t asthma without complication (J45.20) Active confirmed There were a fe w inspiratory wheezes today but she was comfortable breathing room air. Problem Osteoarthritis (739723137) Osteoarthritis, unspecified osteoarthritis type, unspecified site (M19.90) Active confirmed She continues to have arthritic pain in her hips shoulders and fingers. There has been no change in the symptom. It is controlled with the current regimen. 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 She has no difficulty with food. Problem 931688668 Choledocholithia s is (K80.50) Active confirmed She [...] Date Provider Diagnosis Sai Holguin III, MD [address] [place] [address] DR [place], [place]HA [phone] 08/03/2024 Sai Holguin Essential hypertensi on I10 ; Osteoarthritis, unspecified osteoarthritis type, unspecified site M19.90 ; Atherosclerotic heart disease of [place] coronary artery without angina pectoris I25.10 ; Anxiety F41.9 ; Mild intermittent asthma without complication J45.20 ; Edentulous K00.0 ; Mixed hyperlipidemia E78.2 ; GERD without esophagitis K21.9 and Former smoker Z87.891 Sai Holguin III, MD [address] [place] [address] [address] [place] [address] 11/02/2024 Sai Holguin Mixed hyperlipidemia E78.2 ; Essential hypertension I10 ; Vitamin D deficiency, unspecified E55.9 ; Osteoarthritis, unspecified osteoarthritis type, unspecified site M19.90 ; Atherosclerotic heart disease of [place] coronary artery without angina pectoris I25.10 ; Mild intermittent asthma without complication J45.20 ; Former smoker Z87.891 and GERD without esophagitis K21.9 Sai Holguin III, MD [address] [place] [address] [place] [phone] 04/23/2025 Sai Holguin Atherosclerotic hear t disease of [place] coronary artery without angina pectoris I25.10 ; Former smoker Z87.891 ; Essential hypertension I10 ; Osteoarthritis, unspecified osteoarthritis type, unspecified site M19.90 and Anxiety F41.9 Sai Holguin III, MD [address] [place] [address] [address] [place] [address] 09/24/2024 Sai Holguin Assessments Encounter Date Diagnosis [...] illness. 04/23/2025 Atherosclerotic hear t disease of [place] coronary artery without angina pectoris (ICD-10 - [...] duct. 08/03/2024 Atherosclerotic hear t disease of [place] coronary artery without angina pectoris (ICD-10 - [...] air. 11/02/2024 Atherosclerotic hear t disease of [place] coronary artery without angina pectoris (ICD-10 - [...] bile duct. Her reflexes well controlled with [id number]-[id number] medication. 11/02/2024 GERD without esophagitis (ICD-10 - K21.9) Her recent episode of abdominal pain was due to gram-negative sepsis and obstruction of the common bile duct. Her reflexes well controlled with krev-htc-hrsgalg medication. 08/03/2024 Former smoker (ICD-1 0 - Z87.891) We reviewed her plan to remain abstinent times of stress and illness. Plan Of Treatment Pending Test Test Name Order Date PROFILE, FASTING (COMPREHENSIVE METABOLI C) 12/06/2019 PROFILE, [...] 08/01/2019 HEMOGLOBIN A1C (GLYCOHEMOGLOBIN) 021 LIPID PANEL 08/03/2024 LIPID PANEL 12/06/2019 LIPID PANEL 03/07/2020 LIPID PANEL 08/01/2019 LIPID PANEL 09/29/2020 LIPID PANEL 09/02/2021 LIPID PANEL 07/01/2020 LIPID PANEL 05/20/2020 LIPID PANEL 03/31/2020 LIPID PANEL 2021 GGT 03/31/2020 CBC w DIFF 12/02/2021 CBC w DIFF 2021 CBC w DIFF 03/31/2020 CBC w DIFF 12/06/2019 CBC w DIFF 04/23/2025 CBC w DIFF 03/07/2020 CBC w DIFF 08/01/2019 CBC w DIFF 09/29/2020 CBC w DIFF 11/02/2024 CBC w DIFF 09/02/2021 CBC w DIFF 07/01/2020 CBC w DIFF 05/20/2020 BONE DENSITY DEXA 10/19/2023 MAMMOGRAM DIGITAL BILATERAL SCREEN 08/01 VITAMIN D 25-OH TOTAL 08/01/2019 CBC WITH AUTO DIFF 08/03/2024 CBC WITH AUTO DIFF 04/20/2024 CBC WITH AUTO DIFF 10/19/2023 Lipid Panel 12/02/2021 Lipid Panel 04/20/2024 Lipid Panel 04/23/2025 Lipid Panel 10/19/2023 Lipid Panel 11/02/2024 Vitamin D 25-OH Total 11/02/2024 Vitamin D 25-OH Total 04/20/2024 Vitamin D 25-OH Total 04/23/2025 MM tomosynthesis screening BI 05/17/2025 Next Appt Details Provider Name:Sai Sandovalrne , 04/25/2026 09:00:00 AM, [address] [place] [address] NILA SALINAS, [place], [address], Insurance Providers Payer Name Payer Address Payer Phone Subscriber Number Group Number Insured Name Patient Relationship to Insured Coverage Start Date Coverage End Date MEDICARE NGS [address] [facility] [place] [address] [id number] Shannan Navarro Self - patient is the insured [place] [address] [facility] [place] [id number] Shannan Navarro Self - patient is the insured Medical (General) History Medical History History ICD Code HTN (hypertension) I10 Anxiety F41.9 Asthma J45.909 Osteoarthritis M19.90 coronary artery disease, Dr. Morrell , 2016 GERD hyperlipidemia edentulous cholelithiasis 2018 colonoscopy 2019 former smoker underweight severe OA right knee Surgical History Surgery Date(Month/Year) common bile duct stone, ERCP with sphincterotomy, [facility], Dr. Sai Wray 06/2017 full dental extractions cholecystectomy 12/2018 colonoscopy 2019 Stent placement, LAD, RCA 04/2017 Cesearean section tubal ligation Breast Biopsy, fibrocystic disease 1998
--- NOTE | 2025-05-24 12:48 | MHC.OFFWIV ---
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 History of Present Illness - The patient is a 70 year old individual presenting for evaluation of a tick bite. - The patient discovered a tick on the left leg yesterday while bathing and subsequently removed it. - The patient is unsure how long the tick was attached but describes it as being very small, not engorged. - The patient denies experiencing any fever, joint pain, or rash since the bite. Review of Systems - Constitutional: Denies fever. - Integumentary: Denies rash. - Musculoskeletal: Denies joint pain. All systems reviewed and are unremarkable except as noted in HPI Physical Exam General: Cooperative, healthy appearing, comfortable, no acute distress and well developed Orientation: Patient oriented x3 Limitations: No limitations Head: Normal to inspection Ears: Hearing grossly normal bilaterally Nose: Normal External nose present Face and sinus: Normal facial exam Eyes: Appearance normal, both eyes and all related structures Neck: Normal visual inspection and Yes full ROM Respiratory: Normal respiratory effort and able to speak in complete sentences. Skin: No rashes or lesions noted Neuro: Patient oriented x3 Extremities: Normal to inspection, left upper calf just inferior to the knee has a round area of erythema with a central scab noted, no drainage or warmth, no rash. [facility] Medical History Cholangitis Choledocholithiasis Atherosclerotic cardiovascular disease Chest pain COVID-19 vaccine series completed Asthma Depression History of coronary artery disease Cholelithiasis GERD (gastroesophageal reflux disease) Vitamin D deficiency Osteoporosis Surgical History Hx of cholecystectomy Hx of lithotripsy History of esophagogastroduodenoscopy (EGD) H/O colonoscopy History of ERCP H/O heart artery stent Hx of tubal ligation Hx of section Family History Father Diabetes Mother Healthy adult Social History Household Members: None Housing: Apartment Are you a primary mall plant caretaker to a significant other at home: No Do you presently have visiting nurse or other home services: No Alcohol intake: former Patient Tobacco Use Status: Former Tobacco user Tobacco use type: Cigarette Years Smoked: 44 e-Cigarette/Vaping Use: Never Used service: No Current occupational status: disabled Physical Exam Vital Signs: Last Vital Signs Temp 98.2 F 05/24/25 12:49 Pulse 74 05/24/25 12:49 BP 124/60 05/24/25 12:49 Pulse Ox 97 05/24/25 12:49 Oxygen Delivery Method Room Air 05/24/25 12:49 BMI result Body Mass Index 22.5 Assessment & Plan Assessment & Plan (1) Tick bite of left lower leg: Code(s): S80.862A - Insect bite (nonvenomous), left lower leg, initial encounter; W57.XXXA - Bitten or stung by nonvenomous insect and other nonvenomous arthropods, initial encounter Qualifiers: Encounter type: initial encounter Qualified Code(s): S80.862A - Insect bite (nonvenomous), left lower leg, initial encounter; W57.XXXA - Bitten or stung by nonvenomous insect and other nonvenomous arthropods, initial encounter Plan: Patient was informed and verbally consented to the use of an ambient scribe for clinic note documentation during this visit. - The tick was likely not attached for a long duration as it was not engorged, which reduces the risk of Lyme disease. - The body is expected to naturally expel any remaining parts of the tick. - A prophylactic, one-time dose of two doxycycline tablets will be prescribed. - Recommending application of bacitracin ointment to the affected area twice a day for a couple of days to prevent infection. - The patient should monitor for signs of Lyme disease, such as fever, joint pain, or a circular rash, and return for evaluation if they develop. Medications: New doxycycline hyclate 200 mg (2 x 100 mg) PO ONCE 2 tabs 0RF tick bite ppx Coding Level of Care Code Est Pt Level 3 (65233) Diagnoses Tick bite of left lower leg, initial encounter S80.862A; W57.XXXA Encounter type: initial encounter
[2025-05-24 12:49] VITALS: BP 124/60; PULSE 74; TEMP 36.8; O2SAT 97; BMI 22.5
== END 2025-05-24 13:19 | disposition home or self-care (01) ==
PROVIDERS: PCP Internal Medicine Medical Oncology; Visit Provider Physician Assistant
DX: S80.862A Insect bite (nonvenomous), left lower leg, initial encounter (principal); W57.XXXA Bitten or stung by nonvenomous insect and other nonvenomous arthropods, initial encounter

== ENCOUNTER → 2025-05-24 12:37 | Outpatient (BNVA) | payer MEDICARE, MEDICAID, SELFPAY | PROVIDERS: PCP Internal Medicine Medical Oncology; Visit Provider Physician Assistant | DX: S80.862A Insect bite (nonvenomous), left lower leg, initial encounter (principal); W57.XXXA Bitten or stung by nonvenomous insect and other nonvenomous arthropods, initial encounter | CPT/HCPCS: 99212 ==